=== PATIENT | female | born 1945 | race Caucasian/White ===

== ENCOUNTER 2020-04-23 16:35 | Emergency (ER) | payer MEDICARE, SELFPAY ==
[2020-04-23 16:43] VITALS: BP 133/55; PULSE 77; RESP 18; TEMP 36.6; O2SAT 96; BMI 26.1
--- NOTE | 2020-04-23 16:51 | CT_ITS ---
EXAMINATION: CT ABDOMEN AND PELVIS WITHOUT CONTRAST CLINICAL INFORMATION: Left lower quadrant pain with ventral hernia. COMPARISON: 09/11/2019 TECHNIQUE: Multidetector volumetric imaging was performed from the superior aspect of the liver through the pubic symphysis. Sagittal and coronal reformatted images were obtained on the technologist's workstation. This CT examination was performed using dose optimization techniques as appropriate, variously including the following: *Automated exposure control *Adjustment of mA and/or kV according to patient size (this includes techniques or standardized protocols for targeted exams where dose is matched to indication/reason for exam; i.e. extremities or head) *Use of iterative reconstruction technique DLP: 389 mGy-cm FINDINGS: LUNG BASES: The visualized lung bases are unremarkable. LIVER, GALLBLADDER, AND BILIARY TREE: The liver is normal in size, shape, and attenuation. No focal hepatic lesion or biliary ductal dilatation is present. The gallbladder is not seen. PANCREAS: Unremarkable. SPLEEN: Unremarkable. ADRENAL GLANDS: Unremarkable. KIDNEYS AND URETERS: The kidneys are normal in size, shape, and attenuation. No hydronephrosis, hydroureter, or calculi seen. No perinephric stranding. Left extrarenal pelvis is unchanged. BLADDER: Distended without wall thickening. GASTROINTESTINAL TRACT: Moderate to large hiatal hernia. Normal caliber small bowel. No obstruction. No colonic wall thickening or inflammatory change. Distal colonic anastomosis. No free air. No free fluid. ABDOMINAL WALL: Prior ventral hernia repair. Eventration of the central abdominal wall focally. Rectus diastases. LYMPH NODES: Normal. VASCULAR: Normal caliber aorta with mild atherosclerotic calcification. PELVIC VISCERA: No pelvic mass. OSSEOUS STRUCTURES: No acute or suspicious osseous abnormality. Compression deformities at T12 and L4 unchanged. Kyphoplasty cement of T11. Mild degenerative changes of the hips. CT/CT abdomen pelvis wo con IMPRESSION: No acute findings of the abdomen or pelvis. No inflammatory changes. Prior ventral abdominal wall hernia repair with focal eventration of the ventral abdominal wall. This is unchanged from prior.
--- NOTE | 2020-04-23 17:10 | PC.NURSE ---
pt to ct
[2020-04-23 17:40] LABS: Basophils Percent Auto 0.6 % (0-2); Eosinophils Absolute Auto 0.2 X10*3/uL (0.0-0.4); Hematocrit 35.6 % (37-47); Hemoglobin 11.6 g/dl (12.0-16.0); Imm Gran Abs Auto 0.01 X10*3/uL (0.00-0.03); Imm Gran Pct Auto 0.2 % (0.0-0.4); Lymphocytes Percent Auto 37.4 % (20-40); MANUAL DIFF FLAG NO; Mean Corpuscular HGB Conc 32.6 g/dl (31.0-35.0); Mean Corpuscular Volume 98.1 fL (80-98); Mean Platelet Volume 9.9 fL (9.4-12.3); Monocytes Absolute Auto 0.5 X10*3/uL (0.1-1.2); Monocytes Percent Auto 9.4 % (2-11); Neutrophils Absolute Auto 2.6 X10*3/uL (2.0-8.3); Neutrophils Percent Auto 49.4 % (45-73); Platelet Count 245 X10*3/uL (160-400); Red Blood Count 3.63 X10*6/uL (4.20-5.50); Red Cell Distribution Width 12.7 % (11.0-16.0); White Blood Count 5.3 X10*3/uL (4.8-10.8)
[2020-04-23 18:06] LABS: Alanine Aminotransferase 8 U/L (0-31); Albumin Level 3.6 g/dL (3.5-5.0); Alkaline Phosphatase 71 U/L (39-117); Anion Gap 12 (12-20); Aspartate Amino Transferase 16 U/L (5-31); Bilirubin Direct < 0.2 mg/dL (0.0-0.5); Bilirubin Total 0.3 mg/dL (0.0-1.0); Blood Urea Nitrogen 28 mg/dL (9-16); Calcium 9.3 mg/dL (8.4-10.2); Carbon Dioxide 30 mmol/L (22-29); Chloride 104 mmol/L (96-108); Creatinine Clr Calc Pharmacy 31.9; Estimated Glomerular Filt Rate 42; Glucose Random 85 mg/dL (60-115); Potassium 4.2 mmol/l (3.3-5.1); Sodium 142 mmol/L (135-145)
[2020-04-23] MEDS: 0.9 % Sodium Chloride 1,000 ML 999 ML IVCONT (18:19)
[2020-04-23 18:23] LABS: Lipase 88 U/L (8-78)
--- NOTE | 2020-04-23 19:06 | ED.ABDPAIN ---
HPI - Abdominal Pain General Chief Complaint: Abdominal Pain Stated Complaint: abd pain Time Seen by Provider: 04/23/20 16:51 Source: patient and EMS Mode of arrival: EMS Limitations: no limitations History of Present Illness HPI narrative: Patient's history of ventral hernia for long time was cleaning her bathtub earlier today complaining of pain in the hernia area which is going on for long time for patient. Patient denies any nausea or vomiting patient feels fine at this time denies any blood in the stool. No fever no cough no history of constipation Related Data Allergies Allergy/AdvReac Type Severity Reaction Status Date / Time ibuprofen [IBUPROFEN] Allergy Unknown KIDNEY Unverified 02/06/20 14:50 PROBLEMS oxycodone [From OXYCONTIN] Allergy Unknown UNKNOWN Unverified 02/06/20 14:50 Sulfa (Sulfonamide Allergy Unknown UNKNOWN Unverified 02/06/20 14:50 Antibiotics) [SULFA (SULFONAMIDE ANTIBIOTICS)] Ibuprofen Allergy Unknown Uncoded 05/08/17 00:00 Sulfer Allergy Unknown Uncoded 05/08/17 00:00 Review of Systems Review of Systems REVIEW OF SYSTEMS: Pertinent positives and negatives are stated above in the history. GEN: no fevers, chills, fatigue HEENT: no nasal congestion, sore throat, ear pain NEURO: no headache, dizziness, focal weakness PULM: no cough, shortness of breath CV: no chest pain, palpitations, LE edema ABD: no nausea, vomiting, diarrhea : no dysuria, urgency, frequency SKIN: no rash ROS otherwise negative x 10 Physical Exam Vital Signs: Vital Signs: Last Vital Signs Temp 97.9 F 04/23/20 16:43 Pulse 77 04/23/20 16:43 Resp 18 04/23/20 16:43 BP 133/55 L 04/23/20 16:43 Pulse Ox 96 04/23/20 16:43 Body Mass Index 26.1 Appearance: Alert. Oriented X3. No acute distress. Eyes: Pupils equal, round and reactive to light. ENT: Pharynx normal. Neck: Normal inspection. Neck supple. CVS: Normal heart rate and rhythm. Pulses normal. Respiratory: No respiratory distress. Breath sounds normal. Abdomen: Soft and nontender. Small ventral hernia on the left lower side reducible nontender bowel sounds are present Skin: Skin warm and dry. Normal skin color. Normal skin turgor. Extremities: No lower extremity edema. Good range of movement Neuro: Oriented X 3. No motor deficit. No sensory deficit. MDM - Abdominal Pain MDM Narrative Medical decision making narrative: Patient with prior ventral hernia repair with focal eventration on ventral abdominal wall no signs of obstruction is reducible CT scan without any obstruction, patient comfortable , will discharge patient home Medical Records Attestation: I reviewed the patient's medical records. Lab Data Attestation: I reviewed the patient's lab results. Result diagrams: 04/23/20 17:28 04/23/20 17:28 Labs: Lab Results 04/23/20 04/23/20 Range/Units 17:28 17:28 WBC 5.3 (4.8-10.8) X10*3/uL RBC 3.63 L (4.20-5.50) X10*6/uL Hgb 11.6 L (12.0-16.0) g/dl Hct 35.6 L (37-47) % MCV 98.1 H (80-98) fL MCH 32.0 (27.0-33.0) pg MCHC 32.6 (31.0-35.0) g/dl RDW 12.7 (11.0-16.0) % Plt Count 245 (160-400) X10*3/uL MPV 9.9 (9.4-12.3) fL Immature Gran % (Auto) 0.2 (0.0-0.4) % Neut % (Auto) 49.4 (45-73) % Lymph % (Auto) 37.4 (20-40) % [place] % (Auto) 9.4 (2-11) % Eos % (Auto) 3.0 (0-4) % Baso % (Auto) 0.6 (0-2) % Lymph # (Auto) 2.0 (1.2-4.9) X10*3/uL [place] # (Auto) 0.5 (0.1-1.2) X10*3/uL Eos # (Auto) 0.2 (0.0-0.4) X10*3/uL Baso # (Auto) 0.0 (0.0-0.2) X10*3/uL Abs Immat Gran (auto) 0.01 (0.00-0.03) X10*3/uL Absolute Neuts (auto) 2.6 (2.0-8.3) X10*3/uL Absolute Nucleated RBC 0.000 (0.0-0.012) X10*3/uL Nucleated RBC % (auto) 0.0 (0.0-0.2) /100WBC Sodium 142 (135-145) mmol/L Potassium 4.2 (3.3-5.1) mmol/l Chloride 104 (96-108) mmol/L Carbon Dioxide 30 H (22-29) mmol/L Anion Gap 12 (12-20) BUN 28 H (9-16) mg/dL Creatinine 1.24 (0.5-1.4) mg/dL Estim Creat Clear Calc 31.9 Estimated GFR 42 Random Glucose 85 (60-115) mg/dL Calcium 9.3 (8.4-10.2) mg/dL Total Bilirubin 0.3 (0.0-1.0) mg/dL Direct Bilirubin < 0.2 (0.0-0.5) mg/dL AST 16 (5-31) U/L ALT 8 (0-31) U/L Alkaline Phosphatase 71 (39-117) U/L Total Protein 6.0 L (6.5-8.0) g/dL Albumin 3.6 (3.5-5.0) g/dL Lipase 88 H (8-78) U/L Imaging Data CT scan - abdomen: Attestation: I personally reviewed and interpreted this imaging study as follows: Radiologist's impression: CT/CT abdomen pelvis wo con IMPRESSION: No acute findings of the abdomen or pelvis. No inflammatory changes. Prior ventral abdominal wall hernia repair with focal eventration of the ventral abdominal wall. This is unchanged from prior. Discharge Plan Discharge Clinical Impression: Hernia, ventral Patient Disposition: Home, Self-Care Instructions: Ventral Hernia (ED) Additional Instructions: Follow-up with PCP as needed Interventions: ED Discharge Assessment Last Done: 04/23/20 19:37 Discharge Date/Time: 04/23/20 19:37 [facility] Past Medical History Medical History Hernia Social History Social History Alcohol intake: never Smoking Status: Current every day smoker Use of substances other than those prescribed or required for medical reasons: No Advance Directives: No Advance Directives Information Provided: No
== END 2020-04-23 19:37 | disposition home or self-care (01) ==
PROVIDERS: Emergency Provider Internal Medicine; PCP Internal Medicine
DX: K43.9 Ventral hernia without obstruction or gangrene (principal); F17.200 Nicotine dependence, unspecified, uncomplicated
CPT/HCPCS: 36415; 74176; 80048; 80076; 83690; 85025; 96360; 99284

== ENCOUNTER 2021-02-06 17:16 | Emergency (ER) | payer MEDICARE, SELFPAY ==
--- NOTE | ~2021-02-06 | XR_ITS ---
EXAMINATION: PELVIS LEFT HIP LUMBAR SPINE LEFT RIBS CHEST CLINICAL INFORMATION: Fall COMPARISON: None TECHNIQUE: Frontal view of the chest. 3 views left RIBS Frontal and lateral views lumbar spine. Coned-down view lumbosacral junction in the lateral projection Frontal view of the pelvis 2 views left hip FINDINGS: Chest: There is tortuosity of the aorta. There may be a double density in the lower mediastinum. The cardiac size is within normal limits. There is no hilar mass or alveolar edema. No consolidation. No pleural fluid or pneumothorax. There is no evidence of pneumoperitoneum. There is augmentation cement in the thoracolumbar junction region. There are surgical clips in the left midabdomen. There are metallic tacks likely related to abdominal wall repair. Left RIBS: There is deformity in the anterolateral left 10th rib. This could be chronic. On one of the used there is a suggestion of some callus. There may be an additional deformity in the adjacent ribs. Lumbar spine: There is mild volume loss at L4 similar to the CT 04/23/20. Partially included augmentation cement in marked volume loss at T11 and T12. There are surgical clips and metallic tacks. Vascular calcification. The sacrum is obscured. Pelvis: Gas secures much of the detail. Metallic tacks superimposes over the pelvis. There is no definite disruption of the SI joints, hips or symphysis. No definite acute pelvic fracture. Left hip: The alignment is normal. No fracture demonstrated. XR/XR lumbar spine 2-3V IMPRESSION: Deformities in the anterolateral lower left ribs may be acute or subacute. Correlation necessary. Chronic deformities in the lower thoracic spine and L4 with no acute change No definite pelvic fracture or fracture or subluxation on the left hip demonstrated
--- NOTE | ~2021-02-06 | XR_ITS ---
EXAMINATION: PELVIS LEFT HIP LUMBAR SPINE LEFT RIBS CHEST CLINICAL INFORMATION: Fall COMPARISON: None TECHNIQUE: Frontal view of the chest. 3 views left RIBS Frontal and lateral views lumbar spine. Coned-down view lumbosacral junction in the lateral projection Frontal view of the pelvis 2 views left hip FINDINGS: Chest: There is tortuosity of the aorta. There may be a double density in the lower mediastinum. The cardiac size is within normal limits. There is no hilar mass or alveolar edema. No consolidation. No pleural fluid or pneumothorax. There is no evidence of pneumoperitoneum. There is augmentation cement in the thoracolumbar junction region. There are surgical clips in the left midabdomen. There are metallic tacks likely related to abdominal wall repair. Left RIBS: There is deformity in the anterolateral left 10th rib. This could be chronic. On one of the used there is a suggestion of some callus. There may be an additional deformity in the adjacent ribs. Lumbar spine: There is mild volume loss at L4 similar to the CT 04/23/20. Partially included augmentation cement in marked volume loss at T11 and T12. There are surgical clips and metallic tacks. Vascular calcification. The sacrum is obscured. Pelvis: Gas secures much of the detail. Metallic tacks superimposes over the pelvis. There is no definite disruption of the SI joints, hips or symphysis. No definite acute pelvic fracture. Left hip: The alignment is normal. No fracture demonstrated. XR/XR hip LT w PEL1V IMPRESSION: Deformities in the anterolateral lower left ribs may be acute or subacute. Correlation necessary. Chronic deformities in the lower thoracic spine and L4 with no acute change No definite pelvic fracture or fracture or subluxation on the left hip demonstrated
--- NOTE | ~2021-02-06 | XR_ITS ---
EXAMINATION: PELVIS LEFT HIP LUMBAR SPINE LEFT RIBS CHEST CLINICAL INFORMATION: Fall COMPARISON: None TECHNIQUE: Frontal view of the chest. 3 views left RIBS Frontal and lateral views lumbar spine. Coned-down view lumbosacral junction in the lateral projection Frontal view of the pelvis 2 views left hip FINDINGS: Chest: There is tortuosity of the aorta. There may be a double density in the lower mediastinum. The cardiac size is within normal limits. There is no hilar mass or alveolar edema. No consolidation. No pleural fluid or pneumothorax. There is no evidence of pneumoperitoneum. There is augmentation cement in the thoracolumbar junction region. There are surgical clips in the left midabdomen. There are metallic tacks likely related to abdominal wall repair. Left RIBS: There is deformity in the anterolateral left 10th rib. This could be chronic. On one of the used there is a suggestion of some callus. There may be an additional deformity in the adjacent ribs. Lumbar spine: There is mild volume loss at L4 similar to the CT 04/23/20. Partially included augmentation cement in marked volume loss at T11 and T12. There are surgical clips and metallic tacks. Vascular calcification. The sacrum is obscured. Pelvis: Gas secures much of the detail. Metallic tacks superimposes over the pelvis. There is no definite disruption of the SI joints, hips or symphysis. No definite acute pelvic fracture. Left hip: The alignment is normal. No fracture demonstrated. XR/XR ribs LT min 3V w CXR1V IMPRESSION: Deformities in the anterolateral lower left ribs may be acute or subacute. Correlation necessary. Chronic deformities in the lower thoracic spine and L4 with no acute change No definite pelvic fracture or fracture or subluxation on the left hip demonstrated
[2021-02-06 17:37] VITALS: BP 119/49; PULSE 68; RESP 18; TEMP 36.4; O2SAT 96; BMI 21.5
[2021-02-06 17:42] VITALS: BP 101/54; PULSE 70
--- NOTE | 2021-02-06 18:32 | ED_ITS ---
HPI - Fall General Chief Complaint: Fall <GERONIMO Mejia Last Filed: 02/06/21 18:40> Stated Complaint: back pain, fall <GERONIMO Mejia Last Filed: 02/06/21 18:40> Time Seen by Provider: 02/06/21 18:22 <GERONIMO Mejia Last Filed: 02/06/21 18:40> Source: patient <GERONIMO Mejia Last Filed: 02/06/21 18:40> Mode of arrival: ambulatory <GERONIMO Mejia Last Filed: 02/06/21 18:40> History of Present Illness HPI Narrative: 75-year-old female with a past medical history of hiatal hernia, presenting to the ED complaining of low back pain/left rib and left hip pain s/p mechanical fall [employer]. Reports at baseline ambulates with walker however walked to stove without walker to check if gas was left on and fell backwards onto buttock/back, denies head trauma or LOC. Denies taking anticoagulation. Reports was unable to get up, and was home alone. Has not ambulated since incident/or tried. Denies symptoms prior to fall. abdominal pain, nausea, vomiting, CP/SOB, numbness, tingling, weakness <GERONIMO Mejia Last Filed: 02/06/21 18:40> MD complaint: fall <GERONIMO Mejia Last Filed: 02/06/21 18:40> Onset (ago): hour(s) <GERONIMO Mejia Last Filed: 02/06/21 18:40> Related Data Allergies/Adverse Reactions: Allergies Allergy/AdvReac Type Severity Reaction Status Date / Time ibuprofen [IBUPROFEN] Allergy Unknown KIDNEY Unverified 02/06/20 14:50 PROBLEMS oxycodone [From OXYCONTIN] Allergy Unknown UNKNOWN Unverified 02/06/20 14:50 Sulfa (Sulfonamide Allergy Unknown UNKNOWN Unverified 02/06/20 14:50 Antibiotics) [SULFA (SULFONAMIDE ANTIBIOTICS)] Ibuprofen Allergy Unknown Uncoded 05/08/17 00:00 Sulfer Allergy Unknown Uncoded 05/08/17 00:00 <GERONIMO Mejia Last Filed: 02/06/21 18:40> Review of Systems Review of Systems: Constitutional: No Fever, No Night Sweats, No Fatigue, No Malaise ENT/Mouth: No Hearing loss, No Ear Pain, No sore throat, No Rhinorrhea Eyes: No Eye Pain, No Swelling, No Redness Cardiovascular: +Rib pain, No SOB, No Palpitations Respiratory: No Cough, No Sputum, No Dyspnea Gastrointestinal: No Nausea, No Vomiting, No Diarrhea, No Constipation, No Abdom inal pain Genitourinary: No Dysuria, No Urinary Frequency, No Hematuria, No Urinary Incontinence/retention, No Flank Pain Musculoskeletal: + joint pain, No Myalgias, No Joint Swelling Skin: No Skin Lesions, No rash Neuro: No Weakness, No Numbness, No Paresthesias, No Loss of Consciousness, No Headache <GERONIMO Mejia - Last Filed: 02/06/21 18:40> Yes all other systems are reviewed and are negative <GERONIMO Mejia - Last Filed: 02/06/21 18:40> Neurologic: Denies Abnormal speech present <GERONIMO Mejia - Last Filed: 02/06/21 18:40> [facility] Past Medical History Attestation statement: The following information was validated with the patient. <GERONIMO Mejia - Last Filed: 02/06/21 18:40> Medical History: Medical History Hernia <GERONIMO Mejia - Last Filed: 02/06/21 18:40> Social History Social History: Social History Alcohol intake: never Advance Directives: No Advance Directives Information Provided: No <GERONIMO Mejia - Last Filed: 02/06/21 18:40> Physical Exam Vital Signs: Vital Signs: Last Vital Signs Temp 97.8 F 02/06/21 20:00 Pulse 73 02/06/21 20:00 Resp 17 02/06/21 20:00 BP 117/59 L 02/06/21 20:00 Pulse Ox 96 02/06/21 20:00 Body Mass Index 21.5 <GERONIMO Mejia - Last Filed: 02/06/21 18:40> Vital Signs: Last Vital Signs Temp 97.8 F 02/06/21 20:00 Pulse 73 02/06/21 20:00 Resp 17 02/06/21 20:00 BP 117/59 L 02/06/21 20:00 Pulse Ox 96 02/06/21 20:00 Body Mass Index 21.5 <GERONIMO Beebe - Last Filed: 02/06/21 21:12> Vital Signs: Last Vital Signs Temp 97.8 F 02/06/21 20:00 Pulse 73 02/06/21 20:00 Resp 17 02/06/21 20:00 BP 117/59 L 02/06/21 20:00 Pulse Ox 96 02/06/21 20:00 Body Mass Index 21.5 <Zion Lazaro MD - Last Filed: 02/07/21 02:13> Const: General: cooperative and healthy appearing <GERONIMO Mejia - Last Filed: 02/06/21 18:40> Orientation/consciousness: patient oriented x3 <GERONIMO Mejia - Last Filed: 02/06/21 18:40> Limitations: no limitations <GERONIMO Mejia - Last Filed: 02/06/21 18:40> HENMT: Head: Yes normal to inspection and Yes atraumatic <GERONIMO Mejia - Last Filed: 02/06/21 18:40> Ears: hearing grossly normal bilaterally <GERONIMO Mejia - Last Filed: 02/06/21 18:40> General nose exam: Normal external nose present <GERONIMO Mejia - Last Filed: 02/06/21 18:40> Face and sinus: Yes normal facial exam <GERONIMO Mejia - Last Filed: 02/06/21 18:40> Throat: Yes posterior oropharynx normal <GERONIMO Mejia - Last Filed: 02/06/21 18:40> Eyes: General: appearance normal, both eyes and all related structures <GERONIMO Mejia - Last Filed: 02/06/21 18:40> Pupils: Equal, round and reactive pupils present <GERONIMO Mejia - Last Filed: 02/06/21 18:40> EOM: EOMs intact bilaterally <GERONIMO Mejia - Last Filed: 02/06/21 18:40> Neck: Neck: Yes normal visual inspection, Yes no lymphadenopathy and Yes no meningeal signs <Erin Cadetito PA - Last Filed: 02/06/21 18:40> Resp: Effort & Inspection: normal respiratory effort and no respiratory distress <Erin Gasca PA - Last Filed: 02/06/21 18:40> Cardio: Rate: regular rate <Erin Gasca MO - Last Filed: 02/06/21 18:40> GI: Inspection: Yes normal to inspection <Erin Campos MO - Last Filed: 02/06/21 18:40> Palpation (GI): Soft to palpation, nontender, no guarding and not rigid <Erin Cadetito MO - Last Filed: 02/06/21 18:40> Back/Spine/Pelvis: Other: No midline thoracic/lumbar spinous tenderness/step- off or deformity. + left-sided upper thoracic/rib tenderness to palpation <Erin Campos MO - Last Filed: 02/06/21 18:40> Skin: Rashes: no rashes <Erin Campos MO - Last Filed: 02/06/21 18:40> Wounds: no wounds <Erin Gasca MO - Last Filed: 02/06/21 18:40> Neuro: General: patient oriented x3, tone normal, moves all extremities, no meningeal signs, no focal motor deficits and CN's II-XI intact bilaterally <Erin Gasca MO - Last Filed: 02/06/21 18:40> Cranial nerves: Yes CN's II-XII intact bilaterally, Yes Equal, round and reactive pupils present and Yes Bilaterally intact EOM present <Erin Campos MO - Last Filed: 02/06/21 18:40> Cognition (Neuro): normal cognition <Erin Campos PA - Last Filed: 02/06/21 18:40> Speech: No Abnormal speech present <Erin Campos MO - Last Filed: 02/06/21 18:40> Motor exam (neuro): 5/5 motor strength present throughout <Erin [facility] PA - Last Filed: 02/06/21 18:40> Extrem: Other: Left hip with mild tenderness, no appreciable deformity. Active and passive ROM intact. Pelvis stable <Erin Campos PA - Last Filed: 02/06/21 18:40> General: Yes normal to inspection <GERONIMO Mejia - Last Filed: 02/06/21 18:40> Course Course Course Narrative: -1900--ED care transferred to GERONIMO Woodall pending imaging and dispo for results <GERONIMO Mejia - Last Filed: 02/06/21 18:40> Reevaluation(s) Reevaluation #1: X-rays negative for anything acute except possible left lower rib fracture. Patient was able to ambulate fine with a walker. Will provide incentive spirometer, prescription for naproxen. Advised patient to follow-up with her primary care provider. <GERONIMO Beebe - Last Filed: 02/06/21 21:12> MDM - Fall MDM Narrative Medical decision making narrative: 75-year-old female with a past medical history of hiatal hernia, presenting to the ED complaining of low back pain/left rib and left hip pain s/p mechanical fall [employer]. On exam VSS, NAD/well-appearing, physical exam as above, no midline spinous tenderness. Low concern for ICH. Rule out rib/pelvic/hip fracture. Likely mechanical fall Plan: X-rays, ambulation trial <GERONIMO Mejia - Last Filed: 02/06/21 18:40> Medical Records Attestation: I reviewed the patient's medical records. <GERONIMO Mejia - Last Filed: 02/06/21 18:40> Lab Data Attestation: I reviewed the patient's lab results. <GERONIMO Mejia - Last Filed: 02/06/21 18:40> Discharge Plan Discharge Clinical Impression: Arthralgia, Fall <GERONIMO Mejia - Last Filed: 02/06/21 18:40> Patient Disposition: Home, Self-Care <GERONIMO Mejia - Last Filed: 02/06/21 18:40> Instructions: Fall Prevention (ED) <GERONIMO Mejia - Last Filed: 02/06/21 18:40> Additional Instructions: Please use your incentive spirometer I would like you to use it twice every hour for the next 3 days. This will keep her lungs from collapsing and keep even getting pneumonia. Please take tylenol, 1000 mg every 8 hours, not to exceed 3000 mg in 24 hours. Please call your primary care provider on Monday for follow-up appointment. <GERONIMO Mejia - Last Filed: 02/06/21 18:40> Interventions: ED Discharge Assessment Last Done: 02/06/21 23:12 <GERONIMO Mejia - Last Filed: 02/06/21 18:40> Discharge Date/Time: 02/06/21 23:14 <GERONIMO Mejia - Last Filed: 02/06/21 18:40>
[2021-02-06 20:00] VITALS: BP 117/59; PULSE 73; RESP 17; TEMP 36.6; O2SAT 96
== END 2021-02-06 23:14 | disposition home or self-care (01) ==
PROVIDERS: Emergency Provider Emergency Medicine; PCP Internal Medicine
DX: M54.5 Low back pain (principal); R07.81 Pleurodynia; M25.552 Pain in left hip; Z79.899 Other long term (current) drug therapy
CPT/HCPCS: 71101; 72100; 73502; 99284

== ENCOUNTER 2021-04-19 11:15 | Emergency (ER) | payer MEDICARE, SELFPAY ==
[2021-04-19 11:35] VITALS: BP 125/58; PULSE 73; O2SAT 97
[2021-04-19 12:00] VITALS: BP 111/80; PULSE 78; RESP 18; TEMP 36.7; O2SAT 99; BMI 19.5
[2021-04-19 13:43] LABS: Color Urine YELLOW; Glucose Urine UA NEG (NEG); Leukocyte Esterase Urine 2+ (NEG); Nitrite Urine NEG (NEG); PH 5.5 (5.0-8.0); Specific Gravity - Urine <= 1.005 (1.005-1.025); UACC Culture Trigger YES; Urine Blood NEG (NEG); Urine Ketones NEG (NEG); Urine Protein NEG (NEG-TRACE)
[2021-04-19 13:44] LABS: Appearance Urine HAZY
[2021-04-19 13:55] LABS: Bacteria Urine 1+ /LPF; RBC Urine 0-2 /HPF (0); Squamous Epithelial Cell Urine 1+ /LPF
[2021-04-19 14:20] LABS: MANUAL DIFF FLAG NO
[2021-04-19 14:22] LABS: Basophils Percent Auto 0.2 % (0-2); Eosinophils Absolute Auto 0.1 X10*3/uL (0.0-0.4); Eosinophils Percent Auto 2.3 % (0-4); Hematocrit 36.1 % (37.0-47.0); Hemoglobin 11.8 g/dl (12.0-16.0); Imm Gran Abs Auto 0.01 X10*3/uL (0.00-0.03); Imm Gran Pct Auto 0.2 % (0.0-0.4); Lymphocytes Absolute Auto 1.6 X10*3/uL (1.2-4.9); Mean Corpuscular HGB Conc 32.7 g/dl (31.0-35.0); Mean Corpuscular Hemoglobin 32.1 pg (27.0-33.0); Mean Corpuscular Volume 98.1 fL (80.0-98.0); Mean Platelet Volume 10.8 fL (9.4-12.3); Monocytes Absolute Auto 0.4 X10*3/uL (0.1-1.2); Monocytes Percent Auto 7.9 % (2-11); Neutrophils Absolute Auto 3.4 x10*3/uL (2.0-8.3); Neutrophils Percent Auto 61.4 % (45-73); Platelet Count 261 X10*3/uL (160-400); Red Blood Count 3.68 X10*6/uL (4.20-5.50); Red Cell Distribution Width 12.8 % (11.0-16.0); White Blood Count 5.6 X10*3/uL (4.8-10.8)
[2021-04-19 14:39] LABS: Alanine Aminotransferase 12 U/L (0-31); Albumin Level 3.3 g/dL (3.5-5.0); Alkaline Phosphatase 91 U/L (39-117); Anion Gap 12 (12-20); Aspartate Amino Transferase 19 U/L (5-31); Bilirubin Total 0.2 mg/dL (0.0-1.0); Blood Urea Nitrogen 16 mg/dL (9-16); Calcium 9.4 mg/dL (8.4-10.2); Carbon Dioxide 26 mmol/L (22-29); Chloride 109 mmol/L (96-108); Creatinine Clr Calc Pharmacy 31.9; Estimated Glomerular Filt Rate 45; Glucose Random 95 mg/dL (60-115); Potassium 3.4 mmol/L (3.3-5.1); Sodium 144 mmol/L (135-145); Total Protein 6.3 g/dL (6.5-8.0)
== END 2021-04-19 21:14 | disposition left against medical advice (07) ==
PROVIDERS: Emergency Provider Emergency Medicine
DX: R10.9 Unspecified abdominal pain (principal); N39.0 Urinary tract infection, site not specified; Z79.899 Other long term (current) drug therapy
CPT/HCPCS: 36415; 80053; 81001; 85025; 87086; 99283

== ENCOUNTER 2021-07-05 04:54 | Emergency (ER) | payer MEDICARE, SELFPAY ==
--- NOTE | ~2021-07-05 | XR_ITS ---
EXAMINATION: XR ANKLE, RIGHT CLINICAL INFORMATION: Ankle pain, rule out fracture COMPARISON: 01/18/2018 TECHNIQUE: AP, lateral, and mortise views of the right ankle. FINDINGS: Redemonstrated plate and screw fixation hardware along the distal fibula and additional screw at the medial malleolus. Hardware appears intact and in similar position to prior. Alignment across the ankle is anatomic. No acute fracture is seen. Osteopenia is noted. Redemonstrated calcification along the distal tibiofibular syndesmosis. There is mild soft tissue swelling at the ankle. XR/XR ankle RT min 3V IMPRESSION: No acute osseous findings. Mild soft tissue swelling. Chronic and postoperative changes as noted above.
[2021-07-05 05:03] VITALS: BP 115/41; PULSE 65; RESP 16; O2SAT 95; BMI 22.3
--- NOTE | 2021-07-05 05:25 | ED.FALL ---
HPI - Fall General Chief Complaint: Fall Stated Complaint: Fall Time Seen by Provider: 07/05/21 05:12 Source: patient Mode of arrival: EMS Limitations: no limitations History of Present Illness HPI Narrative: 75-year-old female who presents emergency department for evaluation of a fall out of bed an injury to her right ankle. The patient states that her bed is low to the ground. She had medicines and johnathan luis on the bedside table. She states she reached over to get her medicines when she rolled out of bed and landed on the floor. She states that her floors a tile floor. The EMT state that they know the patient well and she falls frequently out of bed. They states that her bed is very low to the floor. The patient denied hitting her head. She denied loss of consciousness. She states that she is having pain in her right ankle from the fall. The patient states she had a previous fracture to the right ankle which required pins and screws to fix it. She states she currently has an infection of the right ankle and just started a new antibiotic. MD complaint: fall Onset (ago): minute(s) (Twenty) Fall from: out of bed Fall witnessed: no Place fall occurred: home Loss of consciousness: none Prolonged down time: no Symptoms prior to fall: none Context: other (Rolled out of bed reaching for medicine) Location of injury: other (Right ankle) Location of injury - extremities: right: ankle Severity: moderate Severity scale (1-10): 5 Quality: sharp and dull Associated symptoms (after fall): denies Related Data Allergies Allergy/AdvReac Type Severity Reaction Status Date / Time ibuprofen [IBUPROFEN] Allergy Intermediate KIDNEY Verified 04/19/21 12:00 PROBLEMS oxycodone [From OXYCONTIN] Allergy Unknown UNKNOWN Verified 04/19/21 12:00 Sulfa (Sulfonamide Allergy Unknown UNKNOWN Verified 04/19/21 12:00 Antibiotics) [SULFA (SULFONAMIDE ANTIBIOTICS)] Ibuprofen Allergy Unknown Unknown Uncoded 04/19/21 12:00 Sulfer Allergy Unknown Unknown Uncoded 04/19/21 12:00 Review of Systems Review of Systems: Yes all other systems are reviewed and are negative [facility] Past Medical History [facility] Narrative: Past medical history: Bipolar disorder, hiatal hernia, diverticulitis, right ankle fracture with internal fixation, right lower extremity infection. Past surgical history: Resection of the colon secondary to diverticulitis. . Social history: She states she lives at home with her brother Jaime. She smokes less than 1 pack of cigarettes per day times many years. She denies alcohol use. She denies drug use. Medical History Bipolar disorder Diverticulitis Hernia Kidney disease UTI (urinary tract infection) Surgical History H/O abdominal surgery Social History Social History Alcohol intake: never Advance Directives: No Physical Exam Vital Signs: Vital Signs: Last Vital Signs Pulse 64 07/05/21 06:23 Resp 12 07/05/21 06:23 BP 98/44 L 07/05/21 06:23 Pulse Ox 92 07/05/21 06:23 BMI result Body Mass Index 22.3 Const: Other: Frail, elderly female, very pleasant and cooperative, oriented to person and place, answers all questions appropriately, able to give me a very good history of her fall out of bed and past history. HENMT: Head: Yes normal to inspection, Yes normocephalic and Yes atraumatic Ears: external ears normal General nose exam: Normal external nose present Face and sinus: Yes normal facial exam Mouth: Normal oral and palatal mucosa present Throat: Yes posterior oropharynx normal Eyes: General: appearance normal, both eyes and all related structures Pupils: Equal, round and reactive pupils present Neck: Neck: Yes normal visual inspection, Yes no lymphadenopathy, Yes trachea midline and Yes supple Chest: Chest palpation & inspection: normal inspection of the chest and normal palpation of entire chest wall Resp: Effort & Inspection: normal respiratory effort and able to speak in complete sentences Auscultation: clear to auscultation bilaterally Cardio: Rate: regular rate Rhythm: regular rhythm Heart sounds: S1 normal heart sound present, S2 normal heart sound present and no murmurs GI: Inspection: Yes normal to inspection Palpation (GI): Soft to palpation, nontender and no guarding Auscultation: normal bowel sounds : General: Yes no CVA tenderness Back/Spine/Pelvis: Back: no CVA tenderness Skin: General skin exam: no rashes or lesions noted Neuro: Cranial nerves: Yes CN's II-XII intact bilaterally and Yes Equal, round and reactive pupils present Cognition (Neuro): normal cognition Motor exam (neuro): 5/5 motor strength present throughout Extrem: Other: Right ankle is tender to palpation, the ankle was wrapped with a complex dressing, the tips of the distal part of the patient's foot and toes are not wrapped, and they appear to be neurovascularly intact with no erythema or increased warmth. Psych: Appearance: grossly normal Speech and movement: Normal speech and movement present Affect: normal affect Attitude: cooperative Thought process: Normal thought process present Thought content: Normal thought content present Course Course Course Narrative: 75-year-old female who presented to the emergency department for evaluation a fall out of bed. The patient states that she did hurt her right ankle from falling out of bed otherwise had no other complaints. Examination did reveal tenderness with palpation of her right ankle, the ankle is wrapped and is currently being treated for a wound infection. I did obtain an x-ray of the right ankle and there was no evidence of acute fracture, the patient does have an old orthopedic repair. The patient will be discharged back to home if she can ambulate otherwise she will need case management. Discharge Plan Discharge Clinical Impression: Contusion of ankle, right, Fall from bed Patient Disposition: Home, Self-Care Instructions: Contusion in Adults (ED) Additional Instructions: The x-ray of your right ankle did not reveal any broken bones. The orthopedic hardware (plates and screws) appears to be normal and you did not injure your previous fracture from falling out of bed. Continue taking medications as prescribed by your provider. Take Tylenol (acetaminophen) 500 mg pills, 2 pills every 4 to 6 hours as needed for pain. Follow-up with your doctor in 2 days. Please return to the emergency department if your symptoms get worse or if you develop any symptoms that are concerning to you.
[2021-07-05 06:23] VITALS: BP 98/44; PULSE 64; RESP 12; O2SAT 92
--- NOTE | 2021-07-05 09:30 | PC.NURSE ---
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
[2021-07-05 09:44] VITALS: BP 102/62; PULSE 66; RESP 18; O2SAT 94
== END 2021-07-05 10:43 | disposition home or self-care (01) ==
PROVIDERS: Emergency Provider Emergency Medicine Emergency Medical Services; PCP Internal Medicine
DX: S90.01XA Contusion of right ankle, initial encounter (principal); W06.XXXA Fall from bed, initial encounter; Z91.81 History of falling; Y93.89 Activity, other specified; Y92.013 Bedroom of single-family (private) house as the place of occurrence of the external cause; Y99.9 Unspecified external cause status
CPT/HCPCS: 73610; 99283; 99284

== ENCOUNTER 2021-07-15 13:10 | Outpatient (RCR) | payer MEDICARE, OTHER, SELFPAY ==
--- NOTE | ~2021-07-15 | XR_ITS ---
EXAMINATION: XR ANKLE, RIGHT CLINICAL INFORMATION: Nonhealing wound of the right ankle. COMPARISON: 08/09/2021 TECHNIQUE: AP, lateral, and mortise views of the right ankle. FINDINGS: Medial malleolus fixation screw. Plate and screw fixation of the distal fibula. Hardware intact. Bony bridging across the distal tibiofibular syndesmosis. The ankle mortise is congruent. No acute fracture. No osseous erosions. Soft tissue swelling throughout. XR/XR ankle RT min 3V IMPRESSION: No osseous erosions to suggest osteomyelitis. Chronic changes of the ankle. Intact hardware.
[2022-01-11 16:59] LABS: MANUAL DIFF FLAG NO
[2022-01-11 17:25] LABS: Basophils Percent Auto 0.7 % (0-2); Eosinophils Absolute Auto 0.1 X10*3/uL (0.0-0.4); Eosinophils Percent Auto 1.9 % (0-4); Hematocrit 37.4 % (37.0-47.0); Imm Gran Abs Auto 0.01 X10*3/uL (0.00-0.03); Imm Gran Pct Auto 0.2 % (0.0-0.4); Lymphocytes Absolute Auto 1.6 X10*3/uL (1.2-4.9); Lymphocytes Percent Auto 28.3 % (20-40); Mean Corpuscular HGB Conc 32.1 g/dl (31.0-35.0); Mean Corpuscular Hemoglobin 32.1 pg (27.0-33.0); Monocytes Absolute Auto 0.5 X10*3/uL (0.1-1.2); Monocytes Percent Auto 8.8 % (2-11); Neutrophils Absolute Auto 3.4 x10*3/uL (2.0-8.3); Neutrophils Percent Auto 60.1 % (45-73); Platelet Count 306 X10*3/uL (160-400); Red Blood Count 3.74 X10*6/uL (4.20-5.50); Red Cell Distribution Width 13.3 % (11.0-16.0); White Blood Count 5.7 X10*3/uL (4.8-10.8)
[2022-01-11 17:41] LABS: C Reactive Protein 0.54 mg/dL (< or = 0.50)
[2022-01-11 17:47] LABS: Estimated Average Glucose 100 mg/dL; Hemoglobin A1c % 5.1 %
[2022-01-11 18:28] LABS: Erythrocyte Sedimentation Rate 34 MM/HR (0-20)
== END 2022-02-17 11:12 | disposition home or self-care (01) ==
LOC: HO.WCC 13:10
PROVIDERS: Physician Assistant; PCP Internal Medicine; Visit Provider Surgery
DX: I87.311 Chronic venous hypertension (idiopathic) with ulcer of right lower extremity (principal); L97.312 Non-pressure chronic ulcer of right ankle with fat layer exposed; J44.9 Chronic obstructive pulmonary disease, unspecified; F17.210 Nicotine dependence, cigarettes, uncomplicated
CPT/HCPCS: 11042; 15271; 36415; 73610; 83036; 84134; 85025; 85652; 86140; 97597; 99212; 99213; Q4158

== ENCOUNTER 2021-07-19 20:40 | Emergency (ER) | payer MEDICARE, SELFPAY ==
--- NOTE | ~2021-07-19 | CT_ITS ---
EXAMINATION: CT ABDOMEN AND PELVIS WITHOUT CONTRAST CLINICAL INFORMATION: Left lower quadrant pain, question diverticulitis COMPARISON: 04/23/2020 TECHNIQUE: Multidetector volumetric imaging was performed from the superior aspect of the liver through the pubic symphysis. Sagittal and coronal reformatted images were obtained on the technologist's workstation. This CT examination was performed using dose optimization techniques as appropriate, variously including the following: *Automated exposure control *Adjustment of mA and/or kV according to patient size (this includes techniques or standardized protocols for targeted exams where dose is matched to indication/reason for exam; i.e. extremities or head) *Use of iterative reconstruction technique DLP: 566 mGy-cm FINDINGS: LUNG BASES: There is subsegmental atelectasis in the medial right lower lobe. Coronary artery calcifications are present. LIVER, GALLBLADDER, AND BILIARY TREE: The liver is normal in size, shape, and attenuation. No focal hepatic lesion or biliary ductal dilatation is identified on this noncontrast exam. The gallbladder is not visualized. PANCREAS: Unremarkable. SPLEEN: Unremarkable. ADRENAL GLANDS: Unremarkable. KIDNEYS AND URETERS: Prominent left extrarenal pelvis is noted without appreciable obstructing calculus, similar to prior. No right hydronephrosis. A 2 mm mildly hyperdense focus in the right kidney may represent a hyperdense cyst. BLADDER: Unremarkable. GASTROINTESTINAL TRACT: Large hiatal hernia is present. The colonic anastomosis is noted. No convincing evidence of bowel obstruction. No free fluid or free air is seen. ABDOMINAL WALL: Status post ventral hernia repair. LYMPH NODES: No lymphadenopathy is seen, though assessment is limited in the absence of intravenous contrast. VASCULAR: There is atherosclerotic calcification along the aorta. PELVIC VISCERA: Unremarkable. OSSEOUS STRUCTURES: Degenerative changes are noted in the spine. There is vertebral body cement in T11. Redemonstrated severe compression deformity of T12 and partial compression deformity of L4. CT/CT abdomen pelvis wo con IMPRESSION: No acute findings identified in the abdomen/pelvis. Large hiatal hernia. Fleischner guidelines were followed.
[2021-07-19 20:57] VITALS: BP 124/44; BP 132/57; PULSE 76; PULSE 84; RESP 18; TEMP 36.9; O2SAT 97; BMI 21.7
[2021-07-19 21:30] LABS: MANUAL DIFF FLAG NO
[2021-07-19 21:33] LABS: Basophils Percent Auto 0.2 % (0-2); Eosinophils Absolute Auto 0.1 X10*3/uL (0.0-0.4); Eosinophils Percent Auto 1.8 % (0-4); Hematocrit 32.8 % (37.0-47.0); Hemoglobin 10.5 g/dl (12.0-16.0); Imm Gran Abs Auto 0.02 X10*3/uL (0.00-0.03); Imm Gran Pct Auto 0.4 % (0.0-0.4); Lymphocytes Absolute Auto 1.3 X10*3/uL (1.2-4.9); Lymphocytes Percent Auto 22.3 % (20-40); Monocytes Absolute Auto 0.5 X10*3/uL (0.1-1.2); Monocytes Percent Auto 8.9 % (2-11); Neutrophils Absolute Auto 3.7 x10*3/uL (2.0-8.3); Neutrophils Percent Auto 66.4 % (45-73); Platelet Count 291 X10*3/uL (160-400); Red Blood Count 3.28 X10*6/uL (4.20-5.50); Red Cell Distribution Width 13.5 % (11.0-16.0); White Blood Count 5.6 X10*3/uL (4.8-10.8)
[2021-07-19 21:48] LABS: Anion Gap 12 (12-20); Blood Urea Nitrogen 13 mg/dL (9-16); Calcium 9.1 mg/dL (8.4-10.2); Carbon Dioxide 27 mmol/L (22-29); Chloride 107 mmol/L (96-108); Creatinine Clr Calc Pharmacy 30.9; Estimated Glomerular Filt Rate 45; Glucose Random 121 mg/dL (60-115); Lipase 25 U/L (8-78); Potassium 4.1 mmol/L (3.3-5.1); Sodium 142 mmol/L (135-145)
--- NOTE | 2021-07-19 23:28 | ED_ITS ---
HPI - Abdominal Pain General Chief Complaint: Nausea/Vomiting/Diarrhea Stated Complaint: Abdominal pain Time Seen by Provider: 07/19/21 23:27 Source: patient Mode of arrival: ambulatory History of Present Illness HPI narrative: The came for left lower abdominal pain for last 24 hours with history of diverticulitis also has watery diarrhea, no blood in the stool no fever no chills patient is very frail weak Related Data Allergies Allergy/AdvReac Type Severity Reaction Status Date / Time ibuprofen [IBUPROFEN] Allergy Intermediate KIDNEY Verified 07/19/21 20:57 PROBLEMS oxycodone [From OXYCONTIN] Allergy Unknown UNKNOWN Verified 07/19/21 20:57 Sulfa (Sulfonamide Allergy Unknown UNKNOWN Verified 07/19/21 20:57 Antibiotics) [SULFA (SULFONAMIDE ANTIBIOTICS)] Ibuprofen Allergy Unknown Unknown Uncoded 07/19/21 20:57 Sulfer Allergy Unknown Unknown Uncoded 07/19/21 20:57 Review of Systems Review of Systems Yes all other systems are reviewed and are negative PMFSH Past Medical History Medical History Bipolar disorder Diverticulitis Hernia Kidney disease UTI (urinary tract infection) Surgical History H/O abdominal surgery Social History Social History Alcohol intake: never Advance Directives: No Advance Directives Information Provided: No Physical Exam ED Vital Signs: Vital Signs - 24 hr 07/19/21 20:57 07/20/21 00:36 07/20/21 01:39 Temperature 98.5 F 98.0 F Pulse Rate 76 72 64 Respiratory Rate 18 14 18 Blood Pressure 132/57 L 141/62 H 151/59 H Pulse Oximetry 97 96 97 BMI result Body Mass Index 21.7 Appearance: Alert. Oriented X3. No acute distress. Thin frail lady Eyes: No pallor/icterus ENT: Pharynx normal. Oral Mucosa moist Neck: Normal inspection. Neck supple. CVS: Normal heart rate and rhythm. Pulses normal. Respiratory: No respiratory distress. Equal air entry bilateral, no wheezing/rales/rhonchi Abdomen: Soft, tenderness left lower quadrant no rebound tenderness or guarding Bowel sounds are present, no mass palpable, no CVA tenderness Skin: Skin warm and dry. Normal skin color. Normal skin turgor. Extremities: No lower extremity edema. No calf tenderness Neuro: Oriented X 3. No motor deficit. MDM - Abdominal Pain MDM Narrative Medical decision making narrative: Patient with normal WBC count CT scan abdomen is negative came for lower abdominal pain with diarrhea no diarrhea in the ER will check the UA although patient denied any urinary complaints patient had no bowel movement in the ER taking p.o. fluids Lab Data Attestation: I reviewed the patient's lab results. Result diagrams: 07/19/21 21:07 07/19/21 21:07 Labs: Lab Results 07/19/21 07/19/21 Range/Units 21:07 21:07 WBC 5.6 (4.8-10.8) X10*3/uL RBC 3.28 L (4.20-5.50) X10*6/uL Hgb 10.5 L (12.0-16.0) g/dl Hct 32.8 L (37.0-47.0) % MCV 100.0 H (80.0-98.0) fL MCH 32.0 (27.0-33.0) pg MCHC 32.0 (31.0-35.0) g/dl RDW 13.5 (11.0-16.0) % Plt Count 291 (160-400) X10*3/uL MPV 10.0 (9.4-12.3) fL Immature Gran % (Auto) 0.4 (0.0-0.4) % Neut % (Auto) 66.4 (45-73) % Lymph % (Auto) 22.3 (20-40) % Letcher % (Auto) 8.9 (2-11) % Eos % (Auto) 1.8 (0-4) % Baso % (Auto) 0.2 (0-2) % Lymph # (Auto) 1.3 (1.2-4.9) X10*3/uL Letcher # (Auto) 0.5 (0.1-1.2) X10*3/uL Eos # (Auto) 0.1 (0.0-0.4) X10*3/uL Baso # (Auto) 0.0 (0.0-0.2) X10*3/uL Abs Immat Gran (auto) 0.02 (0.00-0.03) X10*3/uL Absolute Neuts (auto) 3.7 (2.0-8.3) x10*3/uL Absolute Nucleated RBC 0.000 (0.0-0.012) X10*3/uL Nucleated RBC % (auto) 0.0 (0.0-0.2) /100WBC Sodium 142 (135-145) mmol/L Potassium 4.1 D (3.3-5.1) mmol/L Chloride 107 (96-108) mmol/L Carbon Dioxide 27 (22-29) mmol/L Anion Gap 12 (12-20) BUN 13 (9-16) mg/dL Creatinine 1.17 (0.5-1.4) mg/dL Estim Creat Clear Calc 30.9 Estimated GFR 45 Random Glucose 121 H (60-115) mg/dL Calcium 9.1 (8.4-10.2) mg/dL Lipase 25 (8-78) U/L Discharge Plan Discharge Clinical Impression: Gastroenteritis Patient Disposition: Home, Self-Care Instructions: Gastroenteritis (ED) Additional Instructions: Drink plenty of fluids Follow-up PCP if any concerns
[2021-07-19] MEDS: 0.9 % Sodium Chloride 1,000 ML 999 ML IV (23:56)
[2021-07-20 00:36] VITALS: BP 141/62; PULSE 72; RESP 14; TEMP 36.7; O2SAT 96
--- NOTE | 2021-07-20 01:38 | PC.NURSE ---
pt has had no n/v/d since her arrival. pt taling water with no difficutly. pt stated that she was very thursty.
[2021-07-20 01:39] VITALS: BP 151/59; PULSE 64; RESP 18; O2SAT 97
[2021-07-20 02:05] VITALS: BP 118/64; PULSE 66; RESP 12; TEMP 36.5; O2SAT 96
--- NOTE | 2021-07-20 02:22 | PC.NURSE ---
waiting for pt ride to arrive and pt is finishing up her ivf. pt has no n/v/d. resting comfortably.
--- NOTE | 2021-07-20 03:04 | PC.NURSE ---
pt ride has arrived, pt still maintained no n/v/d and mango ivf and po food and fluids. skin warm and dry. no s/s of resp disress.
== END 2021-07-20 03:04 | disposition home or self-care (01) ==
PROVIDERS: Emergency Provider Internal Medicine
DX: K52.9 Noninfective gastroenteritis and colitis, unspecified (principal); R10.32 Left lower quadrant pain; R53.1 Weakness
CPT/HCPCS: 36415; 74176; 80048; 83690; 85025; 96360; 99284

== ENCOUNTER 2021-07-27 12:52 | Emergency (ER) | payer MEDICARE, SELFPAY ==
--- NOTE | ~2021-07-27 | CT_ITS ---
EXAMINATION: CT ABDOMEN AND PELVIS WITH CONTRAST CLINICAL INFORMATION: Left lower quadrant pain. Post hernia reduction. Evaluate for bowel ischemia. COMPARISON: Previous CT scans most recent 07/20/2021 TECHNIQUE: Multidetector volumetric images were obtained from the superior aspect of the liver through the pubic symphysis following administration 85 mL of Omnipaque 350 intravenous contrast. Sagittal and coronal reformatted images were obtained on the technologist's workstation. Oral contrast: Yes This CT examination was performed using dose optimization techniques as appropriate, variously including the following: *Automated exposure control *Adjustment of mA and/or kV according to patient size (this includes techniques or standardized protocols for targeted exams where dose is matched to indication/reason for exam; i.e. extremities or head) *Use of iterative reconstruction technique DLP: 445 mGy-cm FINDINGS: LUNG BASES: The visualized lung bases are clear. There is a large esophageal hernia or intrathoracic stomach. LIVER, GALLBLADDER, AND BILIARY TREE: The liver is normal in size, shape, and attenuation. No focal hepatic lesion or biliary ductal dilatation is present. The gallbladder is unremarkable with no evidence of radiopaque gallstones, gallbladder wall thickening, or obvious pericholecystic inflammatory changes. PANCREAS: Unremarkable. SPLEEN: Unremarkable. ADRENAL GLANDS: Unremarkable. KIDNEYS AND URETERS: There are innumerable small bilateral renal cysts. There is bilateral hydronephrosis questionable for UPJ obstructions. This appears increased compared to recent exam. BLADDER: Unremarkable. GASTROINTESTINAL TRACT: There are fluid-filled loops of small and large bowel. Small and large bowel is otherwise unremarkable.. The appendix is not seen. There is no ascites or free air. There is a large esophageal hernia or intrathoracic stomach. ABDOMINAL WALL: There is a small left inguinal hernia containing fat. There is evidence of previous abdominal wall hernia repair with mesh. No abdominal wall hernia is seen. LYMPH NODES: Normal. VASCULAR: There is evidence of atherosclerotic disease. No aneurysm is seen. The celiac axis, SMA and LEON are patent. The SMV is patent. PELVIC VISCERA: Unremarkable. OSSEOUS STRUCTURES: There is a T11 vertebral body compression fracture post kyphoplasty change. There is a severe T12 vertebral body compression fracture and some retropulsion into the spinal canal. This appears unchanged. There is a mild to moderate L4 vertebral body compression fracture that appears unchanged. No acute fracture is seen. There are degenerative changes and mild scoliosis of the spine. CT/CT abdomen pelvis w con IMPRESSION: Small left inguinal hernia containing fat. No abdominal wall hernia seen. Fluid-filled loops of small and large bowel. Large esophageal hernia or intrathoracic stomach. Bilateral hydronephrosis questionable for UPJ obstructions. This appears increased from previous exams recent exam. Innumerable small renal cysts questionable for polycystic disease. Fleischner guidelines were followed.
--- NOTE | ~2021-07-27 | US_ITS ---
EXAMINATION: US VENOUS ULTRASOUND WITH DOPPLER LOWER EXTREMITY, RIGHT CLINICAL INFORMATION: Right leg swelling COMPARISON: Previous exam 2018 TECHNIQUE: Ultrasound of the deep veins is performed from the hip to the calf with compression sonography and color and pulse Doppler assessment. Spectral analysis with color-flow imaging is performed. FINDINGS: There is normal venous compression and respiratory variation and augmented flow. The visualized common femoral vein, superficial femoral vein, profunda femoral vein, popliteal vein, and the peroneal vein shows no evidence of deep venous thrombosis. The posterior tibial vein is not well visualized. There is no significant popliteal fossa cyst. US/US venous duplex LE RT IMPRESSION: No DVT demonstrated in the right lower extremity. The posterior tibial vein is not well visualized.
[2021-07-27 12:57] VITALS: BP 124/40; PULSE 72; O2SAT 96
[2021-07-27 13:01] VITALS: BMI 19.3
--- NOTE | 2021-07-27 13:12 | ECG_ITS ---
Test Reason : CHEST PAIN Blood Pressure : / mmHG Vent. Rate : 070 BPM Atrial Rate : 070 BPM P-R Int : 146 ms QRS Dur : 078 ms QT Int : 386 ms P-R-T Axes : 077 051 063 degrees QTc Int : 416 ms Normal sinus rhythm Normal ECG When compared with ECG of 11-SEP-2019 15:52, No significant change was found Referred By: Rivas Hastings Electronically Signed By:VERNELL CHAVEZ MD
--- NOTE | 2021-07-27 13:41 | ED_ITS ---
HPI - Chest Pain General Chief Complaint: Chest Pain Stated Complaint: DIARRHEA/ABD/CHEST PAIN PER EMS Time Seen by Provider: 07/27/21 13:05 Source: patient Mode of arrival: EMS Limitations: no limitations History of Present Illness HPI narrative: 75-year-old female who presents emergency department for evaluation of chest pain, abdominal pain and right ankle pain. The patient states that she has been having a cramping sensation in her abdomen for at least 2 weeks. She was seen in the emergency department 2 weeks prior and had a negative workup including a CT scan of the abdomen pelvis with no clear etiology of her pain. She states that since being in the emergency department she has continued to have in termittent abdominal pain. She states the pain is located diffusely throughout her abdomen but is worse in the left lower quadrant. She states that over the past 1-2 days the pain is been constant, cramping which is 10/10. She states also that she has had similar pain on and off for many years. She is also complaining of chest pain. She points to her mid sternum. She states that she has had this pain for years. She states she had episode this morning which lasted 10-15 minutes and then resolved. She states that she did take Tylenol earlier with no relief for discomfort. She states she is having pain in her right ankle and she has a wound over her right ankle which is being treated with antibiotics. Related Data Home Medications Medication Instructions Recorded Confirmed alendronate 70 mg tablet 70 mg PO ANGEL@0600 07/27/21 07/27/21 ascorbic acid (vitamin C) 500 mg 500 mg PO DAILY 07/27/21 07/27/21 tablet (Vitamin C) cholecalciferol (vitamin D3) 50 50 mcg PO DAILY 07/27/21 07/27/21 mcg (2,000 unit) capsule (Vitamin D3) cranberry extract 250 mg capsule 250 mg PO BID 07/27/21 07/27/21 doxycycline hyclate 50 mg capsule 50 mg PO BID 07/27/21 07/27/21 folic acid 1 mg tablet 1 mg PO DAILY 07/27/21 07/27/21 furosemide 20 mg tablet 20 mg PO DAILY 07/27/21 07/27/21 lorazepam 1 mg tablet 1 mg PO TID 07/27/21 07/27/21 melatonin 3 mg tablet 3 mg PO BEDTIME 07/27/21 07/27/21 methenamine hippurate 1 gram tablet 1 g PO BID 07/27/21 07/27/21 multivitamin 1 tab PO DAILY 07/27/21 07/27/21 oxcarbazepine 150 mg tablet 150 mg PO BID 07/27/21 07/27/21 paroxetine HCl 30 mg tablet 30 mg PO DAILY 07/27/21 07/27/21 polyethylene glycol 3350 17 17 g PO DAILY 07/27/21 07/27/21 gram/dose oral powder propranolol 10 mg tablet 10 mg PO TID 07/27/21 07/27/21 salsalate 750 mg tablet 750 mg PO BID 07/27/21 07/27/21 sennosides 8.6 mg-docusate sodium 2 tab PO BEDTIME 07/27/21 07/27/21 50 mg tablet (Senna Plus) trazodone 50 mg tablet 50 mg PO BEDTIME PRN 07/27/21 07/27/21 Previous Rx's Medication Instructions Recorded cephalexin 500 mg capsule 500 mg PO QID 5 Days #20 cap 07/27/21 Allergies Allergy/AdvReac Type Severity Reaction Status Date / Time ibuprofen [IBUPROFEN] Allergy Intermediate KIDNEY Verified 07/19/21 20:57 PROBLEMS oxycodone [From OXYCONTIN] Allergy Unknown UNKNOWN Verified 07/19/21 20:57 Sulfa (Sulfonamide Allergy Unknown UNKNOWN Verified 07/19/21 20:57 Antibiotics) [SULFA (SULFONAMIDE ANTIBIOTICS)] Ibuprofen Allergy Unknown Unknown Uncoded 07/19/21 20:57 Sulfer Allergy Unknown Unknown Uncoded 07/19/21 20:57 Review of Systems Review of Systems: Yes all other systems are reviewed and are negative [facility] Past Medical History [facility] Narrative: Social history: She states she lives with her brother. She smokes 1/2 pack of cigarettes per day times many years. She denies alcohol use. She denies drug use. Medical History Bipolar disorder Diverticulitis Hernia Kidney disease UTI (urinary tract infection) Surgical History H/O abdominal surgery Social History Social History Alcohol intake: never Advance Directives: Yes Advance Directives Information Provided: No Advance Directives on File: No Physical Exam Vital Signs: Vital Signs: Last Vital Signs Temp 97.7 F 07/27/21 13:52 Pulse 67 07/27/21 13:52 Resp 18 07/27/21 13:52 BP 127/43 L 07/27/21 13:52 Pulse Ox 96 07/27/21 13:52 BMI result Body Mass Index 19.3 Const: Other: Awake, alert, elderly female patient, she does not appear to be in distress, she answers all questions appropriately HENMT: Head: Yes normal to inspection, Yes normocephalic and Yes atraumatic Ears: external ears normal General nose exam: Normal external nose present Face and sinus: Yes normal facial exam Mouth: Normal oral and palatal mucosa present Throat: Yes posterior oropharynx normal Eyes: Other: Pupils were equal round reactive light, sclera conjunctiva were normal, the patient's left deviates laterally and she has very minimal vision in this eye but can not see through her right eye, patient's eyelids and periorbital area is normal. Pupils: Equal, round and reactive pupils present Neck: Neck: Yes normal visual inspection, Yes no lymphadenopathy, Yes trachea midline and Yes supple Chest: Chest palpation & inspection: normal inspection of the chest and normal palpation of entire chest wall Resp: Effort & Inspection: normal respiratory effort and able to speak in complete sentences Auscultation: clear to auscultation bilaterally Cardio: Rate: regular rate Rhythm: regular rhythm Heart sounds: S1 normal heart sound present, S2 normal heart sound present and no murmurs GI: Other: Patient had a large hernia in her left lower quadrant which was very tender to palpation and firm, with gentle pressure I was able to reduce the hernia but this did not seem to improve her pain. Inspection: Yes normal to inspection Palpation (GI): Soft to palpation, Tenderness to palpation present (GI) (Moderate diffuse) in the LLQ (Large hernia) and no guarding Auscultation: normal bowel sounds : General: Yes no CVA tenderness Back/Spine/Pelvis: Back: no CVA tenderness Skin: General skin exam: no rashes or lesions noted Neuro: Cranial nerves: Yes CN's II-XII intact bilaterally and Yes Equal, round and reactive pupils present Cognition (Neuro): normal cognition Motor exam (neuro): 5/5 motor strength present throughout Extrem: Other: The patient has some slight erythema over her right lower extremity with a very small pinpoint area of purulent discharge over the right lateral malleolus. This purulent material was cultured. The patient's right lower extremity appears to be slightly larger than the left. General: Yes normal to inspection Psych: Appearance: grossly normal Speech and movement: Normal speech and movement present Affect: normal affect Attitude: cooperative Thought process: Normal thought process present Thought content: Normal thought content present Course Course Course Narrative: 75-year-old female who presents emergency department for evaluation of multiple complaints (abdominal pain, chest pain and right ankle pain). The patient's abdominal exam did reveal a large left lower quadrant hernia which may have been incarcerated but was easily reducible with gentle pressure, this did not relieve the patient's pain, she also had diffuse abdominal tenderness. The patient is complaining of chest pain but had no chest wall tenderness. Patient was complaining of right ankle pain and she did have a very small area of purulent discharge was some slight erythema over her right lower extremity, the right lower extremity slightly larger than the left. Given her incarcerated hernia which is not reduced, I did order a CT scan of the abdomen pelvis to rule out ischemic bowel verses other causes for abdominal pain such as diverticulitis. Also, I ordered a duplex ultrasound of the patient's right lower extremity to rule out DVT. I will check labs and an EKG as well. 1721: Laboratory evaluation: Low H&H 10 and 34.9, this is chronic. CO2 elevated 30. BUN elevated 21. Urinalysis revealed 1+ leukocyte esterase. Microscopic revealed 30-49 WBCs, 1+ squamous cells, 1+ bacteria, 3+ yeast. CT abdomen pelvis, radiology reading: Small left inguinal hernia containing fat. No abdominal wall hernia seen. Fluid-filled loops of small and large bowel. Large esophageal hernia or intrathoracic stomach. Bilateral hydronephrosis questionable for UPJ obstructions. This appears increased from previous exams recent exam. Innumerable small renal cysts questionable for polycystic disease. Given this reading, I do not think patient has any acute explain her pain, there is no evidence of bowel ischemia. Patient's pain was most likely secondary to the incarcerated left lower quadrant hernia. She is feeling better after this hernia was reduced. The patient does have some dysuria, and looking at her pharmacy prescription she was prescribed doxycycline 100 mg twice a day for 14 days on 07/22/2021. The patient is not certain if she has this medication . The patient will be started on Keflex 500 mg 4 times a day for 5 days for possible right ankle infection and UTI. MDM - Chest Pain Lab Data Result diagrams: 07/27/21 13:57 07/27/21 13:57 Labs: Lab Results 07/27/21 07/27/21 07/27/21 Range/Units 13:57 13:57 13:57 WBC 5.4 (4.8-10.8) X10*3/uL RBC 3.43 L (4.20-5.50) X10*6/uL Hgb 10.7 L (12.0-16.0) g/dl Hct 34.9 L (37.0-47.0) % MCV 101.7 H (80.0-98.0) fL MCH 31.2 (27.0-33.0) pg MCHC 30.7 L (31.0-35.0) g/dl RDW 13.8 (11.0-16.0) % Plt Count 313 (160-400) X10*3/uL MPV 10.2 (9.4-12.3) fL Immature Gran % (Auto) 0.2 (0.0-0.4) % Neut % (Auto) 61.0 (45-73) % Lymph % (Auto) 28.3 (20-40) % [place] % (Auto) 8.0 (2-11) % Eos % (Auto) 1.9 (0-4) % Baso % (Auto) 0.6 (0-2) % Lymph # (Auto) 1.5 (1.2-4.9) X10*3/uL [place] # (Auto) 0.4 (0.1-1.2) X10*3/uL Eos # (Auto) 0.1 (0.0-0.4) X10*3/uL Baso # (Auto) 0.0 (0.0-0.2) X10*3/uL Abs Immat Gran (auto) 0.01 (0.00-0.03) X10*3/uL Absolute Neuts (auto) 3.3 (2.0-8.3) x10*3/uL Absolute Nucleated RBC 0.000 (0.0-0.012) X10*3/uL Nucleated RBC % (auto) 0.0 (0.0-0.2) /100WBC Sodium 142 (135-145) mmol/L Potassium 4.6 (3.3-5.1) mmol/L Chloride 107 (96-108) mmol/L Carbon Dioxide 30 H (22-29) mmol/L Anion Gap 10 L (12-20) BUN 21 H D (9-16) mg/dL Creatinine 1.24 (0.5-1.4) mg/dL Estim Creat Clear Calc 31.0 Estimated GFR 42 Random Glucose 100 (60-115) mg/dL Lactic Acid 0.4 L (0.5-2.0) mmol/L Calcium 9.5 (8.4-10.2) mg/dL Total Bilirubin 0.2 (0.0-1.0) mg/dL AST 17 (5-31) U/L ALT 10 (0-31) U/L Alkaline Phosphatase 62 D (39-117) U/L Troponin I High Sens (<3.5-17.0) ng/L Total Protein 5.9 L (6.5-8.0) g/dL Albumin 3.2 L (3.5-5.0) g/dL Lipase 24 (8-78) U/L Urine Color Urine Appearance Urine pH (5.0-8.0) Ur Specific [place] (1.005-1.025) Urine Protein (NEG-TRACE) MG/DL Urine Glucose (UA) (NEG) MG/DL Urine Ketones (NEG) MG/DL Urine Blood (NEG) Urine Nitrite (NEG) Ur Leukocyte Esterase (NEG) Urine RBC (0) /HPF Urine WBC (0-4) /HPF Ur Squamous Epith Cells /LPF Urine Bacteria /LPF Urine Yeast /HPF 07/27/21 07/27/21 Range/Units 13:57 13:57 WBC (4.8-10.8) X10*3/uL RBC (4.20-5.50) X10*6/uL Hgb (12.0-16.0) g/dl Hct (37.0-47.0) % MCV (80.0-98.0) fL MCH (27.0-33.0) pg MCHC (31.0-35.0) g/dl RDW (11.0-16.0) % Plt Count (160-400) X10*3/uL MPV (9.4-12.3) fL Immature Gran % (Auto) (0.0-0.4) % Neut % (Auto) (45-73) % Lymph % (Auto) (20-40) % [place] % (Auto) (2-11) % Eos % (Auto) (0-4) % Baso % (Auto) (0-2) % Lymph # (Auto) (1.2-4.9) X10*3/uL [place] # (Auto) (0.1-1.2) X10*3/uL Eos # (Auto) (0.0-0.4) X10*3/uL Baso # (Auto) (0.0-0.2) X10*3/uL Abs Immat Gran (auto) (0.00-0.03) X10*3/uL Absolute Neuts (auto) (2.0-8.3) x10*3/uL Absolute Nucleated RBC (0.0-0.012) X10*3/uL Nucleated RBC % (auto) (0.0-0.2) /100WBC Sodium (135-145) mmol/L Potassium (3.3-5.1) mmol/L Chloride (96-108) mmol/L Carbon Dioxide (22-29) mmol/L Anion Gap (12-20) BUN (9-16) mg/dL Creatinine (0.5-1.4) mg/dL Estim Creat Clear Calc Estimated GFR Random Glucose (60-115) mg/dL Lactic Acid (0.5-2.0) mmol/L Calcium (8.4-10.2) mg/dL Total Bilirubin (0.0-1.0) mg/dL AST (5-31) U/L ALT (0-31) U/L Alkaline Phosphatase (39-117) U/L Troponin I High Sens 4.2 (<3.5-17.0) ng/L Total Protein (6.5-8.0) g/dL Albumin (3.5-5.0) g/dL Lipase (8-78) U/L Urine Color STRAW Urine Appearance CLEAR Urine pH 5.5 (5.0-8.0) Ur Specific [place] <= 1.005 (1.005-1.025) Urine Protein NEG (NEG-TRACE) MG/DL Urine Glucose (UA) NEG (NEG) MG/DL Urine Ketones NEG (NEG) MG/DL Urine Blood NEG (NEG) Urine Nitrite NEG (NEG) Ur Leukocyte Esterase 1+ H (NEG) Urine RBC 0 (0) /HPF Urine WBC 30-49 H (0-4) /HPF Ur Squamous Epith Cells 1+ /LPF Urine Bacteria 1+ /LPF Urine Yeast 3+ /HPF Discharge Plan Discharge Clinical Impression: Abdominal pain, Abdominal wall hernia, Cellulitis of right ankle, Urinary tract infection Patient Disposition: Home, Self-Care Additional Instructions: Your exam revealed that she had a left lower quadrant hernia that was popped through the wall of your abdomen and was stuck. This is called an incarcerated abdominal wall hernia. I was able to push this back in and the seemed to relieve your pain. The CT scan of your abdomen pelvis did not reveal any significant abnormalities, there was no evidence of ischemic bowel. Your urinalysis is positive for white blood cells and bacteria. You also have evidence of pus coming out of wound of your right ankle and redness around the right ankle consistent with skin infection. Continue taking your doxycycline as prescribed. Take Keflex 500 mg pills, 1 pill 4 times a day for 5 days. Follow-up with your doctor in 2 days. Please return to the emergency department if your symptoms get worse or if you develop any symptoms that are concerning to you. Prescriptions: New cephalexin 500 mg capsule 500 mg PO QID 5 Days Qty: 20 0RF No Action multivitamin Tablet 1 tab PO DAILY 0RF oxcarbazepine 150 mg tablet 150 mg PO BID 0RF trazodone 50 mg tablet 50 mg PO BEDTIME PRN (Reason: Insomnia) 0RF alendronate 70 mg tablet 70 mg PO ANGEL@0600 0RF doxycycline hyclate 50 mg capsule 50 mg PO BID 0RF sennosides-docusate sodium [Senna Plus] 8.6-50 mg tablet 2 tab PO BEDTIME 0RF melatonin 3 mg tablet 3 mg PO BEDTIME 0RF cranberry extract 250 mg capsule 250 mg PO BID 0RF propranolol 10 mg tablet 10 mg PO TID 0RF methenamine hippurate 1 gram tablet 1 g PO BID 0RF ascorbic acid (vitamin C) [Vitamin C] 500 mg tablet 500 mg PO DAILY 0RF paroxetine HCl 30 mg tablet 30 mg PO DAILY 0RF folic acid 1 mg tablet 1 mg PO DAILY 0RF furosemide 20 mg tablet 20 mg PO DAILY 0RF lorazepam 1 mg tablet 1 mg PO TID 0RF polyethylene glycol 3350 17 gram/dose powder 17 g PO DAILY 0RF salsalate 750 mg tablet 750 mg PO BID 0RF cholecalciferol (vitamin D3) [Vitamin D3] 50 mcg (2,000 unit) capsule 50 mcg PO DAILY 0RF
[2021-07-27 13:52] VITALS: BP 127/43; PULSE 67; RESP 18; TEMP 36.5; O2SAT 96
[2021-07-27 14:18] LABS: MANUAL DIFF FLAG NO
[2021-07-27 14:20] LABS: Appearance Urine CLEAR; Basophils Percent Auto 0.6 % (0-2); Color Urine STRAW; Eosinophils Absolute Auto 0.1 X10*3/uL (0.0-0.4); Eosinophils Percent Auto 1.9 % (0-4); Glucose Urine UA NEG (NEG); Hematocrit 34.9 % (37.0-47.0); Hemoglobin 10.7 g/dl (12.0-16.0); Imm Gran Abs Auto 0.01 X10*3/uL (0.00-0.03); Imm Gran Pct Auto 0.2 % (0.0-0.4); Leukocyte Esterase Urine 1+ (NEG); Lymphocytes Absolute Auto 1.5 X10*3/uL (1.2-4.9); Lymphocytes Percent Auto 28.3 % (20-40); Mean Corpuscular HGB Conc 30.7 g/dl (31.0-35.0); Mean Corpuscular Hemoglobin 31.2 pg (27.0-33.0); Mean Corpuscular Volume 101.7 fL (80.0-98.0); Mean Platelet Volume 10.2 fL (9.4-12.3); Monocytes Absolute Auto 0.4 X10*3/uL (0.1-1.2); Neutrophils Absolute Auto 3.3 x10*3/uL (2.0-8.3); Nitrite Urine NEG (NEG); PH 5.5 (5.0-8.0); Platelet Count 313 X10*3/uL (160-400); Red Blood Count 3.43 X10*6/uL (4.20-5.50); Red Cell Distribution Width 13.8 % (11.0-16.0); Specific Gravity - Urine <= 1.005 (1.005-1.025); UACC Culture Trigger YES; Urine Blood NEG (NEG); Urine Ketones NEG (NEG); Urine Protein NEG (NEG-TRACE); White Blood Count 5.4 X10*3/uL (4.8-10.8)
[2021-07-27 14:27] LABS: RBC Urine 0 /HPF (0); Squamous Epithelial Cell Urine 1+ /LPF; WBC Urine 30-49 /HPF (0-4)
[2021-07-27 14:28] LABS: Bacteria Urine 1+ /LPF
[2021-07-27 14:38] LABS: Lactic Acid 0.4 mmol/L (0.5-2.0)
[2021-07-27 14:45] LABS: Alanine Aminotransferase 10 U/L (0-31); Albumin Level 3.2 g/dL (3.5-5.0); Alkaline Phosphatase 62 U/L (39-117); Anion Gap 10 (12-20); Aspartate Amino Transferase 17 U/L (5-31); Bilirubin Total 0.2 mg/dL (0.0-1.0); Blood Urea Nitrogen 21 mg/dL (9-16); Calcium 9.5 mg/dL (8.4-10.2); Carbon Dioxide 30 mmol/L (22-29); Chloride 107 mmol/L (96-108); Estimated Glomerular Filt Rate 42; Glucose Random 100 mg/dL (60-115); Lipase 24 U/L (8-78); Potassium 4.6 mmol/L (3.3-5.1); Sodium 142 mmol/L (135-145); Total Protein 5.9 g/dL (6.5-8.0)
[2021-07-27 14:47] LABS: Troponin-I High Sensitivity 4.2 ng/L (<3.5-17.0)
[2021-07-27] MEDS: iohexoL 350 MG/ML 100 ML INFUS..BTL IV (15:20)
[2021-07-27] MEDS: Acetaminophen 325 MG TABLET 650 MG PO (15:21)
[2021-07-27] MEDS: 0.9 % Sodium Chloride 1,000 ML 999 ML IV (15:22)
--- NOTE | 2021-07-27 18:47 | PC.NURSE ---
pt medically cleared for discharge. discharge instructions reviewed with pt. pt assisted with getting dressed and brought to waiting room to wait for her exhusband.
== END 2021-07-27 19:01 | disposition home or self-care (01) ==
PROVIDERS: Emergency Provider Emergency Medicine Emergency Medical Services; PCP Internal Medicine
DX: R10.9 Unspecified abdominal pain (principal); K43.9 Ventral hernia without obstruction or gangrene; L03.115 Cellulitis of right lower limb; N39.0 Urinary tract infection, site not specified
CPT/HCPCS: 36415; 74177; 80053; 81001; 83605; 83690; 84484; 85025; 87071; 87086; 87205; 93005; 93971; 96360; 99284; 99285; Q9967

== ENCOUNTER 2021-08-09 11:39 | Emergency (ER) | payer MEDICARE, SELFPAY ==
--- NOTE | ~2021-08-09 | XR_ITS ---
EXAMINATION: XR ANKLE, RIGHT CLINICAL INFORMATION: Pain COMPARISON: None TECHNIQUE: AP, lateral, and mortise views of the right ankle. FINDINGS: There is a old healed distal fibular fracture with lateral plate and screws. Old healed medial malleolar fracture with solitary screw noted. There is bony syndesmosis of distal tibia and fibula. The ankle mortise and subtalar joints are normal. There is mild osteopenia of the hindfoot no fracture visualized. There is mild lateral malleolar soft tissue swelling. XR/XR ankle RT min 3V IMPRESSION: Old healed distal fibular and medial malleolar fractures with hardware as described above. There is bony syndesmosis of distal tibia and fibula.
[2021-08-09 11:48] VITALS: BP 115/65; PULSE 72; O2SAT 98
[2021-08-09 12:02] VITALS: BP 126/44; PULSE 71; RESP 16; TEMP 36.5; O2SAT 94; BMI 18.6
--- NOTE | 2021-08-09 12:04 | ED_ITS ---
HPI - General Adult General Chief complaint: Extremity Injury, Lower Stated complaint: RIGHT ANKLE PAIN Time Seen by Provider: 08/09/21 11:49 History of Present Illness HPI narrative: Patient with a history of chronic right ankle pain as well as chronic abdominal pain. She presents today mostly due to increasing right ankle pain. She has a history of a fracture with hardware placement years in the past. Since then she has had intermittently a wound over the lateral malleolus. She was seen here in this emergency department 3 weeks ago due to worsening pain. X-ray at that time showed no evidence of osteomyelitis or hardware issue. She was transition from chronic doxycycline to Keflex for 5 days. Patient states while she was on the Keflex she thought she improved somewhat. She is currently on doxycycline 100 mg twice a day and thinks it is not working. No fevers or chills. No increase in warmth or erythema of the ankle. Just an increase in pain. No recent stops falls trauma or any other incident the patient thinks family have exacerbated her pain. Secondary complaint of abdominal pain. It is diffuse but more on the left side. This is also chronic. She states she does not have much of an appetite but denies any nausea vomiting or diarrhea. She states she intermittently gets constipated due to not eating. The only recent change, per patient is no she has dysuria over the last week or so. Patient lives at home with her brother. She states she is able to ambulate with a walker. Related Data Home Medications Medication Instructions Recorded Confirmed alendronate 70 mg tablet 70 mg PO ANGEL@0600 07/27/21 07/27/21 ascorbic acid (vitamin C) 500 mg 500 mg PO DAILY 07/27/21 07/27/21 tablet (Vitamin C) cholecalciferol (vitamin D3) 50 50 mcg PO DAILY 07/27/21 07/27/21 mcg (2,000 unit) capsule (Vitamin D3) cranberry extract 250 mg capsule 250 mg PO BID 07/27/21 07/27/21 doxycycline hyclate 50 mg capsule 50 mg PO BID 07/27/21 07/27/21 folic acid 1 mg tablet 1 mg PO DAILY 07/27/21 07/27/21 furosemide 20 mg tablet 20 mg PO DAILY 07/27/21 07/27/21 lorazepam 1 mg tablet 1 mg PO TID 07/27/21 07/27/21 melatonin 3 mg tablet 3 mg PO BEDTIME 07/27/21 07/27/21 methenamine hippurate 1 gram tablet 1 g PO BID 07/27/21 07/27/21 multivitamin 1 tab PO DAILY 07/27/21 07/27/21 oxcarbazepine 150 mg tablet 150 mg PO BID 07/27/21 07/27/21 paroxetine HCl 30 mg tablet 30 mg PO DAILY 07/27/21 07/27/21 polyethylene glycol 3350 17 17 g PO DAILY 07/27/21 07/27/21 gram/dose oral powder propranolol 10 mg tablet 10 mg PO TID 07/27/21 07/27/21 salsalate 750 mg tablet 750 mg PO BID 07/27/21 07/27/21 sennosides 8.6 mg-docusate sodium 2 tab PO BEDTIME 07/27/21 07/27/21 50 mg tablet (Senna Plus) trazodone 50 mg tablet 50 mg PO BEDTIME PRN 07/27/21 07/27/21 Previous Rx's Medication Instructions Recorded cephalexin 500 mg capsule 500 mg PO QID 5 Days #20 cap 07/27/21 cephalexin 500 mg capsule 500 mg PO QID #20 cap 08/09/21 Allergies Allergy/AdvReac Type Severity Reaction Status Date / Time ibuprofen [IBUPROFEN] Allergy Intermediate KIDNEY Verified 07/19/21 20:57 PROBLEMS oxycodone [From OXYCONTIN] Allergy Unknown UNKNOWN Verified 07/19/21 20:57 Sulfa (Sulfonamide Allergy Unknown UNKNOWN Verified 07/19/21 20:57 Antibiotics) [SULFA (SULFONAMIDE ANTIBIOTICS)] Ibuprofen Allergy Unknown Unknown Uncoded 07/19/21 20:57 Sulfer Allergy Unknown Unknown Uncoded 07/19/21 20:57 Review of Systems Constitutional: Comments: No fevers or chills Cardiovascular: Comments: No chest pain Respiratory: Comments: No dyspnea or cough Gastrointestinal: Comments: Abdominal pain is described Genitourinary: Comments: Dysuria for the last week Musculoskeletal: Comments: Right ankle pain is described Integumentary/Breasts: Comments: Chronic right lateral malleolus wound. No change in discharge or surrounding erythema Neurologic: Comments: No new weakness numbness or paresthesias PMFSH Past Medical History Medical History (Updated 08/09/21 @ 14:19 by Riki Conrad MD) Ankle wound Bipolar disorder Cellulitis Diverticulitis Hernia Kidney disease UTI (urinary tract infection) Surgical History H/O abdominal surgery Social History Social History Alcohol intake: never Patient Tobacco Use Status: Current everyday Tobacco user Smoked in Last 30 Days: No Use of substances other than those prescribed or required for medical reasons: No Advance Directives: No Advance Directives Information Provided: No Physical Exam ED Vital Signs: Vital Signs - 24 hr 08/09/21 12:02 08/09/21 14:00 Temperature 97.7 F 97.8 F Pulse Rate 71 69 Respiratory Rate 16 18 Blood Pressure 126/44 L 112/44 L Pulse Oximetry 94 94 BMI result Body Mass Index 18.6 Const Other: Awake and alert in no acute distress HENMT Other: Normocephalic atraumatic Eyes Other: Dysconjugate gaze with left eye with lateral gaze. Apparent medial muscle pa lsy. Neck Other: Full range of motion Resp Other: Clear and equal bilaterally without wheezes rales or rhonchi Cardio Other: Regular rate and rhythm without murmurs rubs or gallops GI Other: Soft with diffuse tenderness. Greatest in the left lower to mid abdomen. No guarding or rebound. Patient states these are chronic findings. There is no significant distention. Bowel sounds Skin Other: Warm pink and dry. Right lateral malleolus with small 0.5 cm wound with only minimal drainage. No surrounding erythema. No fluctuance Neuro Other: Nonfocal other than ocular exam Extrem Other: Right ankle with tenderness on minimal palpation. No obvious deformity. No crepitus. Psych Other: Appears anxious Course Course Course Narrative: Right ankle chronic wounds The osteomyelitis Hardware infection Chronic abdominal pain Urinary tract infection 12:10. Patient clinically does not have signs or symptoms consistent with sepsis at this time 14:15. Workup in the emergency department shows labs are mostly normal. White count is normal as a CRP. ESR is 21, just over the normal range. X-ray shows no changes from prior without evidence of hardware issue or bony infection. Urinalysis does show probable urinary tract infection Treated with Keflex Will discharge home on 10 day supply Medical Decision Making Lab Data Result diagrams: 08/09/21 13:04 08/09/21 13:04 Labs: Lab Results 08/09/21 08/09/21 08/09/21 Range/Units 12:51 13:04 13:04 WBC 5.2 (4.8-10.8) X10*3/uL RBC 3.49 L (4.20-5.50) X10*6/uL Hgb 11.2 L (12.0-16.0) g/dl Hct 35.4 L (37.0-47.0) % MCV 101.4 H (80.0-98.0) fL MCH 32.1 (27.0-33.0) pg MCHC 31.6 (31.0-35.0) g/dl RDW 14.1 (11.0-16.0) % Plt Count 251 (160-400) X10*3/uL MPV 10.7 (9.4-12.3) fL Immature Gran % (Auto) 0.2 (0.0-0.4) % Neut % (Auto) 60.1 (45-73) % Lymph % (Auto) 27.6 (20-40) % [place] % (Auto) 9.0 (2-11) % Eos % (Auto) 2.5 (0-4) % Baso % (Auto) 0.6 (0-2) % Lymph # (Auto) 1.4 (1.2-4.9) X10*3/uL [place] # (Auto) 0.5 (0.1-1.2) X10*3/uL Eos # (Auto) 0.1 (0.0-0.4) X10*3/uL Baso # (Auto) 0.0 (0.0-0.2) X10*3/uL Abs Immat Gran (auto) 0.01 (0.00-0.03) X10*3/uL Absolute Neuts (auto) 3.1 (2.0-8.3) x10*3/uL Absolute Nucleated RBC 0.000 (0.0-0.012) X10*3/uL Nucleated RBC % (auto) 0.0 (0.0-0.2) /100WBC ESR 21 H (0-20) MM/HR Sodium (135-145) mmol/L Potassium (3.3-5.1) mmol/L Chloride (96-108) mmol/L Carbon Dioxide (22-29) mmol/L Anion Gap (12-20) BUN (9-16) mg/dL Creatinine (0.5-1.4) mg/dL Estim Creat Clear Calc Estimated GFR Random Glucose (60-115) mg/dL Calcium (8.4-10.2) mg/dL Total Bilirubin (0.0-1.0) mg/dL AST (5-31) U/L ALT (0-31) U/L Alkaline Phosphatase (39-117) U/L C-Reactive Protein (< or = 0.50) mg/dL Total Protein (6.5-8.0) g/dL Albumin (3.5-5.0) g/dL Urine Color YELLOW Urine Appearance HAZY Urine pH 6.0 (5.0-8.0) Ur Specific [place] 1.010 (1.005-1.025) Urine Protein NEG (NEG-TRACE) MG/DL Urine Glucose (UA) NEG (NEG) MG/DL Urine Ketones NEG (NEG) MG/DL Urine Blood NEG (NEG) Urine Nitrite NEG (NEG) Ur Leukocyte Esterase TRACE H (NEG) Urine RBC 0 (0) /HPF Urine WBC 30-49 H (0-4) /HPF Urine WBC Clumps NOTED Ur Squamous Epith Cells 1+ /LPF Urine Bacteria NONE /LPF Urine Yeast 1+ /HPF 03/21/22 Range/Units 13:04 WBC (4.8-10.8) X10*3/uL RBC (4.20-5.50) X10*6/uL Hgb (12.0-16.0) g/dl Hct (37.0-47.0) % MCV (80.0-98.0) fL MCH (27.0-33.0) pg MCHC (31.0-35.0) g/dl RDW (11.0-16.0) % Plt Count (160-400) X10*3/uL MPV (9.4-12.3) fL Immature Gran % (Auto) (0.0-0.4) % Neut % (Auto) (45-73) % Lymph % (Auto) (20-40) % [place] % (Auto) (2-11) % Eos % (Auto) (0-4) % Baso % (Auto) (0-2) % Lymph # (Auto) (1.2-4.9) X10*3/uL [place] # (Auto) (0.1-1.2) X10*3/uL Eos # (Auto) (0.0-0.4) X10*3/uL Baso # (Auto) (0.0-0.2) X10*3/uL Abs Immat Gran (auto) (0.00-0.03) X10*3/uL Absolute Neuts (auto) (2.0-8.3) x10*3/uL Absolute Nucleated RBC (0.0-0.012) X10*3/uL Nucleated RBC % (auto) (0.0-0.2) /100WBC ESR (0-20) MM/HR Sodium 142 (135-145) mmol/L Potassium 4.3 (3.3-5.1) mmol/L Chloride 106 (96-108) mmol/L Carbon Dioxide 29 (22-29) mmol/L Anion Gap 11 L (12-20) BUN 24 H (9-16) mg/dL Creatinine 1.22 (0.5-1.4) mg/dL Estim Creat Clear Calc 25.8 Estimated GFR 43 Random Glucose 91 (60-115) mg/dL Calcium 9.9 (8.4-10.2) mg/dL Total Bilirubin 0.3 (0.0-1.0) mg/dL AST 19 (5-31) U/L ALT 12 (0-31) U/L Alkaline Phosphatase 70 (39-117) U/L C-Reactive Protein 0.10 (< or = 0.50) mg/dL Total Protein 6.6 (6.5-8.0) g/dL Albumin 3.5 (3.5-5.0) g/dL Urine Color Urine Appearance Urine pH (5.0-8.0) Ur Specific [place] (1.005-1.025) Urine Protein (NEG-TRACE) MG/DL Urine Glucose (UA) (NEG) MG/DL Urine Ketones (NEG) MG/DL Urine Blood (NEG) Urine Nitrite (NEG) Ur Leukocyte Esterase (NEG) Urine RBC (0) /HPF Urine WBC (0-4) /HPF Urine WBC Clumps Ur Squamous Epith Cells /LPF Urine Bacteria /LPF Urine Yeast /HPF Discharge Plan Discharge Clinical Impression: Urinary tract infection Patient Disposition: Home, Self-Care Instructions: Urinary Tract Infection in Older Adults (ED) Additional Instructions: Your x-ray and lab work looked good. Keflex is both for the wound as well as your urinary tract infection Prescriptions: New cephalexin 500 mg capsule 500 mg PO QID Qty: 20 0RF No Action multivitamin Tablet 1 tab PO DAILY 0RF oxcarbazepine 150 mg tablet 150 mg PO BID 0RF trazodone 50 mg tablet 50 mg PO BEDTIME PRN (Reason: Insomnia) 0RF alendronate 70 mg tablet 70 mg PO ANGEL@0600 0RF doxycycline hyclate 50 mg capsule 50 mg PO BID 0RF sennosides-docusate sodium [Senna Plus] 8.6-50 mg tablet 2 tab PO BEDTIME 0RF melatonin 3 mg tablet 3 mg PO BEDTIME 0RF cranberry extract 250 mg capsule 250 mg PO BID 0RF propranolol 10 mg tablet 10 mg PO TID 0RF methenamine hippurate 1 gram tablet 1 g PO BID 0RF ascorbic acid (vitamin C) [Vitamin C] 500 mg tablet 500 mg PO DAILY 0RF paroxetine HCl 30 mg tablet 30 mg PO DAILY 0RF folic acid 1 mg tablet 1 mg PO DAILY 0RF furosemide 20 mg tablet 20 mg PO DAILY 0RF lorazepam 1 mg tablet 1 mg PO TID 0RF polyethylene glycol 3350 17 gram/dose powder 17 g PO DAILY 0RF salsalate 750 mg tablet 750 mg PO BID 0RF cholecalciferol (vitamin D3) [Vitamin D3] 50 mcg (2,000 unit) capsule 50 mcg PO DAILY 0RF cephalexin 500 mg capsule 500 mg PO QID 5 Days Qty: 20 0RF
--- NOTE | 2021-08-09 12:17 | PC.NURSE ---
pt a&ox3, vss, hx chronic wound to outside right ankle, being monitored by wound care/home nurse, worse over the past couple of days, tender, small amount of swelling, pt also c/o abd pain - hx of same/chronic, pt requesting UA.
--- NOTE | 2021-08-09 12:26 | PC.NURSE ---
xray being obtained
[2021-08-09 13:01] LABS: Glucose Urine UA NEG (NEG); Leukocyte Esterase Urine TRACE (NEG); Nitrite Urine NEG (NEG); UACC Culture Trigger YES; Urine Blood NEG (NEG); Urine Ketones NEG (NEG); Urine Protein NEG (NEG-TRACE)
[2021-08-09 13:02] LABS: Appearance Urine HAZY; Color Urine YELLOW
[2021-08-09 13:09] LABS: WBC Urine 30-49 /HPF (0-4)
--- NOTE | 2021-08-09 13:09 | PC.NURSE ---
labs drawn, 20 G IV placed R forearm
[2021-08-09 13:10] LABS: RBC Urine 0 /HPF (0); Squamous Epithelial Cell Urine 1+ /LPF; WBC Clumps Urine NOTED
[2021-08-09 13:29] LABS: MANUAL DIFF FLAG NO
[2021-08-09 13:31] LABS: Basophils Percent Auto 0.6 % (0-2); Eosinophils Absolute Auto 0.1 X10*3/uL (0.0-0.4); Eosinophils Percent Auto 2.5 % (0-4); Hematocrit 35.4 % (37.0-47.0); Hemoglobin 11.2 g/dl (12.0-16.0); Imm Gran Abs Auto 0.01 X10*3/uL (0.00-0.03); Imm Gran Pct Auto 0.2 % (0.0-0.4); Lymphocytes Absolute Auto 1.4 X10*3/uL (1.2-4.9); Lymphocytes Percent Auto 27.6 % (20-40); Mean Corpuscular HGB Conc 31.6 g/dl (31.0-35.0); Mean Corpuscular Hemoglobin 32.1 pg (27.0-33.0); Mean Corpuscular Volume 101.4 fL (80.0-98.0); Mean Platelet Volume 10.7 fL (9.4-12.3); Monocytes Absolute Auto 0.5 X10*3/uL (0.1-1.2); Neutrophils Absolute Auto 3.1 x10*3/uL (2.0-8.3); Neutrophils Percent Auto 60.1 % (45-73); Platelet Count 251 X10*3/uL (160-400); Red Blood Count 3.49 X10*6/uL (4.20-5.50); Red Cell Distribution Width 14.1 % (11.0-16.0); White Blood Count 5.2 X10*3/uL (4.8-10.8)
[2021-08-09 13:46] LABS: Alanine Aminotransferase 12 U/L (0-31); Albumin Level 3.5 g/dL (3.5-5.0); Alkaline Phosphatase 70 U/L (39-117); Anion Gap 11 (12-20); Aspartate Amino Transferase 19 U/L (5-31); Bilirubin Total 0.3 mg/dL (0.0-1.0); Blood Urea Nitrogen 24 mg/dL (9-16); Calcium 9.9 mg/dL (8.4-10.2); Carbon Dioxide 29 mmol/L (22-29); Chloride 106 mmol/L (96-108); Creatinine Clr Calc Pharmacy 25.8; Estimated Glomerular Filt Rate 43; Glucose Random 91 mg/dL (60-115); Potassium 4.3 mmol/L (3.3-5.1); Sodium 142 mmol/L (135-145); Total Protein 6.6 g/dL (6.5-8.0)
[2021-08-09 14:00] VITALS: BP 112/44; PULSE 69; RESP 18; TEMP 36.6; O2SAT 94
--- NOTE | 2021-08-09 14:04 | PC.NURSE ---
patient a&o, pt frequent urination on bedpan- pt reports burning with urination, plant ops was notified to fix call ritter, vitals stable, will continue to monitor.
[2021-08-09 14:05] LABS: Erythrocyte Sedimentation Rate 21 MM/HR (0-20)
[2021-08-09] MEDS: cephALEXin 500 MG CAPSULE PO (14:25)
--- NOTE | 2021-08-09 14:25 | PC.NURSE ---
pt given food & tea per request, spoke makenzie palmer - will come to pick pt up.
--- NOTE | 2021-08-09 14:26 | PC.NURSE ---
patient medicated per order
== END 2021-08-09 14:51 | disposition home or self-care (01) ==
PROVIDERS: Emergency Provider Emergency Medicine
DX: N39.0 Urinary tract infection, site not specified (principal); G89.29 Other chronic pain; M25.571 Pain in right ankle and joints of right foot; F17.200 Nicotine dependence, unspecified, uncomplicated; Z98.890 Other specified postprocedural states
CPT/HCPCS: 36415; 73610; 80053; 81001; 81003; 85025; 85652; 86140; 87086; 99283; 99284

== ENCOUNTER 2021-09-09 02:59 | Emergency (ER) | payer OTHER, SELFPAY ==
--- NOTE | 2021-09-09 | ECG_ITS ---
Test Reason : SOB Blood Pressure : / mmHG Vent. Rate : 097 BPM Atrial Rate : 097 BPM P-R Int : 134 ms QRS Dur : 068 ms QT Int : 332 ms P-R-T Axes : 061 014 056 degrees QTc Int : 421 ms Normal sinus rhythm Normal ECG When compared with ECG of 27-JUL-2021 13:08, No significant change was found Referred By: Generic ED Physician Electronically Signed By:VERNELL CHAVEZ MD
--- NOTE | ~2021-09-09 | XR_ITS ---
EXAMINATION: XR CHEST CLINICAL INFORMATION: Shortness of breath COMPARISON: 02/06/2021 and 07/27/2021 TECHNIQUE: Frontal view of the chest was obtained. FINDINGS: Large gas-filled hiatal hernia. The lungs are well expanded. No consolidation, edema, or effusion. No pneumothorax. The cardiomediastinal silhouette is within normal limits. XR/XR chest 1V IMPRESSION: No acute pulmonary finding. Large hiatal hernia.
[2021-09-09 03:09] VITALS: BP 127/58; PULSE 102; RESP 18; TEMP 37.3; O2SAT 96; BMI 20.6
--- NOTE | 2021-09-09 03:18 | ED_ITS ---
HPI - SOB/Dyspnea General Chief Complaint: Dyspnea Stated Complaint: difficulty breathing Time Seen by Provider: 09/09/21 03:16 Source: patient Mode of arrival: EMS Limitations: no limitations History of Present Illness HPI Narrative: Patient was sleeping in her bed started reaming about cleaning the house suddenly woke up feeling short of breath no chest pain or palpitation on arrival patient was saturating 96%. No diaphoresis no nausea no vomiting patient was asymptomatic before she went to bed Related Data Home Medications Medication Instructions Recorded Confirmed alendronate 70 mg tablet 70 mg PO ANGEL@0600 07/27/21 07/27/21 ascorbic acid (vitamin C) 500 mg 500 mg PO DAILY 07/27/21 07/27/21 tablet (Vitamin C) cholecalciferol (vitamin D3) 50 50 mcg PO DAILY 07/27/21 07/27/21 mcg (2,000 unit) capsule (Vitamin D3) cranberry extract 250 mg capsule 250 mg PO BID 07/27/21 07/27/21 doxycycline hyclate 50 mg capsule 50 mg PO BID 07/27/21 07/27/21 folic acid 1 mg tablet 1 mg PO DAILY 07/27/21 07/27/21 furosemide 20 mg tablet 20 mg PO DAILY 07/27/21 07/27/21 lorazepam 1 mg tablet 1 mg PO TID 07/27/21 07/27/21 melatonin 3 mg tablet 3 mg PO BEDTIME 07/27/21 07/27/21 methenamine hippurate 1 gram tablet 1 g PO BID 07/27/21 07/27/21 multivitamin 1 tab PO DAILY 07/27/21 07/27/21 oxcarbazepine 150 mg tablet 150 mg PO BID 07/27/21 07/27/21 paroxetine HCl 30 mg tablet 30 mg PO DAILY 07/27/21 07/27/21 polyethylene glycol 3350 17 17 g PO DAILY 07/27/21 07/27/21 gram/dose oral powder propranolol 10 mg tablet 10 mg PO TID 07/27/21 07/27/21 salsalate 750 mg tablet 750 mg PO BID 07/27/21 07/27/21 sennosides 8.6 mg-docusate sodium 2 tab PO BEDTIME 07/27/21 07/27/21 50 mg tablet (Senna Plus) trazodone 50 mg tablet 50 mg PO BEDTIME PRN 07/27/21 07/27/21 Previous Rx's Medication Instructions Recorded cephalexin 500 mg capsule 500 mg PO QID 5 Days #20 cap 07/27/21 cephalexin 500 mg capsule 500 mg PO QID #20 cap 08/09/21 Allergies Allergy/AdvReac Type Severity Reaction Status Date / Time ibuprofen [IBUPROFEN] Allergy Intermediate KIDNEY Verified 07/19/21 20:57 PROBLEMS oxycodone [From OXYCONTIN] Allergy Unknown UNKNOWN Verified 07/19/21 20:57 Sulfa (Sulfonamide Allergy Unknown UNKNOWN Verified 07/19/21 20:57 Antibiotics) [SULFA (SULFONAMIDE ANTIBIOTICS)] Ibuprofen Allergy Unknown Unknown Uncoded 07/19/21 20:57 Sulfer Allergy Unknown Unknown Uncoded 07/19/21 20:57 Review of Systems Review of Systems: Yes all other systems are reviewed and are negative [facility] Past Medical History Medical History Ankle wound Bipolar disorder Cellulitis Diverticulitis Hernia Kidney disease UTI (urinary tract infection) Surgical History H/O abdominal surgery Social History Social History Alcohol intake: never Patient Tobacco Use Status: Current everyday Tobacco user Advance Directives: No Physical Exam 2 Vital Signs: Vital Signs: Last Vital Signs Temp 99.2 F 09/09/21 03:09 Pulse 97 09/09/21 04:07 Resp 33 H 09/09/21 04:07 BP 125/67 09/09/21 04:07 Pulse Ox 94 09/09/21 04:07 BMI result Body Mass Index 20.6 Appearance: Alert. Oriented X3. No acute distress. Eyes: no pallor or icterus ENT: Pharynx normal. Oral Mucosa moist Neck: Normal inspection. Neck supple. CVS: Normal heart rate and rhythm. Pulses normal. Respiratory: No respiratory distress. Equal air entry bilateral, no wheezing /rales/rhonchi Abdomen: Soft and nontender. Bowel sounds are present, Skin: Skin warm and dry. Normal skin color. Normal skin turgor. Extremities: No lower extremity edema. No calf tenderness Neuro: Oriented X 3. No motor deficit. MDM - SOB/Dyspnea MDM Narrative Medical decision making narrative: Patient with no acute findings workup from the sleep from dream seems to be anxious EKG without any ischemic changes troponin negative chest x-ray negative discharge patient home patient is saturating 95% at room Patient has elevated creatinine which is chronic Lab Data Attestation: I reviewed the patient's lab results. Result diagrams: 09/09/21 03:35 09/09/21 03:35 Labs: Lab Results 09/09/21 09/09/21 09/09/21 Range/Units 03:35 03:35 03:35 WBC 9.4 (4.8-10.8) X10*3/uL RBC 3.88 L (4.20-5.50) X10*6/uL Hgb 12.8 (12.0-16.0) g/dl Hct 39.0 (37.0-47.0) % MCV 100.5 H (80.0-98.0) fL MCH 33.0 (27.0-33.0) pg MCHC 32.8 (31.0-35.0) g/dl RDW 13.5 (11.0-16.0) % Plt Count 200 (160-400) X10*3/uL MPV 11.0 (9.4-12.3) fL Immature Gran % (Auto) 0.2 (0.0-0.4) % Neut % (Auto) 96.0 H (45-73) % Lymph % (Auto) 2.0 L (20-40) % [place] % (Auto) 1.5 L (2-11) % Eos % (Auto) 0.2 (0-4) % Baso % (Auto) 0.1 (0-2) % Lymph # (Auto) 0.2 L (1.2-4.9) X10*3/uL [place] # (Auto) 0.1 (0.1-1.2) X10*3/uL Eos # (Auto) 0.0 (0.0-0.4) X10*3/uL Baso # (Auto) 0.0 (0.0-0.2) X10*3/uL Abs Immat Gran (auto) 0.02 (0.00-0.03) X10*3/uL Absolute Neuts (auto) 9.0 H (2.0-8.3) x10*3/uL Absolute Nucleated RBC 0.000 (0.0-0.012) X10*3/uL Nucleated RBC % (auto) 0.0 (0.0-0.2) /100WBC Smear Tech's Comments VERIFIED Sodium 143 (135-145) mmol/L Potassium 4.0 (3.3-5.1) mmol/L Chloride 108 (96-108) mmol/L Carbon Dioxide 24 (22-29) mmol/L Anion Gap 15 (12-20) BUN 41 H D (9-16) mg/dL Creatinine 1.41 H (0.5-1.4) mg/dL Estim Creat Clear Calc 24.3 Estimated GFR 36 Random Glucose 126 H (60-115) mg/dL Calcium 9.7 (8.4-10.2) mg/dL Troponin I High Sens (<3.5-17.0) ng/L B-Natriuretic Peptide (<100) pg/mL COVID-19 (OPHELIA) Negative (Negative) COVID-19 Clin Com See Note 09/09/21 Range/Units 03:35 WBC (4.8-10.8) X10*3/uL RBC (4.20-5.50) X10*6/uL Hgb (12.0-16.0) g/dl Hct (37.0-47.0) % MCV (80.0-98.0) fL MCH (27.0-33.0) pg MCHC (31.0-35.0) g/dl RDW (11.0-16.0) % Plt Count (160-400) X10*3/uL MPV (9.4-12.3) fL Immature Gran % (Auto) (0.0-0.4) % Neut % (Auto) (45-73) % Lymph % (Auto) (20-40) % [place] % (Auto) (2-11) % Eos % (Auto) (0-4) % Baso % (Auto) (0-2) % Lymph # (Auto) (1.2-4.9) X10*3/uL [place] # (Auto) (0.1-1.2) X10*3/uL Eos # (Auto) (0.0-0.4) X10*3/uL Baso # (Auto) (0.0-0.2) X10*3/uL Abs Immat Gran (auto) (0.00-0.03) X10*3/uL Absolute Neuts (auto) (2.0-8.3) x10*3/uL Absolute Nucleated RBC (0.0-0.012) X10*3/uL Nucleated RBC % (auto) (0.0-0.2) /100WBC Smear Tech's Comments Sodium (135-145) mmol/L Potassium (3.3-5.1) mmol/L Chloride (96-108) mmol/L Carbon Dioxide (22-29) mmol/L Anion Gap (12-20) BUN (9-16) mg/dL Creatinine (0.5-1.4) mg/dL Estim Creat Clear Calc Estimated GFR Random Glucose (60-115) mg/dL Calcium (8.4-10.2) mg/dL Troponin I High Sens 5.3 (<3.5-17.0) ng/L B-Natriuretic Peptide 69 (<100) pg/mL COVID-19 (OPHELIA) (Negative) COVID-19 Clin Com ECG Data Attestation: I personally reviewed and interpreted this ECG as follows: Interpretation: Normal sinus rhythm heart rate 97 beats per minute normal intervals normal axis no acute STT wave changes no acute ischemia impression normal EKG Discharge Plan Discharge Clinical Impression: Anxiety Patient Disposition: Home, Self-Care Instructions: Anxiety (ED) Additional Instructions: Taking medication as prescribed by your PCP and follow up with him Prescriptions: No Action multivitamin Tablet 1 tab PO DAILY 0RF oxcarbazepine 150 mg tablet 150 mg PO BID 0RF trazodone 50 mg tablet 50 mg PO BEDTIME PRN (Reason: Insomnia) 0RF alendronate 70 mg tablet 70 mg PO ANGEL@0600 0RF doxycycline hyclate 50 mg capsule 50 mg PO BID 0RF sennosides-docusate sodium [Senna Plus] 8.6-50 mg tablet 2 tab PO BEDTIME 0RF melatonin 3 mg tablet 3 mg PO BEDTIME 0RF cranberry extract 250 mg capsule 250 mg PO BID 0RF propranolol 10 mg tablet 10 mg PO TID 0RF methenamine hippurate 1 gram tablet 1 g PO BID 0RF ascorbic acid (vitamin C) [Vitamin C] 500 mg tablet 500 mg PO DAILY 0RF paroxetine HCl 30 mg tablet 30 mg PO DAILY 0RF folic acid 1 mg tablet 1 mg PO DAILY 0RF furosemide 20 mg tablet 20 mg PO DAILY 0RF lorazepam 1 mg tablet 1 mg PO TID 0RF polyethylene glycol 3350 17 gram/dose powder 17 g PO DAILY 0RF salsalate 750 mg tablet 750 mg PO BID 0RF cholecalciferol (vitamin D3) [Vitamin D3] 50 mcg (2,000 unit) capsule 50 mcg PO DAILY 0RF cephalexin 500 mg capsule 500 mg PO QID 5 Days Qty: 20 0RF cephalexin 500 mg capsule 500 mg PO QID Qty: 20 0RF
[2021-09-09 03:45] LABS: Basophils Percent Auto 0.1 % (0-2); Eosinophils Percent Auto 0.2 % (0-4); Hemoglobin 12.8 g/dl (12.0-16.0); Imm Gran Abs Auto 0.02 X10*3/uL (0.00-0.03); Imm Gran Pct Auto 0.2 % (0.0-0.4); Lymphocytes Absolute Auto 0.2 X10*3/uL (1.2-4.9); MANUAL DIFF FLAG SCAN; Mean Corpuscular HGB Conc 32.8 g/dl (31.0-35.0); Mean Corpuscular Volume 100.5 fL (80.0-98.0); Monocytes Absolute Auto 0.1 X10*3/uL (0.1-1.2); Monocytes Percent Auto 1.5 % (2-11); Platelet Count 200 X10*3/uL (160-400); Red Blood Count 3.88 X10*6/uL (4.20-5.50); Red Cell Distribution Width 13.5 % (11.0-16.0); SCAN SMEAR FLAG 1; White Blood Count 9.4 X10*3/uL (4.8-10.8)
[2021-09-09 04:00] LABS: Anion Gap 15 (12-20); Blood Urea Nitrogen 41 mg/dL (9-16); COVID-19 Test Negative (Negative); Calcium 9.7 mg/dL (8.4-10.2); Carbon Dioxide 24 mmol/L (22-29); Chloride 108 mmol/L (96-108); Creatinine Clr Calc Pharmacy 24.3; Estimated Glomerular Filt Rate 36; Glucose Random 126 mg/dL (60-115); Sodium 143 mmol/L (135-145)
[2021-09-09 04:05] LABS: B Type Natriuretic Peptide 69 pg/mL (<100); Troponin-I High Sensitivity 5.3 ng/L (<3.5-17.0)
[2021-09-09 04:07] VITALS: BP 125/67; PULSE 97; RESP 33; O2SAT 94
[2021-09-09 04:26] LABS: SLIDE REVIEW VERIFIED
== END 2021-09-09 05:41 | disposition home or self-care (01) ==
PROVIDERS: Emergency Provider Internal Medicine
DX: R06.02 Shortness of breath (principal); F41.1 Generalized anxiety disorder; F43.0 Acute stress reaction; F17.200 Nicotine dependence, unspecified, uncomplicated; Z20.822 Contact with and (suspected) exposure to COVID-19; Z79.899 Other long term (current) drug therapy; Z71.6 Tobacco abuse counseling
CPT/HCPCS: 36415; 71045; 80048; 83880; 84484; 85025; 87635; 93005; 99283

== ENCOUNTER 2021-10-02 10:20 | Emergency (ER) | payer OTHER, SELFPAY ==
--- NOTE | ~2021-10-02 | CT_ITS ---
EXAMINATION: CT ABDOMEN AND PELVIS WITHOUT CONTRAST CLINICAL INFORMATION: Abdominal pain. Constipation. COMPARISON: Previous CT of the abdomen and pelvis July 2021 TECHNIQUE: Multidetector volumetric imaging was performed from the superior aspect of the liver through the pubic symphysis. Sagittal and coronal reformatted images were obtained on the technologist's workstation. This CT examination was performed using dose optimization techniques as appropriate, variously including the following: *Automated exposure control *Adjustment of mA and/or kV according to patient size (this includes techniques or standardized protocols for targeted exams where dose is matched to indication/reason for exam; i.e. extremities or head) *Use of iterative reconstruction technique DLP: 317 mGy-cm FINDINGS: LUNG BASES: The visualized lung bases are clear. There is a large esophageal hernia or internal thoracic stomach. LIVER, GALLBLADDER, AND BILIARY TREE: The liver is normal in size, shape, and attenuation. No focal hepatic lesion or biliary ductal dilatation is present. The gallbladder is is not seen. PANCREAS: Unremarkable. SPLEEN: Unremarkable. ADRENAL GLANDS: Unremarkable. KIDNEYS AND URETERS: There is question of mild bilateral UPJ obstructions with mild hydronephrosis or fullness of the renal pelvises. This is similar to previous exam. The previously identified innumerable small renal cysts are not appreciated. BLADDER: Unremarkable. GASTROINTESTINAL TRACT: There is stool throughout the colon suggestive of constipation. There is no evidence of obstruction. Small and large bowel is otherwise unremarkable. The appendix is not identified With certainty. There are no inflammatory changes seen in the right lower quadrant. ABDOMINAL WALL: There is evidence of previous large abdominal wall hernia repair with mesh. There is a small left inguinal hernia containing fat. LYMPH NODES: Normal. VASCULAR: Unremarkable. PELVIC VISCERA: Unremarkable. OSSEOUS STRUCTURES: There is a T11 vertebral body compression fracture post kyphoplasty change. There is a severe T12 old compression fracture. There is increased thoracic kyphosis. There is slight retropulsion of bone into the spinal canal at this level. This appears unchanged. There is a mild L4 vertebral body compression fracture that appears unchanged. CT/CT abdomen pelvis wo con IMPRESSION: Constipation. Large esophageal hernia or intrathoracic stomach. Question bilateral UPJ obstructions. Stable thoracic and lumbar vertebral body compression fractures and increased thoracolumbar kyphosis. Fleischner guidelines were followed.
[2021-10-02 10:22] VITALS: BP 116/64; PULSE 75; O2SAT 96
[2021-10-02 10:23] VITALS: BP 132/72; PULSE 72; RESP 18; TEMP 36.8; O2SAT 97; BMI 16.7
--- NOTE | 2021-10-02 10:41 | ED.ABDPAIN ---
HPI - Abdominal Pain General Chief Complaint: Abdominal Pain Stated Complaint: abd pain Time Seen by Provider: 10/02/21 10:38 Source: patient Mode of arrival: ambulatory Limitations: no limitations History of Present Illness HPI narrative: 75 years old female who present to the emergency department for evaluation of diffuse abdominal pain, patient was seen in the emergency department and been evaluated for similar symptoms in the past, patient recently was treated for UTI and scheduled to have an appointment with Urology next week. Decreased p.o. intake, no bowel movement for 7 days but able to pass flatus, no reported weight loss. Related Data Home Medications Medication Instructions Recorded Confirmed alendronate 70 mg tablet 70 mg PO ANGEL@0600 07/27/21 07/27/21 ascorbic acid (vitamin C) 500 mg 500 mg PO DAILY 07/27/21 07/27/21 tablet (Vitamin C) cholecalciferol (vitamin D3) 50 50 mcg PO DAILY 07/27/21 07/27/21 mcg (2,000 unit) capsule (Vitamin D3) cranberry extract 250 mg capsule 250 mg PO BID 07/27/21 07/27/21 doxycycline hyclate 50 mg capsule 50 mg PO BID 07/27/21 07/27/21 folic acid 1 mg tablet 1 mg PO DAILY 07/27/21 07/27/21 furosemide 20 mg tablet 20 mg PO DAILY 07/27/21 07/27/21 lorazepam 1 mg tablet 1 mg PO TID 07/27/21 07/27/21 melatonin 3 mg tablet 3 mg PO BEDTIME 07/27/21 07/27/21 methenamine hippurate 1 gram tablet 1 g PO BID 07/27/21 07/27/21 multivitamin 1 tab PO DAILY 07/27/21 07/27/21 oxcarbazepine 150 mg tablet 150 mg PO BID 07/27/21 07/27/21 paroxetine HCl 30 mg tablet 30 mg PO DAILY 07/27/21 07/27/21 polyethylene glycol 3350 17 17 g PO DAILY 07/27/21 07/27/21 gram/dose oral powder propranolol 10 mg tablet 10 mg PO TID 07/27/21 07/27/21 salsalate 750 mg tablet 750 mg PO BID 07/27/21 07/27/21 sennosides 8.6 mg-docusate sodium 2 tab PO BEDTIME 07/27/21 07/27/21 50 mg tablet (Senna Plus) trazodone 50 mg tablet 50 mg PO BEDTIME PRN 07/27/21 07/27/21 Previous Rx's Medication Instructions Recorded cephalexin 500 mg capsule 500 mg PO QID 5 Days #20 cap 07/27/21 cephalexin 500 mg capsule 500 mg PO QID #20 cap 08/09/21 nitrofurantoin 100 mg PO Q12H 7 Days #14 cap 10/02/21 monohydrate/macrocrystals 100 mg capsule (Macrobid) Allergies Allergy/AdvReac Type Severity Reaction Status Date / Time ibuprofen [IBUPROFEN] Allergy Intermediate KIDNEY Verified 07/19/21 20:57 PROBLEMS oxycodone [From OXYCONTIN] Allergy Unknown UNKNOWN Verified 07/19/21 20:57 Sulfa (Sulfonamide Allergy Unknown UNKNOWN Verified 07/19/21 20:57 Antibiotics) [SULFA (SULFONAMIDE ANTIBIOTICS)] Ibuprofen Allergy Unknown Unknown Uncoded 07/19/21 20:57 Sulfer Allergy Unknown Unknown Uncoded 07/19/21 20:57 Review of Systems Review of Systems All other systems are reviewed and are negative Constitutional: Reports as per HPI and Reports no additional constitutional complaints Eyes: Reports as per HPI and Reports no additional eye complaints Reports system reviewed and no additional complaints, except as documented Cardiovascular: Reports as per HPI and Reports no additional cardiovascular complaints Respiratory: Reports as per HPI and Reports no additional respiratory complaints Gastrointestinal: Reports as per HPI and Reports no additional gastrointestinal complaints Genitourinary: Reports no additional female genitourinary complaints Musculoskeletal: Reports no additional musculoskeletal complaints Skin/Breast: Reports system reviewed and no additional complaints, except as docu Psychiatric: Reports no additional psychiatric complaints Endocrine: Reports no additional endocrine complaints Hematologic/Lymphatic: Reports no additional hematologic/lymphatic complaints Allergic/Immunologic: Reports no additional allergic/immunologic complaints Reports system reviewed and no additional complaints, except as documented and Reports Abnormal speech present [facility] Past Medical History Medical History Ankle wound Bipolar disorder Cellulitis Diverticulitis Hernia Kidney disease UTI (urinary tract infection) Surgical History H/O abdominal surgery Social History Social History Alcohol intake: never Patient Tobacco Use Status: Current everyday Tobacco user Advance Directives: Yes Advance Directives Information Provided: No Advance Directives on File: No Physical Exam ED Vital Signs: Vital Signs - 24 hr 10/02/21 10:23 10/02/21 11:07 Temperature 98.3 F 98.0 F Pulse Rate 72 66 Respiratory Rate 18 16 Blood Pressure 132/72 122/62 Pulse Oximetry 97 96 BMI result Body Mass Index 16.7 vital signs have been reviewed as appeared to be correct. Blood pressure normal. Heart rate normal. Respiration rate normal. Temperature normal. Oxygen saturation normal. Appearance: Alert. Oriented X3. No acute distress. Head: Normal external exam. Normocephalic. Atraumatic. No Zuniga signs noted. No raccoon eyes noted Eyes: PERRLA. EOMI. Conjunctiva and sclera normal. Eyelids normal. ENT: TM's Normal. Pharynx normal. Uvula midline. Moist mucous membranes. No trismus noted. No drooling noted. No muffled voice noted. Neck: Normal inspection. Neck supple. FROM. No adenopathy. Thyroid Normal. No meningeal signs. No neck mass noted. CVS: Normal heart rate and rhythm. Heart sound normal. No murmurs noted. Pulses normal throughout. Respiratory: No respiratory distress. Painless inspiration. Breath sounds normal. No wheezes/rales/rhonchi noted. Chest nontender. No accessory muscle usage noted or decreased air movement noted. Abdomen: Soft and nontender. Bowel sounds normal in all 4 quadrants. No distention noted. No organomegaly noted. No visible injury noted. Back: No CVA tenderness. Full range of motion noted. Skin: Skin warm and dry. Normal skin color. Normal skin turgor. No rashes/lesions/lacerations noted. Extremities: No lower extremity edema. Extremities exhibit normal range of motion. Extremities nontender. Neuro: Oriented X 3. Cranial nerve exam: II-XII are grossly intact No motor deficit. No sensory deficit. Reflexes normal. Course Course Course Narrative: assessment and plan. 75-year-old female return to the emergency room for same symptoms of abdominal pain. Workup is consistent with UTI patient had previous symptoms in the past with negative urine cultures. Patient recently just finished oral antibiotic as an outpatient and has an appointment on Monday with a urologist at [facility]. 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 Will discharge patient micro bur and continue from a with her urologist next week. MDM - Abdominal Pain Lab Data Attestation: I reviewed the patient's lab results. Result diagrams: 10/02/21 11:04 10/02/21 11:04 Labs: Lab Results 10/02/21 10/02/21 10/02/21 Range/Units 11:04 11:04 11:04 WBC 4.8 (4.8-10.8) X10*3/uL RBC 3.61 L (4.20-5.50) X10*6/uL Hgb 11.8 L (12.0-16.0) g/dl Hct 36.2 L (37.0-47.0) % MCV 100.3 H (80.0-98.0) fL MCH 32.7 (27.0-33.0) pg MCHC 32.6 (31.0-35.0) g/dl RDW 12.7 (11.0-16.0) % Plt Count 202 (160-400) X10*3/uL MPV 10.9 (9.4-12.3) fL Immature Gran % (Auto) 0.2 (0.0-0.4) % Neut % (Auto) 60.2 (45-73) % Lymph % (Auto) 28.3 (20-40) % [place] % (Auto) 9.2 (2-11) % Eos % (Auto) 1.9 (0-4) % Baso % (Auto) 0.2 (0-2) % Lymph # (Auto) 1.4 (1.2-4.9) X10*3/uL [place] # (Auto) 0.4 (0.1-1.2) X10*3/uL Eos # (Auto) 0.1 (0.0-0.4) X10*3/uL Baso # (Auto) 0.0 (0.0-0.2) X10*3/uL Abs Immat Gran (auto) 0.01 (0.00-0.03) X10*3/uL Absolute Neuts (auto) 2.9 (2.0-8.3) x10*3/uL Absolute Nucleated RBC 0.000 (0.0-0.012) X10*3/uL Nucleated RBC % (auto) 0.0 (0.0-0.2) /100WBC Sodium 144 (135-145) mmol/L Potassium 4.7 (3.3-5.1) mmol/L Chloride 108 (96-108) mmol/L Carbon Dioxide 30 H (22-29) mmol/L Anion Gap 11 L (12-20) BUN 29 H (9-16) mg/dL Creatinine 1.27 (0.5-1.4) mg/dL Estim Creat Clear Calc 27.9 Estimated GFR 41 Random Glucose 101 (60-115) mg/dL Calcium 9.7 (8.4-10.2) mg/dL Total Bilirubin < 0.2 (0.0-1.0) mg/dL Direct Bilirubin < 0.2 (0.0-0.5) mg/dL AST 18 (5-31) U/L ALT 14 (0-31) U/L Alkaline Phosphatase 69 (39-117) U/L Troponin I High Sens < 3.5 (<3.5-17.0) ng/L Total Protein 6.2 L (6.5-8.0) g/dL Albumin 3.3 L (3.5-5.0) g/dL Lipase 31 (8-78) U/L Urine Color Urine Appearance Urine pH (5.0-8.0) Ur Specific [place] (1.005-1.025) Urine Protein (NEG-TRACE) MG/DL Urine Glucose (UA) (NEG) MG/DL Urine Ketones (NEG) MG/DL Urine Blood (NEG) Urine Nitrite (NEG) Ur Leukocyte Esterase (NEG) Urine RBC (0) /HPF Urine WBC (0-4) /HPF Ur Squamous Epith Cells /LPF Urine Bacteria /LPF Urine Mucus /LPF Urine Yeast /HPF Influenza Type A (PCR) (Negative) Influenza Type B (PCR) (Negative) RSV RNA Qual (PCR) (Negative) SARS-CoV-2 RNA (RT-PCR) (Negative) 10/02/21 10/02/21 Range/Units 11:04 12:16 WBC (4.8-10.8) X10*3/uL RBC (4.20-5.50) X10*6/uL Hgb (12.0-16.0) g/dl Hct (37.0-47.0) % MCV (80.0-98.0) fL MCH (27.0-33.0) pg MCHC (31.0-35.0) g/dl RDW (11.0-16.0) % Plt Count (160-400) X10*3/uL MPV (9.4-12.3) fL Immature Gran % (Auto) (0.0-0.4) % Neut % (Auto) (45-73) % Lymph % (Auto) (20-40) % [place] % (Auto) (2-11) % Eos % (Auto) (0-4) % Baso % (Auto) (0-2) % Lymph # (Auto) (1.2-4.9) X10*3/uL [place] # (Auto) (0.1-1.2) X10*3/uL Eos # (Auto) (0.0-0.4) X10*3/uL Baso # (Auto) (0.0-0.2) X10*3/uL Abs Immat Gran (auto) (0.00-0.03) X10*3/uL Absolute Neuts (auto) (2.0-8.3) x10*3/uL Absolute Nucleated RBC (0.0-0.012) X10*3/uL Nucleated RBC % (auto) (0.0-0.2) /100WBC Sodium (135-145) mmol/L Potassium (3.3-5.1) mmol/L Chloride (96-108) mmol/L Carbon Dioxide (22-29) mmol/L Anion Gap (12-20) BUN (9-16) mg/dL Creatinine (0.5-1.4) mg/dL Estim Creat Clear Calc Estimated GFR Random Glucose (60-115) mg/dL Calcium (8.4-10.2) mg/dL Total Bilirubin (0.0-1.0) mg/dL Direct Bilirubin (0.0-0.5) mg/dL AST (5-31) U/L ALT (0-31) U/L Alkaline Phosphatase (39-117) U/L Troponin I High Sens (<3.5-17.0) ng/L Total Protein (6.5-8.0) g/dL Albumin (3.5-5.0) g/dL Lipase (8-78) U/L Urine Color STRAW Urine Appearance HAZY Urine pH 6.0 (5.0-8.0) Ur Specific [place] 1.010 (1.005-1.025) Urine Protein NEG (NEG-TRACE) MG/DL Urine Glucose (UA) NEG (NEG) MG/DL Urine Ketones NEG (NEG) MG/DL Urine Blood TRACE (NEG) Urine Nitrite NEG (NEG) Ur Leukocyte Esterase 1+ H (NEG) Urine RBC 1-4 (0) /HPF Urine WBC 76-150 H (0-4) /HPF Ur Squamous Epith Cells TRACE /LPF Urine Bacteria NONE /LPF Urine Mucus TRACE /LPF Urine Yeast 1+ /HPF Influenza Type A (PCR) NEGATIVE (Negative) Influenza Type B (PCR) NEGATIVE (Negative) RSV RNA Qual (PCR) NEGATIVE (Negative) SARS-CoV-2 RNA (RT-PCR) NEGATIVE (Negative) Imaging Data CT scan - abdomen: Attestation: I personally reviewed and interpreted this imaging study as follows: Radiologist's impression: Constipation. Large esophageal hernia or intrathoracic stomach. Question bilateral UPJ obstructions. Stable thoracic and lumbar vertebral body compression fractures and increased thoracolumbar kyphosis. ? Discharge Plan Discharge Clinical Impression: Abdominal pain, Acute UTI Patient Disposition: Home, Self-Care Instructions: Urinary Tract Infection in Women (ED) Prescriptions: New nitrofurantoin monohyd/m-cryst [Macrobid] 100 mg capsule 100 mg PO Q12H 7 Days Qty: 14 0RF Rx Instructions: must administer with a meal/food No Action multivitamin Tablet 1 tab PO DAILY 0RF oxcarbazepine 150 mg tablet 150 mg PO BID 0RF trazodone 50 mg tablet 50 mg PO BEDTIME PRN (Reason: Insomnia) 0RF alendronate 70 mg tablet 70 mg PO ANGEL@0600 0RF doxycycline hyclate 50 mg capsule 50 mg PO BID 0RF sennosides-docusate sodium [Senna Plus] 8.6-50 mg tablet 2 tab PO BEDTIME 0RF melatonin 3 mg tablet 3 mg PO BEDTIME 0RF cranberry extract 250 mg capsule 250 mg PO BID 0RF propranolol 10 mg tablet 10 mg PO TID 0RF methenamine hippurate 1 gram tablet 1 g PO BID 0RF ascorbic acid (vitamin C) [Vitamin C] 500 mg tablet 500 mg PO DAILY 0RF paroxetine HCl 30 mg tablet 30 mg PO DAILY 0RF folic acid 1 mg tablet 1 mg PO DAILY 0RF furosemide 20 mg tablet 20 mg PO DAILY 0RF lorazepam 1 mg tablet 1 mg PO TID 0RF polyethylene glycol 3350 17 gram/dose powder 17 g PO DAILY 0RF salsalate 750 mg tablet 750 mg PO BID 0RF cholecalciferol (vitamin D3) [Vitamin D3] 50 mcg (2,000 unit) capsule 50 mcg PO DAILY 0RF cephalexin 500 mg capsule 500 mg PO QID 5 Days Qty: 20 0RF cephalexin 500 mg capsule 500 mg PO QID Qty: 20 0RF Referrals: Brendan Estevez MD [Primary Care Provider] -
[2021-10-02 11:07] VITALS: BP 122/62; PULSE 66; RESP 16; TEMP 36.7; O2SAT 96
[2021-10-02 11:11] LABS: MANUAL DIFF FLAG NO
[2021-10-02 11:16] LABS: Basophils Percent Auto 0.2 % (0-2); Eosinophils Absolute Auto 0.1 X10*3/uL (0.0-0.4); Eosinophils Percent Auto 1.9 % (0-4); Hematocrit 36.2 % (37.0-47.0); Hemoglobin 11.8 g/dl (12.0-16.0); Imm Gran Abs Auto 0.01 X10*3/uL (0.00-0.03); Imm Gran Pct Auto 0.2 % (0.0-0.4); Lymphocytes Absolute Auto 1.4 X10*3/uL (1.2-4.9); Lymphocytes Percent Auto 28.3 % (20-40); Mean Corpuscular HGB Conc 32.6 g/dl (31.0-35.0); Mean Corpuscular Hemoglobin 32.7 pg (27.0-33.0); Mean Corpuscular Volume 100.3 fL (80.0-98.0); Mean Platelet Volume 10.9 fL (9.4-12.3); Monocytes Absolute Auto 0.4 X10*3/uL (0.1-1.2); Monocytes Percent Auto 9.2 % (2-11); Neutrophils Absolute Auto 2.9 x10*3/uL (2.0-8.3); Neutrophils Percent Auto 60.2 % (45-73); Platelet Count 202 X10*3/uL (160-400); Red Blood Count 3.61 X10*6/uL (4.20-5.50); Red Cell Distribution Width 12.7 % (11.0-16.0); White Blood Count 4.8 X10*3/uL (4.8-10.8)
[2021-10-02 11:29] LABS: Alanine Aminotransferase 14 U/L (0-31); Albumin Level 3.3 g/dL (3.5-5.0); Alkaline Phosphatase 69 U/L (39-117); Anion Gap 11 (12-20); Aspartate Amino Transferase 18 U/L (5-31); Bilirubin Direct < 0.2 mg/dL (0.0-0.5); Bilirubin Total < 0.2 mg/dL (0.0-1.0); Blood Urea Nitrogen 29 mg/dL (9-16); Calcium 9.7 mg/dL (8.4-10.2); Carbon Dioxide 30 mmol/L (22-29); Chloride 108 mmol/L (96-108); Creatinine Clr Calc Pharmacy 27.9; Estimated Glomerular Filt Rate 41; Glucose Random 101 mg/dL (60-115); Lipase 31 U/L (8-78); Potassium 4.7 mmol/L (3.3-5.1); Sodium 144 mmol/L (135-145); Total Protein 6.2 g/dL (6.5-8.0)
[2021-10-02 11:35] LABS: Troponin-I High Sensitivity < 3.5 ng/L (<3.5-17.0)
[2021-10-02] MEDS: 0.9 % Sodium Chloride 1,000 ML 999 ML IV (11:35)
[2021-10-02 12:01] LABS: Influenza A PCR NEGATIVE (Negative); Influenza B PCR NEGATIVE (Negative); Resp Syncy Virus RNA Qual PCR NEGATIVE (Negative); SARS COV2 PCR INHOUSE NEGATIVE (Negative)
[2021-10-02 12:22] LABS: Appearance Urine HAZY; Color Urine STRAW; Glucose Urine UA NEG (NEG); Leukocyte Esterase Urine 1+ (NEG); Nitrite Urine NEG (NEG); UACC Culture Trigger YES; Urine Blood TRACE (NEG); Urine Ketones NEG (NEG); Urine Protein NEG (NEG-TRACE)
[2021-10-02 12:29] LABS: Mucus Urine TRACE /LPF; Squamous Epithelial Cell Urine TRACE /LPF
--- NOTE | 2021-10-02 14:51 | PC.NURSE ---
Pt reports not having ride home or ability to call for one. Pt states she is willing ot pay for ambulance ride home.
--- NOTE | 2021-10-02 15:01 | PC.NURSE ---
verbalized d/c instructions. pt moved from bed to wheelchair to await chairvan home. Pt given phone to attempt to call for rides.
== END 2021-10-02 16:24 | disposition home or self-care (01) ==
PROVIDERS: Emergency Provider Emergency Medicine; PCP Internal Medicine
DX: N39.0 Urinary tract infection, site not specified (principal); R10.9 Unspecified abdominal pain; Z20.822 Contact with and (suspected) exposure to COVID-19
CPT/HCPCS: 0241U; 36415; 74176; 80048; 80076; 81001; 83690; 84484; 85025; 87086; 96360; 99283; 99284

== ENCOUNTER 2021-11-21 17:53 | Emergency (ER) | payer OTHER, SELFPAY ==
--- NOTE | ~2021-11-21 | CT_ITS ---
EXAMINATION: CT ABDOMEN AND PELVIS WITHOUT CONTRAST CLINICAL INFORMATION: Lower abdominal pain with question of diverticulitis COMPARISON: CT abdomen pelvis 10/02/2021 TECHNIQUE: Multidetector volumetric imaging was performed from the superior aspect of the liver through the pubic symphysis. Sagittal and coronal reformatted images were obtained on the technologist's workstation. This CT examination was performed using dose optimization techniques as appropriate, variously including the following: *Automated exposure control *Adjustment of mA and/or kV according to patient size (this includes techniques or standardized protocols for targeted exams where dose is matched to indication/reason for exam; i.e. extremities or head) *Use of iterative reconstruction technique DLP: 340 mGy-cm FINDINGS: LUNG BASES: The visualized lung bases are unremarkable. LIVER, GALLBLADDER, AND BILIARY TREE: The liver is normal in size, shape, and attenuation. No focal hepatic lesion or biliary ductal dilatation is present. The gallbladder is unremarkable with no evidence of radiopaque gallstones, gallbladder wall thickening, or obvious pericholecystic inflammatory changes. PANCREAS: Unremarkable. SPLEEN: Unremarkable. ADRENAL GLANDS: Unremarkable. KIDNEYS AND URETERS: The kidneys are normal in size, shape, and attenuation. Findings in the kidneys are similar to prior with extrarenal pelves possibly representing cysts some element of the UPJ obstruction. No nephrolithiasis. Tiny 3 mm sized hyperattenuating lesion in the right kidney most likely a Bosniak class II cyst. No gross hydronephrosis or hydroureter seen. No perinephric stranding. BLADDER: There is marked distention of the urinary bladder. GASTROINTESTINAL TRACT: A moderate-sized hiatal hernia is again seen. Moderate stool present throughout the colon as seen previously. A sigmoid anastomosis appears to be present without obstruction. The small and large bowel are otherwise unremarkable. The appendix is not seen and there is no evidence of appendicitis.. ABDOMINAL WALL: Previous abdominal wall surgery. Small midline hernia unchanged without obstructed bowel. LYMPH NODES: No retroperitoneal lymphadenopathy. VASCULAR: Calcific atherosclerotic changes present in the aorta and iliac vessels without aneurysm PELVIC VISCERA: Unremarkable. OSSEOUS STRUCTURES: Compression fractures involving T12 and L4 unchanged. Prior kyphoplasty changes and compression fracture T11 unchanged. CT/CT abdomen pelvis wo con IMPRESSION: 1. The bladder is markedly distended. 2. Moderate stool present throughout the colon. There is no evidence of diverticulitis. 3. Other incidental findings as described above. Fleischner guidelines were followed.
[2021-11-21 17:57] VITALS: BP 138/76; PULSE 70; O2SAT 98
--- NOTE | 2021-11-21 18:17 | ED_ITS ---
HPI - Nausea/Vomiting/Diarrhea General Chief complaint: General Medical Stated complaint: N/V Time Seen by Provider: 11/21/21 18:17 Source: patient and EMS Mode of arrival: EMS Limitations: no limitations History of Present Illness HPI Narrative: patient just had food felt nauseated threw up only small amount of mucus complaining of diffuse abdominal pain no fever no chills no urine symptoms Related Data Home Medications Medication Instructions Recorded Confirmed alendronate 70 mg tablet 70 mg PO ANGEL@0600 07/27/21 07/27/21 ascorbic acid (vitamin C) 500 mg 500 mg PO DAILY 07/27/21 07/27/21 tablet (Vitamin C) cholecalciferol (vitamin D3) 50 50 mcg PO DAILY 07/27/21 07/27/21 mcg (2,000 unit) capsule (Vitamin D3) cranberry extract 250 mg capsule 250 mg PO BID 07/27/21 07/27/21 doxycycline hyclate 50 mg capsule 50 mg PO BID 07/27/21 07/27/21 folic acid 1 mg tablet 1 mg PO DAILY 07/27/21 07/27/21 furosemide 20 mg tablet 20 mg PO DAILY 07/27/21 07/27/21 lorazepam 1 mg tablet 1 mg PO TID 07/27/21 07/27/21 melatonin 3 mg tablet 3 mg PO BEDTIME 07/27/21 07/27/21 methenamine hippurate 1 gram tablet 1 g PO BID 07/27/21 07/27/21 multivitamin 1 tab PO DAILY 07/27/21 07/27/21 oxcarbazepine 150 mg tablet 150 mg PO BID 07/27/21 07/27/21 paroxetine HCl 30 mg tablet 30 mg PO DAILY 07/27/21 07/27/21 polyethylene glycol 3350 17 17 g PO DAILY 07/27/21 07/27/21 gram/dose oral powder propranolol 10 mg tablet 10 mg PO TID 07/27/21 07/27/21 salsalate 750 mg tablet 750 mg PO BID 07/27/21 07/27/21 sennosides 8.6 mg-docusate sodium 2 tab PO BEDTIME 07/27/21 07/27/21 50 mg tablet (Senna Plus) trazodone 50 mg tablet 50 mg PO BEDTIME PRN Insomnia 07/27/21 07/27/21 Previous Rx's Medication Instructions Recorded cephalexin 500 mg capsule 500 mg PO QID 5 days #20 caps 07/27/21 cephalexin 500 mg capsule 500 mg PO QID #20 caps 08/09/21 nitrofurantoin 100 mg PO Q12H 7 days #14 caps 10/02/21 monohydrate/macrocrystals 100 mg capsule (Macrobid) Allergies Allergy/AdvReac Type Severity Reaction Status Date / Time ibuprofen [IBUPROFEN] Allergy Intermediate KIDNEY Verified 07/19/21 20:57 PROBLEMS oxycodone [From OXYCONTIN] Allergy Unknown UNKNOWN Verified 07/19/21 20:57 Sulfa (Sulfonamide Allergy Unknown UNKNOWN Verified 07/19/21 20:57 Antibiotics) [SULFA (SULFONAMIDE ANTIBIOTICS)] Ibuprofen Allergy Unknown Unknown Uncoded 07/19/21 20:57 Sulfer Allergy Unknown Unknown Uncoded 07/19/21 20:57 PMFSH Past Medical History Medical History Ankle wound Bipolar disorder Cellulitis Diverticulitis Hernia Kidney disease UTI (urinary tract infection) Surgical History H/O abdominal surgery Social History Social History Alcohol intake: never Patient Tobacco Use Status: Current everyday Tobacco user Smoked in Last 30 Days: Yes Use of substances other than those prescribed or required for medical reasons: No Advance Directives: No Advance Directives Information Provided: No Physical Exam Vital Signs: Vital Signs: Last Vital Signs Temp 97.8 F 11/21/21 19:26 Pulse 58 11/21/21 21:32 Resp 16 11/21/21 21:32 BP 144/72 H 11/21/21 19:26 Pulse Ox 96 11/21/21 21:32 O2 Del Method 11/21/21 19:26 BMI result Body Mass Index 21.4 MDM - Nausea/Vomiting/Diarrhea MDM Narrative Medical decision making narrative: Patient's CT scan abdomen essentially negative patient taking p.o. fluids will discharge patient home. Labs are stable , normal lactic acid Lab Data Attestation: I reviewed the patient's lab results. Result diagrams: 11/21/21 19:48 11/21/21 19:48 Labs: Lab Results 11/21/21 11/21/2122 Range/Units 19:48 19:48 19:48 WBC 5.9 (4.8-10.8) X10*3/uL RBC 3.73 L (4.20-5.50) X10*6/uL Hgb 12.0 (12.0-16.0) g/dl Hct 37.3 (37.0-47.0) % MCV 100.0 H (80.0-98.0) fL MCH 32.2 (27.0-33.0) pg MCHC 32.2 (31.0-35.0) g/dl RDW 12.4 (11.0-16.0) % Plt Count 194 (160-400) X10*3/uL MPV 10.6 (9.4-12.3) fL Immature Gran % (Auto) 0.2 (0.0-0.4) % Neut % (Auto) 56.1 (45-73) % Lymph % (Auto) 33.3 (20-40) % [place] % (Auto) 8.2 (2-11) % Eos % (Auto) 1.7 (0-4) % Baso % (Auto) 0.5 (0-2) % Lymph # (Auto) 2.0 (1.2-4.9) X10*3/uL [place] # (Auto) 0.5 (0.1-1.2) X10*3/uL Eos # (Auto) 0.1 (0.0-0.4) X10*3/uL Baso # (Auto) 0.0 (0.0-0.2) X10*3/uL Abs Immat Gran (auto) 0.01 (0.00-0.03) X10*3/uL Absolute Neuts (auto) 3.3 (2.0-8.3) x10*3/uL Absolute Nucleated RBC 0.000 (0.0-0.012) X10*3/uL Nucleated RBC % (auto) 0.0 (0.0-0.2) /100WBC Sodium 144 (135-145) mmol/L Potassium 4.5 (3.3-5.1) mmol/L Chloride 109 H (96-108) mmol/L Carbon Dioxide 26 (22-29) mmol/L Anion Gap 14 (12-20) BUN 43 H (9-16) mg/dL Creatinine 1.51 H (0.5-1.4) mg/dL Estim Creat Clear Calc 21.3 Estimated GFR 33 Random Glucose 101 (60-115) mg/dL Lactic Acid 0.7 (0.5-2.0) mmol/L Calcium 8.9 D (8.4-10.2) mg/dL Total Bilirubin 0.2 (0.0-1.0) mg/dL AST 20 (5-31) U/L ALT 13 (0-31) U/L Alkaline Phosphatase 83 D (39-117) U/L Total Protein 6.2 L (6.5-8.0) g/dL Albumin 3.4 L (3.5-5.0) g/dL Lipase 22 (8-78) U/L Urine Color Urine Appearance Urine pH (5.0-8.0) Ur Specific [place] (1.005-1.025) Urine Protein (NEG-TRACE) MG/DL Urine Glucose (UA) (NEG) MG/DL Urine Ketones (NEG) MG/DL Urine Blood (NEG) Urine Nitrite (NEG) Ur Leukocyte Esterase (NEG) 11/21/21 Range/Units 21:35 WBC (4.8-10.8) X10*3/uL RBC (4.20-5.50) X10*6/uL Hgb (12.0-16.0) g/dl Hct (37.0-47.0) % MCV (80.0-98.0) fL MCH (27.0-33.0) pg MCHC (31.0-35.0) g/dl RDW (11.0-16.0) % Plt Count (160-400) X10*3/uL MPV (9.4-12.3) fL Immature Gran % (Auto) (0.0-0.4) % Neut % (Auto) (45-73) % Lymph % (Auto) (20-40) % [place] % (Auto) (2-11) % Eos % (Auto) (0-4) % Baso % (Auto) (0-2) % Lymph # (Auto) (1.2-4.9) X10*3/uL [place] # (Auto) (0.1-1.2) X10*3/uL Eos # (Auto) (0.0-0.4) X10*3/uL Baso # (Auto) (0.0-0.2) X10*3/uL Abs Immat Gran (auto) (0.00-0.03) X10*3/uL Absolute Neuts (auto) (2.0-8.3) x10*3/uL Absolute Nucleated RBC (0.0-0.012) X10*3/uL Nucleated RBC % (auto) (0.0-0.2) /100WBC Sodium (135-145) mmol/L Potassium (3.3-5.1) mmol/L Chloride (96-108) mmol/L Carbon Dioxide (22-29) mmol/L Anion Gap (12-20) BUN (9-16) mg/dL Creatinine (0.5-1.4) mg/dL Estim Creat Clear Calc Estimated GFR Random Glucose (60-115) mg/dL Lactic Acid (0.5-2.0) mmol/L Calcium (8.4-10.2) mg/dL Total Bilirubin (0.0-1.0) mg/dL AST (5-31) U/L ALT (0-31) U/L Alkaline Phosphatase (39-117) U/L Total Protein (6.5-8.0) g/dL Albumin (3.5-5.0) g/dL Lipase (8-78) U/L Urine Color YELLOW Urine Appearance CLEAR Urine pH 6.0 (5.0-8.0) Ur Specific [place] 1.010 (1.005-1.025) Urine Protein NEG (NEG-TRACE) MG/DL Urine Glucose (UA) NEG (NEG) MG/DL Urine Ketones NEG (NEG) MG/DL Urine Blood NEG (NEG) Urine Nitrite NEG (NEG) Ur Leukocyte Esterase NEG (NEG) Discharge Plan Discharge Clinical Impression: Vomiting Patient Disposition: Home, Self-Care Instructions: Acute Nausea and Vomiting (ED) Additional Instructions: drink plenty of fluids follow-up with PCP as needed Prescriptions: No Action multivitamin Tablet 1 tab PO DAILY oxcarbazepine 150 mg tablet 150 mg PO BID trazodone 50 mg tablet 50 mg PO BEDTIME PRN (Reason: Insomnia) alendronate 70 mg tablet 70 mg PO ANGEL@0600 doxycycline hyclate 50 mg capsule 50 mg PO BID sennosides-docusate sodium [Senna Plus] 8.6-50 mg tablet 2 tab PO BEDTIME melatonin 3 mg tablet 3 mg PO BEDTIME cranberry extract 250 mg capsule 250 mg PO BID propranolol 10 mg tablet 10 mg PO TID methenamine hippurate 1 gram tablet 1 g PO BID ascorbic acid (vitamin C) [Vitamin C] 500 mg tablet 500 mg PO DAILY paroxetine HCl 30 mg tablet 30 mg PO DAILY folic acid 1 mg tablet 1 mg PO DAILY furosemide 20 mg tablet 20 mg PO DAILY lorazepam 1 mg tablet 1 mg PO TID polyethylene glycol 3350 17 gram/dose powder 17 g PO DAILY salsalate 750 mg tablet 750 mg PO BID cholecalciferol (vitamin D3) [Vitamin D3] 50 mcg (2,000 unit) capsule 50 mcg PO DAILY cephalexin 500 mg capsule 500 mg PO QID 5 Days Qty: 20 0RF cephalexin 500 mg capsule 500 mg PO QID Qty: 20 0RF nitrofurantoin monohyd/m-cryst [Macrobid] 100 mg capsule 100 mg PO Q12H 7 Days Qty: 14 0RF Rx Instructions: must administer with a meal/food Interventions: ED Discharge Assessment Last Done: 11/21/21 23:23 Discharge Date/Time: 11/21/21 23:24
--- NOTE | 2021-11-21 19:02 | PC.NURSE ---
pt to CT.
[2021-11-21 19:26] VITALS: BP 144/72; PULSE 70; RESP 16; TEMP 36.6; O2SAT 95; BMI 21.4
[2021-11-21] MEDS: 0.9 % Sodium Chloride 1,000 ML 999 ML IV (19:39)
[2021-11-21 19:53] LABS: MANUAL DIFF FLAG NO
[2021-11-21 19:57] LABS: Basophils Percent Auto 0.5 % (0-2); Eosinophils Absolute Auto 0.1 X10*3/uL (0.0-0.4); Eosinophils Percent Auto 1.7 % (0-4); Hematocrit 37.3 % (37.0-47.0); Imm Gran Abs Auto 0.01 X10*3/uL (0.00-0.03); Imm Gran Pct Auto 0.2 % (0.0-0.4); Lymphocytes Percent Auto 33.3 % (20-40); Mean Corpuscular HGB Conc 32.2 g/dl (31.0-35.0); Mean Corpuscular Hemoglobin 32.2 pg (27.0-33.0); Mean Platelet Volume 10.6 fL (9.4-12.3); Monocytes Absolute Auto 0.5 X10*3/uL (0.1-1.2); Monocytes Percent Auto 8.2 % (2-11); Neutrophils Absolute Auto 3.3 x10*3/uL (2.0-8.3); Neutrophils Percent Auto 56.1 % (45-73); Platelet Count 194 X10*3/uL (160-400); Red Blood Count 3.73 X10*6/uL (4.20-5.50); Red Cell Distribution Width 12.4 % (11.0-16.0); White Blood Count 5.9 X10*3/uL (4.8-10.8)
[2021-11-21 20:10] LABS: Lactic Acid 0.7 mmol/L (0.5-2.0)
[2021-11-21 20:14] LABS: Alanine Aminotransferase 13 U/L (0-31); Albumin Level 3.4 g/dL (3.5-5.0); Alkaline Phosphatase 83 U/L (39-117); Anion Gap 14 (12-20); Aspartate Amino Transferase 20 U/L (5-31); Bilirubin Total 0.2 mg/dL (0.0-1.0); Blood Urea Nitrogen 43 mg/dL (9-16); Calcium 8.9 mg/dL (8.4-10.2); Carbon Dioxide 26 mmol/L (22-29); Chloride 109 mmol/L (96-108); Creatinine Clr Calc Pharmacy 21.3; Estimated Glomerular Filt Rate 33; Glucose Random 101 mg/dL (60-115); Lipase 22 U/L (8-78); Potassium 4.5 mmol/L (3.3-5.1); Sodium 144 mmol/L (135-145); Total Protein 6.2 g/dL (6.5-8.0)
[2021-11-21 21:32] VITALS: PULSE 58; RESP 16; O2SAT 96
[2021-11-21 21:46] LABS: Appearance Urine CLEAR; Color Urine YELLOW; Glucose Urine UA NEG (NEG); Leukocyte Esterase Urine NEG (NEG); Nitrite Urine NEG (NEG); Urine Blood NEG (NEG); Urine Ketones NEG (NEG); Urine Protein NEG (NEG-TRACE)
== END 2021-11-21 23:24 | disposition home or self-care (01) ==
PROVIDERS: Emergency Provider Internal Medicine
DX: R11.2 Nausea with vomiting, unspecified (principal); R10.9 Unspecified abdominal pain; F17.200 Nicotine dependence, unspecified, uncomplicated; Z71.6 Tobacco abuse counseling; Z79.899 Other long term (current) drug therapy
CPT/HCPCS: 36415; 74176; 80053; 81003; 83605; 83690; 85025; 96360; 99284

== ENCOUNTER 2021-12-23 00:39 | Emergency (ER) | payer OTHER, SELFPAY ==
--- NOTE | ~2021-12-23 | XR_ITS ---
EXAMINATION: XR CHEST CLINICAL INFORMATION: Chest pain COMPARISON: 09/09/2021 TECHNIQUE: Frontal view of the chest was obtained. FINDINGS: Normal symmetric lung volumes. No parenchymal consolidation. No pleural effusion. No pneumothorax. Cardiomediastinal silhouette and pulmonary vascularity are within normal limits. Aorta is atherosclerotic. Moderate hiatal hernia, decreased in size from prior. No acute osseous abnormalities. XR/XR chest 1V IMPRESSION: No acute findings
[2021-12-23 00:49] VITALS: BP 119/48; PULSE 65; RESP 16; TEMP 36.6; O2SAT 95; BMI 20.3
[2021-12-23 01:35] VITALS: BP 119/78; PULSE 65; RESP 16; TEMP 36.6; O2SAT 95
--- NOTE | 2021-12-23 02:13 | ECG_ITS ---
Test Reason : WEAKNESS Blood Pressure : / mmHG Vent. Rate : 061 BPM Atrial Rate : 061 BPM P-R Int : 166 ms QRS Dur : 080 ms QT Int : 426 ms P-R-T Axes : 084 048 057 degrees QTc Int : 428 ms Normal sinus rhythm Normal ECG When compared with ECG of 09-SEP-2021 03:11, Vent. rate has decreased BY 36 BPM Non-specific change in ST segment in Anterior leads Referred By: Latonia Olvera Electronically Signed By:VERNELL CHAVEZ MD
[2021-12-23 02:31] LABS: Basophils Percent Auto 0.5 % (0-2); Eosinophils Absolute Auto 0.1 X10*3/uL (0.0-0.4); Eosinophils Percent Auto 2.4 % (0-4); Hematocrit 33.1 % (37.0-47.0); Imm Gran Abs Auto 0.01 X10*3/uL (0.00-0.03); Imm Gran Pct Auto 0.2 % (0.0-0.4); Lymphocytes Absolute Auto 1.8 X10*3/uL (1.2-4.9); Lymphocytes Percent Auto 43.2 % (20-40); MANUAL DIFF FLAG NO; Mean Corpuscular HGB Conc 33.2 g/dl (31.0-35.0); Mean Corpuscular Hemoglobin 32.3 pg (27.0-33.0); Mean Corpuscular Volume 97.1 fL (80.0-98.0); Mean Platelet Volume 10.9 fL (9.4-12.3); Monocytes Absolute Auto 0.4 X10*3/uL (0.1-1.2); Neutrophils Absolute Auto 1.9 x10*3/uL (2.0-8.3); Neutrophils Percent Auto 44.7 % (45-73); Platelet Count 157 X10*3/uL (160-400); Red Blood Count 3.41 X10*6/uL (4.20-5.50); White Blood Count 4.2 X10*3/uL (4.8-10.8)
[2021-12-23] MEDS: 0.9 % Sodium Chloride 500 ML 999 ML IV (02:32)
[2021-12-23 02:45] LABS: COVID-19 Test Negative (Negative)
[2021-12-23 02:47] LABS: Appearance Urine CLEAR; Color Urine YELLOW; Glucose Urine UA NEG (NEG); Leukocyte Esterase Urine NEG (NEG); Nitrite Urine NEG (NEG); Urine Blood NEG (NEG); Urine Ketones NEG (NEG); Urine Protein NEG (NEG-TRACE)
[2021-12-23 02:53] LABS: Alanine Aminotransferase 12 U/L (0-31); Albumin Level 2.9 g/dL (3.5-5.0); Alkaline Phosphatase 59 U/L (39-117); Anion Gap 13 (12-20); Aspartate Amino Transferase 17 U/L (5-31); Bilirubin Direct < 0.2 mg/dL (0.0-0.5); Bilirubin Total 0.2 mg/dL (0.0-1.0); Blood Urea Nitrogen 51 mg/dL (9-16); Calcium 8.9 mg/dL (8.4-10.2); Carbon Dioxide 30 mmol/L (22-29); Chloride 104 mmol/L (96-108); Creatinine Clr Calc Pharmacy 23.1; Estimated Glomerular Filt Rate 35; Glucose Random 99 mg/dL (60-115); Potassium 4.3 mmol/L (3.3-5.1); Sodium 143 mmol/L (135-145); Total Protein 5.5 g/dL (6.5-8.0)
[2021-12-23 02:55] LABS: RBC Urine 0 /HPF (0); Squamous Epithelial Cell Urine TRACE /LPF; WBC Urine 0 /HPF (0-4)
[2021-12-23 02:57] LABS: Troponin-I High Sensitivity 4.5 ng/L (<3.5-17.0)
[2021-12-23 03:12] LABS: TSH reflex Free T4 2.09 uIU/mL (0.32-4.0)
--- NOTE | 2021-12-23 03:43 | ED.WEAKNESS ---
HPI - Weakness General Chief complaint: Weakness Stated complaint: INCREASED WEAKNESS X'S 3 WEEKS Time Seen by Provider: 12/23/21 02:03 History of Present Illness HPI Narrative: Patient is a 76-year-old female history of depression, bipolar. Complaining of generalized malaise. Patient lives with an elderly brother. Recently he is very sick. Patient feel he she is unable to take care of herself. Feels the weakness has been ongoing for weeks. Presents to the ED for help. Denies any chest pain denies any shortness breath denies any nausea vomiting. Feels generalized malaise. No pain on urination. No cough no congestion or upper respiratory symptoms. Patient vaccinated for COVID. Denies any headache. Denies any focal weakness. Denies any new medication. Patient is from home. She does have an aide that comes in to see her every day. Related Data Home Medications Medication Instructions Recorded Confirmed alendronate 70 mg tablet 70 mg PO ANGEL@0600 07/27/21 07/27/21 ascorbic acid (vitamin C) 500 mg 500 mg PO DAILY 07/27/21 07/27/21 tablet (Vitamin C) cholecalciferol (vitamin D3) 50 50 mcg PO DAILY 07/27/21 07/27/21 mcg (2,000 unit) capsule (Vitamin D3) cranberry extract 250 mg capsule 250 mg PO BID 07/27/21 07/27/21 doxycycline hyclate 50 mg capsule 50 mg PO BID 07/27/21 07/27/21 folic acid 1 mg tablet 1 mg PO DAILY 07/27/21 07/27/21 furosemide 20 mg tablet 20 mg PO DAILY 07/27/21 07/27/21 lorazepam 1 mg tablet 1 mg PO TID 07/27/21 07/27/21 melatonin 3 mg tablet 3 mg PO BEDTIME 07/27/21 07/27/21 methenamine hippurate 1 gram tablet 1 g PO BID 07/27/21 07/27/21 multivitamin 1 tab PO DAILY 07/27/21 07/27/21 oxcarbazepine 150 mg tablet 150 mg PO BID 07/27/21 07/27/21 paroxetine HCl 30 mg tablet 30 mg PO DAILY 07/27/21 07/27/21 polyethylene glycol 3350 17 17 g PO DAILY 07/27/21 07/27/21 gram/dose oral powder propranolol 10 mg tablet 10 mg PO TID 07/27/21 07/27/21 salsalate 750 mg tablet 750 mg PO BID 07/27/21 07/27/21 sennosides 8.6 mg-docusate sodium 2 tab PO BEDTIME 07/27/21 07/27/21 50 mg tablet (Senna Plus) trazodone 50 mg tablet 50 mg PO BEDTIME PRN Insomnia 07/27/21 07/27/21 Previous Rx's Medication Instructions Recorded cephalexin 500 mg capsule 500 mg PO QID 5 days #20 caps 07/27/21 cephalexin 500 mg capsule 500 mg PO QID #20 caps 08/09/21 nitrofurantoin 100 mg PO Q12H 7 days #14 caps 10/02/21 monohydrate/macrocrystals 100 mg capsule (Macrobid) Allergies Allergy/AdvReac Type Severity Reaction Status Date / Time ibuprofen [IBUPROFEN] Allergy Intermediate KIDNEY Verified 07/19/21 20:57 PROBLEMS oxycodone [From OXYCONTIN] Allergy Unknown UNKNOWN Verified 07/19/21 20:57 Sulfa (Sulfonamide Allergy Unknown UNKNOWN Verified 07/19/21 20:57 Antibiotics) [SULFA (SULFONAMIDE ANTIBIOTICS)] Ibuprofen Allergy Unknown Unknown Uncoded 07/19/21 20:57 Sulfer Allergy Unknown Unknown Uncoded 07/19/21 20:57 Review of Systems Review of Systems: No chest pain or shortness breath no dizziness no nausea no vomiting Yes all other systems are reviewed and are negative [facility] Past Medical History Attestation statement: The following information was validated with the patient. Medical History Ankle wound Bipolar disorder Cellulitis Diverticulitis Hernia Kidney disease UTI (urinary tract infection) Surgical History H/O abdominal surgery Social History Social History Alcohol intake: never Patient Tobacco Use Status: Current everyday Tobacco user Advance Directives: No Advance Directives Information Provided: Yes Physical Exam Vital Signs: Vital Signs: Last Vital Signs Temp 97.8 F 12/23/21 01:35 Pulse 65 12/23/21 01:35 Resp 16 12/23/21 01:35 BP 119/78 12/23/21 01:35 Pulse Ox 95 12/23/21 01:35 O2 Del Method 12/23/21 01:35 BMI result Body Mass Index 20.3 Appearance: Alert. Oriented X3. No acute distress. Eyes: Pupils equal, round and reactive to light. ENT: Pharynx normal. Neck: Normal inspection. Neck supple. No lymph nodes noted. No crepitus CVS: Normal heart rate and rhythm. Pulses normal. Normal S1 and S2 Respiratory: No respiratory distress. Breath sounds normal. No Wheezing. No rales Abdomen: Soft and nontender. No rigidity. No distention. good BS x4 Skin: Skin warm and dry. Normal skin color. Normal skin turgor. Extremities: No lower extremity edema. Neurovascular intact to all extremities. No Lacerations. No Rash Neuro: Oriented X 3. No motor deficit. No sensory deficit. Moving all extermities. No slurred speech MDM - Weakness MDM Narrative Medical decision making narrative: Patient's EKG showed a sinus pattern heart rate is 60 AR QRS QT within normal limits is no acute ST segment elevation. Patient's electrolytes are baseline. Elevated BUN and creatinine is a baseline. Hemoglobin is 11 which is approximately baseline. Patient's TSH is normal no evidence for hypothyroid. Chest x-ray showed no pneumonia no pneumothorax. Patient's urine showed no evidence of infection. Patient wants additional help at home. We will consult social work and physical therapy for further evaluation in a.m.. Patient is currently medically cleared. Medical Records Attestation: I reviewed the patient's medical records. Lab Data Attestation: I reviewed the patient's lab results. Result diagrams: 12/23/21 02:25 12/23/21 02:25 Labs: Lab Results 12/23/21 12/23/21 12/23/21 Range/Units 02:25 02:25 02:25 WBC 4.2 L (4.8-10.8) X10*3/uL RBC 3.41 L (4.20-5.50) X10*6/uL Hgb 11.0 L (12.0-16.0) g/dl Hct 33.1 L (37.0-47.0) % MCV 97.1 (80.0-98.0) fL MCH 32.3 (27.0-33.0) pg MCHC 33.2 (31.0-35.0) g/dl RDW 13.0 (11.0-16.0) % Plt Count 157 L (160-400) X10*3/uL MPV 10.9 (9.4-12.3) fL Immature Gran % (Auto) 0.2 (0.0-0.4) % Neut % (Auto) 44.7 L (45-73) % Lymph % (Auto) 43.2 H (20-40) % Heard % (Auto) 9.0 (2-11) % Eos % (Auto) 2.4 (0-4) % Baso % (Auto) 0.5 (0-2) % Lymph # (Auto) 1.8 (1.2-4.9) X10*3/uL Heard # (Auto) 0.4 (0.1-1.2) X10*3/uL Eos # (Auto) 0.1 (0.0-0.4) X10*3/uL Baso # (Auto) 0.0 (0.0-0.2) X10*3/uL Abs Immat Gran (auto) 0.01 (0.00-0.03) X10*3/uL Absolute Neuts (auto) 1.9 L (2.0-8.3) x10*3/uL Absolute Nucleated RBC 0.000 (0.0-0.012) X10*3/uL Nucleated RBC % (auto) 0.0 (0.0-0.2) /100WBC Sodium 143 (135-145) mmol/L Potassium 4.3 (3.3-5.1) mmol/L Chloride 104 (96-108) mmol/L Carbon Dioxide 30 H (22-29) mmol/L Anion Gap 13 (12-20) BUN 51 H (9-16) mg/dL Creatinine 1.46 H (0.5-1.4) mg/dL Estim Creat Clear Calc 23.1 Estimated GFR 35 Random Glucose 99 (60-115) mg/dL Calcium 8.9 (8.4-10.2) mg/dL Total Bilirubin 0.2 (0.0-1.0) mg/dL Direct Bilirubin < 0.2 (0.0-0.5) mg/dL AST 17 (5-31) U/L ALT 12 (0-31) U/L Alkaline Phosphatase 59 D (39-117) U/L Troponin I High Sens (<3.5-17.0) ng/L Total Protein 5.5 L (6.5-8.0) g/dL Albumin 2.9 L (3.5-5.0) g/dL TSH 2.09 (0.32-4.0) uIU/mL Urine Color Urine Appearance Urine pH (5.0-8.0) Ur Specific [place] (1.005-1.025) Urine Protein (NEG-TRACE) MG/DL Urine Glucose (UA) (NEG) MG/DL Urine Ketones (NEG) MG/DL Urine Blood (NEG) Urine Nitrite (NEG) Ur Leukocyte Esterase (NEG) Urine RBC (0) /HPF Urine WBC (0-4) /HPF Ur Squamous Epith Cells /LPF Urine Bacteria /LPF COVID-19 (OPHELIA) (Negative) COVID-19 Clin Com 12/23/21 12/23/21 12/23/21 Range/Units 02:25 02:25 02:41 WBC (4.8-10.8) X10*3/uL RBC (4.20-5.50) X10*6/uL Hgb (12.0-16.0) g/dl Hct (37.0-47.0) % MCV (80.0-98.0) fL MCH (27.0-33.0) pg MCHC (31.0-35.0) g/dl RDW (11.0-16.0) % Plt Count (160-400) X10*3/uL MPV (9.4-12.3) fL Immature Gran % (Auto) (0.0-0.4) % Neut % (Auto) (45-73) % Lymph % (Auto) (20-40) % Heard % (Auto) (2-11) % Eos % (Auto) (0-4) % Baso % (Auto) (0-2) % Lymph # (Auto) (1.2-4.9) X10*3/uL Heard # (Auto) (0.1-1.2) X10*3/uL Eos # (Auto) (0.0-0.4) X10*3/uL Baso # (Auto) (0.0-0.2) X10*3/uL Abs Immat Gran (auto) (0.00-0.03) X10*3/uL Absolute Neuts (auto) (2.0-8.3) x10*3/uL Absolute Nucleated RBC (0.0-0.012) X10*3/uL Nucleated RBC % (auto) (0.0-0.2) /100WBC Sodium (135-145) mmol/L Potassium (3.3-5.1) mmol/L Chloride (96-108) mmol/L Carbon Dioxide (22-29) mmol/L Anion Gap (12-20) BUN (9-16) mg/dL Creatinine (0.5-1.4) mg/dL Estim Creat Clear Calc Estimated GFR Random Glucose (60-115) mg/dL Calcium (8.4-10.2) mg/dL Total Bilirubin (0.0-1.0) mg/dL Direct Bilirubin (0.0-0.5) mg/dL AST (5-31) U/L ALT (0-31) U/L Alkaline Phosphatase (39-117) U/L Troponin I High Sens 4.5 (<3.5-17.0) ng/L Total Protein (6.5-8.0) g/dL Albumin (3.5-5.0) g/dL TSH (0.32-4.0) uIU/mL Urine Color YELLOW Urine Appearance CLEAR Urine pH 6.0 (5.0-8.0) Ur Specific [place] 1.010 (1.005-1.025) Urine Protein NEG (NEG-TRACE) MG/DL Urine Glucose (UA) NEG (NEG) MG/DL Urine Ketones NEG (NEG) MG/DL Urine Blood NEG (NEG) Urine Nitrite NEG (NEG) Ur Leukocyte Esterase NEG (NEG) Urine RBC 0 (0) /HPF Urine WBC 0 (0-4) /HPF Ur Squamous Epith Cells TRACE /LPF Urine Bacteria NONE /LPF COVID-19 (OPHELIA) Negative (Negative) COVID-19 Clin Com See Note Discharge Plan Discharge Clinical Impression: Weakness Patient Disposition: Still a Patient Prescriptions: No Action multivitamin Tablet 1 tab PO DAILY oxcarbazepine 150 mg tablet 150 mg PO BID trazodone 50 mg tablet 50 mg PO BEDTIME PRN (Reason: Insomnia) alendronate 70 mg tablet 70 mg PO ANGEL@0600 doxycycline hyclate 50 mg capsule 50 mg PO BID sennosides-docusate sodium [Senna Plus] 8.6-50 mg tablet 2 tab PO BEDTIME melatonin 3 mg tablet 3 mg PO BEDTIME cranberry extract 250 mg capsule 250 mg PO BID propranolol 10 mg tablet 10 mg PO TID methenamine hippurate 1 gram tablet 1 g PO BID ascorbic acid (vitamin C) [Vitamin C] 500 mg tablet 500 mg PO DAILY paroxetine HCl 30 mg tablet 30 mg PO DAILY folic acid 1 mg tablet 1 mg PO DAILY furosemide 20 mg tablet 20 mg PO DAILY lorazepam 1 mg tablet 1 mg PO TID polyethylene glycol 3350 17 gram/dose powder 17 g PO DAILY salsalate 750 mg tablet 750 mg PO BID cholecalciferol (vitamin D3) [Vitamin D3] 50 mcg (2,000 unit) capsule 50 mcg PO DAILY cephalexin 500 mg capsule 500 mg PO QID 5 Days Qty: 20 0RF cephalexin 500 mg capsule 500 mg PO QID Qty: 20 0RF nitrofurantoin monohyd/m-cryst [Macrobid] 100 mg capsule 100 mg PO Q12H 7 Days Qty: 14 0RF Rx Instructions: must administer with a meal/food
--- NOTE | 2021-12-23 03:44 | PC.NURSE ---
PATIENT WANT FOR A WALK WITH WALKER ,PATIENT WAS ABLE TO WALK FINE WITH SUPERVISION ,MD STOKES AWARE .
[2021-12-23 04:08] VITALS: BP 137/55; PULSE 57; RESP 16; O2SAT 96
[2021-12-23 07:13] VITALS: BP 118/51; PULSE 80; RESP 16; TEMP 36.4; O2SAT 96
[2021-12-23 07:32] VITALS: BP 118/51; PULSE 80; O2SAT 96
--- NOTE | 2021-12-23 09:49 | MHC.CM.ED ---
Received case management consult overnight from Dr Olvera. Patient came to ER due to weakness. Physical therapy eval completed. Short term rehab is recommended. Met with patient in regards to discharge planning. Patient lives with her brother, ambulates independently and is active with [facility]. PCP verified. Copy of HCP verified to be on file. Patient received 3 Moderna vaccines. Patient is declining short term rehab at this time. Patient's ex will transport her home. Missy LYONS and Lucille MELTON aware. Continue to monitor for d/c needs.
[2021-12-23 10:07] VITALS: BP 137/86; PULSE 85; TEMP 36.4; O2SAT 97
== END 2021-12-23 10:18 | disposition home or self-care (01) ==
PROVIDERS: Emergency Provider Emergency Medicine Emergency Medical Services; PCP Internal Medicine
DX: R53.1 Weakness (principal); Z20.822 Contact with and (suspected) exposure to COVID-19; F17.200 Nicotine dependence, unspecified, uncomplicated
CPT/HCPCS: 36415; 71045; 80048; 80076; 81001; 84443; 84484; 85025; 87635; 93005; 96360; 96361; 97162; 99285

== ENCOUNTER 2021-12-23 15:43 | Emergency (ER) | payer OTHER, SELFPAY ==
[2021-12-23 16:36] VITALS: BP 129/66; PULSE 114; RESP 20; TEMP 36.9; O2SAT 94; BMI 18.3
--- NOTE | 2021-12-23 20:43 | ED.MEDCLEAR ---
HPI - Medical Clearance General Chief complaint: Medical Clearance Stated complaint: patient returning from am Time Seen by Provider: 12/23/21 16:09 Source: patient and EMS Mode of arrival: EMS Limitations: no limitations History of Present Illness HPI Narrative: Patient comes to emergency room seeking a higher level of care. Patient comes by ambulance. Patient was seen earlier here today, patient was evaluated for generalized malaise and weakness. Physical therapy and case management worked with the patient earlier today, patient refused to be sent to a correction facility, she was sent home with VNA services. Her services start tomorrow. Patient realized today that she will need higher level of care, and is asking to be sent to a correction facility. Patient has no complaints Related Information Home Medications Medication Instructions Recorded Confirmed alendronate 70 mg tablet 70 mg PO ANGEL@0600 07/27/21 07/27/21 ascorbic acid (vitamin C) 500 mg 500 mg PO DAILY 07/27/21 07/27/21 tablet (Vitamin C) cholecalciferol (vitamin D3) 50 50 mcg PO DAILY 07/27/21 07/27/21 mcg (2,000 unit) capsule (Vitamin D3) cranberry extract 250 mg capsule 250 mg PO BID 07/27/21 07/27/21 doxycycline hyclate 50 mg capsule 50 mg PO BID 07/27/21 07/27/21 folic acid 1 mg tablet 1 mg PO DAILY 07/27/21 07/27/21 furosemide 20 mg tablet 20 mg PO DAILY 07/27/21 07/27/21 lorazepam 1 mg tablet 1 mg PO TID 07/27/21 07/27/21 melatonin 3 mg tablet 3 mg PO BEDTIME 07/27/21 07/27/21 methenamine hippurate 1 gram tablet 1 g PO BID 07/27/21 07/27/21 multivitamin 1 tab PO DAILY 07/27/21 07/27/21 oxcarbazepine 150 mg tablet 150 mg PO BID 07/27/21 07/27/21 paroxetine HCl 30 mg tablet 30 mg PO DAILY 07/27/21 07/27/21 polyethylene glycol 3350 17 17 g PO DAILY 07/27/21 07/27/21 gram/dose oral powder propranolol 10 mg tablet 10 mg PO TID 07/27/21 07/27/21 salsalate 750 mg tablet 750 mg PO BID 07/27/21 07/27/21 sennosides 8.6 mg-docusate sodium 2 tab PO BEDTIME 07/27/21 07/27/21 50 mg tablet (Senna Plus) trazodone 50 mg tablet 50 mg PO BEDTIME PRN Insomnia 07/27/21 07/27/21 Previous Rx's Medication Instructions Recorded cephalexin 500 mg capsule 500 mg PO QID 5 days #20 caps 07/27/21 cephalexin 500 mg capsule 500 mg PO QID #20 caps 08/09/21 nitrofurantoin 100 mg PO Q12H 7 days #14 caps 10/02/21 monohydrate/macrocrystals 100 mg capsule (Macrobid) Allergies Allergy/AdvReac Type Severity Reaction Status Date / Time ibuprofen [IBUPROFEN] Allergy Intermediate KIDNEY Verified 07/19/21 20:57 PROBLEMS oxycodone [From OXYCONTIN] Allergy Unknown UNKNOWN Verified 07/19/21 20:57 Sulfa (Sulfonamide Allergy Unknown UNKNOWN Verified 07/19/21 20:57 Antibiotics) [SULFA (SULFONAMIDE ANTIBIOTICS)] Ibuprofen Allergy Unknown Unknown Uncoded 07/19/21 20:57 Sulfer Allergy Unknown Unknown Uncoded 07/19/21 20:57 Review of Systems Review of Systems: Constitutional : No Weight loss, No Fever, No Chills, No Night Sweats, complaining of chronic fatigue and weakness ENT/Mouth : No Hearing loss, No Ear Pain, No Nasal Congestion, No Sinus Pain, No Hoarseness, No sore throat, No Rhinorrhea, No Swallowing Difficulty Eyes: No Eye Pain, No Swelling, No Redness, No Foreign Body, No Discharge, No Vision Changes Cardiovascular : No Chest Pain, No SOB, No Dyspnea on Exertion, No Orthopnea, No Edema, No Palpitations Respiratory : No Cough, No Sputum, No Wheezing, No Smoke Exposure, No Dyspnea Gastrointestinal : No Nausea, No Vomiting, No Diarrhea, No Constipation, No abdominal Pain, No Hematochezia, No Melena Genitourinary : no irregular bleeding, No Dysuria, No Urinary Frequency, No Hematuria, No Urinary Incontinence, No Urgency, No Flank Pain, No Urinary Flow Changes, No Hesitancy Musculoskeletal : No joint pain, No Myalgias, No Joint Swelling Skin : No Skin Lesions, No rash Neuro : No Weakness, No Numbness, No Paresthesias, No Loss of Consciousness, No Dizziness, No Headache Psych : No Anxiety/Panic, No Depression, No SI/HI/AH/VH, No Social Issues, Heme/Lymph: No Bruising, No Bleeding,No Lymphadenopathy Endocrine : No Polyuria, No Polydipsia, No Temperature Intolerance [facility] Past Medical History Medical History Ankle wound Bipolar disorder Cellulitis Diverticulitis Hernia Kidney disease UTI (urinary tract infection) Surgical History H/O abdominal surgery Social History Social History Alcohol intake: never Patient Tobacco Use Status: Current everyday Tobacco user Advance Directives: Yes Advance Directives on File: Yes Advance Directives Date on File: 12/23/21 Physical Exam Vital Signs: Vital Signs: Last Vital Signs Temp 98.4 F 12/23/21 16:36 Pulse 114 H 12/23/21 16:36 Resp 20 12/23/21 16:36 BP 129/66 12/23/21 16:36 Pulse Ox 94 12/23/21 16:36 O2 Del Method 12/23/21 16:36 BMI result Body Mass Index 18.3 Const: Other: Appearance: Alert. Oriented X3. No acute distress. Eyes: Pupils equal, round and reactive to light. ENT: Pharynx normal. Neck: Normal inspection. Neck supple. No lymph nodes noted. No crepitus CVS: Normal heart rate and rhythm. Pulses normal. Normal S1 and S2 Respiratory: No respiratory distress. Breath sounds normal. No Wheezing. No rales Abdomen: Soft and nontender. No rigidity. No distention. Skin: Skin warm and dry. Normal skin color. Normal skin turgor. Extremities: No lower extremity edema. No Lacerations. No Rash Neuro: Oriented X 3. No motor deficit. No sensory deficit. Moving all extremities. No slurred speech. CN 2 through 12 grossly intact Psych: calm, cooperative, normal affect Course Course Course Narrative: Patient already had a physical therapy evaluation today. Case Management has been made aware that patient return. Patient will stay overnight in the emergency room, case management will work with the patient for placement tomorrow Discharge Plan Discharge Clinical Impression: Weakness Patient Disposition: Still a Patient Prescriptions: No Action multivitamin Tablet 1 tab PO DAILY oxcarbazepine 150 mg tablet 150 mg PO BID trazodone 50 mg tablet 50 mg PO BEDTIME PRN (Reason: Insomnia) alendronate 70 mg tablet 70 mg PO ANGEL@0600 doxycycline hyclate 50 mg capsule 50 mg PO BID sennosides-docusate sodium [Senna Plus] 8.6-50 mg tablet 2 tab PO BEDTIME melatonin 3 mg tablet 3 mg PO BEDTIME cranberry extract 250 mg capsule 250 mg PO BID propranolol 10 mg tablet 10 mg PO TID methenamine hippurate 1 gram tablet 1 g PO BID ascorbic acid (vitamin C) [Vitamin C] 500 mg tablet 500 mg PO DAILY paroxetine HCl 30 mg tablet 30 mg PO DAILY folic acid 1 mg tablet 1 mg PO DAILY furosemide 20 mg tablet 20 mg PO DAILY lorazepam 1 mg tablet 1 mg PO TID polyethylene glycol 3350 17 gram/dose powder 17 g PO DAILY salsalate 750 mg tablet 750 mg PO BID cholecalciferol (vitamin D3) [Vitamin D3] 50 mcg (2,000 unit) capsule 50 mcg PO DAILY cephalexin 500 mg capsule 500 mg PO QID 5 Days Qty: 20 0RF cephalexin 500 mg capsule 500 mg PO QID Qty: 20 0RF nitrofurantoin monohyd/m-cryst [Macrobid] 100 mg capsule 100 mg PO Q12H 7 Days Qty: 14 0RF Rx Instructions: must administer with a meal/food
[2021-12-23 20:57] VITALS: BP 113/71; PULSE 73; RESP 16; TEMP 36.5; O2SAT 98
--- NOTE | 2021-12-23 21:17 | PHA.MEDREC ---
Pharmacy Consult ? Medication Reconciliation Pharmacy has completed the medication reconciliation. Med rec based on pharmacy claim history
[2021-12-23 21:19] LABS: COVID-19 Test Negative (Negative)
--- NOTE | 2021-12-23 21:38 | PC.NURSE ---
pt ambulatory with walker and one staff nearby assist to bathroom. given warm blankets. call ritter within reach. will continue to monitor .no current complaints
--- NOTE | 2021-12-23 21:57 | MHC.CM.ED ---
CM received a call about 3pm from this pt who was d/c from [facility] ED this morning after refusing STR and continuing with existing VNA services with [facility]. Pt requesting STR, as she cannot safely remain at home due to weakness. Pt states her VNA would not come until tomorrow. CM explained that STR services could not be arranged by CM from her home. Pt returned to [facility] with c/o weakness and desire to go to STR. PT evaluation was from this am. Pt lives at home with her brother Jaime. Uses a walker. Received Moderna x3 (vax/boosted 07/20/20, 08/17/20 & 03/31/21). HCP on file changed. HCP was her daughter, Anitha, who 4 years ago from cancer. New HCP reviewed, completed and signed. HCP/former , Raj Murguia ([phone]). Copies given. Uploaded into [facility] and [facility] Expanse. Referral to [facility] to follow, pt requesting STR. Referrals placed for local facilities that contract with [facility]. Pt requests that no referrals be made to any [place] facility. Covid screening pending. Pt aware that she will stay overnight, expect bed offers in the morning. CM to follow for d/c needs.
[2021-12-24] MEDS: traZODone HCL 25 MG HALFTAB PO (01:02)
[2021-12-24] MEDS: Sennosides/Docusate Sodium TABLET 2 TAB PO (01:02)
[2021-12-24] MEDS: OXcarbazepine 150 MG TABLET PO ×2 (01:03)
[2021-12-24] MEDS: Propranolol HCL 10 MG TABLET PO ×3 (01:03→16:16)
[2021-12-24] MEDS: Melatonin 3 MG TABLET PO (01:04)
--- NOTE | 2021-12-24 04:41 | PC.NURSE ---
pt sleeping comfortably on stretcher., no apparent distress. call ritter within reach
[2021-12-24] MEDS: Cholecalciferol (Vitamin D3) 25 MCG TABLET 50 MCG PO (08:41)
[2021-12-24] MEDS: polyethylene glycoL 3350 17 GM POWD.PACK PO (08:41)
[2021-12-24] MEDS: LORazepam 1 MG TABLET PO ×2 (08:41→16:16)
[2021-12-24] MEDS: Ascorbic Acid 500 MG TABLET PO (08:41)
[2021-12-24] MEDS: Folic Acid 1 MG TABLET PO (08:41)
[2021-12-24 08:42] VITALS: BP 128/68; PULSE 71; RESP 20; TEMP 36.5; O2SAT 97
[2021-12-24] MEDS: Furosemide 20 MG TABLET PO (08:42)
[2021-12-24] MEDS: PARoxetine HCL 30 MG TABLET PO (09:13)
--- NOTE | 2021-12-24 10:27 | MHC.CM.ED ---
Patient remains in ER. Clinical updates sent [facility]. [facility], [facility] and [facility] are able to offer a bed. Met with patient in regards to discharge planning. [facility] is patient's first choice. [facility] is in the process of obtaining insurance auth. Patient will need a [facility] Level 2 exemption letter. T/W already submitted to [facility]. Continue to monitor for d/c needs.
--- NOTE | 2021-12-24 12:43 | MHC.CARE ---
CARE Team met with pt at the request of Case Management. Pt denies SI, HI, and self-harm urges. She denies any AVH or hx of such. Pt does express that she is Anxious and has a hx of anxiety. She does appear anxious to this gag writer. Pt denies any elevated anxiety and stated her current anxiety level is her baseline. Pt does not appear to be a risk.
[2021-12-24 16:17] VITALS: BP 122/52; PULSE 65; RESP 20; O2SAT 98
--- NOTE | 2021-12-24 16:29 | MHC.CM.ED ---
[facility] has obtained insurance auth. [facility] PASRR Level 2 obtained. Patient can leave at 6pm. Action BLS booked. Med nec with chart. Continue to monitor for d/c needs.
== END 2021-12-24 17:58 | disposition skilled nursing facility (03) ==
PROVIDERS: Emergency Provider Emergency Medicine; PCP Internal Medicine
DX: R53.1 Weakness (principal); Z20.822 Contact with and (suspected) exposure to COVID-19; N18.9 Chronic kidney disease, unspecified; F17.200 Nicotine dependence, unspecified, uncomplicated
CPT/HCPCS: 87635; 99283; 99285

== ENCOUNTER 2022-02-12 17:20 | Emergency (ER) | payer OTHER, SELFPAY ==
--- NOTE | ~2022-02-12 | CT_ITS ---
EXAMINATION: CT CERVICAL SPINE CLINICAL INFORMATION: Fall COMPARISON: No prior CT available, TECHNIQUE: Computed axial sagittal and coronal images acquired using department's standard protocol. This CT examination was performed using dose optimization techniques as appropriate, variously including the following: *Automated exposure control *Adjustment of mA and/or kV according to patient size (this includes techniques or standardized protocols for targeted exams where dose is matched to indication/reason for exam; i.e. extremities or head) *Use of iterative reconstruction technique CONTRAST: None DLP: 871 mGy-cm FINDINGS: SKULL BASE: Visualized structures at skull base are normal, Included facial sinuses are clear, CERVICAL VERTEBRAE: There is a grade 1 anterior spondylolisthesis of C4 on C5. All other vertebrae identified maintaining proper height and alignments. DISCS: Narrowing of disc spaces especially at C5-C6 suggests underlying degenerative disc disease. C1-C2: There is no CT evidence of significant osseous narrowing of the central canal or neural foramen. C2-C3: There is no CT evidence of significant osseous narrowing of the central canal or neural foramen. C3-C4: Developed osteophytes cause bilateral foraminal stenosis, no central stenosis. No fracture. C4-C5: There is a probably stenosis of the left foramen at this level. No central stenosis. C5-C6: Facet joints arthropathy and developed osteophyte from the edges of endplates causing bilateral foraminal stenosis. There is narrowing of central canal at this level. C6-C7: Mild narrowing of central canal at this level. C7-T1: There is no CT evidence of significant osseous narrowing of the central canal or neural foramen. PARAVERTEBRAL SOFT TISSUE: Paravertebral soft tissues unremarkable. CT/CT cervical spine wo IV con IMPRESSION: *No fracture. *Grade 1 anterior spondylolisthesis of C4 on C5. *Degenerative disc disease at multiple levels especially at C5-C6. *Developed osteophytes from the edges of endplates and facet joints arthropathy causing foraminal stenosis at multiple levels, if patient has logical symptoms would recommend correlation with follow-up MRI to assess for nerve impingement. *There is narrowing of central canal C5-C6, cannot rule out underlying central stenosis.
--- NOTE | ~2022-02-12 | CT_ITS ---
CT head/brain wo IV con CLINICAL INFORMATION: Fall COMPARISON: No prior CT scan available for comparison. TECHNIQUE: Department standard protocol. This CT examination was performed using dose optimization techniques as appropriate, variously including the following: *Automated exposure control *Adjustment of mA and/or kV according to patient size (this includes techniques or standardized protocols for targeted exams where dose is matched to indication/reason for exam; i.e. extremities or head) *Use of iterative reconstruction technique DLP: 669 mGy-cm FINDINGS: CEREBRAL HEMISPHERES: There is no evidence of intra-axial or extra-axial mass, hemorrhage or acute infarct. BRAIN PARENCHYMA: Normal rodriguez-white matter differentiation. SUBDURAL SPACE: No bleed. BASAL GANGLIA AND PINEAL GLAND: Unremarkable VENTRICLES: Symmetric and normal in size. CEREBELLUM AND BRAINSTEM: No space-occupying mass, hemorrhage or acute infarct. CEREBELLOPONTINE ANGLES: No lesion found. ORBITS: No intraorbital mass. VESSELS: Unremarkable SKULL BASE: Unremarkable INCLUDED SINUSES AT SKULL BASE: Clear SKULL AND SKIN: No fracture or bone lesion found. CT/CT head/brain wo IV con IMPRESSION: Deep white matter and periventricular hypoattenuation, nonspecific; most likely sequela of chronic microvascular angiopathy ischemia. No intracranial hemorrhage.
--- NOTE | ~2022-02-12 | CT_ITS ---
EXAMINATION: CT ABDOMEN AND PELVIS WITHOUT CONTRAST CLINICAL INFORMATION: ?fall, back pain, abd pain . COMPARISON: 11/21/2021. TECHNIQUE: Multidetector volumetric imaging was performed from the superior aspect of the liver through the pubic symphysis without contrast per request. Sagittal and coronal reformatted images were obtained on the technologist workstation. This CT examination was performed using dose optimization techniques as appropriate, variously including the following: *Automated exposure control *Adjustment of mA and/or kV according to patient size (this includes techniques or standardized protocols for targeted exams where dose is matched to indication/reason for exam; i.e. extremities or head) *Use of iterative reconstruction technique DLP: 418 mGy-cm. FINDINGS: LUNG BASES: The visualized lung bases are unremarkable. Moderate-sized hiatal hernia. LIVER, GALLBLADDER, BILIARY TREE: The non-contrast liver is normal in size, shape, and attenuation. No focal hepatic lesion or biliary ductal dilatation is present. Gallbladder is presumably surgically absent. PANCREAS: Unremarkable. SPLEEN: Unremarkable. ADRENAL GLANDS: Unremarkable. KIDNEYS AND URETERS: The kidneys are normal in size, shape, and attenuation. No hydronephrosis, hydroureter, or calculi seen. No perinephric stranding. BLADDER: Relatively distended GASTROINTESTINAL TRACT: Colon is redundant. Anastomotic staple line in the rectosigmoid colon. I do not appreciate any obvious obstructive changes to the bowel. Lack of intra-abdominal abdominal fat limits evaluation of the bowel. ABDOMINAL WALL: Hernia mesh anchors along the intra-abdominal wall LYMPHOVASCULAR STRUCTURES: Prominent vascular calcification within the aorta iliac system. I do not appreciate any bulky retroperitoneal or mesenteric adenopathy. PELVIC VISCERA: Unremarkable. OSSEUS STRUCTURES: Chronic mild compression deformity of L4 similar to the prior 2 scan. More markedly compression deformity at T12 and T11 vertebral plasty cement at T11. These appear similar to the CT scan as well. I do not appreciate any acute superimposed fracture or spondylolisthesis. Extensive degenerative changes in the posterior elements. CT/CT abdomen pelvis wo IV con IMPRESSION: Chronic appearing and postoperative changes as described. I do not appreciate any acute superimposed this organ injury or displaced fracture on this noncontrast study..
[2022-02-12 17:44] VITALS: BP 106/66; PULSE 76; O2SAT 99
[2022-02-12 17:46] VITALS: BP 128/69; PULSE 76; RESP 18; TEMP 37; O2SAT 98; BMI 18.9
--- NOTE | 2022-02-12 18:01 | ECG_ITS ---
Test Reason : FALL Blood Pressure : / mmHG Vent. Rate : 077 BPM Atrial Rate : 077 BPM P-R Int : 144 ms QRS Dur : 070 ms QT Int : 392 ms P-R-T Axes : 074 041 056 degrees QTc Int : 443 ms Normal sinus rhythm Normal ECG When compared with ECG of 23-DEC-2021 02:21, No significant change was found Referred By: Erin Roberts Electronically Signed By:YUKO ESTEVEZ
--- NOTE | 2022-02-12 18:08 | ED.GENADULT ---
HPI - General Adult General Chief complaint: Nausea/Vomiting/Diarrhea Stated complaint: Diarrhea Time Seen by Provider: 02/12/22 17:46 Source: patient Mode of arrival: ambulatory History of Present Illness HPI narrative: 76-year-old female with a past medical history of bipolar, diverticulitis, renal disease, presenting to the ED from home complaining of diarrhea and fall this a.m. in the bathroom. Per EMS patient was constipated at home, VNA gave her Colace and senna now patient having diarrhea thus called EMS. Patient states she tried to grab something in the bathroom this AM however fell backwards, unknown head trauma or LOC. Denies taking anticoagulation. Reports diffuse myalgias, back pain, and abdominal pain. Denies CP/SOB or other symptoms prior to fall. Patient requesting to go to a intermediate. Denies CP, SOB, nausea, vomiting, dysuria/hematuria Onset (ago): unknown Related Data Home Medications Medication Instructions Recorded Confirmed alendronate 70 mg tablet 70 mg PO ANGEL@0600 07/27/21 02/12/22 ascorbic acid (vitamin C) 500 mg 500 mg PO DAILY 07/27/21 02/12/22 tablet (Vitamin C) cholecalciferol (vitamin D3) 50 50 mcg PO DAILY 07/27/21 02/12/22 mcg (2,000 unit) capsule (Vitamin D3) cranberry extract 250 mg capsule 250 mg PO BID 07/27/21 02/12/22 folic acid 1 mg tablet 1 mg PO DAILY 07/27/21 02/12/22 furosemide 20 mg tablet 20 mg PO DAILY 07/27/21 02/12/22 lorazepam 1 mg tablet 1 mg PO TID 07/27/21 02/12/22 melatonin 3 mg tablet 3 mg PO BEDTIME 07/27/21 02/12/22 methenamine hippurate 1 gram tablet 1 g PO BID 07/27/21 02/12/22 multivitamin 1 tab PO DAILY 07/27/21 02/12/22 oxcarbazepine 150 mg tablet 150 mg PO BID 07/27/21 02/12/22 paroxetine HCl 30 mg tablet 30 mg PO DAILY 07/27/21 02/12/22 polyethylene glycol 3350 17 17 g PO DAILY 07/27/21 02/12/22 gram/dose oral powder propranolol 10 mg tablet 10 mg PO TID 07/27/21 02/12/22 sennosides 8.6 mg-docusate sodium 2 tab PO BEDTIME 07/27/21 02/12/22 50 mg tablet (Senna Plus) trazodone 50 mg tablet 25 mg PO BEDTIME PRN Insomnia 07/27/21 02/12/22 salsalate 500 mg tablet 1 tab PO DAILY PRN Pain (Scale 12/23/21 02/12/22 Score 1-3) doxycycline hyclate 100 mg capsule 1 cap PO DAILY 02/12/22 02/12/22 Allergies Allergy/AdvReac Type Severity Reaction Status Date / Time ibuprofen [IBUPROFEN] Allergy Intermediate KIDNEY Verified 07/19/21 20:57 PROBLEMS oxycodone [From OXYCONTIN] Allergy Unknown UNKNOWN Verified 07/19/21 20:57 Sulfa (Sulfonamide Allergy Unknown UNKNOWN Verified 07/19/21 20:57 Antibiotics) [SULFA (SULFONAMIDE ANTIBIOTICS)] Ibuprofen Allergy Unknown Unknown Uncoded 07/19/21 20:57 Sulfer Allergy Unknown Unknown Uncoded 07/19/21 20:57 Review of Systems Review of Systems: Constitutional: No Fever, No Chills, No Fatigue, No Malaise ENT/Mouth: No Ear Pain, No Nasal Congestion, No sore throat, No Rhinorrhea, No Swallowing Difficulty Eyes: No Eye Pain, No Swelling, No Redness, No Vision Changes Cardiovascular: No Chest Pain, No SOB, No Palpitations Respiratory: No Cough, No Sputum, No Dyspnea Gastrointestinal: No Nausea, No Vomiting, + Diarrhea, + Constipation (resolved), + Abdominal pain Genitourinary: No Dysuria, No Urinary Frequency, No Hematuria, No Flank Pain Musculoskeletal: + joint pain, No Myalgias, No Joint Swelling Skin: No Skin Lesions, No rash Neuro: No Weakness, No Loss of Consciousness, No Dizziness, + Headache Yes all other systems are reviewed and are negative Constitutional: Constitutional: Reports as per [facility] Past Medical History Attestation statement: The following information was validated with the patient. Medical History Ankle wound Bipolar disorder Cellulitis Diverticulitis Hernia Kidney disease UTI (urinary tract infection) Surgical History H/O abdominal surgery Social History Social History Alcohol intake: never Patient Tobacco Use Status: Current everyday Tobacco user Advance Directives: Yes Advance Directives on File: Yes Advance Directives Date on File: 12/23/21 Physical Exam ED Vital Signs: Vital Signs - 24 hr 02/12/22 17:46 Temperature 98.6 F Pulse Rate 76 Respiratory Rate 18 Blood Pressure 128/69 Pulse Oximetry 98 Oxygen Delivery Method Room Air BMI result Body Mass Index 18.9 Const General: cooperative and no acute distress Orientation/consciousness: patient oriented x3 Limitations: no limitations HENMT Head: Yes normal to inspection and Yes atraumatic Ears: hearing grossly normal bilaterally General nose exam: Normal external nose present Face and sinus: Yes normal facial exam Mouth: mucous membranes dry Eyes General: appearance normal, both eyes and all related structures EOM: EOMs intact bilaterally Neck Other: No midline cervical spinous tenderness Neck: Yes normal visual inspection and Yes no meningeal signs Resp Effort & Inspection: normal respiratory effort and no respiratory distress Auscultation: clear to auscultation bilaterally Cardio Rate: regular rate Heart sounds: S1 normal heart sound present and S2 normal heart sound present GI Inspection: Yes normal to inspection Palpation (GI): Soft to palpation, nontender, no guarding and not rigid General: Yes no CVA tenderness Back/Spine/Pelvis Other: No midline thoracic/lumbar spinous tenderness/step-off or deformity Back: no CVA tenderness Skin Rashes: no rashes Wounds: no wounds Neuro General: patient oriented x3, tone normal, moves all extremities, no meningeal signs, no focal motor deficits and CN's II-XI intact bilaterally Cranial nerves: Yes CN's II-XII intact bilaterally Motor exam (neuro): 5/5 motor strength present throughout Extrem General: Yes normal to inspection Course Course Course Narrative: --no leukocytosis. Renal function at baseline. Troponin negative. CT head/brain wo IV con IMPRESSION: Deep white matter and periventricular hypoattenuation, nonspecific; most likely sequela of chronic microvascular angiopathy ischemia. ? No intracranial hemorrhage. CT cervical spine wo IV con IMPRESSION: *No fracture. ? *Grade 1 anterior spondylolisthesis of C4 on C5. ? *Degenerative disc disease at multiple levels especially at C5-C6. ? *Developed osteophytes from the edges of endplates and facet joints arthropathy causing foraminal stenosis at multiple levels, if patient has logical symptoms would recommend correlation with follow-up MRI to assess for nerve impingement. ? *There is narrowing of central canal C5-C6, cannot rule out underlying central stenosis. > no symptoms consistent with acute nerve impingement CT abdomen pelvis wo IV con IMPRESSION: Chronic appearing and postoperative changes as described. I do not appreciate any acute superimposed this organ injury or displaced fracture on this noncontrast study.. 2100--ED care transferred to Dr. Chan pending UA, PT, and case management consult. Physician observation initiated Medical Decision Making MDM Narrative Medical decision making narrative: 76-year-old female with a past medical history of bipolar, diverticulitis, renal disease, presenting to the ED from home complaining of diarrhea and fall this a.m. in the bathroom. On exam vital signs stable, NAD, no focal neuro deficits, no midline spinous tenderness throughout, abdomen is soft/nontender. Concern for metabolic/infectious etiologies vs ICH/fractures or other injury related to ?fall Plan: EKG, labs, UA, head/C-spine/abdomen CT, re-evaluate Medical Records Medical records reviewed: Yes I reviewed the patient's medical records. Lab Data Lab results reviewed: Yes I reviewed the patient's lab results. Result diagrams: 02/12/22 18:22 02/12/22 18:22 Labs: Lab Results 02/12/22 02/12/22 02/12/22 Range/Units 18:22 18:22 18:22 WBC 8.9 (4.8-10.8) X10*3/uL RBC 4.06 L (4.20-5.50) X10*6/uL Hgb 13.1 (12.0-16.0) g/dl Hct 39.6 (37.0-47.0) % MCV 97.5 (80.0-98.0) fL MCH 32.3 (27.0-33.0) pg MCHC 33.1 (31.0-35.0) g/dl RDW 13.1 (11.0-16.0) % Plt Count 221 D (160-400) X10*3/uL MPV 10.5 (9.4-12.3) fL Immature Gran % (Auto) 0.3 (0.0-0.4) % Neut % (Auto) 66.4 (45-73) % Lymph % (Auto) 24.0 (20-40) % Coosa % (Auto) 8.0 (2-11) % Eos % (Auto) 1.0 (0-4) % Baso % (Auto) 0.3 (0-2) % Lymph # (Auto) 2.1 (1.2-4.9) X10*3/uL Coosa # (Auto) 0.7 (0.1-1.2) X10*3/uL Eos # (Auto) 0.1 (0.0-0.4) X10*3/uL Baso # (Auto) 0.0 (0.0-0.2) X10*3/uL Abs Immat Gran (auto) 0.03 (0.00-0.03) X10*3/uL Absolute Neuts (auto) 5.9 (2.0-8.3) x10*3/uL Absolute Nucleated RBC 0.000 (0.0-0.012) X10*3/uL Nucleated RBC % (auto) 0.0 (0.0-0.2) /100WBC Sodium 143 (135-145) mmol/L Potassium 4.3 (3.3-5.1) mmol/L Chloride 103 (96-108) mmol/L Carbon Dioxide 29 (22-29) mmol/L Anion Gap 15 (12-20) BUN 42 H (9-16) mg/dL Creatinine 1.41 H (0.5-1.4) mg/dL Estim Creat Clear Calc 23.2 Estimated GFR 36 Random Glucose 124 H (60-115) mg/dL Calcium 9.4 (8.4-10.2) mg/dL Magnesium 2.2 (1.6-2.6) mg/dL Total Bilirubin 0.2 (0.0-1.0) mg/dL Direct Bilirubin 0.2 (0.0-0.5) mg/dL AST 20 (5-31) U/L ALT 16 (0-31) U/L Alkaline Phosphatase 71 D (39-117) U/L Troponin I High Sens 4.9 (<3.5-17.0) ng/L Total Protein 6.2 L (6.5-8.0) g/dL Albumin 3.3 L (3.5-5.0) g/dL Lipase 21 (8-78) U/L COVID-19 (OPHELIA) (Negative) COVID-19 Clin Com 02/12/22 Range/Units 18:22 WBC (4.8-10.8) X10*3/uL RBC (4.20-5.50) X10*6/uL Hgb (12.0-16.0) g/dl Hct (37.0-47.0) % MCV (80.0-98.0) fL MCH (27.0-33.0) pg MCHC (31.0-35.0) g/dl RDW (11.0-16.0) % Plt Count (160-400) X10*3/uL MPV (9.4-12.3) fL Immature Gran % (Auto) (0.0-0.4) % Neut % (Auto) (45-73) % Lymph % (Auto) (20-40) % Coosa % (Auto) (2-11) % Eos % (Auto) (0-4) % Baso % (Auto) (0-2) % Lymph # (Auto) (1.2-4.9) X10*3/uL Coosa # (Auto) (0.1-1.2) X10*3/uL Eos # (Auto) (0.0-0.4) X10*3/uL Baso # (Auto) (0.0-0.2) X10*3/uL Abs Immat Gran (auto) (0.00-0.03) X10*3/uL Absolute Neuts (auto) (2.0-8.3) x10*3/uL Absolute Nucleated RBC (0.0-0.012) X10*3/uL Nucleated RBC % (auto) (0.0-0.2) /100WBC Sodium (135-145) mmol/L Potassium (3.3-5.1) mmol/L Chloride (96-108) mmol/L Carbon Dioxide (22-29) mmol/L Anion Gap (12-20) BUN (9-16) mg/dL Creatinine (0.5-1.4) mg/dL Estim Creat Clear Calc Estimated GFR Random Glucose (60-115) mg/dL Calcium (8.4-10.2) mg/dL Magnesium (1.6-2.6) mg/dL Total Bilirubin (0.0-1.0) mg/dL Direct Bilirubin (0.0-0.5) mg/dL AST (5-31) U/L ALT (0-31) U/L Alkaline Phosphatase (39-117) U/L Troponin I High Sens (<3.5-17.0) ng/L Total Protein (6.5-8.0) g/dL Albumin (3.5-5.0) g/dL Lipase (8-78) U/L COVID-19 (OPHELIA) Negative (Negative) COVID-19 Clin Com See Note Discharge Plan Discharge Clinical Impression: Diarrhea, Falls, Degenerative arthritis of cervical spine Patient Disposition: Still a Patient Prescriptions: No Action multivitamin Tablet 1 tab PO DAILY oxcarbazepine 150 mg tablet 150 mg PO BID trazodone 50 mg tablet 25 mg PO BEDTIME PRN (Reason: Insomnia) alendronate 70 mg tablet 70 mg PO ANGEL@0600 sennosides-docusate sodium [Senna Plus] 8.6-50 mg tablet 2 tab PO BEDTIME melatonin 3 mg tablet 3 mg PO BEDTIME cranberry extract 250 mg capsule 250 mg PO BID propranolol 10 mg tablet 10 mg PO TID methenamine hippurate 1 gram tablet 1 g PO BID ascorbic acid (vitamin C) [Vitamin C] 500 mg tablet 500 mg PO DAILY paroxetine HCl 30 mg tablet 30 mg PO DAILY folic acid 1 mg tablet 1 mg PO DAILY furosemide 20 mg tablet 20 mg PO DAILY lorazepam 1 mg tablet 1 mg PO TID polyethylene glycol 3350 17 gram/dose powder 17 g PO DAILY cholecalciferol (vitamin D3) [Vitamin D3] 50 mcg (2,000 unit) capsule 50 mcg PO DAILY salsalate 500 mg tablet 1 tab PO DAILY PRN (Reason: Pain (Scale Score 1-3)) doxycycline hyclate 100 mg capsule 1 cap PO DAILY
[2022-02-12 18:27] LABS: MANUAL DIFF FLAG NO
[2022-02-12 18:34] LABS: Basophils Percent Auto 0.3 % (0-2); Eosinophils Absolute Auto 0.1 X10*3/uL (0.0-0.4); Hematocrit 39.6 % (37.0-47.0); Hemoglobin 13.1 g/dl (12.0-16.0); Imm Gran Abs Auto 0.03 X10*3/uL (0.00-0.03); Imm Gran Pct Auto 0.3 % (0.0-0.4); Lymphocytes Absolute Auto 2.1 X10*3/uL (1.2-4.9); Mean Corpuscular HGB Conc 33.1 g/dl (31.0-35.0); Mean Corpuscular Hemoglobin 32.3 pg (27.0-33.0); Mean Corpuscular Volume 97.5 fL (80.0-98.0); Mean Platelet Volume 10.5 fL (9.4-12.3); Monocytes Absolute Auto 0.7 X10*3/uL (0.1-1.2); Neutrophils Absolute Auto 5.9 x10*3/uL (2.0-8.3); Neutrophils Percent Auto 66.4 % (45-73); Platelet Count 221 X10*3/uL (160-400); Red Blood Count 4.06 X10*6/uL (4.20-5.50); Red Cell Distribution Width 13.1 % (11.0-16.0); White Blood Count 8.9 X10*3/uL (4.8-10.8)
--- NOTE | 2022-02-12 18:43 | PHA.MEDREC ---
Pharmacy Consult ? Medication Reconciliation Pharmacy has completed the medication reconciliation.
[2022-02-12 18:44] LABS: COVID-19 Test Negative (Negative); IDNOW Serial# 55D5AD1C
--- NOTE | 2022-02-12 18:46 | PC.NURSE ---
pt a&ox3, vss, pt reporting diarrhea post senna/colace/prune juice this am, denies any pain, pt to CT.
[2022-02-12 18:55] LABS: Alanine Aminotransferase 16 U/L (0-31); Albumin Level 3.3 g/dL (3.5-5.0); Alkaline Phosphatase 71 U/L (39-117); Anion Gap 15 (12-20); Aspartate Amino Transferase 20 U/L (5-31); Bilirubin Direct 0.2 mg/dL (0.0-0.5); Bilirubin Total 0.2 mg/dL (0.0-1.0); Blood Urea Nitrogen 42 mg/dL (9-16); Calcium 9.4 mg/dL (8.4-10.2); Carbon Dioxide 29 mmol/L (22-29); Chloride 103 mmol/L (96-108); Creatinine Clr Calc Pharmacy 23.2; Estimated Glomerular Filt Rate 36; Glucose Random 124 mg/dL (60-115); Lipase 21 U/L (8-78); Magnesium 2.2 mg/dL (1.6-2.6); Potassium 4.3 mmol/L (3.3-5.1); Sodium 143 mmol/L (135-145); Total Protein 6.2 g/dL (6.5-8.0)
[2022-02-12 19:01] LABS: Troponin-I High Sensitivity 4.9 ng/L (<3.5-17.0)
[2022-02-12] MEDS: 0.9 % Sodium Chloride 1,000 ML 999 ML IV (19:36)
[2022-02-12 22:53] VITALS: BP 145/68; PULSE 69; RESP 17; O2SAT 93
[2022-02-13] VITALS (7 sets, daily range): BP systolic 94–129; BP diastolic 52–75; PULSE 60–80; RESP 14–18; TEMP 36.6–36.8; O2SAT 94–97
[2022-02-13] MEDS: traZODone HCL 25 MG HALFTAB PO (01:41)
--- NOTE | 2022-02-13 01:43 | PC.NURSE ---
pt a&ox3, requesting PM trazodone, medicated per provider order. urine sample pending, no new orders at this time.
[2022-02-13] MEDS: LORazepam 1 MG TABLET PO ×3 (09:33→21:02)
[2022-02-13] MEDS: Furosemide 20 MG TABLET PO (09:33)
[2022-02-13] MEDS: Propranolol HCL 10 MG TABLET PO ×3 (09:33→21:03)
[2022-02-13] MEDS: OXcarbazepine 150 MG TABLET PO ×2 (09:33→21:03)
[2022-02-13] MEDS: Ascorbic Acid 500 MG TABLET PO (09:33)
[2022-02-13] MEDS: Cholecalciferol (Vitamin D3) 25 MCG TABLET 50 MCG PO (09:33)
[2022-02-13] MEDS: Multivitamin TABLET 1 TAB PO (09:33)
[2022-02-13] MEDS: Folic Acid 1 MG TABLET PO (09:34)
[2022-02-13] MEDS: PARoxetine HCL 30 MG TABLET PO (10:17)
[2022-02-13 11:54] LABS: Appearance Urine Clear; Color Urine Yellow; Glucose Urine UA Negative (Negative); Leukocyte Esterase Urine Negative (Negative); Nitrite Urine Negative (Negative); Urine Blood Negative (Negative); Urine Ketones Negative (Negative); Urine Protein Negative (Neg-Trace)
--- NOTE | 2022-02-13 12:49 | MHC.CM.PN ---
Female 76 S/P FALL, PCP Dr Brendan Retana, Insurance + community case management [facility]. A PT eval has been ordered. Met with pt in ED room#18. She states that she lives with her brother. She receives [employer] services through [facility]. She is requesting STR for strengthening. Her preference is [facility]. She has been there in the past. A referral has been sent to [facility] via [facility]. The pt will have a P.T. eval tomorrow. She states that [facility] provides transportation to appointments. [facility] via [facility] transportation services, if available.
[2022-02-13] MEDS: Melatonin 3 MG TABLET PO (21:02)
[2022-02-14] VITALS (8 sets, daily range): BP systolic 87–115; BP diastolic 41–54; PULSE 54–69; RESP 16–18; TEMP 36.8; O2SAT 95–97
--- NOTE | 2022-02-14 08:56 | PC.NURSE ---
PT at bedside . patient aware of plan of care .
[2022-02-14] MEDS: LORazepam 1 MG TABLET PO ×3 (09:44→21:42)
[2022-02-14] MEDS: Furosemide 20 MG TABLET PO (09:44)
[2022-02-14] MEDS: polyethylene glycoL 3350 17 GM POWD.PACK PO (09:44)
[2022-02-14] MEDS: Ascorbic Acid 500 MG TABLET PO (09:44)
[2022-02-14] MEDS: Multivitamin TABLET 1 TAB PO (09:44)
[2022-02-14] MEDS: Cholecalciferol (Vitamin D3) 25 MCG TABLET 50 MCG PO (09:45)
[2022-02-14] MEDS: Folic Acid 1 MG TABLET PO (09:45)
[2022-02-14] MEDS: OXcarbazepine 150 MG TABLET PO ×2 (09:45→21:42)
[2022-02-14] MEDS: Propranolol HCL 10 MG TABLET PO ×2 (09:46→21:42)
[2022-02-14] MEDS: PARoxetine HCL 30 MG TABLET PO (12:42)
--- NOTE | 2022-02-14 13:12 | MHC.CM.ED ---
Addendum entered by Christina Servin 02/14/22 13:45: Patient has changed her mind and has decided to go to rehab. Patient accepts a bed at [facility]. [facility] has been asked to go to for insurance auth. Patient has a history of bipolar and receives VNA services for this. Patient will need a [facility] PAS Level 2. T/W already submitted for Level 2. Original Note: Patient remains in ER. [facility] is not able to offer a bed today. Apparently patient was difficult to discharge from [facility]. Physical therapy eval completed. Short term rehab is recommended. Referral broadcasted in [facility]. [facility], [facility] and [facility] are able to offer a bed. Met with patient in regards to discharge planning. Patient is concerned she doesn't have clothes for rehab. T/W inquired about patient's ex-, Raj. Patient states my clothes are dirty . Patient requesting if she can go home then to rehab. T/W explained if patient didn't go to [facility] from ER, placement will not be possible. Patient is requesting to return home with resumption of [facility]. Patient will need a telephone to call for someone to help her transport home. Patient, Richelle LYONS and Loyd MLETON aware. Continue to monitor for d/c needs.
--- NOTE | 2022-02-14 13:55 | MHC.CM.ED ---
Addendum entered by Christina Servin 02/14/22 13:55: Patient decided she will go to [facility] for short term rehab. [facility] has been asked to go for insurance auth. Patient has a history of bipolar and receives [facility] services for this. Patient will need a [facility] Level 2. T/W has already submitted for this. Original Note: Patient remains in ER. [facility] is not able to offer a bed today. Apparently patient was difficult to discharge from [facility]. Physical therapy eval completed. Short term rehab is recommended. Referral broadcasted in [facility]. [facility], [facility] and [facility] are able to offer a bed. Met with patient in regards to discharge planning. Patient is concerned she doesn't have clothes for rehab. T/W inquired about patient's ex-, Raj. Patient states my clothes are dirty . Patient requesting if she can go home then to rehab. T/W explained if patient didn't go to [facility] from ER, placement will not be possible. Patient is requesting to return home with resumption of [facility]. Patient will need a telephone to call for someone to help her transport home. Patient, Richelle LYONS and Loyd MELTON aware. Continue to monitor for d/c needs.
[2022-02-14] MEDS: 0.9 % Sodium Chloride 1,000 ML 999 ML IV (15:42)
[2022-02-14] MEDS: Melatonin 3 MG TABLET PO (21:42)
[2022-02-14] MEDS: Sennosides/Docusate Sodium TABLET 2 TAB PO (21:42)
[2022-02-15 06:00] VITALS: BP 91/49; PULSE 47; RESP 14; TEMP 36.3; O2SAT 96
[2022-02-15] MEDS: Multivitamin TABLET 1 TAB PO (09:02)
[2022-02-15] MEDS: polyethylene glycoL 3350 17 GM POWD.PACK PO (09:02)
[2022-02-15] MEDS: Cholecalciferol (Vitamin D3) 25 MCG TABLET 50 MCG PO (09:02)
[2022-02-15] MEDS: OXcarbazepine 150 MG TABLET PO (09:03)
[2022-02-15] MEDS: Folic Acid 1 MG TABLET PO (09:03)
[2022-02-15] MEDS: Propranolol HCL 10 MG TABLET PO (09:03)
[2022-02-15] MEDS: PARoxetine HCL 30 MG TABLET PO (09:03)
[2022-02-15] MEDS: Ascorbic Acid 500 MG TABLET PO (09:03)
[2022-02-15] MEDS: LORazepam 1 MG TABLET PO (09:03)
[2022-02-15] MEDS: Furosemide 20 MG TABLET PO (09:04)
--- NOTE | 2022-02-15 11:17 | MHC.CM.ED ---
Patient remains in ER. Ins auth has been obtained by [facility]. Waiting for Level 2 from [facility] before patient can transfer to SNF. Continue to monitor for d/c needs.
[2022-02-15 14:25] VITALS: BP 127/46; PULSE 62; RESP 16; TEMP 37; O2SAT 96
== END 2022-02-15 14:31 | disposition still patient (30) ==
PROVIDERS: Physician Assistant; Emergency Provider Internal Medicine; PCP Internal Medicine
DX: R19.7 Diarrhea, unspecified (principal); M50.322 Other cervical disc degeneration at C5-C6 level; R53.81 Other malaise; R29.6 Repeated falls; Z91.81 History of falling; Z20.822 Contact with and (suspected) exposure to COVID-19; R11.2 Nausea with vomiting, unspecified; F31.9 Bipolar disorder, unspecified; F17.200 Nicotine dependence, unspecified, uncomplicated; Z79.899 Other long term (current) drug therapy
CPT/HCPCS: 70450; 72125; 74176; 80048; 80076; 81003; 83690; 83735; 84484; 85025; 87635; 93005; 96360; 96361; 97161; 99285

== ENCOUNTER 2022-02-16 06:35 | Outpatient (REF) | payer OTHER, SELFPAY ==
[2022-02-16 06:37] LABS: MANUAL DIFF FLAG NO
[2022-02-16 06:47] LABS: Basophils Percent Auto 0.5 % (0-2); Eosinophils Absolute Auto 0.2 X10*3/uL (0.0-0.4); Hematocrit 34.8 % (37.0-47.0); Hemoglobin 11.2 g/dl (12.0-16.0); Imm Gran Abs Auto 0.01 X10*3/uL (0.00-0.03); Imm Gran Pct Auto 0.2 % (0.0-0.4); Lymphocytes Absolute Auto 2.4 X10*3/uL (1.2-4.9); Lymphocytes Percent Auto 37.8 % (20-40); Mean Corpuscular HGB Conc 32.2 g/dl (31.0-35.0); Mean Corpuscular Hemoglobin 32.1 pg (27.0-33.0); Mean Corpuscular Volume 99.7 fL (80.0-98.0); Mean Platelet Volume 11.3 fL (9.4-12.3); Monocytes Absolute Auto 0.6 X10*3/uL (0.1-1.2); Monocytes Percent Auto 9.3 % (2-11); Neutrophils Absolute Auto 3.1 x10*3/uL (2.0-8.3); Neutrophils Percent Auto 49.2 % (45-73); Platelet Count 185 X10*3/uL (160-400); Red Blood Count 3.49 X10*6/uL (4.20-5.50); Red Cell Distribution Width 13.1 % (11.0-16.0); White Blood Count 6.3 X10*3/uL (4.8-10.8)
[2022-02-16 06:57] LABS: Alanine Aminotransferase 13 U/L (0-31); Albumin Level 2.6 g/dL (3.5-5.0); Alkaline Phosphatase 61 U/L (39-117); Anion Gap 10 (12-20); Aspartate Amino Transferase 18 U/L (5-31); Bilirubin Total 0.3 mg/dL (0.0-1.0); Blood Urea Nitrogen 21 mg/dL (9-16); Calcium 8.8 mg/dL (8.4-10.2); Carbon Dioxide 33 mmol/L (22-29); Chloride 102 mmol/L (96-108); Estimated Glomerular Filt Rate 48; Glucose Random 93 mg/dL (60-115); Sodium 141 mmol/L (135-145); Total Protein 4.9 g/dL (6.5-8.0)
== END 2022-02-16 06:36 | disposition home or self-care (01) ==
LOC: HO.MMNH1L 06:35
PROVIDERS: Visit Provider Family Medicine
DX: I10 Essential (primary) hypertension (principal)
CPT/HCPCS: 36415; 80053; 85025

== ENCOUNTER 2022-02-21 07:40 | Outpatient (REF) | payer OTHER, SELFPAY ==
[2022-02-21 07:20] LABS: MANUAL DIFF FLAG NO
[2022-02-21 07:45] LABS: Basophils Percent Auto 0.4 % (0-2); Eosinophils Absolute Auto 0.1 X10*3/uL (0.0-0.4); Hematocrit 31.2 % (37.0-47.0); Hemoglobin 9.9 g/dl (12.0-16.0); Imm Gran Abs Auto 0.01 X10*3/uL (0.00-0.03); Imm Gran Pct Auto 0.2 % (0.0-0.4); Lymphocytes Absolute Auto 1.6 X10*3/uL (1.2-4.9); Lymphocytes Percent Auto 33.5 % (20-40); Mean Corpuscular HGB Conc 31.7 g/dl (31.0-35.0); Mean Platelet Volume 10.9 fL (9.4-12.3); Monocytes Absolute Auto 0.5 X10*3/uL (0.1-1.2); Neutrophils Absolute Auto 2.4 x10*3/uL (2.0-8.3); Neutrophils Percent Auto 51.9 % (45-73); Platelet Count 206 X10*3/uL (160-400); Red Blood Count 3.09 X10*6/uL (4.20-5.50); Red Cell Distribution Width 12.9 % (11.0-16.0); White Blood Count 4.6 X10*3/uL (4.8-10.8)
[2022-02-21 08:09] LABS: Anion Gap 11 (12-20); Blood Urea Nitrogen 21 mg/dL (9-16); Calcium 8.6 mg/dL (8.4-10.2); Carbon Dioxide 33 mmol/L (22-29); Chloride 104 mmol/L (96-108); Estimated Glomerular Filt Rate > 60; Glucose Random 90 mg/dL (60-115); Sodium 144 mmol/L (135-145)
== END 2022-02-21 07:41 | disposition home or self-care (01) ==
LOC: HO.MMNH1L 07:40
PROVIDERS: Visit Provider Family Medicine
DX: I10 Essential (primary) hypertension (principal)
CPT/HCPCS: 36415; 80048; 85025

== ENCOUNTER 2022-02-28 06:30 | Outpatient (REF) | payer OTHER, SELFPAY ==
[2022-02-28 06:48] LABS: Hematocrit 35.4 % (37.0-47.0); Hemoglobin 11.6 g/dl (12.0-16.0); Mean Corpuscular HGB Conc 32.8 g/dl (31.0-35.0); Mean Corpuscular Hemoglobin 32.9 pg (27.0-33.0); Mean Corpuscular Volume 100.3 fL (80.0-98.0); Mean Platelet Volume 10.8 fL (9.4-12.3); Platelet Count 210 X10*3/uL (160-400); Red Blood Count 3.53 X10*6/uL (4.20-5.50); Red Cell Distribution Width 12.8 % (11.0-16.0); White Blood Count 2.9 X10*3/uL (4.8-10.8)
[2022-02-28 07:03] LABS: Anion Gap 14 (12-20); Blood Urea Nitrogen 20 mg/dL (9-16); Calcium 8.6 mg/dL (8.4-10.2); Carbon Dioxide 28 mmol/L (22-29); Chloride 101 mmol/L (96-108); Estimated Glomerular Filt Rate 47; Glucose Random 91 mg/dL (60-115); Sodium 139 mmol/L (135-145)
== END 2022-02-28 06:31 | disposition home or self-care (01) ==
LOC: HO.MMNH1L 06:30
PROVIDERS: Visit Provider Family Medicine
DX: I10 Essential (primary) hypertension (principal)
CPT/HCPCS: 36415; 80048; 85027

== ENCOUNTER 2022-03-02 13:05 | Emergency (ER) | payer OTHER, SELFPAY ==
[2022-03-02 13:15] VITALS: BP 128/60; PULSE 84; O2SAT 94
[2022-03-02 13:24] VITALS: BP 122/58; PULSE 79; RESP 16; TEMP 36.6; O2SAT 95; BMI 18.5
--- NOTE | 2022-03-02 13:33 | ED_ITS ---
HPI - General Adult General Chief complaint: General Medical Stated complaint: failure to thrive Time Seen by Provider: 03/02/22 13:33 Source: patient and EMS Mode of arrival: EMS Limitations: no limitations History of Present Illness HPI narrative: Patient is a 76 year old assigned female with an extensive medical history, presenting to the emergency department today secondary to the inability to care for herself. Patient states that she was discharged home from [facility] but when [facility] checked on her today, it was evident she could not care for herself and needed to be placed back into a SNF. Patient declines any complaints at this time. Patient denies any dizziness, lightheadedness, abdominal pain, nausea, vomiting, fever, chills, blurry vision, double vision, loss of vision, chest pain, difficulty breathing, shortness of breath, back pain, night sweats, pain with urination, increased urinary frequency, increased urinary urgency, blood in her urine or stool, syncope or a near syncopal episode, recent trauma or falls, bowel incontinence, bladder incontinence, bowel retention, bladder retention, or any other complaints at this time. Severity: mild Relieving factors: none Exacerbating factors: none Associated symptoms: denies other symptoms Treatments prior to arrival: none Related Data Home Medications Medication Instructions Recorded Confirmed alendronate 70 mg tablet 70 mg PO ANGEL@0600 07/27/21 03/02/22 ascorbic acid (vitamin C) 500 mg 500 mg PO DAILY 07/27/21 03/02/22 tablet (Vitamin C) cholecalciferol (vitamin D3) 50 50 mcg PO DAILY 07/27/21 03/02/22 mcg (2,000 unit) capsule (Vitamin D3) cranberry extract 250 mg capsule 250 mg PO BID 07/27/21 03/02/22 folic acid 1 mg tablet 1 mg PO DAILY 07/27/21 03/02/22 furosemide 20 mg tablet 20 mg PO DAILY 07/27/21 03/02/22 lorazepam 1 mg tablet 1 mg PO TID 07/27/21 03/02/22 melatonin 3 mg tablet 3 mg PO BEDTIME 07/27/21 03/02/22 methenamine hippurate 1 gram tablet 1 g PO BID 07/27/21 03/02/22 multivitamin 1 tab PO DAILY 07/27/21 03/02/22 oxcarbazepine 150 mg tablet 150 mg PO BID 07/27/21 03/02/22 paroxetine HCl 30 mg tablet 30 mg PO DAILY 07/27/21 03/02/22 propranolol 10 mg tablet 10 mg PO TID 07/27/21 03/02/22 sennosides 8.6 mg-docusate sodium 2 tab PO BEDTIME 07/27/21 03/02/22 50 mg tablet (Senna Plus) trazodone 50 mg tablet 25 mg PO BEDTIME PRN Insomnia 07/27/21 03/02/22 salsalate 500 mg tablet 1 tab PO DAILY PRN Pain (Scale 12/23/21 03/02/22 Score 1-3) doxycycline hyclate 100 mg capsule 1 cap PO DAILY 02/12/22 03/02/22 Allergies Allergy/AdvReac Type Severity Reaction Status Date / Time ibuprofen [IBUPROFEN] Allergy Intermediate KIDNEY Verified 07/19/21 20:57 PROBLEMS oxycodone [From OXYCONTIN] Allergy Unknown UNKNOWN Verified 07/19/21 20:57 Sulfa (Sulfonamide Allergy Unknown UNKNOWN Verified 07/19/21 20:57 Antibiotics) [SULFA (SULFONAMIDE ANTIBIOTICS)] Ibuprofen Allergy Unknown Unknown Uncoded 07/19/21 20:57 Sulfer Allergy Unknown Unknown Uncoded 07/19/21 20:57 Review of Systems Constitutional: Constitutional: Reports no additional constitutional complaints, Denies chills, Denies fever(s) and Denies night sweats Eyes: Eyes: Reports no additional eye complaints, Denies blurry vision, Denies change in vision, Denies diplopia, Denies eye discharge, Denies loss of vision and Denies eye pain ENT: Denies dizziness Cardiovascular: Cardiovascular: Reports no additional cardiovascular complaints, Denies chest pain, Denies lightheadedness, Denies Loss of Conscio usness and Denies dyspnea Respiratory: Respiratory: Reports no additional respiratory complaints and Denies dyspnea Gastrointestinal: Gastrointestinal: Reports no additional gastrointestinal c omplaints, Denies abdominal pain, Denies melena, Denies hematochezia, Denies change in bowel habits and Denies change in stool character Genitourinary: Genitourinary: Denies hematuria, Denies urinary frequency, Denies dysuria, Denies urinary incontinence, Denies urinary hesitancy and Denies urinary urgency Musculoskeletal: Musculoskeletal: Reports no additional musculoskeletal complaints, Denies numbness and Denies tingling Neurologic: Denies dizziness, Denies loss of vision, Denies numbness and Denies tingling Psychiatric: Psychiatric: Reports no additional psychiatric complaints Endocrine: Endocrine: Reports no additional endocrine complaints Hematologic/Lymphatic: Hematologic/Lymphatic: Reports no additional hematologic/lymphatic complaints Allergic/Immunologic: Allergic/Immunologic: Reports no additional allergic/immunologic complaints [facility] Past Medical History Attestation statement: The following information was validated with the patient. Source: old records reviewed Medical History Bacteremia due to coagulase-negative Staphylococcus (08/09/19) Bipolar disorder Bowel incontinence Cataract Cellulitis Chronic constipation Chronic obstructive lung disease (10/26/19) Chronic osteomyelitis of right ankle Chronic pyelonephritis CKD (chronic kidney disease) stage 3, GFR 30-59 ml/min Compression fracture of lumbar vertebra Diverticulitis Diverticulosis Family history of colon cancer Hernia, hiatal Hernia, ventral Herpes zoster involving cervical dermatome HTN (hypertension) Kidney disease Leg pain, right Lumbar spinal stenosis Lumbosacral radiculitis Osteoporosis (10/21/19) Rectal bleed Recurrent urinary tract infection Tobacco abuse Underweight Unsteady gait Urinary retention (08/22/19) Surgical History H/O abdominal surgery History of incisional hernia repair Hx of cholecystectomy S/P appendectomy Social History Social History Alcohol intake: former Patient Tobacco Use Status: Current everyday Tobacco user Advance Directives: Yes Advance Directives on File: Yes Advance Directives Date on File: 12/23/21 Physical Exam ED Vital Signs: Vital Signs - 24 hr 03/02/22 13:24 03/02/22 16:38 03/02/22 21:49 Temperature 98 F 98.3 F Pulse Rate 79 94 83 Respiratory Rate 16 17 16 Blood Pressure 122/58 L 146/68 H 118/62 Pulse Oximetry 95 94 92 Oxygen Delivery Method Room Air Room Air Room Air Oxygen Flow Rate 03/02/22 23:44 03/02/22 13:34 03/03/22 04:05 Temperature 97.6 F 97.6 F Pulse Rate 73 69 71 Respiratory Rate 16 15 17 Blood Pressure 127/68 129/73 121/69 Pulse Oximetry 96 95 96 Oxygen Delivery Method Room Air Room Air Oxygen Flow Rate 2 03/03/22 07:44 Temperature 98.4 F Pulse Rate 83 Respiratory Rate 28 H Blood Pressure 117/56 L Pulse Oximetry 91 L Oxygen Delivery Method Room Air Oxygen Flow Rate BMI result Body Mass Index 18.5 Const General: cooperative, no acute distress, alert and awake Nutritional Appearance: well nourished Orientation/consciousness: patient oriented x3 Limitations: no limitations HENMT Head: Yes normal to inspection and Yes atraumatic Ears: hearing grossly normal bilaterally and external ears normal General nose exam: Normal external nose present, no nasal discharge noted and no epistaxis Face and sinus: Yes normal facial exam, No abrasion and No laceration Mouth: Normal oral and palatal mucosa present, no drooling and no muffled voice Eyes General: appearance normal, both eyes and all related structures Periorbital: periorbital findings normal Eyelids: Yes eyelids normal Conjunctivae: conjunctivae normal Pupils: Equal, round and reactive pupils present EOM: EOMs intact bilaterally Neck Neck: Yes normal visual inspection, Yes full ROM and Yes no lymphadenopathy Chest Chest palpation & inspection: normal inspection of the chest Resp Effort & Inspection: normal respiratory effort and able to speak in complete sentences Auscultation: clear to auscultation bilaterally Cardio Rate: regular rate Rhythm: regular rhythm GI Inspection: Yes normal to inspection Neuro General: patient oriented x3 and moves all extremities Cranial nerves: Yes Equal, round and reactive pupils present Cognition (Neuro): normal cognition Motor exam (neuro): 5/5 motor strength present throughout Sensory Exam: Normal double simultaneous stimulation for sensation Coordination: [id number] test normal Extrem General: Yes normal to inspection, Yes full ROM and Yes capillary refill normal Psych Appearance: grossly normal Mental Status: mental status grossly normal Affect: normal affect Attitude: cooperative Thought process: Normal thought process present Thought content: Normal thought content present Insight: Good insight present (Psych) Medical Decision Making MDM Narrative Medical decision making narrative: Patient is a 76 year old assigned female with an extensive medical history presenting to the emergency department today to be evaluated for return to a SNF. Patient's physical exam was unremarkable. Patient's blood work was unremarkable. Patient did test positive for COVID-19. I explained my physical exam findings as well as all test results to the patient. I answered all questions asked by the patient. Patient is awaiting PT evaluation. Patient placed in physician observation. Patient's med rec, diet, and PT eval all ordered. Medical Records Medical records reviewed: Yes I reviewed the patient's medical records. Lab Data Lab results reviewed: Yes I reviewed the patient's lab results. Result diagrams: 03/02/22 14:29 03/02/22 14:29 Labs: Lab Results 03/02/22 03/02/22 03/02/22 Range/Units 14:29 14:29 14:29 WBC 3.0 L (4.8-10.8) X10*3/uL RBC 3.64 L (4.20-5.50) X10*6/uL Hgb 11.6 L (12.0-16.0) g/dl Hct 35.2 L (37.0-47.0) % MCV 96.7 (80.0-98.0) fL MCH 31.9 (27.0-33.0) pg MCHC 33.0 (31.0-35.0) g/dl RDW 12.2 (11.0-16.0) % Plt Count 201 (160-400) X10*3/uL MPV 10.2 (9.4-12.3) fL Immature Gran % (Auto) 0.0 (0.0-0.4) % Neut % (Auto) 49.0 (45-73) % Lymph % (Auto) 35.6 (20-40) % [place] % (Auto) 12.8 H (2-11) % Eos % (Auto) 2.3 (0-4) % Baso % (Auto) 0.3 (0-2) % Lymph # (Auto) 1.1 L (1.2-4.9) X10*3/uL [place] # (Auto) 0.4 (0.1-1.2) X10*3/uL Eos # (Auto) 0.1 (0.0-0.4) X10*3/uL Baso # (Auto) 0.0 (0.0-0.2) X10*3/uL Abs Immat Gran (auto) 0.00 (0.00-0.03) X10*3/uL Absolute Neuts (auto) 1.5 L (2.0-8.3) x10*3/uL Absolute Nucleated RBC 0.000 (0.0-0.012) X10*3/uL Nucleated RBC % (auto) 0.0 (0.0-0.2) /100WBC Sodium 142 (135-145) mmol/L Potassium 4.2 (3.3-5.1) mmol/L Chloride 104 (96-108) mmol/L Carbon Dioxide 28 (22-29) mmol/L Anion Gap 14 (12-20) BUN 33 H D (9-16) mg/dL Creatinine 1.08 (0.5-1.4) mg/dL Estim Creat Clear Calc 29.7 Estimated GFR 49 Random Glucose 98 (60-115) mg/dL Calcium 8.6 (8.4-10.2) mg/dL Magnesium 2.1 (1.6-2.6) mg/dL Total Bilirubin < 0.2 (0.0-1.0) mg/dL AST 24 (5-31) U/L ALT 13 (0-31) U/L Alkaline Phosphatase 117 D (39-117) U/L Total Protein 6.0 L D (6.5-8.0) g/dL Albumin 3.2 L D (3.5-5.0) g/dL COVID-19 (OPHELIA) Positive A (Negative) COVID-19 Clin Com See Note Discharge Plan Discharge Clinical Impression: COVID-19, Weakness Patient Disposition: Still a Patient Prescriptions: No Action multivitamin Tablet 1 tab PO DAILY oxcarbazepine 150 mg tablet 150 mg PO BID trazodone 50 mg tablet 25 mg PO BEDTIME PRN (Reason: Insomnia) alendronate 70 mg tablet 70 mg PO ANGEL@0600 sennosides-docusate sodium [Senna Plus] 8.6-50 mg tablet 2 tab PO BEDTIME melatonin 3 mg tablet 3 mg PO BEDTIME cranberry extract 250 mg capsule 250 mg PO BID propranolol 10 mg tablet 10 mg PO TID methenamine hippurate 1 gram tablet 1 g PO BID ascorbic acid (vitamin C) [Vitamin C] 500 mg tablet 500 mg PO DAILY paroxetine HCl 30 mg tablet 30 mg PO DAILY folic acid 1 mg tablet 1 mg PO DAILY furosemide 20 mg tablet 20 mg PO DAILY lorazepam 1 mg tablet 1 mg PO TID cholecalciferol (vitamin D3) [Vitamin D3] 50 mcg (2,000 unit) capsule 50 mcg PO DAILY salsalate 500 mg tablet 1 tab PO DAILY PRN (Reason: Pain (Scale Score 1-3)) doxycycline hyclate 100 mg capsule 1 cap PO DAILY
[2022-03-02 13:34] VITALS: BP 129/73; PULSE 69; RESP 15; TEMP 36.4; O2SAT 95
--- OUTSIDE RECORDS SUMMARY | 2022-03-02 13:59 | XMS_ITS | Continuity of Care Document ---
:1945 Author Organization [facility] Address [address] [place] [address]- Care Team Providers Name Role Phone Brendan Estevez MD Primary Care Physician Encounter [facility] Date(s): 09/24/20 - 10/24/20 [facility] [address] [place] [address]- Allergies, Adverse Reactions, Alerts Substance Reaction Severity Status ibuprofen Active sulfADIAZINE Active morphine Nausea Active Motrin Active Vicodin Depression Active Percocet 7.5/325 Depression Active Immunizations Given and Recorded Vaccine Date Status Refusal Reason SARS-CoV-2 (COVID-19) mRNA-1273 vaccine 08/17/20 Recorded SARS-CoV-2 (COVID-19) mRNA-1273 vaccine 07/20/20 Recorded influenza virus vaccine, inactivated 03/17/20 Given influenza virus vaccine, inactivated 03/27/17 Given influenza virus vaccine, inactivated 03/11/16 Given influenza virus vaccine, inactivated1 03/04/15 Recorded influenza virus vaccine, inactivated 02/28/14 Given influenza virus vaccine, inactivated 03/01/13 Given influenza virus vaccine, inactivated 03/04/11 Recorded influenza virus vaccine, inactivated 04/30/10 Recorded tetanus/diphtheria/pertussis, acel(Tdap) 02/10/19 Given tetanus/diphtheria/pertussis, acel(Tdap) 02/28/12 Given Zoster Vaccine Live2 10/05/15 Recorded pneumococcal 13-valent vaccine 09/01/14 Given Pneumococcal Vacc (oldterm) 02/28/12 Given Fluzone (oldterm) 02/28/12 Given influ virus vac, H1N1, inactive(oldterm) 04/07/09 Recorde d pneumococcal 23-valent vaccine 04/30/08 Recorded tetanus-diphtheria toxoids (Td) 10/10/07 Recorded 1Location History: DR [id number] History: [facility] Medications Abdominal Binder Abdominal Binder, See Instructions, # 2 each, Refills 0, Tot. Refills 0, Maintenance, Please custom fit nelson for vijay, 11/14/19 16:11:00 EDT, Supply Start Date: 11/14/19 Status: Orderedacetaminophen 325 mg oral tablet See Instructions, PRN, 650 mg By Mouth Every 4 hours prn headache, # 30 tablet, Refills 0, Tot. Refills 0, Maintenance, Headache Pain , Mild, 08/09/19 15:10:00 EDT, Instructions Replace Required Details, Route to Pharmacy Electronically, [facility]arma... Start Date: 08/09/19 Status: Orderedcranberry oral capsule 1 tablet, By Mouth, Daily, # 90 tablet, 1 Refills, Maintenance, 10/22/20 13:15:00 EDT, Capsule, [facility], 1 tablet By Mouth Daily, 152, cm, 10/05/20 13:35:00 EDT, Height, 61.1, kg, 11/04/19 15:16:00 EDT, Dry Weight Start Date: 10/22/20 Status: OrderedCVS MELATONIN 3 MG TABLET CVS MELATONIN 3 MG TABLET, See Instructions, # 30 tablet, 1 Refills, Maintenance, TAKE 1 TABLET BY MOUTH EVERYDAY AT BEDTIME, 152, cm, 10/21/19 9:54:00 EDT, Height, 64, kg, 08/15/19 15:13:00 EDT, Dry Weight Start Date: 10/21/19 Status: Ordereddiclofenac 1% topical gel = 2 Gm, Topically, 4 times a day, # 240 Gm, 5 Refills, Maintenance, 12/06/19 9:39:00 EDT, [facility], 152, cm, 11/12/19 10:46:00 EDT, Height, 61.1, kg, 11/04/19 15:16:00 EDT, Dry Weight Start Date: 12/06/19 Status: Ordereddocusate-senna 50 mg-187 mg oral tablet 2 tablet, By Mouth, Daily, # 60 tablet, 5 Refills, Maintenance, 12/06/19 9:39:00 EDT, Tablet, ALIX peck; [facility], 2 tablet By Mouth Daily, 152, cm, 11/12/19 10:46:00 EDT, Height, 61.1, kg, 11/04/19 15:16:00 EDT, Dry Weight Start Date: 12/06/19 Status: Ordereddoxycycline hyclate 50 mg oral capsule 1 capsule = 50 mg, By Mouth, 2 times a day, for 30 days, # 60 capsule, 3 Refills, Acute 10/31/20 9:30:00 EDT, 07/03/20 9:30:00 EST, Capsule, [facility], 152, cm, 06/26/20 12:46:00 EST, Height, 61.1, kg, 11/04/19 15:16:00 EDT, Dry Weight Start Date: 07/03/20 Stop Date: 10/31/20 Status: Orderedfolic acid 1 mg oral tablet 1, tablet, By Mouth, Daily, # 28 tablet, Refills 5, Tot. Refills 5, Maintenance, 08/28/20 9:33:00 EDT, Route to Pharmacy Electronically, [facility], 152, cm, 08/25/20 10:09:00 EDT, Height, 61.1, kg, 11/04/19 15:16:00 EDT, Dry Weight Start Date: 08/28/20 Status: OrderedFosamax 70 mg oral tablet 1 tablet = 70 mg, By Mouth, Every week, # 4 tablet, 11 Refills, Maintenance, 03/17/20 15:21:00 EDT, Tablet, [facility], 152, cm, 03/17/20 14:47:00 EDT, Height, 61.1, kg, 11/04/19 15:16:00 EDT, Dry Weight Start Date: 03/17/20 Stop Date: 02/16/21 Status: Orderedfurosemide 20 mg oral tablet 1, tablet, By Mouth, Daily, # 28 tablet, Refills 3, Tot. Refills 0, Maintenance, 10/22/20 13:07:00 EDT, Route to Pharmacy Electronically, [facility], 152, cm, 10/05/20 13:35:00 EDT, Height, 61.1, kg, 11/04/19 15:16:00 EDT, Dry Weight Start Date: 10/22/20 Status: OrderedGeri-Lanta oral suspension 30 mL, By Mouth, Every 4 hours, PRN stomach upset, Maintenance, 02/10/19 8:19:36 EDT Start Date: 02/10/19 Status: OrderedIncruse Ellipta 62.5 mcg/inh inhalation powder 1 each = 62.5 mcg, Inhalation, Every 24 hours, doses should be taken at least 24 hours apart, # 30 each, 5 Refills, Maintenance, 12/06/19 9:42:00 EDT, Powder, [facility], 152, cm, 11/12/19 10:46:00 EDT, Height, 61.1, kg, 11/04/19 15:16:00... Start Date: 12/06/19 Status: Orderedlactobacillus acidophilus oral capsule 1 capsule, By Mouth, 3 times a day with meals, Maintenance, 02/10/19 8:17:06 EDT Start Date: 02/10/19 Status: OrderedLORazepam 1 mg oral tablet 1 tablet = 1 mg, By Mouth, 3 times a day, # 90 tablet, 5 Refills, Maintenance, 06/29/20 9:13:00 EST,Tablet, [facility], 152, cm, 06/26/20 12:46:00 EST, Height, 61.1, kg, 11/04/19 15:16:00 EDT, Dry Weight Start Date: 06/29/20 Status: OrderedMelatonin 3 mg oral tablet 1 tablet, By Mouth, Daily at bedtime, # 90 tablet, 1 Refills, Maintenance, 10/22/20 13:15:00 EDT, [facility], 1 tablet By Mouth Daily at bedtime, 152, cm, 10/05/20 13:35:00 EDT, Height,61.1, kg, 11/04/19 15:16:00 EDT, Dry Weight Start Date: 10/22/20 Status: Orderedmethenamine hippurate 1 gm oral tablet 1 tablet, By Mouth, 2 times a day, # 56 tablet, 0 Refills, Acute, 10/22/20 13:07:00 EDT, [facility], 152, cm, 10/05/20 13:35:00 EDT, Height, 61.1, kg, 11/04/19 15:16:00 EDT, Dry Weight Start Date: 10/22/20 Status: OrderedMiscellaneous Rx 1, tablet, By Mouth, Daily at bedtime, # 28 tablet, 0 Refills, Maintenance, 01/17/20 10:52:00 EDT, 152, cm, 12/10/19 15:52:00 EDT, Height, 61.1, kg, 11/04/19 15:16:00 EDT, Dry Weight Start Date: 01/17/20 Status: Orderedmultivitamin Multiple Vitamins oral tablet 1 tablet, By Mouth, Daily, # 28 tablet, 5 Refills, Maintenance, 08/28/20 9:33:00 EDT, [facility], 0, 1 tablet By Mouth Daily, 152, cm, 08/25/20 10:09:00 EDT, Height, 61.1, kg, 11/04/19 15:16:00 EDT, Dry Weight Start Date: 08/28/20 Status: OrderedOXcarbazepine 150 mg oral tablet 1, tablet, By Mouth, 2 times a day, # 56 tablet, Refills 3, Tot. Refills 0, Maintenance, 10/22/20 13:07:00 EDT, Route to Pharmacy Electronically, [facility], 152, cm, 10/05/20 13:35:00 EDT, Height, 61.1, kg, 11/04/19 15:16:00 EDT, Dry We... Start Date: 10/22/20 Status: OrderedPARoxetine 30 mg oral tablet 1 tablet, By Mouth, Daily, # 28 tablet, 6 Refills, Maintenance, 05/08/20 13:28:00 EST, [facility], 152, cm, 03/17/20 14:47:00 EDT, Height, 61.1, kg, 11/04/19 15:16:00 EDT, Dry Weight Start Date: 05/08/20 Status: [id number] oral powder for reconstitution See Instructions, MIX 17 GRAMS OF POWDER IN 8 OUNCES OF WATER AND DRINK BY MOUTH ONCE A DAY, # 238 Gm, 1 Refills, Maintenance, 10/05/20 14:15:00 EDT, 0 Start Date: 10/05/20 Status: Orderedpropranolol 10 mg oral tablet 10 mg, 1, tablet, By Mouth, 3 times a day, # 270 tablet, Refills 0, Tot. Refills 0, Maintenance, 10/22/20 12:22:00 EDT, Route to Pharmacy Electronically, [facility], 152, cm, 10/05/20 13:35:00 EDT, Height, 61.1, kg, 11/04/19 15:16:00 EDT,... Start Date: 10/22/20 Status: OrderedSENNA PLUS TABLET SENNA PLUS TABLET, 2, tablet, By Mouth, Daily, # 56 tablet, 3 Refills, Maintenance, 10/22/20 13:07:00 EDT, 152, cm, 10/05/20 13:35:00 EDT, Height, 61.1, kg, 11/04/19 15:16:00 EDT, Dry Weight Start Date: 10/22/20 Status: OrderedSENNA PLUS TABLET SENNA PLUS TABLET, 2, tablet, By Mouth, Daily, # 56 tablet, 0 Refills, Maintenance, 09/24/20 14:21:00 EDT, 152, cm, 08/25/20 10:09:00 EDT, Height, 61.1, kg, 11/04/19 15:16:00 EDT, Dry Weight Start Date: 09/24/20 Status: OrderedtraZODone 50 mg oral tablet 0.5, tablet, By Mouth, Daily at bedtime, # 90 tablet, Refills 1, Tot. Refills 1, Maintenance, 10/22/20 13:18:00 EDT, Route to Pharmacy Electronically, [facility], 152, cm, 10/05/20 13:35:00 EDT, Height, 61.1, kg, 11/04/19 15:16:00 EDT, Dry... Start Date: 10/22/20 Status: OrderedVitamin C 500 mg oral tablet 1 tablet, By Mouth, Daily, # 28 tablet, 5 Refills, Maintenance, 08/28/20 9:33:00 EDT, [facility], 152, cm, 08/25/20 10:09:00 EDT, Height, 61.1, kg, 11/04/19 15:16:00 EDT, Dry Weight Start Date: 08/28/20 Status: OrderedVitamin D3 5000 intl units oral tablet 2 tablet, By Mouth, Daily, # 56 tablet, 3 Refills, Maintenance, 10/22/20 13:07:00 EDT, [facility], 152, cm, 10/05/20 13:35:00 EDT, Height, 61.1, kg, 11/04/19 15:16:00 EDT, Dry Weight Start Date: 10/22/20 Status: Ordered Problem List Condition Effective Dates Status Health Status Informant Accidental fall(Confirmed) Active Osteomyelitis of ankle(Confirmed) Active Appendectomy(Confirmed) Active Bacteremia due to coagulase-negative Active Staphylococcus(Confirmed) Bipolar disorder(Confirmed) Active BMI 38.0-38.9,adult(Confirmed) Active Cataract(Confirmed) Active Cholecystectomy(Confirmed) Active Chronic constipation(Confirmed) Active Chronic pyelonephritis(Confirmed) Active CKD (chronic kidney disease) stage 3, Active GFR 30-59 ml/min(Confirmed) Compression fracture of lumbar Active vertebra(Confirmed) COPD (chronic obstructive pulmonary Active disease)(Confirmed) Diverticulitis(Confirmed)1 Active Diverticulosis(Confirmed) Active Esophagogastroduodenoscopy [egd] with Active Closed Biopsy(Confirmed)2 Family history of colon Active cancer(Confirmed)3, 4 Hospital discharge Active follow-up(Confirmed) Hernia, ventral(Confirmed) Active Herpes Zoster Involving Cervical Active Dermatome(Confirmed) Hernia, hiatal(Confirmed) Active HTN (hypertension)(Confirmed) Active Incisional Hernia Repair(Confirmed) Active Urinary frequency(Confirmed) Active LBP (low back pain)(Confirmed) 05/09/13 Active LLQ abdominal pain(Confirmed) Active Lumbosacral radiculitis(Confirmed) Active Osteoporosis(Confirmed) Active Leg pain, right(Confirmed) Active Rectal bleed(Confirmed) Active Recurrent urinary tract Active infection(Confirmed) Lumbar spinal stenosis(Confirmed) Active Tobacco abuse(Confirmed) Active Unsteady gait(Confirmed) Active 1s/p surgical treatment [id number] 2010 [id number] 2014 positive polyp, repeat [id number] 2009 nl, repeat 2014 Social History Social History Type Response Smoking Status Current every day smoker entered on: 03/08/18 Sex
--- OUTSIDE RECORDS SUMMARY | 2022-03-02 13:59 | XMS_ITS | Continuity of Care Document ---
:1945 Author Organization [facility] Address [address] [place] [address]- Care Team Providers Name Role Phone Brendan Estevez MD Primary Care Physician En[place] [facility] [place]): 12/11/19 - 01/10/20 [facility] [address] [place] [id number] Allergies, Adverse Reactions, Alerts Substance Reaction Severity Status ibuprofen Active sulfADIAZINE Active morphine Nausea Active Motrin Active Vicodin Depression Active Percocet 7.5/325 Depression Active Immunizations Given and Recorded Vaccine Date Status Refusal Reason tetanus/diphtheria/pertussis, acel(Tdap) 02/10/19 Given tetanus/diphtheria/pertussis, acel(Tdap) 02/28/12 Given influenza virus vaccine, inactivated 03/27/17 Given influenza virus vaccine, inactivated 03/11/16 Given influenza virus vaccine, inactivated1 03/04/15 Recorded influenza virus vaccine, inactivated 02/28/14 Given influenza virus vaccine, inactivated 03/01/13 Given Zoster Vaccine Live2 10/05/15 Recorded pneumococcal 13-valent vaccine 09/01/14 Given Pneumococcal Vacc (oldterm) 02/28/12 Given Fluzone (oldterm) 02/28/12 Given 1Location History: DR [id number] History: [facility] Medications Abdominal Binder Abdominal Binder, See Instructions, # 2 each, Refills 0, Tot. Refills 0, Maintenance, Please custom fit johnt for vijay, 11/14/19 16:11:00 EDT, Supply Start Date: 11/14/19 Status: Orderedacetaminophen 325 mg oral tablet See Instructions, PRN, 650 mg By Mouth Every 4 hours prn headache, # 30 tablet, Refills 0, Tot. Refills 0, Maintenance, Headache Pain , Mild, 08/09/19 15:10:00 EDT, Instructions Replace Required Details, Route to Pharmacy Electronically, [facility] [place]... Start Date: 08/09/19 Status: Orderedcranberry oral capsule See Instructions, 1,000 mg By Mouth Daily, # 30 tablet, 11 Refills, Maintenance, 12/06/19 15:49:00 EDT, Capsule, [facility], 1,000 mg; By Mouth Daily, 152, cm, 11/12/19 10:46:00 EDT, Height, 61.1, kg, 11/04/19 15:16:00 EDT, Dry Weight Start Date: 12/06/19 Status: OrderedCVS MELATONIN 3 MG TABLET [facility] [...] days, # 60 capsule, 3 Refills, Acute 04/09/20 14:58:00 EST, 12/11/19 14:58:00 EDT, Capsule, [facility], 152, cm, 12/10/19 15:52:00 EDT, Height, 61.1, kg, 11/04/19 15:16:00 EDT, Dry Weight Start Date: 12/11/19 Stop Date: 04/09/20 Status: Ordereddoxycycline hyclate 50 mg oral capsule 1 capsule = 50 mg, By Mouth, 2 times a day, for 30 days, # 60 capsule, 3 Refills, Acute 01/29/20 16:37:00 EDT, 10/01/19 16:37:00 EDT, Capsule, [facility] [id number], 152, cm, 08/15/19 17:55:00 EDT, Height, 64, kg, 08/15/19 15:13:00 EDT, Dry Weight Start Date: 10/01/19 Stop Date: 01/29/20 Status: Orderedfolic acid 1 mg oral tablet 1 mg, 1, tablet, By Mouth, Daily, # 30 tablet, Refills 5, Tot. Refills 5, Maintenance, 12/06/19 9:39:00 EDT, Route to Pharmacy Electronically, [facility], 152, cm, 11/12/19 10:46:00 EDT, Height, 61.1, kg, 11/04/19 15:16:00 EDT, Dry Weight Start Date: 12/06/19 Status: Orderedfurosemide 20 mg oral tablet 20 mg, 1, tablet, By Mouth, Daily, # 30 tablet, Refills 5, Tot. Refills 5, Maintenance, 12/06/19 9:39:00 EDT, Route to Pharmacy Electronically, [facility], 152, cm, 11/12/19 10:46:00 EDT, Height, 61.1, kg, 11/04/19 15:16:00 EDT, Dry Weight Start Date: 12/06/19 Status: OrderedGeri-Lanta oral suspension 30 mL, By [...] mg, By Mouth, 3 times a day, PRN for anxiety, # 90 tablet, 5 Refills, Maintenance, 12/06/19 9:43:00 EDT, Tablet, [facility], 152, cm, 11/12/19 10:46:00 EDT, Height, 61.1, kg, 11/04/19 15:16:00 EDT, Dry Weight Start Date: 12/06/19 Status: Orderedmelatonin 3 mg oral tablet 1 tablet = 3 mg, By Mouth, Daily at bedtime, # 30 tablet, 1 Refills, Maintenance, 12/06/19 9:39:00 EDT, [facility], 152, cm, 11/12/19 10:46:00 EDT, Height, 61.1, kg, 11/04/19 15:16:00 EDT, Dry Weight Start Date: 12/06/19 Status: Orderedmethenamine hippurate 1 gm oral tablet 1 tablet = 1 Gm, By Mouth, 2 times a day, # 60 tablet, 5 Refills, Maintenance, 12/06/19 9:39:00 EDT,Tablet, [facility], 152, cm, 11/12/19 10:46:00 EDT, Height, 61.1, kg, 11/04/19 15:16:00 EDT, Dry Weight Start Date: 12/06/19 Status: OrderedMiraLax oral powder for reconstitution = 17 Gm, By Mouth, Daily, dissolve in water before taking, # 255 Gm, 1 Refills, Maintenance, 12/06/19 9:39:00 EDT, REC Powder, [facility], 17 Gm By Mouth Daily,Instr:dissolve in water before taking, 152, cm, 11/12/19 10:46:00 EDT, Height,... Start Date: 12/06/19 Status: Orderedmultivitamin Multiple Vitamins oral capsule 1 capsule, By Mouth, Daily, # 30 capsule, 5 Refills, Maintenance, 12/06/19 9:39:00 EDT, Capsule, [facility], 1 capsule By Mouth Daily, 152, cm, 11/12/19 10:46:00 EDT, Height, 61.1, kg, 11/04/19 15:16:00 EDT, Dry Weight Start Date: 12/06/19 Status: OrderedOXcarbazepine 150 mg oral tablet 150 mg, 1, tablet, By Mouth, 2 times a day, # 60 tablet, Refills 5, Tot. Refills 5, Maintenance, 12/06/19 9:39:00 EDT, Route to Pharmacy Electronically, [facility], 152, cm, 11/12/19 10:46:00 EDT, Height, 61.1, kg, 11/04/19 15:16:00 EDT, D... Start Date: 12/06/19 Status: OrderedPARoxetine 30 mg oral tablet 1 tablet = 30 mg, By Mouth, Daily, # 30 tablet, 5 Refills, Maintenance, 12/06/19 9:39:00 EDT, Tablet, [facility], 152, cm, 11/12/19 10:46:00 EDT, Height, 61.1, kg, 11/04/19 15:16:00 EDT, Dry Weight Start Date: 12/06/19 Status: Orderedpropranolol 10 mg oral tablet 10 mg, 1, tablet, By Mouth, 3 times a day, # 270 tablet, Refills 3, Tot. Refills 3, Maintenance, 12/06/19 9:39:00 EDT, Route to Pharmacy Electronically, [facility], 152, cm, 11/12/19 10:46:00 EDT, Height, 61.1, kg, 11/04/19 15:16:00 EDT, D... Start Date: 12/06/19 Status: OrderedSenna 8.6 mg oral tablet 8.6 mg, 1, tablet, By Mouth, Daily at bedtime, for 30 days, # 30 tablet, Refills 6, Tot. Refills 6, Acute, 06/22/20 15:52:00 EST, 11/25/19 15:52:00 EDT, Route to Pharmacy Electronically, [facility] [id number], 152, cm, 11/12/19 10:46:00 EDT, Height, 61.1... Start Date: 11/25/19 Stop Date: 06/22/20 Status: OrderedtraZODone 50 mg oral tablet 25 mg, 0.5, tablet, By Mouth, Daily at bedtime, # 15 tablet, Refills 5, Tot. Refills 5, Maintenance,12/27/19 9:14:00 EDT, Route to Pharmacy Electronically, [facility], 152, cm, 12/10/19 15:52:00 EDT, Height, 61.1, kg, 11/04/19 15:16:00 ED... Start Date: 12/27/19 Status: OrderedVitamin C 500 mg oral tablet 1 tablet = 500 mg, By Mouth, Daily, # 30 tablet, 5 Refills, Maintenance, 12/06/19 9:37:00 EDT, Tablet, [facility], 152, cm, 11/12/19 10:46:00 EDT, Height, 61.1, kg, 11/04/19 15:16:00 EDT, Dry Weight Start Date: 12/06/19 Status: OrderedVitamin D3 10,000 intl units oral capsule 1 capsule = 10,000 International_Units, By Mouth, Daily, # 30 capsule, 5 Refills, Maintenance, 12/06/19 9:39:00 EDT, [facility], 152, cm, 11/12/19 10:46:00 EDT, Height, 61.1, kg, 11/04/19 15:16:00 EDT, Dry Weight Start Date: 12/06/19 Status: Ordered Problem List Condition Effective Dates [...] Active Tobacco abuse(Confirmed) Active Unsteady gait(Confirmed) Active UTI (urinary tract Active infection)(Confirmed) 1s/p surgical treatment [id number] 2010 [id number] 2014 positive polyp, repeat 2019.4colo 2010 nl, repeat 2014 Social History Social History Type Response Smoking Status Current every day smoker entered on: 03/08/18 Sex Female
--- OUTSIDE RECORDS SUMMARY | 2022-03-02 13:59 | XMS_ITS | Continuity of Care Document ---
:1945 Author Organization [facility] Address [address] [place] [address]- Care Team Providers Name Role Phone Brendan Estevez MD Primary Care Physician Encounter [facility] [place] Date(s): 04/14/21 - 05/14/21 [facility] [address] [place] [address]- Allergies, Adverse Reactions, Alerts Substance Reaction Severity Status ibuprofen Active sulfADIAZINE Active morphine Nausea Active Motrin Active Vicodin Depression Active Percocet 7.5/325 Depression Active Immunizations Given and Recorded Vaccine Date Status Refusal Reason influenza virus vaccine, inactivated 02/19/21 Given influenza virus vaccine, inactivated 03/17/20 Given influenza virus vaccine, inactivated 03/27/17 Given influenza virus vaccine, inactivated 03/11/16 Given influenza virus vaccine, inactivated1 03/04/15 Recorded influenza virus vaccine, inactivated 02/28/14 Given influenza virus vaccine, inactivated 03/01/13 Given influenza virus vaccine, inactivated 03/04/11 Recorded influenza virus vaccine, inactivated 04/30/10 Recorded SARS-CoV-2 (COVID-19) mRNA-1273 vaccine 08/17/20 Recorded SARS-CoV-2 (COVID-19) mRNA-1273 vaccine 07/20/20 Recorded tetanus/diphtheria/pertussis, acel(Tdap) 02/10/19 Given tetanus/diphtheria/pertussis, acel(Tdap) 02/28/12 Given Zoster Vaccine Live2 10/05/15 Recorded pneumococcal 13-valent vaccine 09/01/14 Given Pneumococcal Vacc (oldterm) 02/28/12 Given Fluzone (oldterm) 02/28/12 Given influ virus vac, H1N1, inactive(oldterm) 04/07/09 Recorde d pneumococcal 23-valent vaccine 04/30/08 Recorded tetanus-diphtheria toxoids (Td) 10/10/07 Recorded 1Location History: DR [id number] History: [facility] DR Strong Abdominal Binder Abdominal Binder, See Instructions, # [...] Replace Required Details, Route to Pharmacy Electronically, [facility]... Start Date: 08/09/19 Status: Orderedbacitracin topical 500 u/gm ointment See Instructions, Topically Daily apply on ankle wound, # 30 Gm, 0 Refills, Maintenance, 04/03/21 13:09:00 EST, Ointment, [facility], Partial fill upon patient request if the prescription is for a schedule II opioid drug., Topically Daily... Start Date: 04/03/21 Status: OrderedCRANBERRY 250 MG CAPSULE CRANBERRY 250 MG CAPSULE, See Instructions, # 112 capsule, 0 Refills, Maintenance, TAKE 4 CAPSULE BYMOUTH ONCE DAILY., 152, cm, 11/04/20 13:52:00 EDT, Height, 61.1, kg, 11/04/19 15:16:00 EDT, Dry Weight Start Date: 11/04/20 Status: Orderedcranberry oral capsule 1 tablet, By Mouth, 2 times a day, # 60 tablet, 11 Refills, Maintenance, 11/18/20 11:19:00 EDT, Capsule, [facility], 1 tablet By Mouth 2 times a day,x30 days, 152, cm, 11/04/20 13:52:00EDT, Height, 61.1, kg, 11/04/19 15:16:00 EDT, Dry Weight Start Date: 11/18/20 Stop Date: 11/13/21 Status: OrderedCVS MELATONIN 3 MG TABLET [facility]S MELATONIN 3 MG TABLET, See Instructions, # 30 tablet, 1 Refills, Maintenance, TAKE 1 TABLET BY MOUTH EVERYDAY AT BEDTIME, 152, cm, 10/21/19 9:54:00 EDT, Height, 64, kg, 08/15/19 15:13:00 EDT, Dry Weight Start Date: 10/21/19 Status: Ordereddiclofenac 1% topical gel = 2 Gm, Topically, 4 times a day, # 240 Gm, 5 Refills, Maintenance, 11/16/20 7:43:00 EDT, [facility], 152, cm, 11/04/20 13:52:00 EDT, Height, 61.1, kg, 11/04/19 15:16:00 EDT, Dry Weight Start Date: 11/16/20 Status: OrderedDiflucan 150 mg oral tablet 1 tablet = 150 mg, By Mouth, Every week, # 1 tablet, 0 Refills, Maintenance, 11/04/20 14:36:00 EDT, Tablet, [facility], Partial fill upon patient request if the prescription is for a schedule II opioid drug., 152, cm, 11/04/20 13:52:00 EDT... Start Date: 11/04/20 Status: Ordereddoxycycline hyclate 50 mg oral capsule 1 capsule = 50 mg, By Mouth, 2 times a day, for 90 days, # 180 capsule, 3 Refills, Acute 02/20/22 14:14:00 EDT, 02/25/21 14:14:00 EDT, Capsule, [facility], 152, cm, 02/19/21 12:32:00 EDT, Height, 61.1, kg, 11/04/19 15:16:00 EDT, Dry Weight Start Date: 02/25/21 Stop Date: 02/20/22 Status: Orderedfolic acid 1 mg oral tablet 1, tablet, By Mouth, Daily, # 28 tablet, Refills 5, Route to Pharmacy Electronically, [facility], 152, cm, 01/18/21 13:58:00 EDT, Height, 61.1, kg, 11/04/19 15:16:00 EDT, Dry Weight Start Date: 01/28/21 Status: OrderedFosamax 70 mg oral tablet 1 tablet = 70 mg, By Mouth, Every week, # 4 tablet, 11 Refills, Maintenance, 02/16/21 15:21:00 EDT, Tablet, [facility], 152, cm, 11/04/20 13:52:00 EDT, Height, 61.1, kg, 11/04/19 15:16:00 EDT, Dry Weight Start Date: 02/16/21 Stop Date: 01/18/22 Status: Orderedfurosemide 20 mg oral tablet 1, tablet, By Mouth, Daily, # 28 tablet, Refills 3, Tot. Refills 3, Maintenance, 02/11/21 15:31:00 EDT, Route to Pharmacy Electronically, [facility], 152, cm, 01/18/21 13:58:00 EDT, Height, 61.1, kg, 11/04/19 15:16:00 EDT, Dry Weight Start Date: 02/11/21 Status: OrderedGeri-Lanta oral suspension 30 mL, By Mouth, Every 4 hours, PRN stomach upset, Maintenance, 02/10/19 8:19:36 EDT Start Date: 02/10/19 Status: Orderedlactobacillus acidophilus oral capsule 1 capsule, By Mouth, 3 times a day with meals, Maintenance, 02/10/19 8:17:06 EDT Start Date: 02/10/19 Status: OrderedLORazepam 1 mg oral tablet 1 tablet = 1 mg, By Mouth, 3 times a day, # 90 tablet, 5 Refills, Maintenance, 12/24/20 9:04:00 EDT,Tablet, [facility], 01/02/21, 152, cm, 11/04/20 13:52:00 EDT, Height, 61.1, kg, 11/04/19 15:16:00 EDT, Dry Weight Start Date: 12/24/20 Status: OrderedMelatonin 3 mg oral tablet 1 tablet, By Mouth, Daily at bedtime, # 28 tablet, 0 Refills, [facility], 0, @@TAKE 1 TABLET BY MOUTH DAILY AT BEDTIME., 154, cm, 04/03/21 11:28:00 EST, Height, 50.3, kg, 04/02/21 1:28:00EST, Dry Weight Start Date: 05/13/21 Status: Orderedmethenamine hippurate 1 gm oral tablet 1 tablet, By Mouth, 2 times a day, # 56 tablet, 11 Refills, Maintenance, 12/07/20 15:16:00 EDT, [facility], 152, cm, 11/04/20 13:52:00 EDT, Height, 61.1, kg, 11/04/19 15:16:00 EDT, Dry Weight Start Date: 12/07/20 Status: OrderedMiscellaneous Rx 1, tablet, By Mouth, Daily at bedtime, # 28 tablet, 0 Refills, Maintenance, 01/17/20 10:52:00 EDT, 152, cm, 12/10/19 15:52:00 EDT, Height, 61.1, kg, 11/04/19 15:16:00 EDT, Dry Weight Start Date: 01/17/20 Status: Orderedmultivitamin Multiple Vitamins oral tablet 1 tablet, By Mouth, Daily, # 28 tablet, 5 Refills, [facility], 0, TAKE (1) TABLET BY MOUTH DAILY., 152, cm, 01/18/21 13:58:00 EDT, Height, 61.1, kg, 11/04/19 15:16:00 EDT, Dry Weight Start Date: 01/28/21 Status: OrderedOXcarbazepine 150 mg oral tablet 1, tablet, By Mouth, 2 times a day, # 56 tablet, Refills 0, Route to Pharmacy Electronically, [facility], 154, cm, 04/03/21 11:28:00 EST, Height, 50.3, kg, 04/02/21 1:28:00 EST, Dry Weight Start Date: 05/13/21 Status: OrderedPARoxetine 30 mg oral tablet 1 tablet, By Mouth, Daily, # 28 tablet, 12 Refills, [facility], 152, cm, 02/19/21 12:32:00 EDT, Height, 61.1, kg, 11/04/19 15:16:00 EDT, Dry Weight Start Date: 02/26/21 Status: [id number] oral powder for reconstitution See Instructions, MIX 17 GRAMS OF POWDER IN 8 OUNCES OF WATER AND DRINK BY MOUTH ONCE A DAY, # 238 Gm, 5 Refills, Maintenance, 04/26/21 12:31:00 EST, [facility], 0, MIX 17 GRAMS OF POWDER IN 8 OUNCES OF WATER AND DRINK BY MOUTH ONCE A DAY,... Start Date: 04/26/21 Status: OrderedPlenvu oral powder for reconstitution See Instructions, Start prep day before procedure at 5pm drinking 8 ounces every 20 to [address] Drinking remaining prep 6 hours before procedure drinking 8 ounces every 20 to 30 minutes until finished., # 4,000 mL, 0 Refills, Mainten... Start Date: 01/01/21 Status: Orderedpropranolol 10 mg oral tablet See Instructions, TAKE (1) TABLET BY MOUTH THREE TIMES DAILY, # 84 tablet, Refills 2, Instructions Replace Required Details, [facility], 152, cm, 02/19/21 12:32:00 EDT, Height, 61.1, kg, 11/04/19 15:16:0... Start Date: 03/18/21 Status: Orderedsalsalate 500 mg oral tablet 1 tablet = 500 mg, By Mouth, 2 times a day, # 180 tablet, 0 Refills, Maintenance, 01/18/21 14:23:00 EDT, Tablet, Partial fill upon patient request if the prescription is for a schedule II opioid drug. Start Date: 01/18/21 Status: OrderedSENNA PLUS TABLET SENNA PLUS TABLET, 2, tablet, By Mouth, Daily, # 56 tablet, 0 Refills, 154, cm, 04/03/21 11:28:00 EST, Height, 50.3, kg, 04/02/21 1:28:00 EST, Dry Weight Start Date: 04/14/21 Status: OrderedSENNA PLUS TABLET SENNA PLUS TABLET, 2, tablet, By Mouth, Daily, # 56 tablet, 3 Refills, Maintenance, 10/22/20 13:07:00 EDT, 152, cm, 10/05/20 13:35:00 EDT, Height, 61.1, kg, 11/04/19 15:16:00 EDT, Dry Weight Start Date: 10/22/20 Status: OrderedSENNA PLUS TABLET SENNA PLUS TABLET, 2, tablet, By Mouth, Daily, # 56 tablet, 0 Refills, 152, cm, 02/19/21 12:32:00 EDT, Height, 61.1, kg, 11/04/19 15:16:00 EDT, Dry Weight Start Date: 03/19/21 Status: OrderedSENNA PLUS TABLET SENNA PLUS TABLET, 2, tablet, By Mouth, Daily, # 56 tablet, 0 Refills, 152, cm, 02/19/21 12:32:00 EDT, Height, 61.1, kg, 11/04/19 15:16:00 EDT, Dry Weight Start Date: 02/26/21 Status: OrderedSENNA PLUS TABLET SENNA PLUS TABLET, 2, tablet, By Mouth, Daily, # 56 tablet, 0 Refills, 154, cm, 04/03/21 11:28:00 EST, Height, 50.3, kg, 04/02/21 1:28:00 EST, Dry Weight Start Date: 05/13/21 Status: OrderedSENNA PLUS TABLETS SENNA PLUS TABLETS, 2 TABLETS, By Mouth, Daily, # 56 tablet, Refills 0, Tot. Refills 0, Maintenance,02/11/21 15:57:00 EDT, Supply, 152, cm, 01/18/21 13:58:00 EDT, Height, 61.1, kg, 11/04/19 15:16:00 EDT, Dry Weight Start Date: 02/11/21 Status: OrderedtraZODone 50 mg oral tablet 0.5, tablet, By Mouth, Daily at bedtime, # 90 tablet, Refills 1, Tot. Refills 1, Maintenance, 10/22/20 13:18:00 EDT, Route to Pharmacy Electronically, [facility], 152, cm, 10/05/20 13:35:00 EDT, Height, 61.1, kg, 11/04/19 15:16:00 EDT, Dry... Start Date: 10/22/20 Status: OrderedVitamin C 500 mg oral tablet 1 tablet, By Mouth, Daily, # 28 tablet, 12 Refills, [facility], 152, cm, 02/19/21 12:32:00 EDT, Height, 61.1, kg, 11/04/19 15:16:00 EDT, Dry Weight Start Date: 02/26/21 Status: OrderedVitamin D3 2000 intl units oral capsule 1 capsule = 50 mcg, By Mouth, Daily, stop vitamin d 5000, # 30 capsule, 11 Refills, Maintenance, 01/18/21 14:43:00 EDT, Capsule, [facility], Partial fill upon patient request if the prescription is for a schedule II opioid drug., 152, cm,... Start Date: 01/18/21 Stop Date: 01/13/22 Status: OrderedWound Care Wound Care, See Instructions, # 1 each, Refills 0, Tot. Refills 0, Maintenance, Calcium alginate to ankle with dry clean dressing every other day, cleanse with normal saline., 05/04/21 10:29:00 EST, Supply Start Date: 05/04/21 Status: OrderedWound Care Wound Care, See Instructions, # 1 each, Refills 0, Tot. Refills 0, Maintenance, Calcium alginate to ankle with dry clean dressing every other day, cleanse with normal saline., 04/28/21 10:20:00 EST, Supply Start Date: 04/28/21 Status: Ordered Problem List Condition Effective Dates Status Health Status Informant Accidental fall(Confirmed) Active Osteomyelitis of ankle(Confirmed) Active Appendectomy(Confirmed) Active Bipolar disorder(Confirmed) Active BMI 38.0-38.9,adult(Confirmed) Active Cataract(Confirmed) Active Cholecystectomy(Confirmed) Active Chronic constipation(Confirmed) Active Chronic pyelonephritis(Confirmed) Active CKD (chronic kidney disease) stage 3, Active GFR 30-59 ml/min(Confirmed) Compression fracture of lumbar Active vertebra(Confirmed) COPD (chronic obstructive pulmonary Active disease)(Confirmed) Diverticulitis(Confirmed)1 Active Diverticulosis(Confirmed) Active Esophagogastroduodenoscopy [egd] with Active Closed Biopsy(Confirmed)2 Family history of colon Active cancer(Confirmed)3, 4 Hospital discharge Active follow-up(Confirmed) Hernia, ventral(Confirmed) Active Hernia, hiatal(Confirmed) Active HTN (hypertension)(Confirmed) Active Incisional Hernia Repair(Confirmed) Active Bowel incontinence(Confirmed) Active Urinary frequency(Confirmed) Active LBP (low back pain)(Confirmed) 05/09/13 Active LLQ abdominal pain(Confirmed) Active Lumbosacral radiculitis(Confirmed) Active Flu vaccine need(Confirmed) Active Osteoporosis(Confirmed) Active Leg pain, right(Confirmed) Active Rectal bleed(Confirmed) Active Recurrent urinary tract Active infection(Confirmed) Lumbar spinal stenosis(Confirmed) Active Tobacco abuse(Confirmed) Active Unsteady gait(Confirmed) Active Urinary incontinence(Confirmed) Active 1s/p surgical treatment [id number] 2010 [id number] 2014 positive polyp, repeat 2019.4colo 2009 nl, repeat 2014 Social History Social History Type Response Smoking Status Current every day smoker entered on: 03/08/18 Sex
--- OUTSIDE RECORDS SUMMARY | 2022-03-02 13:59 | XMS_ITS | Continuity of Care Document ---
:1945 Author Organization [facility] Adult Address [address] [place] [address]- Care Team Providers Name Role Phone Zenaida MAR, Brendan Hodges Primary Care Physician En[place] [facility] [place]s): 02/17/21 - 02/24/21 [facility] [address] [place] [address]- Encounter Diagnosis Rib pain on left side (Discharge Diagnosis) - 02/17/21 Accidental fall (Discharge Diagnosis) - 02/17/21 HTN (hypertension) (Discharge Diagnosis) - 02/17/21 Family history of colon cancer (Discharge Diagnosis) - 02/17/21 Attending Physician: Mendy SLABBER, [place] Bean Allergies, Adverse Reactions, Alerts Substance Reaction Severity Status ibuprofen Active sulfADIAZINE Active morphine Nausea Active Vicodin Depression Active Percocet 7.5/325 Depression Active Motrin Active Immunizations Given and Recorded Vaccine Date [...] toxoids (Td) 10/10/07 Recorded 1Location History: DR [id number] History: [facility] DR Strong Abdominal Binder Abdominal Binder, See Instructions, # 2 each, Refills 0, Tot. Refills 0, Maintenance, Please custom fit paitent for binder, 11/14/19 16:11:00 EDT, Supply Start Date: 11/14/19 Status: Orderedacetaminophen 325 mg oral tablet See Instructions, PRN, 650 mg By Mouth Every 4 hours prn headache, # 30 tablet, Refills 0, Tot. Refills 0, Maintenance, Headache Pain , Mild, 08/09/19 15:10:00 EDT, Instructions Replace Required Details, [facility] Start Date: 08/09/19 Status: OrderedCRANBERRY 250 MG CAPSULE CRANBERRY 250 [...] Refills, Maintenance, 11/04/20 14:36:00 EDT, Tablet, [facility], Partial fill upon patient request if the prescription is for a schedule II opioid drug., 152, cm, 11/04/20 13:52:00 EDT... Start Date: 11/04/20 Status: Ordereddoxycycline hyclate 50 mg oral capsule 1 capsule = 50 mg, By Mouth, 2 times a day, for 30 days, # 60 capsule, 4 Refills, Acute 03/25/21 10:28:00 EDT, 10/26/20 10:28:00 EDT, Capsule, [facility], 152, cm, 10/05/20 13:35:00 EDT, Height, 61.1, kg, 11/04/19 15:16:00 EDT, Dry Weight Start Date: 10/26/20 Stop Date: 03/25/21 Status: Orderedfolic acid 1 mg oral tablet 1, tablet, By Mouth, Daily, # 28 tablet, Refills 5, Route to Pharmacy Electronically, [facility], 152, cm, 01/18/21 13:58:00 EDT, Height, 61.1, [...] 02/11/21 15:31:00 EDT, Route to Pharmacy Electronically, [facility], 152, cm, 01/18/21 13:58:00 EDT, [...] EDT, Dry Weight Start Date: 12/24/20 Status: Orderedmethenamine hippurate 1 gm oral tablet [...] # 56 tablet, Refills 3, Tot. Refills 3, Maintenance, 02/11/21 15:32:00 EDT, Route to Pharmacy Electronically, [facility], 152, cm, 01/18/21 13:58:00 EDT, Height, 61.1, kg, 11/04/19 15:16:00 EDT, Dry Weight Start Date: 02/11/21 Status: OrderedPARoxetine 30 mg oral tablet 1 tablet, By Mouth, Daily, # 28 tablet, 0 Refills, [facility], 152, cm, 01/18/21 13:58:00 EDT, Height, 61.1, kg, 11/04/19 15:16:00 EDT, Dry Weight Start Date: 01/28/21 Status: [id number] oral powder for reconstitution See Instructions, MIX 17 GRAMS OF POWDER IN 8 OUNCES OF WATER AND DRINK BY MOUTH ONCE A DAY, # 238 Gm, 5 Refills, Maintenance, 02/10/21 10:29:00 EDT, [facility], 0, MIX 17 GRAMS OF POWDER IN 8 OUNCES OF WATER AND DRINK BY MOUTH ONCE A DAY,... Start Date: 02/10/21 Status: OrderedPlenvu oral powder for reconstitution See Instructions, Start prep day before procedure at 5pm drinking 8 ounces every 20 to [address] Drinking remaining prep 6 hours before procedure drinking 8 ounces every 20 to 30 minutes until finished., # 4,000 mL, 0 Refills, Mainten... Start Date: 01/01/21 Status: Orderedpropranolol 10 mg oral tablet 1, tablet, By Mouth, 3 times a day, # 84 tablet, Refills 2, Tot. Refills 0, Maintenance, 01/01/21 11:28:00 EDT, Route to Pharmacy Electronically, [facility], 152, cm, 12/28/20 12:44:00 EDT, Height, 61.1, kg, 11/04/19 15:16:00 EDT, Dry We... Start Date: 01/01/21 Status: Orderedsalsalate 500 mg oral tablet 1 [...] Weight Start Date: 10/22/20 Status: OrderedSENNA PLUS TABLETS SENNA PLUS TABLETS, [...] tablet, By Mouth, Daily, # 28 tablet, 0 Refills, [facility], 152, cm, 01/18/21 13:58:00 EDT, Height, 61.1, kg, 11/04/19 15:16:00 EDT, Dry Weight Start Date: 01/28/21 Status: OrderedVitamin D3 2000 intl units oral capsule 1 capsule = 50 mcg, By Mouth, Daily, stop vitamin d 5000, # 30 capsule, 11 Refills, Maintenance, 01/18/21 14:43:00 EDT, Capsule, [facility], Partial fill upon patient request if the prescription is for a schedule II opioid drug., 152, cm,... Start Date: 01/18/21 Stop Date: 01/13/22 Status: Ordered Problem List Condition Effective Dates [...] Active Urinary incontinence(Confirmed) Active 1s/p surgical treatment [id number]/[id number] 2010 [id number] 2014 positive polyp, repeat 2019.4colo 2009 nl, repeat 2014 Diagnosis Diagnosis Type Effective Dates Health Clinical Infor mant Status Service Rib pain on left Discharge 02/17/21 side Diagnosis Accidental fall Discharge 02/17/21 Diagnosis HTN Discharge 02/17/21 (hypertension) Diagnosis Family history of Discharge 02/17/21 colon cancer Diagnosis Vital Signs Most recent to oldest [Reference Range]: 1 Height 152 cm (02/17/21 1:42 PM) Weight 47.9 kg (02/17/21 1:42 PM) Oxygen Saturation [94-100 %] 95 % (02/17/21 1:42 PM) Pulse Rate [55-90 bpm] 81 bpm (02/17/21 1:42 PM) Body Mass Index [18.5-24.99] 20.73 (02/17/21 1:42 PM) Blood Pressure [90-138/55-84 mm Hg] 116/70 mm Hg (02/17/21 1:42 PM) Respiratory Rate [16-30 br/min] 16 br/min (02/17/21 1:42 PM) Temperature [96.8-100.4 DegF] 98.6 DegF (02/17/21 1:42 PM) Mode of Delivery (Oxygen) Room air (02/17/21 1:42 PM) Blood pressure sites Arm, right (02/17/21 1:42 PM) Temperature Route Oral (02/17/21 1:42 PM) Weight Obtained Via Standing scale (02/17/21 1:42 PM) Social History Social History Type Response Smoking Status Current every day smoker entered on: 03/08/18 Sex
--- OUTSIDE RECORDS SUMMARY | 2022-03-02 13:59 | XMS_ITS | Continuity of Care Document ---
:1945 Author Organization [facility] Adult Address [address] [place] [address]- Care Team Providers Name Role Phone Brendan Estevez MD Primary Care Physician [place] [facility] [place] 01[place] [facility] [address] [place] [address]- Encounter Diagnosis Bipolar disorder (Discharge Diagnosis) - 01/18/21 CKD (chronic kidney disease) stage 3, GFR 30-59 ml/min (Discharge Diagnosis) - 01/18/21 COPD (chronic obstructive pulmonary disease) (Discharge Diagnosis) - 01/18/21 HTN (hypertension) (Discharge Diagnosis) - 01/18/21 Osteomyelitis of ankle (Discharge Diagnosis) - 01/18/21 LBP (low back pain) (Discharge Diagnosis) - 01/18/21 Osteoporosis (Discharge Diagnosis) - 01/18/21 Attending Physician: Brendan Estevez MD Allergies, Adverse Reactions, Alerts Substance Reaction Severity [...] toxoids (Td) 10/10/07 Recorded 1Location History: DR [id number] History: [facility] Medications Abdominal Binder Abdominal Binder, See [...] Replace Required Details, Route to Pharmacy Electronically, [facility] Start Date: 08/09/19 Status: OrderedCRANBERRY 250 MG [...] 13:07:00 EDT, [facility], [facility], 10/05/20 13:35:00 EDT, Height, 61.1, [...] Maintenance, 08/28/20 9:33:00 EDT, [facility], 0, 1 tablet By Mouth Daily, 152, cm, 08/25/20 10:09:00 EDT, Height, 61.1, kg, 11/04/19 15:16:00 EDT, Dry Weight Start Date: 08/28/20 Status: OrderedOXcarbazepine 150 mg oral tablet 1, tablet, By Mouth, 2 times a day, # 56 tablet, Refills 3, Tot. Refills 0, Maintenance, 10/22/20 13:07:00 EDT, Route to Pharmacy Electronically, [facility], 152, cm, 10/05/20 13:35:00 EDT, Height, 61.1, kg, 11/04/19 15:16:00 EDT, Dry We... Start Date: 10/22/20 Status: OrderedPARoxetine 30 mg oral tablet 1 tablet, By Mouth, Daily, # 28 tablet, 1 Refills, Maintenance, 12/04/20 11:47:00 EDT, [facility], 152, cm, 11/04/20 13:52:00 EDT, Height, 61.1, kg, 11/04/19 15:16:00 EDT, Dry Weight Start Date: 12/04/20 Status: [id number] oral powder for reconstitution See Instructions, MIX 17 GRAMS OF POWDER IN 8 OUNCES OF WATER AND DRINK BY MOUTH ONCE A DAY, # 238 Gm, 1 Refills, Maintenance, 12/28/20 13:02:00 EDT, [facility], 0, MIX 17 GRAMS OF POWDER IN 8 OUNCES OF WATER AND DRINK BY MOUTH ONCE A DAY,... Start Date: 12/28/20 Status: OrderedPlenvu oral powder for reconstitution See [...] 11:28:00 EDT, [facility], cm, 12/28/20 12:44:00 EDT, Height, 61.1, [...] EDT, Dry Weight Start Date: 10/22/20 Status: OrderedtraZODone 50 mg oral tablet 0.5, [...] Weight Start Date: 08/28/20 Status: OrderedVitamin D3 2000 intl units oral [...] Active Urinary incontinence(Confirmed) Active 1s/p surgical treatment [id number] 2010 [id number] 2014 positive polyp, repeat 2019.4colo 2009 nl, repeat 2014 Diagnosis Diagnosis Type Effective Dates Health Clinical Infor mant Status Service Bipolar disorder Discharge 01/18/21 Diagnosis CKD (chronic kidney Discharge 01/18/21 disease) stage 3, Diagnosis GFR 30-59 ml/min COPD (chronic Discharge 01/18/21 obstructive Diagnosis pulmonary disease) HTN (hypertension) Discharge 01/18/21 Diagnosis Osteomyelitis of Discharge 01/18/21 ankle Diagnosis LBP (low back pain) Discharge 01/18/21 Diagnosis Osteoporosis Discharge 01/18/21 Diagnosis Vital Signs Most recent to oldest [Reference Range]: 1 Height 152 cm (01/18/21 1:58 PM) Weight 49.1 kg (01/18/21 1:58 PM) Oxygen Saturation [94-100 %] 98 % (01/18/21 1:58 PM) Pulse Rate [55-90 bpm] 85 bpm (01/18/21 1:58 PM) Body Mass Index [18.5-24.99] 21.25 (01/18/21 1:58 PM) Respiratory Rate [16-30 br/min] 80 br/min *H* (01/18/21 1:58 PM) Mode of Delivery (Oxygen) Room air (01/18/21 1:58 PM) Weight Obtained Via Standing scale (01/18/21 1:58 PM) Social History Social History Type Response Smoking Status Current every day smoker entered on: 03/08/18 Sex
--- OUTSIDE RECORDS SUMMARY | 2022-03-02 13:59 | XMS_ITS | Continuity of Care Document ---
:1945 Author Organization [facility] Adult Address [address] [place] [address]- Care Team Providers Name Role Phone Brendan Estevez MD Primary Care Physician Encounter [facility] Date(s): 10/08/21 - 11/07/21 [facility] Adult [address] [place] [address]- Allergies, Adverse Reactions, Alerts Substance Reaction Severity Status ibuprofen Active sulfADIAZINE Active morphine Nausea Active Motrin Active Vicodin Depression Active Percocet 7.5/325 Depression Active Immunizations Given and Recorded Vaccine Date Status Refusal Reason SARS-CoV-2 (COVID-19) mRNA-1273 vaccine 03/31/21 Recorded SARS-CoV-2 (COVID-19) mRNA-1273 vaccine 08/17/20 Recorded SARS-CoV-2 (COVID-19) mRNA-1273 vaccine 07/20/20 Recorded influenza virus vaccine, inactivated 02/19/21 Given influenza [...] toxoids (Td) 10/10/07 Recorded 1Location History: DR [id number] History: [facility] DR Strong acetaminophen 325 mg oral tablet See Instructions, PRN, 650 mg By Mouth Every 4 hours prn headache, # 30 tablet, Refills 0, Tot. Refills 0, Maintenance, Headache Pain , Mild, 08/09/19 15:10:00 EDT, Instructions Replace Required Details, Route to Pharmacy Electronically, [facility] Start Date: 08/09/19 Status: Orderedalendronate 70 mg oral tablet 1 tablet, By Mouth, Every week, # 4 tablet, 11 Refills, [facility], 152, cm, 10/28/21 9:53:00 EDT, Height, 54, kg, 10/20/21 11:19:00 EDT, Dry Weight Start Date: 11/05/21 Status: Orderedbacitracin topical 500 u/gm ointment See Instructions, Topically Daily apply on ankle wound, # 30 Gm, 0 Refills, Maintenance, 04/03/21 13:09:00 EST, Ointment, [facility], Partial fill upon patient request if the prescription is for a schedule II opioid drug., Topically Daily... Start Date: 04/03/21 Status: OrderedCRANBERRY 250 MG CAPSULE CRANBERRY 250 MG CAPSULE, 1, capsule, By Mouth, 2 times a day, # 56 capsule, 5 Refills, 154, cm, 09/21/21 11:18:00 EDT, Height, 50.3, kg, 04/02/21 1:28:00 EST, Dry Weight Start Date: 10/01/21 Status: Orderedcranberry oral capsule 1 tablet, By Mouth, 2 times a day, # 60 tablet, 11 Refills, Maintenance, 11/18/20 11:19:00 EDT, Capsule, [facility], 1 tablet By Mouth 2 times a day,x30 days, 152, cm, 11/04/20 13:52:00EDT, Height, 61.1, kg, 11/04/19 15:16:00 EDT, Dry Weight Start Date: 11/18/20 Stop Date: 11/13/21 Status: Ordereddiclofenac 1% topical gel = 2 Gm, Topically, 4 times a day, # 240 Gm, 5 Refills, Maintenance, 10/29/21 15:08:00 EDT, [facility]; [facility], 152, cm, 10/28/21 9:53:00 EDT, Height, 54, kg, 10/20/21 11:19:00 EDT, Dry Weight Start Date: 10/29/21 Status: Ordereddoxycycline hyclate 100 mg oral tablet 1 tablet = 100 mg, By Mouth, 2 times a day, for 30 days, # 60 tablet, 0 Refills, Acute 11/13/21 15:15:00 EDT, 10/14/21 15:15:00 EDT, Tablet, [facility], Partial fill upon patient request if the prescription is for a schedule II opioid drug... Start Date: 10/14/21 Stop Date: 11/13/21 Status: OrderedEnsure (chocolate) nutrional supplement Ensure (chocolate) nutrional supplement, See Instructions, # 60 each, Refills 11, Tot. Refills 11, Maintenance, Dx: recent wt loss. Goal is to help make sure she is getting adequate nutrition, 06/29/2209:31:00 EST, Supply Start Date: 06/29/21 Status: Orderedfolic acid 1 mg oral tablet See Instructions, TAKE (1) TABLET BY MOUTH DAILY., # 28 tablet, Refills 5, Instructions Replace Required Details, [facility], cm, 06/28/21 13:44:00 EST, Height, 50.3, kg, 04/02/21 1:28:00 EST, Dry W... Start Date: 07/08/21 Status: Orderedfurosemide 20 mg oral tablet 1, tablet, By Mouth, Daily, # 28 tablet, Refills 3, Tot. Refills 3, Maintenance, 09/03/21 16:21:00 EDT, Route to Pharmacy Electronically, [facility], 154, cm, 09/02/21 13:43:00 EDT, Height, 50.3, kg, 04/02/21 1:28:00 EST, Dry Weight Start Date: 09/03/21 Status: OrderedGeri-Lanta oral suspension 30 mL, By [...] day, # 90 tablet, 5 Refills, Maintenance, 06/02/21 11:26:00 EST, Tablet, [facility], 154, cm, 04/03/21 11:28:00 EST, Height, 50.3, kg, 04/02/21 1:28:00 EST, Dry Weight Start Date: 06/02/21 Status: OrderedMelatonin 3 mg oral tablet 1 tablet, By Mouth, Daily at bedtime, # 28 tablet, 6 Refills, [facility], 0, @@TAKE 1 TABLET BY MOUTH DAILY AT BEDTIME., 154, cm, 04/03/21 11:28:00 EST, Height, 50.3, kg, 04/02/21 1:28:00EST, Dry Weight Start Date: 06/15/21 Status: Orderedmethenamine hippurate 1 gm oral tablet 1 tablet, By Mouth, 2 times a day, # 56 Unknown, 11 Refills, [facility], 152, cm, 10/28/21 9:53:00 EDT, Height, 54, kg, 10/20/21 11:19:00 EDT, Dry Weight Start Date: 11/05/21 Status: Orderedmultivitamin Multiple Vitamins oral tablet 1 tablet, By Mouth, Daily, # 28 tablet, 5 Refills, 07/16/21 9:07:00 EST, [facility],0, 1 tablet By Mouth Daily, 154, cm, 06/28/21 13:44:00 EST, Height, 50.3, kg, 04/02/21 1:28:00 EST, Dry Weight Start Date: 07/16/21 Status: OrderedOXcarbazepine 150 mg oral tablet 1, tablet, By Mouth, 2 times a day, # 56 tablet, Refills 5, Route to Pharm[facility] Electronically, [facility], cm, 06/28/21 13:44:00 EST, Height, 50.3, kg, 04/02/21 1:28:00 EST, Dry Weight Start Date: 07/09/21 Status: OrderedPARoxetine 30 mg oral tablet 1 tablet, By Mouth, Daily, # 28 tablet, 12 Refills, [facility], cm, 02/19/21 12:32:00 EDT, Height, 61.1, kg, 11/04/19 15:16:00 EDT, Dry Weight Start Date: 02/26/21 Status: [id number] oral powder for reconstitution See Instructions, MIX 17 GRAMS OF POWDER IN 8 OZ OF WATER & DRINK BY MOUTH ONCE A DAY, # 238 Gm,5 Refills, [facility], 0, MIX 17 GRAMS OF POWDER IN 8 OZ OF WATER & DRINK BY MOUTHONCE A DAY, 154, cm, 09/21/21 11:18:00 EDT, Height, 50.3,... Start Date: 10/01/21 Status: Orderedpropranolol 10 mg oral tablet See Instructions, TAKE (1) TABLET BY MOUTH THREE TIMES DAILY, # 84 tablet, Refills 5, Tot. Refills 5, 06/22/21 12:32:00 EST, Instructions Replace Required Details, Route to Pharmacy Electronically, [facility] o[facility], 154, cm, 04/03/21 11:28:00 ES... Start Date: 06/22/21 Status: Orderedsalsalate 500 mg oral tablet 1 [...] tablet, Refills 1, Tot. Refills 1, Maintenance, 09/03/21 16:20:00 EDT, Route to Pharmacy Electronically, [facility], 154, cm, 09/02/21 13:43:00 EDT, Height, 50.3, kg, 04/02/21 1:28:00 EST, Dry... Start Date: 09/03/21 Status: OrderedVitamin C 500 mg oral tablet [...] 10:29:00 EST, Supply Start Date: 05/04/21 Status: Ordered Problem List Condition Effective Dates [...] Active Unsteady gait(Confirmed) Active Urinary incontinence(Confirmed) Active Need for COVID-19 vaccine(Confirmed) Active 1s/p surgical treatment 09/[id number] 2010 [id number] 2014 positive polyp, repeat 2019.4colo 2009 nl, repeat 2014 Social History Social History Type Response Smoking Status Current every day smoker entered on: 03/08/18 Sex
--- OUTSIDE RECORDS SUMMARY | 2022-03-02 14:00 | XMS_ITS | Continuity of Care Document ---
:[address] [facility] Adult Address [address] [place] [address]- Care Team Providers Name Role Phone Brendan Estevez MD Primary Care Physician Encounter [facility] Date(s): 09/30/21 - 10/30/21 [facility] [address] [place] [address]- Allergies, Adverse Reactions, Alerts Substance Reaction Severity [...] toxoids (Td) 10/10/07 Recorded 1Location History: DR [id number] History: [facility] Medications acetaminophen 325 mg oral tablet See Instructions, PRN, 650 mg By Mouth Every 4 hours prn headache, # 30 tablet, Refills 0, Tot. Refills 0, Maintenance, Headache Pain , Mild, 08/09/19 15:10:00 EDT, Instructions Replace Required Details, [facility] Start Date: 08/09/19 Status: Orderedbacitracin topical 500 [...] 5 Refills, Maintenance, 10/29/21 15:08:00 EDT, [facility] Somersamp; [facility], 152, cm, 10/28/21 9:53:00 EDT, Height, 54, kg, 10/20/21 11:19:00 EDT, Dry Weight Start Date: 10/29/21 Status: Ordereddoxycycline hyclate 100 mg oral tablet 1 tablet = 100 mg, By Mouth, 2 times a day, for 30 days, # 60 tablet, 0 Refills, Acute 11/13/21 15:15:00 EDT, 10/14/21 15:15:00 EDT, Tablet, [facility], Partial fill [...] Required Details, [facility], cm, 06/28/21 13:44:00 EST, Height, 50.3, kg, 04/02/21 1:28:00 EST, Dry W... Start Date: 07/08/21 Status: OrderedFosamax 70 mg oral tablet 1 tablet = 70 mg, By Mouth, Every week, # 4 tablet, 0 Refills, Maintenance, 10/01/21 13:28:00 EDT, Tablet, [facility], 154, cm, 09/21/21 11:18:00 EDT, Height, 50.3, kg, 04/02/21 1:28:00EST, Dry Weight Start Date: 10/01/21 Stop Date: 10/29/21 Status: Orderedfurosemide 20 mg oral tablet 1, tablet, By Mouth, Daily, # 28 tablet, Refills 3, Tot. Refills 3, Maintenance, 09/03/21 16:21:00 EDT, Route to Pharmacy Electronically, [facility] 1:28:00EST, Dry Weight Start Date: 06/15/21 Status: Orderedmultivitamin Multiple Vitamins oral tablet 1 [...] 5, Route to Pharmacy Electronically, [facility], 154, cm, 06/28/21 13:44:00 EST, Height, 50.3, kg, 04/02/21 1:28:00 EST, Dry Weight Start Date: 07/09/21 Status: OrderedPARoxetine 30 mg oral tablet 1 tablet, By Mouth, Daily, # 28 tablet, 12 [facility], [facility], cm, 02/19/21 12:32:00 EDT, Height, 61.1, kg, 11/04/19 15:16:00 EDT, Dry Weight Start Date: 02/26/21 Status: [id number] oral powder for reconstitution See Instructions, MIX 17 GRAMS OF POWDER IN 8 OZ OF WATER & DRINK BY MOUTH ONCE A DAY, # 238 Gm,5 Refills, [facility], 0, MIX 17 GRAMS OF [...] Replace Required Details, Route to Pharmacy Electronically, [facility], 154, cm, 04/03/21 11:28:00 ES... [...] Daily, # 28 tablet, 12 Refills, [facility], 152, cm, 02/19/21 12:32:00 EDT, Height, 61.1, [...] for COVID-19 vaccine(Confirmed) Active 1s/p surgical treatment [id number] 2010 [id number] 2014 positive polyp, repeat 2019.4colo 2010 nl, repeat 2014 Social History Social History Type Response Smoking Status Current every day smoker entered on: 03/08/18 Sex
--- OUTSIDE RECORDS SUMMARY | 2022-03-02 14:00 | XMS_ITS | Continuity of Care Document ---
:1945 Author Organization [facility] Address [address] [place] [id number]- Care Team Providers Name Role Phone Brendan Estevez MD Primary Care Physician Encounter [facility] Date(s): 10/26/19 - 10/26/[address] [address]- [facility] Encounter Diagnosis Abdominal hernia (Final) - 10/26/19 Abdominal pain (Final) - 10/26/19 Discharge Disposition: A-D/C Home Attending Physician: Kandy Reyes MD Admitting Physician: Kandy Reyes MD Referring Physician: Not on Staff, Referring MD Allergies, Adverse Reactions, Alerts Substance Reaction [...] Fluzone (oldterm) 02/28/12 Given 1Location History: DR [id number] History: [facility] Medications acetaminophen 325 mg oral tablet See Instructions, PRN, 650 mg By Mouth Every 4 hours prn headache, # 30 tablet, Refills 0, Tot. Refills 0, Maintenance, Headache Pain , Mild, 08/09/19 15:10:00 EDT, Instructions Replace Required Details, Route to Pharmacy Electronically, [facility] Start Date: 08/09/19 Status: OrderedBreo Ellipta 100 mcg-25 mcg/inh inhalation powder 1 puffs, Inhalation, Daily, # 3 each, 3 Refills, Maintenance, 03/26/18 14:56:25 EST, Powder Start Date: 03/26/18 Stop Date: 03/21/19 Status: Orderedcranberry oral capsule See Instructions, By Mouth Daily, # 30 tablet, 5 Refills, Maintenance, 09/30/19 7:43:00 EDT, Capsule, [facility]/pharmacy #[id number], By Mouth Daily, 152, cm, 08/15/19 17:55:00 EDT, Height, 64, kg, 08/15/19 15:13:00 EDT, Dry Weight Start Date: 09/30/19 Status: Ordered[facility]S MELATONIN 3 MG TABLET [facility] M[facility] 3 MG TABLET, See Instructions, # 30 tablet, 1 Refills, Maintenance, TAKE 1 TABLET BY MOUTH EVERYDAY AT BEDTIME, 152, cm, 10/21/19 9:54:00 EDT, Height, 64, kg, 08/15/19 15:13:00 EDT, Dry Weight Start Date: 10/21/19 Status: Ordereddiclofenac 1% topical gel = 2 Gm, Topically, 4 times a day, # 240 Gm, 5 Refills, Maintenance, 08/09/19 15:55:00 EDT, [id number], 152.4, cm, 08/09/19 14:18:00 EDT, Height, 74.2, kg, 02/10/19 16:30:00 EDT, Dry Weight Start Date: 08/09/19 Status: Ordereddocusate-senna 50 mg-187 mg oral tablet 2 tablet, By Mouth, Daily, # 60 tablet, 5 Refills, Maintenance, 08/09/19 15:27:00 EDT, Tablet, [facility]/pharmacy #[id number], 2 tablet By Mouth Daily, 152.4, cm, 08/09/19 14:18:00 EDT, Height, 74.2, kg, 02/10/19 16:30:00 EDT, Dry Weight Start Date: 08/09/19 Status: Ordereddoxycycline hyclate 50 mg oral capsule 1 capsule = 50 mg, By Mouth, 2 times a day, for 30 days, # 60 capsule, 3 Refills, Acute 01/29/20 16:37:00 EDT, 10/01/19 16:37:00 EDT, Capsule, [facility]/pharmacy #[id number], 152, cm, 08/15/19 17:55:00 EDT, Height, 64, kg, 08/15/19 15:13:00 EDT, Dry Weight Start Date: 10/01/19 Stop Date: 01/29/20 Status: Orderedfolic acid 1 mg oral tablet 1 mg, 1, tablet, By Mouth, Daily, # 30 tablet, Refills 5, Tot. Refills 5, Maintenance, 08/09/19 15:08:00 EDT, Route to Pharmacy Electronically, [facility]/pharmacy #[id number], 152.4, cm, 08/09/19 14:18:00 EDT, Height, 74.2, kg, 02/10/19 16:30:00 EDT, Dry Weight Start Date: 08/09/19 Status: Orderedfurosemide 20 mg oral tablet 20 mg, 1, tablet, By Mouth, Daily, # 30 tablet, Refills 5, Tot. Refills 5, Maintenance, 08/09/19 15:25:00 EDT, Route to Pharmacy Electronically, [facility]/pharmacy #[id number], 152.4, cm, 08/09/19 14:18:00 EDT, Height, 74.2, kg, 02/10/19 16:30:00 EDT, Dry Weight Start Date: 08/09/19 Status: OrderedGeri-Lanta oral suspension 30 mL, By Mouth, Every 4 hours, PRN stomach upset, Maintenance, 02/10/19 8:19:36 EDT Start Date: 02/10/19 Status: OrderedIncruse Ellipta 62.5 mcg/inh inhalation powder 1 each = 62.5 mcg, Inhalation, Every 24 hours, doses should be taken at least 24 hours apart, # 30 each, 5 Refills, Maintenance, 08/09/19 15:05:00 EDT, Powder, [facility]/pharmacy #[id number], 152.4, cm, 08/09/19 14:18:00 EDT, Height, 74.2, kg, 02/10/19 16:30:00 E... Start Date: 08/09/19 Status: Orderedlactobacillus acidophilus oral capsule 1 capsule, By Mouth, 3 times a day with meals, Maintenance, 02/10/19 8:17:06 EDT Start Date: 02/10/19 Status: OrderedLORazepam 1 mg oral tablet 1 tablet = 1 mg, By Mouth, 3 times a day, PRN for anxiety, # 90 tablet, 5 Refills, Maintenance, 10/09/19 12:40:00 EDT, Tablet, [facility]/pharmacy #[id number], 152, cm, 08/15/19 17:55:00 EDT, Height, 64, kg, 08/15/19 15:13:00 EDT, Dry Weight Start Date: 10/09/19 Status: Orderedmelatonin 3 mg oral tablet 1 tablet = 3 mg, By Mouth, Daily at bedtime, # 30 tablet, 1 Refills, Maintenance, 09/25/19 13:33:00 EDT, [facility]/pharmacy #[id number], 152, cm, 08/15/19 17:55:00 EDT, Height, 64, kg, 08/15/19 15:13:00 EDT, Dry Weight Start Date: 09/25/19 Status: Orderedmethenamine hippurate 1 gm oral tablet 1 tablet = 1 Gm, By Mouth, 2 times a day, # 60 tablet, 5 Refills, Maintenance, 10/16/19 14:56:00 EDT, Tablet, [facility]/pharmacy #[id number], 152, cm, 08/15/19 17:55:00 EDT, Height, 64, kg, 08/15/19 15:13:00 EDT, Dry Weight Start Date: 10/16/19 Status: OrderedMiraLax oral powder for reconstitution = 17 Gm, By Mouth, Daily, dissolve in water before taking, # 255 Gm, 1 Refills, Maintenance, 08/09/19 15:30:00 EDT, REC Powder, [facility]/pharmacy #[id number], 17 Gm By Mouth Daily,Instr:dissolve in water before taking, 152.4, cm, 08/09/19 14:18:00 EDT, Height, 7... Start Date: 08/09/19 Status: Orderedmultivitamin Multiple Vitamins oral capsule 1 capsule, By Mouth, Daily, # 30 capsule, 5 Refills, Maintenance, 08/09/19 15:01:00 EDT, Capsule, [facility]/pharmacy #[id number], 1 capsule By Mouth Daily, 152.4, cm, 08/09/19 14:18:00 EDT, Height, 74.2, kg, 02/10/19 16:30:00 EDT, Dry Weight Start Date: 08/09/19 Status: OrderedOXcarbazepine 150 mg oral tablet 150 mg, 1, tablet, By Mouth, 2 times a day, # 60 tablet, Refills 5, Tot. Refills 5, Maintenance, 08/09/19 15:24:00 EDT, Route to Pharmacy Electronically, [facility]/pharmacy #[id number], 152.4, cm, 08/09/19 14:18:00 EDT, Height, 74.2, kg, 02/10/19 16:30:00 EDT, . Start Date: 08/09/19 Status: OrderedPARoxetine 30 mg oral tablet 1 tablet = 30 mg, By Mouth, Daily, # 30 tablet, 5 Refills, Maintenance, 08/09/19 15:40:00 EDT, Tablet, [facility]/pharmacy #[id number], 152.4, cm, 08/09/19 14:18:00 EDT, Height, 74.2, kg, 02/10/19 16:30:00 EDT, DryWeight Start Date: 08/09/19 Status: Orderedpropranolol 10 mg oral tablet 10 mg, 1, tablet, By Mouth, 3 times a day, # 270 tablet, Refills 3, Tot. Refills 3, Maintenance, 08/09/19 15:04:00 EDT, Route to Pharmacy Electronically, [facility]/pharmacy #[id number], 152.4, cm, 08/09/19 14:18:00 EDT, Height, 74.2, kg, 02/10/19 16:30:00 EDT, . Start Date: 08/09/19 Status: OrderedtraZODone 50 mg oral tablet 50 mg, 1, tablet, By Mouth, Daily at bedtime, # 30 tablet, Refills 5, Tot. Refills 5, Maintenance, 08/09/19 15:52:00 EDT, Route to [facility], [id number], 152.4, cm, 08/09/19 14:18:00 EDT, Height, 74.2, kg, 02/10/19 16:30:00 EDT,... Start Date: 08/09/19 Status: OrderedVitamin C 500 mg oral tablet 1 tablet = 500 mg, By Mouth, Daily, # 30 tablet, 5 Refills, Maintenance, 08/09/19 15:37:00 EDT, Tablet, [facility]/pharmacy #[id number], 152.4, cm, 08/09/19 14:18:00 EDT, Height, 74.2, kg, 02/10/19 16:30:00 EDT, Dry Weight Start Date: 08/09/19 Status: OrderedVitamin D3 10,000 intl units oral capsule 1 capsule = 10,000 International_Units, By Mouth, Daily, # 30 capsule, 5 Refills, Maintenance, 08/09/19 15:41:00 EDT, [facility]/pharmacy #[id number], 152.4, cm, 08/09/19 14:18:00 EDT, Height, 74.2, kg, 02/10/19 16:30:00 EDT, Dry Weight Start Date: 08/09/19 Status: Ordered Problem List Condition Effective Dates [...] Active cancer(Confirmed)3, 4 Hospital discharge Active follow-up(Confirmed) Herpes Zoster Involving Cervical Active Dermatome(Confirmed) Hernia, [...] (urinary tract Active infection)(Confirmed) 1s/p surgical treatment [id number] 2010 [id number] 2014 positive polyp, repeat 2019.4colo 2009 nl, repeat 2014 Vital Signs Most recent to oldest [Reference 1 2 3 Range]: Oxygen Saturation [94-100 %] 97 % 98 % 97 % (10/26/19 10:36 PM) (10/26/19 9:09 PM) (10/26/19 7:06 PM) Pulse Rate [55-90 bpm] 81 bpm 70 bpm 80 bpm (10/26/19 10:36 PM) (10/26/19 9:09 PM) (10/26/19 7:06 PM) Blood Pressure [90-138/55-84 mm 146/59 mm Hg 129/62 mm Hg 124/63 mm Hg Hg] *H* (10/26/19 9:09 PM) (10/26/19 7:06 PM ) (10/26/19 10:36 PM) Respiratory Rate [16-30 br/min] 20 br/min 21 br/min 25 br/min (10/26/19 10:36 PM) (10/26/19 9:09 PM) (10/26/19 7:06 PM) Temperature [96.8-100.4 DegF] 97.9 DegF (10/26/19 3:02 PM) Liters per Minute 0 L/min 0 L/min (10/26/19 7:06 PM) (10/26/19 5:01 PM) Mode of Delivery (Oxygen) Room air Room air Room a ir (10/26/19 10:36 PM) (10/26/19 9:09 PM) (10/26/19 7:06 PM) Blood pressure sites Arm, left Arm, left Arm, right (10/26/19 9:09 PM) (10/26/19 7:06 PM) (10/26/19 5:01 P M) Temperature Route Oral (10/26/19 3:02 PM) Social History Social History Type Response Smoking Status Current every day smoker entered on: 03/08/18 Sex Female
--- OUTSIDE RECORDS SUMMARY | 2022-03-02 14:00 | XMS_ITS | Continuity of Care Document ---
:1945 Author Organization [facility] Address [address] [place] [address]- Care Team Providers Name Role Phone Brendan Estevez MD Primary Care Physician Encounter [facility] Date(s): 02/19/21 - 03/21/21 [facility] [address] [place] [address]- Allergies, Adverse Reactions, Alerts Substance Reaction Severity Status ibuprofen Active sulfADIAZINE Active morphine Nausea Active Motrin Active Percocet 7.5/325 Depression Active Vicodin Depression Active Immunizations Given and Recorded Vaccine [...] toxoids (Td) 10/10/07 Recorded 1Location History: DR [id number] History: [facility] DR Strong Abdominal Binder Abdominal Binder, See Instructions, # 2 each, Refills 0, Tot. Refills 0, Maintenance, Please custom fit nelson for binder, 11/14/19 16:11:00 EDT, Supply Start Date: 11/14/19 Status: Orderedacetaminophen 325 mg oral tablet See Instructions, PRN, 650 mg By Mouth Every 4 hours prn headache, # 30 tablet, Refills 0, Tot. Refills 0, Maintenance, Headache Pain , Mild, 08/09/19 15:10:00 EDT, Instructions Replace Required Details, Route to Pharmacy Electronically, [facility]/pharma... Start Date: 08/09/19 Status: OrderedCRANBERRY 250 MG [...] 11/13/21 Status: [facility] 3 MG TABLET [facility] MELATONIN 3 MG TABLET, See Instructions, # [...] Start Date: 02/25/21 Stop Date: 02/20/22 Status: Ordereddoxycycline hyclate 50 mg oral capsule [...] bedtime, # 28 tablet, 0 Refills, [facility], 0, @@TAKE 1 TABLET BY MOUTH DAILY AT BEDTIME., 152, cm, 02/19/21 12:32:00 EDT, Height, 61.1, kg, 11/04/19 15:16:00 EDT, Dry Weight Start Date: 03/19/21 Status: Orderedmethenamine hippurate 1 gm oral tablet [...] Daily, # 28 tablet, 5 Refills, [facility], 0, TAKE (1) TABLET BY MOUTH DAILY., [...] EDT, Dry Weight Start Date: 02/26/21 Status: [id number] oral powder for reconstitution See Instructions, MIX [...] Required Details, [facility], cm, 02/19/21 12:32:00 EDT, Height, [...] Weight Start Date: 02/26/21 Status: OrderedSENNA PLUS TABLETS SENNA PLUS TABLETS, [...] Daily, # 28 tablet, 12 Refills, [facility], 152, cm, 02/19/21 12:32:00 EDT, Height, [...] Active Urinary incontinence(Confirmed) Active 1s/p surgical treatment 09/[id number] 2010 [id number] 2014 positive polyp, repeat 2019.4colo 2009 nl, repeat 2014 Social History Social History Type Response Smoking Status Current every day smoker entered on: 03/08/18 Sex
--- OUTSIDE RECORDS SUMMARY | 2022-03-02 14:00 | XMS_ITS | Continuity of Care Document ---
:1945 Author Organization [facility] Address [address] [place] [address]- Care Team Providers Name Role Phone Brendan Estevez MD Primary Care Physician [place] [facility] [place] 12/22/21 - 01/21/22 [facility] [address] [place] [address]- Allergies, Adverse Reactions, Alerts Substance Reaction Severity [...] toxoids (Td) 10/10/07 Recorded 1Location History: DR [id number] History: [facility] Medications acetaminophen 325 mg oral tablet See Instructions, PRN, 650 mg By Mouth Every 4 hours prn headache, # 30 tablet, Refills 0, Tot. Refills 0, Maintenance, Headache Pain , Mild, 08/09/19 15:10:00 EDT, Instructions Replace Required Details, Route to Pharmacy Electronically, [facility]... Start Date: 08/09/19 Status: Orderedalendronate 70 mg [...] Start Date: 11/18/20 Stop Date: 11/13/21 Status: OrderedD3 50 mcg (2000 intl units) oral capsule 1 capsule, By Mouth, Daily, # 28 capsule, 5 Refills, [facility], 152, cm, 11/19/21 11:01:00 EDT, Height, 54, kg, 10/20/21 11:19:00 EDT, Dry Weight Start Date: 12/03/21 Status: OrderedDaily Liudmila oral tablet See Instructions, TAKE (1) TABLET BY MOUTH DAILY., # 28 tablet, 10 Refills, [facility], 0, TAKE (1) TABLET BY MOUTH DAILY., 152, cm, 11/08/21 15:55:00 EDT, Height, 54, kg, 10/20/21 11:19:00 EDT, Dry Weight Start Date: 11/08/21 Status: Ordereddiclofenac 1% topical gel = 2 Gm, Topically, 4 times a day, # 240 Gm, 5 Refills, Maintenance, 10/29/21 15:08:00 EDT, [facility], 152, cm, 10/28/21 9:53:00 EDT, Height, 54, kg, 10/20/21 11:19:00 EDT, Dry Weight Start Date: 10/29/21 Status: Ordereddocusate-senna 50 mg-187 mg oral tablet 2 tablet, By Mouth, Daily, # 56 tablet, 6 Refills, [facility], 0, TAKE 2 TABLETS BY MOUTH ONCE DAILY., 152, cm, 11/19/21 11:01:00 EDT, Height, 54, kg, 10/20/21 11:19:00 EDT, Dry Weight Start Date: 12/31/21 Status: OrderedEnsure (chocolate) nutrional supplement Ensure (chocolate) nutrional supplement, See Instructions, # 60 each, Refills 11, Tot. Refills 11, Maintenance, Dx: recent wt loss. Goal is to help make sure she is getting adequate nutrition, 06/29/2209:31:00 EST, Supply Start Date: 06/29/21 Status: Orderedfolic acid 1 mg oral tablet See Instructions, TAKE 1 TABLET BY MOUTH DAILY, # 28 tablet, Refills 2, Instructions Replace Required Details, Route to Pharmacy Electronically, [facility], 152, cm, 11/19/21 11:01:00 EDT, Height, 54, kg, 10/20/21 11:19:00 EDT, Dry Weight Start Date: 12/31/21 Status: Orderedfurosemide 20 mg oral tablet 1, tablet, By Mouth, Daily, # 28 tablet, Refills 6, Route to Pharmacy Electronically, [facility], 152, cm, 11/19/21 11:01:00 EDT, Height, 54, kg, 10/20/21 11:19:00 EDT, Dry Weight Start Date: 12/31/21 Status: OrderedGeri-Lanta oral suspension 30 mL, By [...] day, # 90 tablet, 5 Refills, Maintenance, 11/19/21 11:12:00 EDT, Tablet, [facility], 152, cm, 11/19/21 11:01:00 EDT, Height, 54, kg, 10/20/21 11:19:00 EDT, Dry Weight Start Date: 11/19/21 Status: OrderedMelatonin 3 mg oral tablet 1 tablet, By Mouth, Daily at bedtime, # 28 tablet, 6 Refills, [facility], 0, @@TAKE 1 TABLET BY MOUTH DAILY AT BEDTIME., 152, cm, 11/19/21 11:01:00 EDT, Height, 54, kg, 10/20/21 11:19:00 EDT, Dry Weight Start Date: 12/31/21 Status: Orderedmethenamine hippurate 1 gm oral tablet 1 tablet, By Mouth, 2 times a day, # 56 Unknown, 11 Refills, [facility], 152, cm, 10/28/21 9:53:00 EDT, Height, 54, kg, 10/20/21 11:19:00 EDT, Dry Weight Start Date: 11/05/21 Status: OrderedOXcarbazepine 150 mg oral tablet 1, tablet, By Mouth, 2 times a day, # 56 tablet, Refills 6, Route to Pharmacy Electronically, [facility], 152, cm, 11/19/21 11:01:00 EDT, Height, 54, kg, 10/20/21 11:19:00 EDT, Dry Weight Start Date: 12/31/21 Status: OrderedPARoxetine 30 mg oral tablet 1 tablet, By Mouth, Daily, # 28 tablet, 12 Refills, [facility], 152, cm, 02/19/21 12:32:00 EDT, Height, 61.1, kg, 11/04/19 15:16:00 EDT, Dry Weight Start Date: 02/26/21 Status: [id number] oral powder for reconstitution See Instructions, MIX 17 GRAMS OF POWDER IN 8 OZ OF WATER & DRINK BY MOUTH ONCE A DAY, # 238 Gm,11 Refills, [facility], 0, MIX 17 GRAMS OF POWDER IN 8 OZ OF WATER & DRINK BY MOUTH ONCE A DAY, 152, cm, 11/08/21 15:55:00 EDT, Height, 54,... Start Date: 11/08/21 Status: Orderedpropranolol 10 mg oral tablet 1, tablet, By Mouth, 3 times a day, # 84 tablet, Refills 6, Route to Pharmacy Electronically, [facility], 152, cm, 11/19/21 11:01:00 EDT, Height, 54, kg, 10/20/21 11:19:00 EDT, Dry Weight Start Date: 12/31/21 Status: Orderedsalsalate 500 mg oral tablet 1 tablet, By Mouth, Daily, # 28 tablet, 6 [facility], cm, 11/19/21 11:01:00 EDT, Height, 54, kg, 10/20/21 11:19:00 EDT, Dry Weight Start Date: 12/31/21 Status: OrderedSENNA PLUS TABLET SENNA PLUS TABLET, [...] EDT, Dry Weight Start Date: 02/26/21 Status: OrderedWound Care Wound Care, See Instructions, [...] Active Cholecystectomy(Confirmed) Active Chronic constipation(Confirmed) Active 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
--- OUTSIDE RECORDS SUMMARY | 2022-03-02 14:00 | XMS_ITS | Continuity of Care Document ---
:1945 Author Organization [facility] Address [address] [place] [address]- Care Team Providers Name Role Phone Brendan Estevez MD Primary Care Physician Encounter [facility] [place] Date(s): 02/04/20 - 03/05/20 [facility] [address] [place] [address]- [facility] Attending Physician: Admmac, Tomasz Admitting Physician: Admtr, Tomasz Referring Physician: Admtr, Ar8 Allergies, Adverse Reactions, Alerts Substance Reaction Severity [...] Fluzone (oldterm) 02/28/12 Given 1Location History: DR [id number] History: [facility] Medications Abdominal Binder Abdominal Binder, See [...] [facility] Start Date: 08/09/19 Status: Orderedcranberry oral capsule [...] Refills, Maintenance, 12/06/19 9:39:00 EDT, Tablet, [facility], 2 tablet By Mouth [...] Start Date: 12/11/19 Stop Date: 04/09/20 Status: Orderedfolic acid 1 mg oral tablet [...] bedtime, # 30 tablet, 1 Refills, Maintenance, 01/28/20 15:59:00 EDT, [facility], 152, cm, 12/10/19 15:52:00 EDT, Height, 61.1, kg, 11/04/19 15:16:00 EDT, Dry Weight Start Date: 01/28/20 Status: Orderedmethenamine hippurate 1 gm oral tablet [...] 10:46:00 EDT, Height,... Start Date: 12/06/19 Status: OrderedMiscellaneous Rx 1, tablet, By Mouth, Daily at bedtime, # 28 tablet, 0 Refills, Maintenance, 01/17/20 10:52:00 EDT, 152, cm, 12/10/19 15:52:00 EDT, Height, 61.1, kg, 11/04/19 15:16:00 EDT, Dry Weight Start Date: 01/17/20 Status: Orderedmultivitamin Multiple Vitamins oral capsule 1 [...] 11/25/19 15:52:00 EDT, Route to Pharmacy Electronically, [facility]/pharmacy #[id number], 152, cm, 11/12/19 10:46:00 EDT, Height, [...] (urinary tract Active infection)(Confirmed) 1s/p surgical treatment [id number] 2010 [id number] 2014 positive polyp, repeat 2019.4colo 2009 nl, repeat 2014 Social History Social History Type Response Smoking Status Current every day smoker entered on: 03/08/18 Sex Female
--- OUTSIDE RECORDS SUMMARY | 2022-03-02 14:00 | XMS_ITS | Continuity of Care Document ---
:1945 Author Organization [facility] Adult Address [address] [place] [address]- Care Team Providers Name Role Phone Brendan Estevez MD Primary Care Physician En[place] [facility] [place] 08/04/21 - 08/11/21 [facility] [address] [place] [address]- Attending Physician: Brendan Estevez MD Allergies, Adverse [...] toxoids (Td) 10/10/07 Recorded 1Location History: DR [id number] History: [facility] DR Strong Abdominal Binder Abdominal Binder, [...] Replace Required Details, Route to Pharmacy Electronically, [facility]/pharma... Start Date: 08/09/19 Status: Orderedbacitracin topical 500 [...] EDT, Dry Weight Start Date: 11/16/20 Status: Ordereddoxycycline hyclate 50 mg oral capsule 1 capsule = 50 mg, By Mouth, 2 times a day, for 90 days, # 180 capsule, 3 Refills, Acute 02/20/22 14:14:00 EDT, 02/25/21 14:14:00 EDT, Capsule, [facility], 152, cm, 02/19/21 12:32:00 EDT, Height, 61.1, kg, 11/04/19 15:16:00 EDT, Dry Weight Start Date: 02/25/21 Stop Date: 02/20/22 Status: OrderedEnsure (chocolate) nutrional supplement Ensure (chocolate) [...] Required Details, [facility], cm, 06/28/21 13:44:00 EST, Height, [...] tablet, Refills 3, Tot. Refills 3, Maintenance, 05/25/21 12:36:00 EST, Route to Pharmacy Electronically, [facility], 154, cm, 04/03/21 11:28:00 EST, Height, 50.3, kg, 04/02/21 1:28:00 EST, Dry Weight Start Date: 05/25/21 Status: OrderedGeri-Lanta oral suspension 30 mL, By [...] Refills 5, Route to Pharmacy Electronically, [facility], 154, cm, 06/28/21 13:44:00 EST, Height, 50.3, kg, 04/02/21 1:28:00 EST, Dry Weight Start Date: 07/09/21 Status: OrderedPARoxetine 30 mg oral tablet 1 tablet, By Mouth, Daily, # 28 tablet, 12 Refills, [facility], 152, cm, 02/19/21 12:32:00 EDT, Height, 61.1, kg, 11/04/19 15:16:00 EDT, Dry Weight Start Date: 02/26/21 Status: OrderedPEG-3350 with Electrolytes (Eqv-GoLYTELY) oral powder for reconstitution See Instructions, Follow instructions on label to mix powder with water, Drink all of the prep fluidon the evening before your colonoscopy, # 1 each, 0 Refills, Maintenance, 05/20/21 17:32:00 EST, [facility], Partial fill upon patient re... Start Date: 05/20/21 Status: [id number] oral powder for reconstitution See Instructions, MIX 17 GRAMS OF POWDER IN 8 OUNCES OF WATER AND DRINK BY MOUTH ONCE A DAY, # 238 Gm, 5 Refills, Maintenance, 07/16/21 9:07:00 EST, [facility], 0, MIX 17 GRAMS OF POWDER IN 8 OUNCES OF WATER AND DRINK BY MOUTH ONCE A DAY,... Start Date: 07/16/21 Status: OrderedPlenvu oral powder for reconstitution See [...] 04/03/21 11:28:00 ES... Start Date: 06/22/21 Status: OrderedRollator Walker with Seat and Breaks Rollator Walker with Seat and Breaks, See Instructions, # 1 each, Refills 0, Tot. Refills 0, Maintenance, Dx: M48.061 HT: 5'1 WT: 101lbs, 06/23/21 14:27:00 EST, Supply Start Date: 06/23/21 Status: Orderedsalsalate 500 mg oral tablet 1 [...] Mouth, Daily, # 56 tablet, 6 Refills, 154, cm, 04/03/21 11:28:00 EST, Height, 50.3, kg, 04/02/21 1:28:00 EST, Dry Weight Start Date: 06/15/21 Status: OrderedSENNA PLUS TABLET SENNA PLUS TABLET, [...] Daily, # 28 tablet, 12 Refills, [facility], 152, cm, 02/19/21 12:32:00 EDT, [...] Lumbar spinal stenosis(Confirmed) Active Tobacco abuse(Confirmed) Active Underweight(Confirmed) Active Unsteady gait(Confirmed) Active Urinary incontinence(Confirmed) Active 1s/p surgical treatment [id number]/[id number] 2010 [id number] 2014 positive polyp, repeat 2019.4colo 2009 nl, repeat 2014 Vital Signs Most recent to oldest [Reference Range]: 1 Height 154 cm (08/04/21 12:51 PM) Weight 42.1 kg (08/04/21 12:51 PM) Oxygen Saturation [94-100 %] 97 % (08/04/21 12:51 PM) Pulse Rate [55-90 bpm] 68 bpm (08/04/21 12:51 PM) Body Mass Index [18.5-24.99] 17.75 *L* (08/04/21 12:51 PM) Blood Pressure [90-138/55-84 mm Hg] 112/60 mm Hg (08/04/21 12:51 PM) Blood pressure sites Arm, left (08/04/21 12:51 PM) Weight Obtained Via Standing scale (08/04/21 12:51 PM) Social History Social History Type Response Smoking Status Current every day smoker entered on: 03/08/18 Sex
--- OUTSIDE RECORDS SUMMARY | 2022-03-02 14:00 | XMS_ITS | Continuity of Care Document ---
:1945 Author Organization [facility] Address [address] [place] [address]- Care Team Providers Name Role Phone Brendan Estevez MD Primary Care Physician [place] [facility] [place] Date(s): 04/23/21 - 05/23/21 [facility] [address] [place] [address]- Allergies, Adverse Reactions, Alerts Substance Reaction Severity [...] toxoids (Td) 10/10/07 Recorded 1Location History: DR [id number] History: [facility] DR Strong Abdominal Binder Abdominal Binder, [...] Replace Required Details, Route to Pharmacy Electronically, [facility]/pharma... Start Date: 08/09/19 Status: Orderedbacitracin topical [...] Refills 5, Route to Pharmacy Electronically, [facility], 152, cm, 01/18/21 13:58:00 EDT, Height, 61.1, [...] bedtime, # 28 tablet, 0 Refills, [facility], 0, @@TAKE 1 TABLET BY MOUTH DAILY [...] Refills 0, Route to Pharmacy Electronically, [facility], 154, cm, 04/03/21 11:28:00 EST, Height, 50.3, [...] 1 each, 0 Refills, Maintenance, 05/20/21 17:32:00 [facility], Partial fill upon patient re... Start Date: 05/20/21 Status: [id number] oral powder for reconstitution See Instructions, MIX 17 GRAMS OF POWDER IN 8 OUNCES OF WATER AND DRINK BY MOUTH ONCE A DAY, # 238 Gm, 5 Refills, Maintenance, 04/26/21 12:31:00 [facility], 0, MIX 17 GRAMS OF [...] Required Details, [facility], cm, 02/19/21 12:32:00 EDT, Height, [...] Active Urinary incontinence(Confirmed) Active 1s/p surgical treatment [id number] 2010 [id number] 2014 positive polyp, repeat 2019.4colo 2009 nl, repeat 2014 Social History Social History Type Response Smoking Status Current every day smoker entered on: 03/08/18 Sex
--- OUTSIDE RECORDS SUMMARY | 2022-03-02 14:00 | XMS_ITS | Continuity of Care Document ---
:1945 Author Organization [facility] Adult Address [address] [place] [address]- Care Team Providers Name Role Phone Brendan Estevez MD Primary Care Physician [place] [facility] [place] [facility] [address] [place] [address]- Allergies, Adverse Reactions, Alerts Substance Reaction Severity [...] toxoids (Td) 10/10/07 Recorded 1Location History: DR [id number] History: [facility] DR Strong Abdominal Binder Abdominal Binder, [...] Replace Required Details, Route to Pharmacy Electronically, [facility]/pharma... Start Date: 08/09/19 Status: Orderedbacitracin topical [...] Refills 5, Route to Pharmacy Electronically, [facility], 152, cm, 01/18/21 13:58:00 EDT, Height, 61.1, [...] bedtime, # 28 tablet, 0 Refills, [facility], 0, @@TAKE 1 TABLET BY MOUTH DAILY [...] each, 0 Refills, Maintenance, 05/20/21 17:32:00 EST, [facility], Partial fill upon patient re... Start Date: 05/20/21 Status: [id number] oral powder for reconstitution See Instructions, MIX 17 GRAMS OF POWDER IN 8 OUNCES OF WATER AND DRINK BY MOUTH ONCE A DAY, # 238 Gm, 5 Refills, Maintenance, 04/26/21 12:31:00 EST, [facility], 0, MIX 17 [...] Required Details, [facility], cm, 02/19/21 [...] Active Urinary incontinence(Confirmed) Active 1s/p surgical treatment 09/200990031wvl 2010 [id number] 2014 positive polyp, repeat 2019.4colo 2009 nl, repeat 2014 Social History Social History Type Response Smoking Status Current every day smoker entered on: 03/08/18 Sex
--- OUTSIDE RECORDS SUMMARY | 2022-03-02 14:00 | XMS_ITS | Continuity of Care Document ---
:1945 Author Organization [facility] Adult Address [address] [place] [address]- Care Team Providers Name Role Phone Brendan Estevez MD Primary Care Physician Encounter [facility] Date(s): 12/30/20 - 01/29/21 [facility] [address] [place] [address]- Allergies, Adverse Reactions, Alerts Substance Reaction Severity [...] toxoids (Td) 10/10/07 Recorded 1Location History: DR [id number] History: [facility] DR Strong Abdominal Binder Abdominal [...] Route to Pharmacy Electronically, [facility]/[employer]... Start Date: 08/09/19 Status: OrderedCRANBERRY 250 MG [...] 10:28:00 EDT, 10/26/20 10:28:00 EDT, Capsule, [facility], 152, cm, 10/05/20 13:35:00 EDT, Height, 61.1, kg, 11/04/19 15:16:00 EDT, Dry Weight Start Date: 10/26/20 Stop Date: 03/25/21 Status: Orderedfolic acid 1 mg oral tablet 1, tablet, By Mouth, Daily, # 28 tablet, Refills 5, Route to Pharmacy Electronically, [facility], 152, cm, 01/18/21 13:58:00 EDT, Height, 61.1, [...] 13:07:00 EDT, Route to Pharmacy Electronically, [facility], 152, cm, 10/05/20 13:35:00 EDT, Height, [...] 11 Refills, Maintenance, 12/07/20 15:16:00 EDT, [facility], 152, cm, 11/04/20 13:52:00 EDT, Height, [...] Daily, # 28 tablet, 5 Refills, [facility], 0, TAKE (1) TABLET BY MOUTH DAILY., 152, cm, 01/18/21 13:58:00 EDT, Height, 61.1, kg, 11/04/19 15:16:00 EDT, Dry Weight Start Date: 01/28/21 Status: OrderedOXcarbazepine 150 mg oral tablet 1, tablet, By Mouth, 2 times a day, # 56 tablet, Refills 3, Tot. Refills 0, Maintenance, 10/22/20 13:07:00 EDT, [facility], cm, 10/05/20 13:35:00 EDT, Height, 61.1, kg, 11/04/19 15:16:00 EDT, Dry We... Start Date: 10/22/20 Status: OrderedPARoxetine 30 mg oral tablet 1 tablet, By Mouth, Daily, # 28 tablet, 0 Refills, [facility], 152, cm, 01/18/21 13:58:00 EDT, Height, 61.1, kg, 11/04/19 15:16:00 EDT, Dry Weight Start Date: 01/28/21 Status: [id number] oral powder for reconstitution See Instructions, MIX [...] 11:28:00 EDT, Route to Pharmacy Electronically, [facility], 152, cm, 12/28/20 12:44:00 EDT, Height, [...] 13:18:00 EDT, Route to Pharmacy Electronically, [facility], 152, cm, 10/05/20 13:35:00 EDT, Height, 61.1, kg, 11/04/19 15:16:00 EDT, Dry... Start Date: 10/22/20 Status: OrderedVitamin C 500 mg oral tablet 1 tablet, By Mouth, Daily, # 28 tablet, 0 Refills, [facility], 152, cm, 01/18/21 13:58:00 EDT, [...] Active Urinary incontinence(Confirmed) Active 1s/p surgical treatment 09/[id number] 2010 [id number] 2014 positive polyp, repeat 2019.4colo 2009 nl, repeat 2014 Social History Social History Type Response Smoking Status Current every day smoker entered on: 03/08/18 Sex
--- OUTSIDE RECORDS SUMMARY | 2022-03-02 14:00 | XMS_ITS | Continuity of Care Document ---
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 Refills 0, Maintenance, Please custom fit congtent for binder, 11/14/19 16:11:00 EDT, Supply Start Date: 11/14/19 Status: Orderedacetaminophen 325 mg oral tablet See Instructions, PRN, 650 mg By Mouth Every 4 hours prn headache, # 30 tablet, Refills 0, Tot. Refills 0, Maintenance, Headache Pain , Mild, 08/09/19 15:10:00 EDT, Instructions Replace Required Details, Route to Pharmacy Electronically, [facility]/pharma... Start Date: 08/09/19 Status: Orderedbacitracin topical [...] 11 Refills, Maintenance, 11/18/20 11:19:00 EDT, Capsule, [facility], 1 tablet By Mouth 2 [...] Refills 5, Route to Pharmacy Electronically, [facility], 152, cm, 01/18/21 13:58:00 EDT, Height, [...] bedtime, # 28 tablet, 0 Refills, [facility], 0, @@TAKE 1 TABLET [...] EDT, Dry Weight Start Date: 02/26/21 Status: [id number] oral powder for reconstitution See Instructions, MIX [...] Required Details, Route to Pharmacy Electronically, [facility], 152, cm, 02/19/21 12:32:00 EDT, Height, [...] # 28 tablet, 12 Refills, [facility], 152, cm, 02/19/21 12:32:00 EDT, Height, [...] Active Urinary incontinence(Confirmed) Active 1s/p surgical treatment [id number]/[id number] 2010 [id number] 2014 positive polyp, repeat 2019.4colo 2009 nl, repeat 2014 Diagnosis Diagnosis Type Effective Dates Health Clinical Infor mant Status Service Osteomyelitis of Discharge 03/29/21 ankle Diagnosis Vital Signs Most recent to oldest [Reference Range]: 1 Height 152 cm (03/29/21 10:27 AM) Weight 46.1 kg (03/29/21 10:27 AM) Oxygen Saturation [94-100 %] 95 % (03/29/21 10:27 AM) Pulse Rate [55-90 bpm] 70 bpm (03/29/21 10:27 AM) Body Mass Index [18.5-24.99] 19.95 (03/29/21 10:27 AM) Blood Pressure [90-138/55-84 mm Hg] 110/64 mm Hg (03/29/21 10:27 AM) Respiratory Rate [16-30 br/min] 14 br/min *L* (03/29/21 10:27 AM) Temperature [96.8-100.4 DegF] 97.8 DegF (03/29/21 10:27 AM) Mode of Delivery (Oxygen) Room air (03/29/21 10:27 AM) Blood pressure sites Arm, left (03/29/21 10:27 AM) Temperature Route Oral (03/29/21 10:27 AM) Weight Obtained Via Standing scale (03/29/21 10:27 AM) Social History Social History Type Response Smoking Status Current every day smoker entered on: 03/08/18 Sex
--- OUTSIDE RECORDS SUMMARY | 2022-03-02 14:01 | XMS_ITS | Continuity of Care Document ---
:1945 Author Organization [facility] Address [address] [place] [id number]- Care Team Providers Name Role Phone Brendan Estevez MD Primary Care Physician [place] [facility] [place]14[place]21 - 11/12/21 [facility] [address] [place] [id number] Attending Physician: Conor Hoskins MD Admitting Physician: Conor Hoskins MD Allergies, Adverse Reactions, Alerts Substance Reaction [...] toxoids (Td) 10/10/07 Recorded 1Location History: DR [id number] History: [facility] Medications acetaminophen 325 mg oral tablet See Instructions, PRN, 650 mg By Mouth Every 4 hours prn headache, # 30 tablet, Refills 0, Tot. Refills 0, Maintenance, Headache Pain , Mild, 08/09/19 15:10:00 EDT, Instructions Replace Required Details, Route to Pharmacy Electronically, [facility]/pharma... Start Date: 08/09/19 Status: Orderedalendronate 70 mg oral tablet 1 tablet, By Mouth, Every week, # 4 tablet, 11 Refills, [facility], 152, cm, 10/28/21 9:53:00 EDT, Height, 54, [...] Start Date: 11/18/20 Stop Date: 11/13/21 Status: OrderedDaily Liudmila oral tablet See Instructions, TAKE (1) TABLET BY MOUTH DAILY., # 28 tablet, 10 Refills, [facility], 0, TAKE (1) TABLET [...] Required Details, Route to Pharmacy Electronically, [facility], 154, cm, 06/28/21 13:44:00 EST, Height, 50.3, [...] Route to Pharmacy Electronically, [facility], 154, cm, 06/28/21 13:44:00 EST, Height, 50.3, kg, 04/02/21 1:28:00 EST, Dry Weight Start Date: 07/09/21 Status: OrderedPARoxetine 30 mg oral tablet 1 tablet, By Mouth, Daily, # 28 tablet, 12 Refills, [facility], 152, cm, 02/19/21 12:32:00 EDT, Height, 61.1, kg, 11/04/19 15:16:00 EDT, Dry Weight Start Date: 02/26/21 Status: [id number] oral powder for reconstitution See Instructions, MIX 17 GRAMS OF POWDER IN 8 OZ OF WATER & DRINK BY MOUTH ONCE A DAY, # 238 Gm,11 Refills, [facility], 0, MIX 17 GRAMS OF POWDER IN 8 OZ OF WATER & DRINK BY MOUTH ONCE A DAY, 152, cm, 11/08/21 15:55:00 EDT, Height, 54,... Start Date: 11/08/21 Status: Orderedpropranolol 10 mg oral tablet See [...] Daily, # 28 tablet, 12 Refills, [facility], 152, cm, 02/19/21 12:32:00 EDT, [...] for COVID-19 vaccine(Confirmed) Active 1s/p surgical treatment 09/200954405sho 2010 [id number] 2014 positive polyp, repeat 2019.4colo 2009 nl, repeat 2014 Social History Social History Type Response Smoking Status Current every day smoker entered on: 03/08/18 Sex
--- OUTSIDE RECORDS SUMMARY | 2022-03-02 14:01 | XMS_ITS | Continuity of Care Document ---
:1945 Author Organization [facility] Address [address] [place] [address]- Care Team Providers Name Role Phone Brendan Estevez MD Primary Care Physician [place] [facility] [place] 01/27/21 - 05/27/21 [facility] [address] [place] [address]- Attending Physician: Neli Boles Admitting Physician: Neli Boles Referring Physician: Brendan Estevez MD Allergies, Adverse Reactions, Alerts Substance Reaction Severity Status ibuprofen Active sulfADIAZINE Active morphine Nausea Active Percocet 7.5/325 Depression Active Motrin Active Vicodin Depression Active Immunizations Given and [...] toxoids (Td) 10/10/07 Recorded 1Location History: DR [id number] History: [facility] Medications Abdominal Binder Abdominal Binder, See Instructions, # 2 each, Refills 0, Tot. Refills 0, Maintenance, Please custom fit johnt for binder, 11/14/19 16:11:00 EDT, Supply Start [...] Refills 5, Route to Pharmacy Electronically, [facility], 152, cm, 01/18/21 13:58:00 EDT, Height, 61.1, [...] bedtime, # 28 tablet, 0 Refills, [facility], 0, @@TAKE 1 TABLET BY MOUTH DAILY [...] upon patient re... Start Date: 05/20/21 Status: [id number] oral powder for reconstitution See Instructions, MIX [...] Details, [facility], cm, 02/19/21 12:32:00 EDT, Height, 61.1, [...] Active Urinary incontinence(Confirmed) Active 1s/p surgical treatment [id number]/[id number] 2010 [id number] 2014 positive polyp, repeat 2019.4colo 2009 nl, repeat 2014 Social History Social History Type Response Smoking Status Current every day smoker entered on: 03/08/18 Sex
--- OUTSIDE RECORDS SUMMARY | 2022-03-02 14:01 | XMS_ITS | Continuity of Care Document ---
:1945 Author Organization [facility] Address [address] [place] [address]- Care Team Providers Name Role Phone Brendan Estevez MD Primary Care Physician [place] [facility] [place] 10/29/21 - 11/28/21 [facility] [address] [place] [address]- Allergies, Adverse Reactions, Alerts Substance Reaction Severity [...] toxoids (Td) 10/10/07 Recorded 1Location History: DR [id number] History: [facility] DR Strong acetaminophen 325 mg oral tablet See Instructions, PRN, 650 mg By Mouth Every 4 hours prn headache, # 30 tablet, Refills 0, Tot. Refills 0, Maintenance, Headache Pain , Mild, 08/09/19 15:10:00 EDT, Instructions Replace Required Details, Route to Pharmacy Electronically, [facility]/pharma... Start Date: 08/09/19 Status: Orderedalendronate 70 mg oral tablet 1 tablet, By Mouth, Every week, # 4 tablet, 11 Refills, [facility], 152, cm, 10/28/21 9:53:00 EDT, [...] DAILY., # 28 tablet, 10 [facility], TAKE (1) TABLET BY MOUTH DAILY., [...] EDT, Dry Weight Start Date: 10/29/21 Status: OrderedEnsure (chocolate) nutrional supplement Ensure (chocolate) [...] Required Details, [facility], cm, 06/28/21 13:44:00 EST, Height, 50.3, kg, 04/02/21 1:28:00 EST, Dry W... Start Date: 07/08/21 Status: Orderedfurosemide 20 mg oral tablet 1, tablet, By Mouth, Daily, # 28 tablet, Refills 3, Tot. Refills 3, Maintenance, 09/03/21 16:21:00 EDT, Route to Pharmacy Electronically, [facility], 154, cm, 09/02/21 13:43:00 EDT, [...] EDT, Dry Weight Start Date: 02/26/21 Status: [id number] oral powder for reconstitution See Instructions, MIX 17 GRAMS OF POWDER IN 8 OZ OF WATER & DRINK BY MOUTH ONCE A DAY, # 238 Gm,11 Refills, [facility], 0, MIX 17 GRAMS OF POWDER IN [...] mg, By Mouth, Daily, # 30 tablet, 0 Refills, Maintenance, 11/17/21 14:14:00 EDT, Tablet, [facility], Partial fill upon patient request if the prescription is for a schedule II opioid drug., 152, cm, 11/08/21 15:55:00 EDT, He... Start Date: 11/17/21 Status: OrderedSENNA PLUS TABLET SENNA PLUS TABLET, [...] for COVID-19 vaccine(Confirmed) Active 1s/p surgical treatment 09/[id number] 2010 [id number] 2014 positive polyp, repeat 2019.4colo 2009 nl, repeat 2014 Social History Social History Type Response Smoking Status Current every day smoker entered on: 03/08/18 Sex
--- OUTSIDE RECORDS SUMMARY | 2022-03-02 14:01 | XMS_ITS | Continuity of Care Document ---
:1945 Author Organization [facility] Address [address] [place] [address]- Care Team Providers Name Role Phone Brendan Estevez MD Primary Care Physician [place] [facility] [place]04/20 [facility] [address] [place] [address]- [facility] Allergies, Adverse Reactions, Alerts Substance Reaction [...] Fluzone (oldterm) 02/28/12 Given 1Location History: DR [id number] History: [facility] Medications Abdominal Binder Abdominal Binder, See Instructions, [...] Replace Required Details, Route to Pharmacy Electronically, [email or web address]... Start Date: 08/09/19 Status: Orderedcranberry oral capsule [...] 01/29/20 16:37:00 EDT, 10/01/19 16:37:00 EDT, Capsule, [facility]/pharmacy #[id number], 152, cm, 08/15/19 17:55:00 EDT, Height, [...] 11/25/19 15:52:00 EDT, Route to Pharmacy Electronically, [facility]/pharmacy #[id number], 152, cm, 11/12/19 10:46:00 EDT, Height, [...] (urinary tract Active infection)(Confirmed) 1s/p surgical treatment 09/200911319lqc 2010 [id number] 2014 positive polyp, repeat 2019.4colo 2009 nl, repeat 2014 Social History Social History Type Response Smoking Status Current every day smoker entered on: 03/08/18 Sex Female
--- OUTSIDE RECORDS SUMMARY | 2022-03-02 14:01 | XMS_ITS | Continuity of Care Document ---
:1945 Author Organization [facility] Address [address] [place] [address]- Care Team Providers Name Role Phone Brendan Estevez MD Primary Care Physician Encounter [facility] Date(s): 04/01/21 - 04/03/[address] [address]- Encounter Diagnosis Diarrhea (Final) - 04/01/21 Tarry stool (Final) - 04/01/21 Discharge Disposition: A-D/C Home Attending Physician: Deven Powell MD Admitting Physician: Florentin Mauricio MD Referring Physician: Not on Staff, Referring [...] toxoids (Td) 10/10/07 Recorded 1Location History: DR [id number] History: [facility] DR Strong Abdominal [...] Replace Required Details, Route to Pharmacy Electronically, [facility]/pharma... Start Date: 08/09/19 Status: Orderedbacitracin [...] Refills 5, Route to Pharmacy Electronically, [facility], 152, cm, 01/18/21 13:58:00 EDT, Height, 61.1, [...] bedtime, # 28 tablet, 0 Refills, [facility], 0, @@TAKE 1 TABLET BY MOUTH [...] EDT, Dry Weight Start Date: 02/26/21 Status: [id number] oral powder for reconstitution See Instructions, MIX [...] Required Details, [facility], cm, 02/19/21 12:32:00 EDT, Height, 61.1, kg, 11/04/19 15:16:0... Start Date: 03/18/21 Status: Orderedpropranolol 10 mg oral tablet 10 mg, Tablet, By Mouth, 04/03/21 9:00:00 EST Start Date: 04/03/21 Stop Date: 04/03/21 Status: Completedpropranolol 10 mg oral tablet 10 mg, Tablet, By Mouth, 04/03/21 15:00:00 EST Start Date: 04/03/21 Stop Date: 04/03/21 Status: Completedsalsalate 500 mg oral tablet 1 tablet = [...] Daily, # 28 tablet, 12 Refills, [facility], 152, cm, 02/19/21 12:32:00 EDT, Height, 61.1, kg, 11/04/19 15:16:00 EDT, Dry Weight Start Date: 02/26/21 Status: OrderedVitamin D3 2000 intl units oral capsule 1 capsule = 50 mcg, By Mouth, Daily, stop vitamin d 5000, # 30 capsule, 11 Refills, Maintenance, 01/18/21 14:43:00 EDT, [facility], Partial fill upon patient request [...] Active Urinary incontinence(Confirmed) Active 1s/p surgical treatment [id number] 2010 [id number] 2014 positive polyp, repeat 2019.4colo 2009 nl, repeat 2014 Results Radiology Reports Exam Date Time Procedure Performing Provider Status 04/02/21 8:36 AM Ankle Min 3 Views Right Ivett Diamond; Auth (Verified) Notes:(Ankle Min 3 Views Right) Reason For Exam: Infection;InfectionRESULT: Ankle Min 3 Views Right Ankle Min 3 Views Right Reason: Infection COMPARISON: 12/13/2018 FINDINGS: Osseous structures appear demineralized. Lateral fibular metallic plate and screws appear intact and similar in appearance when compared to prior. Minimal backing out of the inferior most screw is unchanged on multiple priors dating back to 2017. Medial malleolus are partially cannulated screw is unchanged. There is partial osseous fusion ofthe distal tibia and fibula and the intraosseous space. Chronic large subchondral cyst within the lateral aspect of the tibial plafond. Chronic smooth periosteal reaction medial tibial metadiaphysis. 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 Moderate degenerative changes of the talonavicular joint. IMPRESSION: No radiographic evidence of osteomyelitis. Chronic changes status post ORIF of the distal tibia and fibula without evidence of hardware failure or complication. WSN: [id number] Ordering Physician: Florentin Mauricio Dictated By: Bryan Botello MD Dictated Date/Time: 04/02/21 9:47 am Reviewed By: Bryan Botello MD Signed By: Bryan Botello MD Signed Date/Time: 04/02/21 9:47 am Transcribed By: MELINDA Transcribed Date/Time: 04/02/21 9:44 am Vital Signs Most recent to oldest 1 2 3 [Reference Range]: Height 154 cm 154 cm 154 cm (04/03/21 11:28 AM) (04/03/21 7:46 AM) (04/03/21 4:36 AM) Weight 50.3 kg 50.3 kg 45.45 kg (04/02/21 1:30 AM) (04/02/21 1:28 AM) (04/01/21 7:48 PM) Oxygen Saturation [94-100 100 % 93 % 96 % %] (04/03/21 11:28 AM) *L* (04/03/21 4: 36 AM) (04/03/21 7:46 AM) Pulse Rate [55-90 bpm] 68 bpm 72 bpm 58 bpm (04/03/21 2:56 PM) (04/03/21 11:28 AM) (04/03/21 9:57 AM) Body Mass Index 21.21 19.16 19.16 [18.5-24.99] (04/02/21 1:28 AM) (04/01/21 7:48 PM) (04/01/21 3:39 PM) Blood Pressure 107/48 mm Hg 92/47 mm Hg 113/56 mm Hg [90-138/55-84 mm Hg] (04/03/21 2:56 PM) (04/03/21 11:28 AM) ( 9:57 AM) Respiratory Rate [16-30 18 br/min 18 br/min 19 br/mi n br/min] (04/03/21 11:28 AM) (04/03/21 11:18 AM) ( 1 7:46 AM) Temperature [96.8-100.4 92 DegF 98.0 DegF 97.6 Deg F DegF] *L* (04/03/21 7:46 AM) (04/03/21 4:3 6 AM) (04/03/21 11:28 AM) Mode of Delivery (Oxygen) Room air Room air Room a ir (04/03/21 11:28 AM) (04/03/21 7:46 AM) (04/03/21 4:36 AM) Blood pressure sites Arm, left Arm, right Arm, right (04/03/21 11:28 AM) (04/03/21 7:46 AM) (04/03/21 4:36 AM) Temperature Route Oral Oral Oral (04/03/21 11:28 AM) (04/03/21 7:46 AM) (04/03/21 4:36 AM) Dry Weight 50.3 kg 45.45 kg 45.45 kg (04/02/21 1:28 AM) (04/01/21 7:48 PM) (04/01/21 3:49 PM) Social History Social History Type Response Smoking Status Current every day smoker entered on: 03/08/18 Sex
--- OUTSIDE RECORDS SUMMARY | 2022-03-02 14:01 | XMS_ITS | Continuity of Care Document ---
:1945 Author Organization [facility] Address [address] [place] [address]- Care Team Providers Name Role Phone Brendan Estevez MD Primary Care Physician [place] [facility] [place](s[place] 04/14/21 - 05/14/21 [facility] [address] [place] [address]- Allergies, Adverse Reactions, Alerts Substance Reaction Severity [...] toxoids (Td) 10/10/07 Recorded 1Location History: DR [id number] History: [facility] DR Strong Abdominal [...] Replace Required Details, Route to Pharmacy Electronically, [facility]/pharma... Start Date: 08/09/19 Status: Orderedbacitracin topical 500 [...] Route to Pharmacy Electronically, [facility], 152, cm, 01/18/21 13:58:00 EDT, Height, [...] 28 tablet, 0 Refills, [facility], 0, @@TAKE 1 TABLET BY MOUTH [...] EDT, Dry Weight Start Date: 02/26/21 Status: [id number] oral powder for reconstitution See Instructions, MIX [...] Required Details, Route to Pharmacy Electronically, [facility], 152, cm, 02/19/21 12:32:00 EDT, Height, [...] Daily, # 28 tablet, 12 Refills, [facility], 152, cm, 02/19/21 12:32:00 EDT, Height, 61.1, kg, 11/04/19 15:16:00 EDT, Dry Weight Start Date: 02/26/21 Status: OrderedVitamin D3 2000 intl units oral capsule 1 capsule = 50 mcg, By Mouth, Daily, stop vitamin d 5000, # 30 capsule, 11 Refills, Maintenance, 01/18/21 14:43:00 EDT, Adán, [facility], Partial fill upon patient [...] Active Urinary incontinence(Confirmed) Active 1s/p surgical treatment 09/[id number] 2010 [id number] 2014 positive polyp, repeat 2019.4colo 2009 nl, repeat 2014 Social History Social History Type Response Smoking Status Current every day smoker entered on: 03/08/18 Sex
--- OUTSIDE RECORDS SUMMARY | 2022-03-02 14:01 | XMS_ITS | Continuity of Care Document ---
:1945 Author Organization [facility] Address [address] [place] [address]- Care Team Providers Name Role Phone Brendan Estevez MD Primary Care Physician En[place] [facility] Date(s): 10/08/19 - 10/15/19 [facility] [address] [place] [address] [facility] Attending Physician: Arnulfo MAR, Bishop Referring Physician: Brendan Estevez MD Allergies, Adverse [...] Fluzone (oldterm) 02/28/12 Given 1Location History: DR [id number] History: [facility] Medications acetaminophen 325 mg oral tablet See Instructions, PRN, 650 mg By Mouth Every 4 hours prn headache, # 30 tablet, Refills 0, Tot. Refills 0, Maintenance, Headache Pain , Mild, 08/09/19 15:10:00 EDT, Instructions Replace Required Details, Route to Pharmacy Electronically, [facility]... Start Date: 08/09/19 Status: OrderedBreo Ellipta 100 mcg-25 mcg/inh inhalation powder 1 puffs, Inhalation, Daily, # 3 each, 3 Refills, Maintenance, 03/26/18 14:56:25 EST, Powder Start Date: 03/26/18 Stop Date: 03/21/19 Status: Orderedcranberry oral capsule See Instructions, By Mouth Daily, # 30 tablet, 5 Refills, Maintenance, 09/30/19 7:43:00 EDT, Capsule, [facility]/pharmacy #[id number], By Mouth Daily, 152, cm, 08/15/19 17:55:00 EDT, Height, 64, kg, 08/15/19 15:13:00 EDT, Dry Weight Start Date: 09/30/19 Status: Ordereddiclofenac 1% topical gel = 2 Gm, Topically, 4 times a day, # 240 Gm, 5 Refills, Maintenance, 08/09/19 15:55:00 EDT, [id number], 152.4, cm, 08/09/19 14:18:00 EDT, Height, 74.2, kg, 02/10/19 16:30:00 EDT, Dry Weight Start Date: 08/09/19 Status: Ordereddocusate-senna 50 mg-187 mg oral tablet 2 tablet, By Mouth, Daily, # 60 tablet, 5 Refills, Maintenance, 08/09/19 15:27:00 EDT, Tablet, [facility]/pharmacy #[id number], 2 tablet By Mouth Daily, 152.4, cm, 08/09/19 14:18:00 EDT, Height, 74.2, kg, 02/10/19 16:30:00 EDT, Dry Weight Start Date: 08/09/19 Status: Ordereddoxycycline hyclate 50 mg oral capsule 1 capsule = 50 mg, By Mouth, 2 times a day, for 30 days, # 60 capsule, 3 Refills, Acute 01/29/20 16:37:00 EDT, 10/01/19 16:37:00 EDT, Capsule, [id number], 152, cm, 08/15/19 17:55:00 EDT, Height, 64, kg, 08/15/19 15:13:00 EDT, Dry Weight Start Date: 10/01/19 Stop Date: 01/29/20 Status: Orderedfolic acid 1 mg oral tablet 1 mg, 1, tablet, By Mouth, Daily, # 30 tablet, Refills 5, Tot. Refills 5, Maintenance, 08/09/19 15:08:00 EDT, Route to Pharmacy Electronically, [facility]/pharmacy #[id number], 152.4, cm, 08/09/19 14:18:00 EDT, Height, 74.2, kg, 02/10/19 16:30:00 EDT, Dry Weight Start Date: 08/09/19 Status: OrderedFosamax 70 mg oral tablet 1 tablet = 70 mg, By Mouth, 0 Refills, Maintenance, 12/13/18 16:13:40 EDT Start Date: 12/13/18 Status: Orderedfurosemide 20 mg oral tablet 20 mg, 1, tablet, By Mouth, Daily, # 30 tablet, Refills 5, Tot. Refills 5, Maintenance, 08/09/19 15:25:00 EDT, [id number], cm, 08/09/19 14:18:00 EDT, Height, [...] 5 Refills, Maintenance, 08/09/19 15:05:00 EDT, Powder, [facility]/pharmacy #[id number], 152.4, cm, 08/09/19 14:18:00 EDT, Height, [...] 5 Refills, Maintenance, 10/09/19 12:40:00 EDT, Tablet, [facility]/pharmacy #[id number], 152, cm, 08/15/19 17:55:00 EDT, Height, 64, kg, 08/15/19 15:13:00 EDT, Dry Weight Start Date: 10/09/19 Status: OrderedLORazepam 1 mg oral tablet 0.5 tablet = 0.5 mg, By Mouth, 2 times a day, and 1 additional tablet daily as needed, 0 Refills, Maintenance, 04/05/17 17:58:26 EST, Tablet Start Date: 04/05/17 Status: Orderedmelatonin 3 mg oral tablet 1 tablet = 3 mg, By Mouth, Daily at bedtime, # 30 tablet, 1 Refills, Maintenance, 09/25/19 13:33:00 EDT, [facility]/pharmacy #[id number], 152, cm, 08/15/19 17:55:00 EDT, Height, 64, kg, 08/15/19 15:13:00 EDT, Dry Weight Start Date: 09/25/19 Status: Orderedmethenamine hippurate 1 gm oral tablet 1 tablet = 1 Gm, By Mouth, 2 times a day, # 60 tablet, 1 Refills, Maintenance, 08/09/19 15:17:00 EDT, Tablet, [facility]/pharmacy #[id number], 152.4, cm, 08/09/19 14:18:00 EDT, Height, 74.2, kg, 02/10/19 16:30:00 EDT, Dry Weight Start Date: 08/09/19 Status: OrderedMiraLax oral powder for reconstitution = 17 Gm, By Mouth, Daily, dissolve in water before taking, # 255 Gm, 1 Refills, Maintenance, 08/09/19 15:30:00 EDT, REC Powder, [facility]/pharmacy #[id number], 17 Gm By Mouth Daily,Instr:dissolve in water before taking, 152.4, cm, 08/09/19 14:18:00 EDT, Height, 7... Start Date: 08/09/19 Status: Orderedmultivitamin Multiple Vitamins oral capsule 1 capsule, By Mouth, Daily, # 30 capsule, 5 Refills, Maintenance, 08/09/19 15:01:00 EDT, [id number], 1 capsule By Mouth Daily, 152.4, cm, 08/09/19 14:18:00 EDT, Height, 74.2, kg, 02/10/19 16:30:00 EDT, Dry Weight Start Date: 08/09/19 Status: OrderedOXcarbazepine 150 mg oral tablet 150 mg, 1, tablet, By Mouth, 2 times a day, Refills 0, Maintenance, 03/04/16 10:53:05 EDT Start Date: 03/04/16 Status: OrderedOXcarbazepine 150 mg oral tablet 150 mg, 1, tablet, By Mouth, 2 times a day, # 60 tablet, Refills 5, Tot. Refills 5, Maintenance, 08/09/19 15:24:00 EDT, [id number] 152.4, cm, 08/09/19 14:18:00 EDT, Height, 74.2, kg, 02/10/19 16:30:00 EDT, . Start Date: 08/09/19 Status: OrderedOyster Shell Calcium with Vitamin D 250 mg-125 u oral tablet 2 tablet, By Mouth, 2 times a day, Maintenance, 02/10/19 8:21:27 EDT, Tablet Start Date: 02/10/19 Status: OrderedPARoxetine 30 mg oral tablet 1 tablet = 30 mg, By Mouth, Daily, # 30 tablet, 5 Refills, Maintenance, 08/09/19 15:40:00 EDT, Tablet, [facility]/pharmacy #[id number], 152.4, cm, 08/09/19 14:18:00 EDT, Height, 74.2, kg, 02/10/19 16:30:00 EDT, DryWeight Start Date: 08/09/19 Status: OrderedPaxil 30 mg oral tablet 1 tablet = 30 mg, By Mouth, Daily, 0 Refills, Maintenance, 03/04/16 10:53:59 Start Date: 03/04/16 Status: Orderedpropranolol 10 mg oral tablet 10 mg, 1, tablet, By Mouth, 3 times a day, # 270 tablet, Refills 3, Tot. Refills 3, Maintenance, 08/09/19 15:04:00 EDT, Route to Pharmacy Electronically, [facility]/pharmacy #[id number], 152.4, cm, 08/09/19 14:18:00 EDT, Height, 74.2, kg, 02/10/19 16:30:00 EDT, . Start Date: 08/09/19 Status: OrderedtraZODone 50 mg oral tablet 50 mg, 1, tablet, By Mouth, Daily at bedtime, # 30 tablet, Refills 5, Tot. Refills 5, Maintenance, 08/09/19 15:52:00 EDT, Route to Pharmacy Electronically, [facility]/pharmacy #[id number], 152.4, cm, 08/09/19 14:18:00 EDT, Height, 74.2, kg, 02/10/19 16:30:00 EDT,... Start Date: 08/09/19 Status: OrderedVitamin C 500 mg oral tablet 1 tablet = 500 mg, By Mouth, Daily, # 30 tablet, 0 Refills, Maintenance, Tablet Start Date: 04/27/10 Status: OrderedVitamin C 500 mg oral tablet 1 tablet = 500 mg, By Mouth, Daily, # 30 tablet, 5 Refills, Maintenance, 08/09/19 15:37:00 EDT, Tablet, [facility]/pharmacy #[id number], 152.4, cm, 08/09/19 14:18:00 EDT, Height, 74.2, kg, 02/10/19 16:30:00 EDT, Dry Weight Start Date: 08/09/19 Status: OrderedVitamin D3 10,000 intl units oral capsule 1 capsule = 10,000 International_Units, By Mouth, Daily, # 30 capsule, 5 Refills, Maintenance, 08/09/19 15:41:00 EDT, [facility]/pharmacy #[id number], 152.4, cm, 08/09/19 14:18:00 EDT, Height, [...] (urinary tract Active infection)(Confirmed) 1s/p surgical treatment [id number]/[id number] 2010 [id number] 2014 positive polyp, repeat 2019.4colo 2010 nl, repeat 2014 Social History Social History Type Response Smoking Status Current every day smoker entered on: 03/08/18 Sex Female
--- OUTSIDE RECORDS SUMMARY | 2022-03-02 14:01 | XMS_ITS | Continuity of Care Document ---
:1945 Author Organization [facility] Address [address] [place] [address]- Care Team Providers Name Role Phone Brendan Estevez MD Primary Care Physician Encounter [facility] [place] Date(s): 03/23/21 - 05/02/21 [facility] [address] [place] [address]- Attending Physician: Mendy PALOMINO, [place] Bean Allergies, Adverse Reactions, Alerts Substance [...] toxoids (Td) 10/10/07 Recorded 1Location History: DR [id number] History: [facility] Medications Abdominal Binder [...] Replace Required Details, Route to Pharmacy Electronically, [facility]/pharma... Start Date: 08/09/19 Status: [...] Refills 5, Route to Pharmacy Electronically, [facility], 152, cm, 01/18/21 13:58:00 EDT, Height, [...] bedtime, # 28 tablet, 0 Refills, [facility], 0, @@TAKE 1 TABLET BY MOUTH DAILY AT BEDTIME., 154, cm, 04/03/21 11:28:00 EST, Height, 50.3, kg, 04/02/21 1:28:00EST, Dry Weight Start Date: 04/14/21 Status: Orderedmethenamine hippurate 1 gm oral tablet [...] EDT, Dry Weight Start Date: 02/26/21 Status: [id number] oral powder for reconstitution See Instructions, MIX [...] Required Details, Route to Pharmacy Electronically, [facility], 152, cm, 02/19/21 12:32:00 EDT, Height, [...] Daily, # 28 tablet, 12 [facility], cm, 02/19/21 12:32:00 EDT, Height, 61.1, [...] Active Urinary incontinence(Confirmed) Active 1s/p surgical treatment 09/[id number] 2010 [id number] 2014 positive polyp, repeat 2019.4colo 2009 nl, repeat 2014 Social History Social History Type Response Smoking Status Current every day smoker entered on: 03/08/18 Sex
--- OUTSIDE RECORDS SUMMARY | 2022-03-02 14:01 | XMS_ITS | Continuity of Care Document ---
:1945 Author Organization [facility] Address [address] [place] [address]- Care Team Providers Name Role Phone Brendan Estevez MD Primary Care Physician [place] [facility] [place](s): 12/25/19 - 01/24/20 [facility] [address] [place] [address]- [facility] Allergies, Adverse Reactions, Alerts Substance Reaction [...] Fluzone (oldterm) 02/28/12 Given 1Location History: DR [id number] History: [facility] Medications Abdominal Binder Abdominal [...] Replace Required Details, Route to Pharmacy Electronically, [facility]arma... Start Date: 08/09/19 Status: Orderedcranberry oral capsule [...] 01/29/20 16:37:00 EDT, 10/01/19 16:37:00 EDT, Capsule, [facility]/pharmacy #[id number], 152, cm, 08/15/19 17:55:00 EDT, Height, [...] 11/25/19 15:52:00 EDT, Route to Pharmacy Electronically, [facility]/pharmacy #[id number], 152, cm, 11/12/19 10:46:00 EDT, Height, [...] (urinary tract Active infection)(Confirmed) 1s/p surgical treatment 09/[id number] 2010 [id number] 2014 positive polyp, repeat 2019.4colo 2009 nl, repeat 2014 Social History Social History Type Response Smoking Status Current every day smoker entered on: 03/08/18 Sex Female
--- OUTSIDE RECORDS SUMMARY | 2022-03-02 14:01 | XMS_ITS | Continuity of Care Document ---
:1945 Author Organization [facility] Adult Address [address] [place] [address]- Care Team Providers Name Role Phone Brendan Estevez MD Primary Care Physician Encounter [facility] [place] Date(s): 01/21/22 - 02/20/22 [facility] Adult [address] [place] [address]- Allergies, Adverse Reactions, Alerts Substance Reaction Severity [...] toxoids (Td) 10/10/07 Recorded 1Location History: DR [id number] History: [facility] Medications acetaminophen 325 mg oral tablet See Instructions, PRN, 650 mg By Mouth Every 4 hours prn headache, # 30 tablet, Refills 0, Tot. Refills 0, Maintenance, Headache Pain , Mild, 08/09/19 15:10:00 EDT, Instructions Replace Required Details, Route to Pharmacy Electronically, [facility]/pharma... Start Date: 08/09/19 Status: Orderedalendronate 70 [...] EDT, Dry Weight Start Date: 12/31/21 Status: Ordereddoxycycline hyclate 100 mg oral capsule 1 capsule = 100 mg, By Mouth, Daily, for 30 days, # 30 capsule, 5 Refills, Acute 07/31/22 12:31:00 EDT, 02/01/22 12:31:00 EDT, Capsule, [facility], Partial fill upon patient request if the prescription is for a schedule II opioid drug., 15... Start Date: 02/01/22 Stop Date: 07/31/22 Status: OrderedEnsure (chocolate) nutrional supplement Ensure (chocolate) [...] Required Details, Route to Pharmacy Electronically, [facility], 152, cm, 11/19/21 11:01:00 EDT, Height, 54, kg, 10/20/21 11:19:00 EDT, Dry Weight Start Date: 12/31/21 Status: Orderedfurosemide 20 mg oral tablet 1, tablet, By Mouth, Daily, # 28 tablet, Refills 6, Route to Pharmacy Electronically, [facility], 152, cm, 11/19/21 11:01:00 EDT, Height, 54, [...] bedtime, # 28 tablet, 6 Refills, [facility], 0, @@TAKE 1 TABLET BY MOUTH DAILY AT BEDTIME., 152, cm, 11/19/21 11:01:00 EDT, Height, 54, kg, 10/20/21 11:19:00 EDT, Dry Weight Start Date: 12/31/21 Status: Orderedmethenamine hippurate 1 gm oral tablet 1 tablet, By Mouth, 2 times a day, # 56 Unknown, 11 Refills, [facility], 152, cm, 10/28/21 9:53:00 EDT, Height, 54, kg, 10/20/21 11:19:00 EDT, Dry Weight Start Date: 11/05/21 Status: OrderedOXcarbazepine 150 mg oral tablet 1, tablet, By Mouth, 2 times a day, # 56 tablet, Refills 6, Route to Pharmacy Electronically, [facility], 152, cm, 11/19/21 11:01:00 EDT, Height, 54, kg, 10/20/21 11:19:00 EDT, Dry Weight Start Date: 12/31/21 Status: OrderedPARoxetine 30 mg oral tablet 1 tablet, By Mouth, Daily, # 28 tablet, 6 Refills, 02/09/22 16:19:00 EDT, [facility], 152, cm, 02/02/22 15:59:00 EDT, Height, 54, kg, 10/20/21 11:19:00 EDT, Dry Weight Start Date: 02/09/22 Status: [id number] oral powder for reconstitution See Instructions, MIX 17 GRAMS OF POWDER IN 8 OZ OF WATER & DRINK BY MOUTH ONCE A DAY, # 238 Gm,11 Refills, [facility], 0, MIX 17 GRAMS OF POWDER IN 8 OZ OF WATER & DRINK BY MOUTH ONCE A DAY, 152, cm, 11/08/21 15:55:00 EDT, Height, 54,... Start Date: 11/08/21 Status: Orderedpropranolol 10 mg oral tablet 1, tablet, By Mouth, 3 times a day, # 84 tablet, Refills 6, Route to Pharmacy Electronically, [facility], 152, cm, 11/19/21 11:01:00 EDT, Height, 54, kg, 10/20/21 11:19:00 EDT, Dry Weight Start Date: 12/31/21 Status: Orderedsalsalate 500 mg oral tablet 1 tablet, By Mouth, Daily, # 28 tablet, 6 Refills, [facility], 152, cm, 11/19/21 11:01:00 EDT, Height, [...] Mouth, Daily, # 28 tablet, 0 Refills, Maintenance, 01/28/22 13:58:00 EDT, [facility], 152, cm, 11/19/21 11:01:00 EDT, Height, 54, kg, 10/20/21 11:19:00 EDT, Dry Weight Start Date: 01/28/22 Status: OrderedWound Care Wound Care, See Instructions, # 1 each, Refills 0, Tot. 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 CKD (chronic kidney disease) Confirmed Active stage 3, GFR 30-59 ml/min Compression fracture of Confirmed Active lumbar vertebra COPD (chronic obstructive Confirmed Active pulmonary disease) Vaccine counseling Confirmed Active Diverticulitis1 Confirmed Active Diverticulosis Confirmed Active Esophagogastroduodenoscopy Confirmed Active [egd] with Closed Biopsy2 Family history of colon Confirmed Active cancer3, 4 Hospital discharge follow-up Confirmed Active Hernia, ventral Confirmed Active Hernia, hiatal Confirmed Active HTN (hypertension) Confirmed Active Incisional Hernia Repair Confirmed Active Bowel incontinence Confirmed Active Urinary frequency Confirmed Active LBP (low back pain) Confirmed 05/09/13 Active LLQ abdominal pain Confirmed Active Lumbosacral radiculitis Confirmed Active Osteoporosis Confirmed Active Leg pain, right Confirmed Active Rectal bleed Confirmed Active Recurrent urinary tract Confirmed Active infection Lumbar spinal stenosis Confirmed Active Tobacco abuse Confirmed Active Underweight Confirmed Active Unsteady gait Confirmed Active Urinary incontinence Confirmed Active Need for COVID-19 vaccine Confirmed Active 1s/p surgical treatment [id number] 2010 [id number] 2014 positive polyp, repeat 2019.4colo 2009 nl, repeat 2014 Social History Social History Type Response Smoking Status Current every day smoker entered on: 03/08/18 Sex Patient Care team information PersonnelName: Zenaida MAR, Brendan Hodges Address: Address: [address] [place] [id number]
--- OUTSIDE RECORDS SUMMARY | 2022-03-02 14:01 | XMS_ITS | Continuity of Care Document ---
:1945 Author Organization [facility] Address [address] [place] [id number]- Care Team Providers Name Role Phone Brendan Estevez MD Primary Care Physician Encounter [facility] [place] Date(s): 10/14/21 - 11/13/21 [facility] [address] [place] [id number] Attending Physician: AdmTomasz watts Admitting Physician: Admtr, Tomasz Referring Physician: Admtr, [...] toxoids (Td) 10/10/07 Recorded 1Location History: DR [id number] History: [facility] Medications acetaminophen 325 mg oral tablet See Instructions, PRN, 650 mg By Mouth Every 4 hours prn headache, # 30 tablet, Refills 0, Tot. Refills 0, Maintenance, Headache Pain , Mild, 08/09/19 15:10:00 EDT, Instructions Replace Required Details, Route to Pharmacy Electronically, [facility]/pharma... Start Date: 08/09/19 Status: Orderedalendronate 70 mg oral tablet 1 tablet, By Mouth, Every week, # 4 tablet, 11 Refills, [facility], 152, cm, 10/28/21 9:53:00 EDT, Height, 54, [...] DAILY., # 28 tablet, 10 Refills, [facility], 0, TAKE (1) TABLET BY MOUTH DAILY., [...] Required Details, [facility], cm, 06/28/21 13:44:00 EST, Height, [...] 28 tablet, 12 Refills, [facility], 152, cm, 02/19/21 12:32:00 EDT, Height, 61.1, kg, 11/04/19 15:16:00 EDT, Dry Weight Start Date: 02/26/21 Status: [id number] oral powder for reconstitution See Instructions, MIX 17 GRAMS OF POWDER IN 8 OZ OF WATER & DRINK BY MOUTH ONCE A DAY, # 238 Gm,11 Refills, [facility], 0, MIX 17 GRAMS OF POWDER [...] for COVID-19 vaccine(Confirmed) Active 1s/p surgical treatment [id number]/[id number] 2010 [id number] 2014 positive polyp, repeat 2019.4colo 2009 nl, repeat 2014 Social History Social History Type Response Smoking Status Current every day smoker entered on: 03/08/18 Sex
--- OUTSIDE RECORDS SUMMARY | 2022-03-02 14:02 | XMS_ITS | Continuity of Care Document ---
:1945 Author Organization [facility] Address [address] [place] [address]- Care Team Providers Name Role Phone Brendan Estevez MD Primary Care Physician Encounter [facility] [place] Date(s): 10/12/20 - 10/12/[address] [address]- Encounter Diagnosis Fall (Final) - 10/12/20 Discharge Disposition: A-Transfer SNF Attending Physician: Myriam Bell MD Admitting Physician: Myriam Bell MD Referring Physician: Not on Staff, Referring [...] toxoids (Td) 10/10/07 Recorded 1Location History: DR [id number] History: [facility] DR Strong Abdominal Binder Abdominal [...] Replace Required Details, Route to Pharmacy Electronically, [facility]/pharma... Start Date: 08/09/19 Status: Orderedcranberry oral capsule [...] By Mouth, Daily, # 28 tablet, Refills 0, Tot. Refills 0, Maintenance, 08/28/20 10:42:00 EDT, Route to Pharmacy Electronically, [facility], 152, cm, 08/25/20 10:09:00 EDT, Height, 61.1, kg, 11/04/19 15:16:00 EDT, Dry Weight Start Date: 08/28/20 Status: Orderedfurosemide 20 mg oral tablet See Instructions, TAKE 1 TABLET BY MOUTH ONCE DAILY, # 28 tablet, Refills 0, Maintenance, Instructions Replace Required Details, Route to Pharmacy Electronically, [facility], 152, cm, 10/05/20 13:35:00 EDT, Height, 61.1, kg, 11/04/19 15:... Start Date: 10/06/20 Status: OrderedGeri-Lanta oral suspension 30 mL, By [...] at bedtime, # 28 tablet, 0 Refills, Acute, 09/24/20 15:11:00 EDT, [facility], 0, @@TAKE 1 TABLET BY MOUTH DAILY AT BEDTIME, 152, cm, 08/25/20 10:09:00 EDT, Height, 61.1, kg, 11/04/19 15:16:00 EDT, Dry Weight Start Date: 09/24/20 Status: Orderedmethenamine hippurate 1 gm oral tablet 1 tablet, By Mouth, 2 times a day, # 56 tablet, 0 Refills, Acute, 09/24/20 14:21:00 EDT, [facility], 152, cm, 08/25/20 10:09:00 EDT, Height, 61.1, kg, 11/04/19 15:16:00 EDT, Dry Weight Start Date: 09/24/20 Status: OrderedMiscellaneous Rx 1, tablet, By Mouth, [...] a day, # 56 tablet, Refills 0, Tot. Refills 0, Maintenance, 09/24/20 14:21:00 EDT, Route to Pharmacy Electronically, [facility], 152, cm, 08/25/20 10:09:00 EDT, Height, 61.1, kg, 11/04/19 15:16:00 EDT, Dry We... Start Date: 09/24/20 Status: OrderedPARoxetine 30 mg oral tablet 1 tablet, By Mouth, Daily, # 28 tablet, 6 Refills, Maintenance, 05/08/20 13:28:00 EST, [facility], 152, cm, 03/17/20 14:47:00 EDT, Height, 61.1, kg, 11/04/19 15:16:00 EDT, Dry Weight Start Date: 05/08/20 Status: [id number] oral powder for reconstitution See Instructions, MIX [...] EDT, Route to Pharmacy Electronically, [facility], 152, cm, 11/12/19 10:46:00 EDT, Height, 61.1, kg, 11/04/19 15:16:00 EDT, D... Start Date: 12/06/19 Status: OrderedSENNA PLUS TABLET SENNA PLUS TABLET, 2, tablet, By Mouth, Daily, # 56 tablet, 0 Refills, Maintenance, 09/24/20 14:21:00 EDT, 152, cm, 08/25/20 10:09:00 EDT, Height, 61.1, kg, 11/04/19 15:16:00 EDT, Dry Weight Start Date: 09/24/20 Status: OrderedtraZODone 50 mg oral tablet 0.5, tablet, By Mouth, Daily at bedtime, # 14 tablet, Refills 0, Tot. Refills 0, Maintenance, 09/24/20 15:11:00 EDT, [facility], 152, cm, 08/25/20 10:09:00 EDT, Height, 61.1, kg, 11/04/19 15:16:00 EDT, D... Start Date: 09/24/20 Status: OrderedVitamin C 500 mg oral tablet 1 tablet, By Mouth, Daily, # 28 tablet, 5 Refills, Maintenance, 08/28/20 9:33:00 EDT, [facility], 152, cm, 08/25/20 10:09:00 EDT, Height, 61.1, kg, 11/04/19 15:16:00 EDT, Dry Weight Start Date: 08/28/20 Status: OrderedVitamin D3 5000 intl units oral tablet 2 tablet, By Mouth, Daily, # 56 tablet, 0 Refills, Maintenance, 09/24/20 14:21:00 EDT, [facility], 152, cm, 08/25/20 10:09:00 EDT, Height, 61.1, kg, 11/04/19 15:16:00 EDT, Dry Weight Start Date: 09/24/20 Status: Ordered Problem List Condition Effective Dates [...] Active Unsteady gait(Confirmed) Active 1s/p surgical treatment 09/[id number] 2011 [id number] 2015 positive polyp, repeat 2019.4colo 2010 nl, repeat 2014 Vital Signs Most recent to oldest 1 2 3 [Reference Range]: Oxygen Saturation [94-100 %] 96 % 98 % 100 % (10/12/20 5:50 PM) (10/12/20 3:16 PM) (10/12/20 11: 25 AM) Pulse Rate [55-90 bpm] 78 bpm 80 bpm 70 bpm (10/12/20 5:50 PM) (10/12/20 3:16 PM) (10/12/20 11: 25 AM) Blood Pressure [90-138/55-84 122/62 mm Hg 123/50 mm Hg 117 /54 mm Hg mm Hg] (10/12/20 5:50 PM) (10/12/20 3:16 PM) (10/12/20 11: 25 AM) Respiratory Rate [16-30 18 br/min 18 br/min 18 br/mi n br/min] (10/12/20 5:50 PM) (10/12/20 3:16 PM) (10/12/20 11: 25 AM) Temperature [96.8-100.4 DegF] 97 DegF 97.6 DegF (10/12/20 3:16 PM) (10/12/20 11:25 AM) Mode of Delivery (Oxygen) Room air Room air Room a ir (10/12/20 5:50 PM) (10/12/20 3:16 PM) (10/12/20 11: 25 AM) Temperature Route Oral Oral (10/12/20 3:16 PM) (10/12/20 11:25 AM) Social History Social History Type Response Smoking Status Current every day smoker entered on: 03/08/18 Sex
--- OUTSIDE RECORDS SUMMARY | 2022-03-02 14:02 | XMS_ITS | Continuity of Care Document ---
:1945 Author Organization [facility] Adult Address [address] [place] [address]- Care Team Providers Name Role Phone Brendan Estevez MD Primary Care Physician Encounter [facility] Date(s): 11/12/21 - 12/12/21 [facility] [address] [place] [address]- Allergies, Adverse Reactions, Alerts Substance Reaction Severity [...] toxoids (Td) 10/10/07 Recorded 1Location History: DR [id number] History: [facility] Medications acetaminophen 325 mg oral tablet See Instructions, PRN, 650 mg By Mouth Every 4 hours prn headache, # 30 tablet, Refills 0, Tot. Refills 0, Maintenance, Headache Pain , Mild, 08/09/19 15:10:00 EDT, Instructions Replace Required Details, Route to Pharmacy Electronically, [facility]/pharma... Start Date: 08/09/19 Status: Orderedalendronate 70 mg [...] Daily, # 28 capsule, 5 [facility], cm, 11/19/21 11:01:00 EDT, Height, 54, kg, 10/20/21 11:19:00 EDT, Dry Weight Start Date: 12/03/21 Status: OrderedDaily Liudmila oral tablet See Instructions, TAKE (1) TABLET BY MOUTH DAILY., # 28 tablet, 10 Refills, [facility], 0, TAKE (1) TABLET BY MOUTH [...] Required Details, Route to Pharmacy Electronically, [facility], 154, cm, 06/28/21 13:44:00 EST, Height, 50.3, [...] Daily, # 28 tablet, 12 Refills, [facility], 152, cm, 02/19/21 12:32:00 EDT, Height, 61.1, kg, 11/04/19 15:16:00 EDT, Dry Weight Start Date: 02/26/21 Status: [id number] oral powder for reconstitution See Instructions, MIX 17 GRAMS OF POWDER IN 8 OZ OF WATER & DRINK BY MOUTH ONCE A DAY, # 238 Gm,11 Refills, [facility], 0, MIX 17 GRAMS OF POWDER IN 8 OZ OF WATER & DRINK BY MOUTH ONCE A DAY, 152, cm, 11/08/21 15:55:00 EDT, Height, 54,... Start Date: 11/08/21 Status: Orderedpropranolol 10 mg oral tablet 1, tablet, By Mouth, 3 times a day, # 84 tablet, Refills 0, Route to Pharmacy Electronically, [facility], 152, cm, 11/19/21 11:01:00 EDT, Height, 54, kg, 10/20/21 11:19:00 EDT, Dry Weight Start Date: 12/07/21 Status: Orderedsalsalate 500 mg oral tablet 1 tablet, By Mouth, Daily, # 28 tablet, 0 Refills, [facility], 152, cm, 11/19/21 11:01:00 EDT, Height, 54, kg, 10/20/21 11:19:00 EDT, Dry Weight Start Date: 12/07/21 Status: OrderedSENNA PLUS TABLET SENNA PLUS TABLET, [...] 09/03/21 16:20:00 EDT, Route to Pharmacy Electronically, [facility], 154, cm, 09/02/21 13:43:00 EDT, [...] for COVID-19 vaccine(Confirmed) Active 1s/p surgical treatment 09/[id number] 2010 [id number] 2014 positive polyp, repeat 2019.4colo 2009 nl, repeat 2014 Social History Social History Type Response Smoking Status Current every day smoker entered on: 03/08/18 Sex
--- OUTSIDE RECORDS SUMMARY | 2022-03-02 14:02 | XMS_ITS | Continuity of Care Document ---
:1945 Author Organization [facility] Adult Address [address] [place] [address]- Care Team Providers Name Role Phone Brendan Estevez MD Primary Care Physician Encounter [facility] [place] Date(s): 12/06/19 - 01/05/20 [facility] Adult [address] [place] [address]- [facility] Allergies, Adverse Reactions, Alerts Substance Reaction [...] Fluzone (oldterm) 02/28/12 Given 1Location History: DR [id number] History: [facility] Medications Abdominal Binder Abdominal Binder, [...] Replace Required Details, Route to Pharmacy Electronically, [facility]... Start Date: 08/09/19 Status: Orderedcranberry oral capsule [...] 16:37:00 EDT, 10/01/19 16:37:00 EDT, Capsule, [id number], 152, cm, 08/15/19 17:55:00 EDT, Height, [...] 15:52:00 EDT, Route to Pharmacy Electronically, [id number], 152, cm, 11/12/19 10:46:00 EDT, Height, [...] (urinary tract Active infection)(Confirmed) 1s/p surgical treatment 09/[id number] 2010 [id number] 2014 positive polyp, repeat 2019.4colo 2009 nl, repeat 2014 Social History Social History Type Response Smoking Status Current every day smoker entered on: 03/08/18 Sex Female
--- OUTSIDE RECORDS SUMMARY | 2022-03-02 14:02 | XMS_ITS | Continuity of Care Document ---
:1945 Author Organization [facility] Adult Address [address] [place] [address]- Care Team Providers Name Role Phone Brendan Estevez MD Primary Care Physician Encounter [facility] [place] Date(s): 09/13/21 - 10/13/21 [facility] Adult [address] [place] [address]- Allergies, Adverse Reactions, Alerts Substance Reaction Severity [...] toxoids (Td) 10/10/07 Recorded 1Location History: DR [id number] History: [facility] DR Strong Abdominal Binder Abdominal Binder, See Instructions, # 1 each, Refills 0, Tot. Refills 0, Maintenance, Use for Incisional Hernia Repair ICD-10 - K43.2 HT: 5'1 and WT: 92lbs GAVIN: lifetime, 08/17/21 13:40:00 EDT, Supply Start Date: 08/17/21 Status: OrderedAbdominal Binder Abdominal Binder, See Instructions, # 2 [...] Replace Required Details, Route to Pharmacy Electronically, [facility]/pharma... Start Date: 08/09/19 Status: Orderedbacitracin topical [...] EST, Dry Weight Start Date: 10/01/21 Status: OrderedCRANBERRY 250 MG CAPSULE CRANBERRY 250 [...] 1 tablet = 150 mg, By Mouth, Once, # 1 tablet, 0 Refills, Soft Stop, 09/03/21 12:48:00 EDT, Tablet, [facility], Partial fill upon patient request if the prescription is for a schedule II opioid drug., 154, cm, 09/02/21 13:43:00 EDT, Height... Start Date: 09/03/21 Status: OrderedDiflucan 150 mg oral tablet 1 tablet = 150 mg, By Mouth, Once, # 1 tablet, 0 Refills, Soft Stop, 09/13/21 16:13:00 EDT, Tablet, [facility], Partial fill upon patient request if the prescription is for a schedule II opioid drug., 154, cm, 09/02/21 13:43:00 EDT, Height... Start Date: 09/13/21 Status: Ordereddoxycycline hyclate 50 mg oral capsule [...] days, # 180 capsule, 3 Refills, Acute 08/07/22 8:50:00 EDT, 08/12/21 8:50:00 EDT, Capsule, [facility], 154, cm, 08/04/21 12:51:00 EDT,Height, 50.3, kg, 04/02/21 1:28:00 EST, Dry Weight Start Date: 08/12/21 Stop Date: 08/07/22 Status: OrderedEnsure (chocolate) nutrional supplement Ensure (chocolate) nutrional supplement, See Instructions, # 60 each, Refills 11, Tot. Refills 11, Maintenance, Dx: recent wt loss. Goal is to help make sure she is getting adequate nutrition, 06/29/2209:31:00 EST, Supply Start Date: 06/29/21 Status: Orderedflucytosine 250 mg oral capsule 5 capsule = 1,250 mg, By Mouth, Every 6 hours, for 7 days, # 140 capsule, 0 Refills, Acute 10/15/21 12:27:00 EDT, 10/08/21 12:27:00 EDT, [facility], Partial fill upon patient request ifthe prescription is for a schedule II opioid drug., 1... Start Date: 10/08/21 Stop Date: 10/15/21 Status: Orderedfolic acid 1 mg oral tablet See Instructions, TAKE (1) TABLET BY MOUTH DAILY., # 28 tablet, Refills 5, Instructions Replace Required Details, [facility], [facility], cm, 06/28/21 13:44:00 EST, Height, 50.3, [...] a day, # 56 tablet, 0 Refills, Maintenance, 10/01/21 13:29:00 EDT, [facility], 154, cm, 09/21/21 11:18:00 EDT, Height, 50.3, kg, 04/02/21 1:28:00 EST, Dry Weight Start Date: 10/01/21 Status: OrderedMiscellaneous Rx 1, tablet, By Mouth, [...] EST, Dry Weight Start Date: 07/16/21 Status: Orderednitrofurantoin macrocrystals 100 mg oral capsule 1 capsule = 100 mg, By Mouth, 2 times a day, # 10 capsule, 0 Refills, Maintenance, 10/04/21 11:36:00EDT, Capsule, Partial fill upon patient request if the prescription is for a schedule II opioid drug. Start Date: 10/04/21 Stop Date: 10/09/21 Status: OrderedOXcarbazepine 150 mg oral tablet 1, tablet, By Mouth, 2 times a day, # 56 tablet, Refills 5, Route to Pharmacy Electronically, [facility], 154, cm, 06/28/21 13:44:00 EST, Height, 50.3, kg, 04/02/21 1:28:00 EST, Dry Weight Start Date: 07/09/21 Status: OrderedPARoxetine 30 mg oral tablet 1 tablet, By Mouth, Daily, # 28 tablet, 12 Refills, [facility], 152, cm, 02/19/21 12:32:00 EDT, Height, 61.1, kg, 11/04/19 15:16:00 EDT, Dry Weight Start Date: 02/26/21 Status: OrderedPEG-3350 with Electrolytes (Eqv-GoLYTELY) oral powder for reconstitution See Instructions, Follow instructions on label to mix powder with water, Drink all of the prep fluidon the evening before your colonoscopy, # 1 each, 0 Refills, Maintenance, 05/20/21 17:32:00 EST, [facility], Partial fill upon patient re... Start Date: 05/20/21 Status: [id number] oral powder for reconstitution See Instructions, MIX 17 GRAMS OF POWDER IN 8 OZ OF WATER & DRINK BY MOUTH ONCE A DAY, # 238 Gm,5 Refills, [facility], [facility], MIX 17 GRAMS OF POWDER IN 8 OZ OF WATER & DRINK BY MOUTHONCE A DAY, 154, cm, 09/21/21 11:18:00 EDT, Height, 50.3,... Start Date: 10/01/21 Status: OrderedPlenvu oral powder for reconstitution See [...] Required Details, Route to Pharmacy Electronically, [facility], 154, cm, 04/03/21 11:28:00 ES... Start [...] 16:20:00 EDT, Route to Pharmacy Electronically, [facility], 154, cm, 09/02/21 13:43:00 EDT, Height, 50.3, kg, 04/02/21 1:28:00 EST, Dry... Start Date: 09/03/21 Status: OrderedVitamin C 500 mg oral tablet 1 tablet, By Mouth, Daily, # 28 tablet, 12 Refills, [facility], 152, cm, 02/19/21 12:32:00 EDT, Height, [...] for COVID-19 vaccine(Confirmed) Active 1s/p surgical treatment 09/200914705gla 2010 [id number] 2014 positive polyp, repeat 2019.4colo 2010 nl, repeat 2015 Social History Social History Type Response Smoking Status Current every day smoker entered on: 03/08/18 Sex
--- OUTSIDE RECORDS SUMMARY | 2022-03-02 14:02 | XMS_ITS | Continuity of Care Document ---
:1945 Author Organization [facility] Address [address] [place] [address]- Care Team Providers Name Role Phone Brendan Estevez MD Primary Care Physician Encounter [facility] [place] Date(s): 04/21/20 - 05/21/20 [facility] [address] [place] [address]- Allergies, Adverse Reactions, Alerts Substance Reaction Severity Status ibuprofen Active sulfADIAZINE Active morphine Nausea Active Motrin Active Vicodin Depression Active Percocet 7.5/325 Depression Active Immunizations Given and Recorded Vaccine Date Status Refusal Reason influenza virus vaccine, inactivated 03/17/20 Given influenza virus vaccine, inactivated 03/27/17 Given influenza virus vaccine, inactivated 03/11/16 Given influenza virus vaccine, inactivated1 03/04/15 Recorded influenza virus vaccine, inactivated 02/28/14 Given influenza virus vaccine, inactivated 03/01/13 Given tetanus/diphtheria/pertussis, acel(Tdap) 02/10/19 Given tetanus/diphtheria/pertussis, acel(Tdap) 02/28/12 Given Zoster Vaccine Live2 10/05/15 Recorded pneumococcal 13-valent vaccine 09/01/14 Given Pneumococcal Vacc (oldterm) 02/28/12 Given Fluzone (oldterm) 02/28/12 Given 1Location History: DR [id number] History: [facility] DR Strong Abdominal Binder Abdominal [...] days, # 60 capsule, 3 Refills, Acute 07/23/20 10:50:00 EST, 03/25/20 10:50:00 EST, Capsule, [facility], 152, cm, 03/17/20 14:47:00 EDT, Height, 61.1, kg, 11/04/19 15:16:00 EDT, Dry Weight Start Date: 03/25/20 Stop Date: 07/23/20 Status: Orderedfolic acid 1 mg oral tablet 1, tablet, By Mouth, Daily, # 28 tablet, Refills 3, Tot. Refills 0, Maintenance, 05/08/20 13:28:00 EST, [facility], cm, 03/17/20 14:47:00 EDT, Height, 61.1, kg, 11/04/19 15:16:00 EDT, Dry Weight Start Date: 05/08/20 Status: OrderedFosamax 70 mg oral tablet 1 [...] tablet, Refills 3, Tot. Refills 0, Maintenance, 05/08/20 13:28:00 EST, [facility], cm, 03/17/20 14:47:00 EDT, Height, 61.1, kg, 11/04/19 15:16:00 EDT, Dry Weight Start Date: 05/08/20 Status: OrderedGeri-Lanta oral suspension 30 mL, By [...] EDT, Dry Weight Start Date: 12/06/19 Status: OrderedMelatonin 3 mg oral tablet 1 tablet, By Mouth, Daily at bedtime, # 28 tablet, 2 Refills, Acute, 05/08/20 13:23:00 [facility], 0, TAKE 1 TABLET BY MOUTH AT BEDTIME., 152, cm, 03/17/20 14:47:00 EDT, Height, 61.1, kg, 11/04/19 15:16:00 EDT, Dry Weight Start Date: 05/08/20 Status: Orderedmethenamine hippurate 1 gm oral tablet 1 tablet, By Mouth, 2 times a day, # 56 tablet, 3 Refills, Acute, 05/08/20 13:28:00 [facility], 152, cm, 03/17/20 14:47:00 EDT, Height, 61.1, kg, 11/04/19 15:16:00 EDT, Dry Weight Start Date: 05/08/20 Status: OrderedMiraLax oral powder for reconstitution = 17 Gm, By Mouth, Daily, dissolve in water before taking, # 255 Gm, 1 Refills, Maintenance, 05/20/20 15:56:00 EST, REC Powder, [facility], 17 Gm By Mouth Daily,Instr:dissolve in water before taking, 152, cm, 03/17/20 14:47:00 EDT, Height,... Start Date: 05/20/20 Status: OrderedMiscellaneous Rx 1, tablet, By Mouth, Daily at bedtime, # 28 tablet, 0 Refills, Maintenance, 01/17/20 10:52:00 EDT, 152, cm, 12/10/19 15:52:00 EDT, Height, 61.1, kg, 11/04/19 15:16:00 EDT, Dry Weight Start Date: 01/17/20 Status: Orderedmultivitamin Multiple Vitamins oral tablet 1 tablet, By Mouth, Daily, # 28 tablet, 3 Refills, Maintenance, 05/08/20 13:28:00 [facility], TAKE 1 TABLET BY MOUTH ONCE DAILY, 152, cm, 03/17/20 14:47:00 EDT, Height, 61.1, kg, 11/04/19 15:16:00 EDT, Dry Weight Start Date: 05/08/20 Status: OrderedOXcarbazepine 150 mg oral tablet 1, tablet, By Mouth, 2 times a day, # 56 tablet, Refills 3, Tot. Refills 0, Maintenance, 05/08/20 13:28:00 EST, [facility], cm, 03/17/20 14:47:00 EDT, Height, 61.1, kg, 11/04/19 15:16:00 EDT, Dry We... Start Date: 05/08/20 Status: OrderedPARoxetine 30 mg oral tablet 1 tablet, By Mouth, Daily, # 28 tablet, 6 Refills, Maintenance, 05/08/20 13:28:00 [facility], 152, cm, 03/17/20 14:47:00 EDT, Height, 61.1, kg, 11/04/19 15:16:00 EDT, Dry Weight Start Date: 05/08/20 Status: Orderedpropranolol 10 mg oral tablet 10 mg, 1, tablet, By Mouth, 3 times a day, # 270 tablet, Refills 3, Tot. Refills 3, Maintenance, 12/06/19 9:39:00 EDT, Route to Pharmacy Electronically, [facility], 152, cm, 11/12/19 10:46:00 EDT, Height, 61.1, kg, 11/04/19 15:16:00 EDT, D... Start Date: 12/06/19 Status: OrderedSenna 8.6 mg oral tablet 8.6 mg, 1, tablet, By Mouth, Daily at bedtime, for 30 days, # 30 tablet, Refills 6, Tot. Refills 6, Acute, 06/22/20 15:52:00 EST, 11/25/19 15:52:00 EDT, Route to Pharmacy Electronically, [facility]/pharmacy #[id number], 152, cm, 11/12/19 10:46:00 EDT, Height, 61.1... Start Date: 11/25/19 Stop Date: 06/22/20 Status: OrderedSENNA-PLUS TABLET SENNA-PLUS TABLET, 2, tablet, By Mouth, Daily, # 56 tablet, 3 Refills, Maintenance, 05/08/20 13:28:00 EST, 152, cm, 03/17/20 14:47:00 EDT, Height, 61.1, kg, 11/04/19 15:16:00 EDT, Dry Weight Start Date: 05/08/20 Status: OrderedtraZODone 50 mg oral tablet 25 mg, 0.5, tablet, By Mouth, Daily at bedtime, # 15 tablet, Refills 5, Tot. Refills 5, Maintenance,12/27/19 9:14:00 EDT, Route to Pharmacy Electronically, [facility], 152, cm, 12/10/19 15:52:00 EDT, Height, 61.1, kg, 11/04/19 15:16:00 ED... Start Date: 12/27/19 Status: OrderedVitamin C 500 mg oral tablet 1 tablet, By Mouth, Daily, # 28 tablet, 3 Refills, Maintenance, 05/08/20 13:28:00 EST, [facility], 152, cm, 03/17/20 14:47:00 EDT, Height, 61.1, kg, 11/04/19 15:16:00 EDT, Dry Weight Start Date: 05/08/20 Status: OrderedVitamin D3 5000 intl units oral tablet 2 tablet, By Mouth, Daily, # 56 tablet, 3 Refills, Maintenance, 05/08/20 13:28:00 EST, [facility], 152, cm, 03/17/20 14:47:00 EDT, Height, 61.1, kg, 11/04/19 15:16:00 EDT, Dry Weight Start Date: 05/08/20 Status: Ordered Problem List Condition Effective Dates [...] (urinary tract Active infection)(Confirmed) 1s/p surgical treatment [id number] 2010 [id number] 2014 positive polyp, repeat 2019.4colo 2009 nl, repeat 2014 Social History Social History Type Response Smoking Status Current every day smoker entered on: 03/08/18 Sex Female
--- OUTSIDE RECORDS SUMMARY | 2022-03-02 14:02 | XMS_ITS | Continuity of Care Document ---
:1945 Author Organization [facility] Address [address] [place] [address]- Care Team Providers Name Role Phone Brendan Estevez MD Primary Care Physician Encounter [facility] [place] Date(s): 10/06/20 - 11/05/20 [facility] [address] [place] [id number]- Allergies, Adverse Reactions, Alerts Substance Reaction Severity [...] toxoids (Td) 10/10/07 Recorded 1Location History: DR [id number] History: [facility] DR Medications Abdominal Binder Abdominal Binder, See Instructions, [...] Required Details, Route to Pharmacy Electronically, [facility]/pharma... Start Date: 08/09/19 Status: OrderedCRANBERRY 250 MG [...] EDT, Dry Weight Start Date: 12/06/19 Status: OrderedDiflucan 150 mg oral tablet 1 tablet = 150 mg, By Mouth, Every week, # 1 tablet, 0 Refills, Maintenance, 11/04/20 14:36:00 EDT, Tablet, [facility], Partial fill upon patient request if the prescription is for a schedule II opioid drug., 152, cm, 11/04/20 13:52:00 EDT... Start Date: 11/04/20 Status: Ordereddocusate-senna 50 mg-187 mg oral tablet [...] EDT, Dry Weight Start Date: 06/29/20 Status: Orderedmethenamine hippurate 1 gm oral tablet [...] 13:07:00 EDT, [facility], cm, 10/05/20 13:35:00 EDT, Height, 61.1, kg, 11/04/19 15:16:00 EDT, Dry We... Start Date: 10/22/20 Status: OrderedPARoxetine 30 mg oral tablet 1 tablet, By Mouth, Daily, # 28 tablet, 6 Refills, Maintenance, 05/08/20 13:28:00 EST, [facility], cm, 03/17/20 14:47:00 EDT, Height, 61.1, kg, 11/04/19 15:16:00 EDT, Dry Weight Start Date: 05/08/20 Status: [id number] oral powder for reconstitution See Instructions, MIX [...] 3 Refills, Maintenance, 10/22/20 13:07:00 EDT, [facility], 152, cm, 10/05/20 13:35:00 EDT, Height, [...] Active Urinary incontinence(Confirmed) Active 1s/p surgical treatment [id number] 2010 [id number] 2014 positive polyp, repeat 2019.4colo 2009 nl, repeat 2014 Social History Social History Type Response Smoking Status Current every day smoker entered on: 03/08/18 Sex
--- OUTSIDE RECORDS SUMMARY | 2022-03-02 14:02 | XMS_ITS | Continuity of Care Document ---
:[address] [facility] Adult Address [address] [place] [address]- Care Team Providers Name Role Phone Brendan Estevez MD Primary Care Physician Encounter [facility] [place] Date(s): 02/02/22 - 02/09/22 [facility] [address] [place] [address]- Encounter Diagnosis Bipolar disorder (Discharge Diagnosis) - 02/02/22 CKD (chronic kidney disease) stage 3, GFR 30-59 ml/min (Discharge Diagnosis) - 02/02/22 Tobacco abuse (Discharge Diagnosis) - 02/02/22 Chronic constipation (Discharge Diagnosis) - 02/02/22 Attending Physician: Brendan Estevez MD Allergies, Adverse [...] toxoids (Td) 10/10/07 Recorded 1Location History: DR [id number] History: [facility] Medications acetaminophen 325 mg oral tablet See Instructions, PRN, 650 mg By Mouth Every 4 hours prn headache, # 30 tablet, Refills 0, Tot. Refills 0, Maintenance, Headache Pain , Mild, 08/09/19 15:10:00 EDT, Instructions Replace Required Details, Route to Pharmacy Electronically, [facility]/pharma... Start Date: 08/09/19 Status: Orderedalendronate 70 [...] Required Details, Route to Pharmacy Electronically, [facility], 152, cm, 11/19/21 11:01:00 EDT, Height, 54, kg, 10/20/21 11:19:00 EDT, Dry Weight Start Date: 12/31/21 Status: Orderedfurosemide 20 mg oral tablet 1, tablet, By Mouth, Daily, # 28 tablet, Refills 6, Route to Pharmacy Electronically, [facility], 152, cm, 11/19/21 11:01:00 EDT, Height, [...] tablet, 6 Refills, 02/09/22 16:19:00 EDT, [facility], 152, cm, 02/02/22 15:59:00 EDT, Height, 54, kg, 10/20/21 11:19:00 EDT, Dry Weight Start Date: 02/09/22 Status: [id number] oral powder for reconstitution See Instructions, MIX [...] tablet, Refills 6, [facility]ically[facility], cm, 11/19/21 11:01:00 EDT, Height, 54, kg, 10/20/21 11:19:00 EDT, Dry Weight Start Date: 12/31/21 Status: Orderedsalsalate 500 mg oral tablet 1 tablet, By Mouth, Daily, # 28 tablet, 6 Refills, [facility], cm, 11/19/21 11:01:00 EDT, Height, 54, [...] 16:20:00 EDT, Route to Pharmacy Electronically, [facility], 154, cm, 09/02/21 13:43:00 EDT, Height, 50.3, kg, 04/02/21 1:28:00 EST, Dry... Start Date: 09/03/21 Status: OrderedVitamin C 500 mg oral tablet 1 tablet, By Mouth, Daily, # 28 tablet, 0 Refills, Maintenance, 01/28/22 13:58:00 EDT, [facility], cm, 11/19/21 11:01:00 EDT, Height, 54, [...] vertebra(Confirmed) COPD (chronic obstructive pulmonary Active disease)(Confirmed) Vaccine counseling(Confirmed) Active Diverticulitis(Confirmed)1 Active Diverticulosis(Confirmed) Active Esophagogastroduodenoscopy [egd] with [...] for COVID-19 vaccine(Confirmed) Active 1s/p surgical treatment 09/[id number] 2010 [id number] 2014 positive polyp, repeat 2019.4colo 2009 nl, repeat 2014 Diagnosis Diagnosis Type Effective Dates Health Clinical Infor mant Status Service Bipolar disorder Discharge 02/02/22 Diagnosis CKD (chronic kidney Discharge 02/02/22 disease) stage 3, Diagnosis GFR 30-59 ml/min Tobacco abuse Discharge 02/02/22 Diagnosis Chronic Discharge 02/02/22 constipation Diagnosis Vital Signs Most recent to oldest [Reference Range]: 1 Height 152 cm (02/02/22 3:59 PM) Weight 40.0 kg (02/02/22 3:59 PM) Oxygen Saturation [94-100 %] 97 % (02/02/22 3:59 PM) Pulse Rate [55-90 bpm] 68 bpm (02/02/22 3:59 PM) Body Mass Index [18.5-24.99] 17.31 *L* (02/02/22 3:59 PM) Blood Pressure [90-138/55-84 mm Hg] 110/46 mm Hg (02/02/22 3:59 PM) Mode of Delivery (Oxygen) Room air (02/02/22 3:59 PM) Blood pressure sites Arm, left (02/02/22 3:59 PM) Weight Obtained Via Standing scale (02/02/22 3:59 PM) Social History Social History Type Response Smoking Status Current every day smoker entered on: 03/08/18 Sex Care Team PersonnelName: Brendan Estevez MD Address: [address] [place] [id number]
--- OUTSIDE RECORDS SUMMARY | 2022-03-02 14:02 | XMS_ITS | Continuity of Care Document ---
:1945 Author Organization [facility] Address [address] [place] [address]- Care Team Providers Name Role Phone Brendan Estevez MD Primary Care Physician Encounter [facility] [place] Date(s): 01/24/20 - 02/23/20 [facility] [address] [place] [address]- [facility] Allergies, Adverse Reactions, Alerts [...] Fluzone (oldterm) 02/28/12 Given 1Location History: DR [id number] History: [facility] Medications Abdominal Binder Abdominal Binder, [...] Replace Required Details, Route to Pharmacy Electronically, [facility]... Start Date: 08/09/19 Status: Orderedcranberry oral capsule [...] meals, Maintenance, 02/10/19 8:17:06 EDT Start Date: 9/22/19 Status: OrderedLORazepam 1 mg oral tablet 1 [...] EDT, Dry Weight Start Date: 12/06/19 Status: Orderednicotine 21 mg/24 hr transdermal film, extended release 1 patch, Topically, Daily, for 14 days, # 14 patch, 1 Refills, Acute 03/03/20 12:39:00 EDT, 02/04/2012:39:00 EDT, Patch, [facility], 1 patch Topically Daily,x14 days, 152, cm, 02/04/2012:34:00 EDT, Height, 61.1, kg, 11/04/19 15:16:00 EDT... Start Date: 02/04/20 Stop Date: 03/03/20 Status: OrderedOXcarbazepine 150 mg oral tablet 150 [...] 11/25/19 15:52:00 EDT, Route to Pharmacy Electronically, [facility]/pharmacy #[id number], 152, cm, 11/12/19 10:46:00 EDT, [...] (urinary tract Active infection)(Confirmed) 1s/p surgical treatment 09/[id number] 2010 [id number] 2014 positive polyp, repeat 2019.4colo 2009 nl, repeat 2014 Social History Social History Type Response Smoking Status Current every day smoker entered on: 03/08/18 Sex Female
--- OUTSIDE RECORDS SUMMARY | 2022-03-02 14:02 | XMS_ITS | Continuity of Care Document ---
:1945 Author Organization [facility] Address [address] [place] [address]- Care Team Providers Name Role Phone Brendan Estevez MD Primary Care Physician [place] [facility] [facility] [place] 04/18/21 - 04/18/[address] [address]- Discharge Disposition: A-D/C Walkout Attending Physician: Not on Staff, Attending MD Admitting Physician: Not on Staff, Admitting MD Referring Physician: Not on Staff, Referring [...] toxoids (Td) 10/10/07 Recorded 1Location History: DR [id number] History: [facility] DR Strong Abdominal Binder Abdominal Binder, See [...] Replace Required Details, Route to Pharmacy Electronically, [facility]/pharma... Start Date: 08/09/19 Status: Orderedbacitracin [...] 5, Route to Pharmacy Electronically, [facility], 152, cm, 01/18/21 13:58:00 EDT, Height, 61.1, [...] EDT, Dry Weight Start Date: 02/26/21 Status: [id number] oral powder for reconstitution See Instructions, MIX [...] Required Details, [facility], cm, 02/19/21 12:32:00 EDT, Height, 61.1, [...] Daily, # 28 tablet, 12 Refills, [facility], 152, cm, 02/19/21 12:32:00 EDT, Height, 61.1, kg, 11/04/19 15:16:00 EDT, Dry Weight Start Date: 02/26/21 Status: OrderedVitamin D3 2000 intl units oral capsule 1 capsule = 50 mcg, By Mouth, Daily, stop vitamin d 5000, # 30 capsule, 11 Refills, Maintenance, 01/18/21 14:43:00 EDT, [facility], Partial fill upon patient request [...] Active Urinary incontinence(Confirmed) Active 1s/p surgical treatment 09/[id number] 2010 [id number] 2014 positive polyp, repeat 2019.4colo 2009 nl, repeat 2014 Vital Signs Most recent to oldest [Reference Range]: 1 Oxygen Saturation [94-100 %] 99 % (04/18/21 12:49 PM) Pulse Rate [55-90 bpm] 1 bpm *L* (04/18/21 12:49 PM) Blood Pressure [90-138/55-84 mm Hg] 121/63 mm Hg (04/18/21 12:49 PM) Respiratory Rate [16-30 br/min] 19 br/min (04/18/21 12:49 PM) Temperature [96.8-100.4 DegF] 97.7 DegF (04/18/21 12:49 PM) Mode of Delivery (Oxygen) Room air (04/18/21 12:49 PM) Temperature Route Oral (04/18/21 12:49 PM) Social History Social History Type Response Smoking Status Current every day smoker entered on: 03/08/18 Sex
--- OUTSIDE RECORDS SUMMARY | 2022-03-02 14:02 | XMS_ITS | Continuity of Care Document ---
:1945 Author Organization [facility] Address [address] [place] [address]- Care Team Providers Name Role Phone Brendan Estevez MD Primary Care Physician Encounter [facility] Date(s): 07/09/21 - 08/08/21 [facility] [address] [place] [address]- Allergies, Adverse Reactions, Alerts Substance Reaction Severity Status ibuprofen Active sulfADIAZINE Active Vicodin Depression Active morphine Nausea Active Percocet 7.5/325 Depression [...] toxoids (Td) 10/10/07 Recorded 1Location History: DR [id number] History: [facility] DR Strong Abdominal [...] Required Details, Route to Pharmacy Electronically, [facility]/pharma... Start Date: 08/09/19 Status: Orderedbacitracin [...] Required Details, [facility], cm, 06/28/21 13:44:00 EST, Height, [...] bedtime, # 28 tablet, 6 Refills, [facility], 0, @@TAKE 1 TABLET BY MOUTH DAILY [...] upon patient re... Start Date: 05/20/21 Status: [id number] oral powder for reconstitution See Instructions, MIX [...] Daily, # 28 tablet, 12 Refills, [facility], 152, cm, 02/19/21 12:32:00 EDT, [...] Active Urinary incontinence(Confirmed) Active 1s/p surgical treatment 09/[id number] 2010 [id number] 2014 positive polyp, repeat 2019.4colo 2009 nl, repeat 2014 Social History Social History Type Response Smoking Status Current every day smoker entered on: 03/08/18 Sex
--- OUTSIDE RECORDS SUMMARY | 2022-03-02 14:02 | XMS_ITS | Continuity of Care Document ---
:1945 Author Organization [facility] Address [address] [place] [address]- Care Team Providers Name Role Phone Brendan Estevez MD Primary Care Physician Encounter [facility] Date(s): 02/09/21 - 03/11/21 [facility] [address] [place] [address]- Allergies, Adverse Reactions, Alerts Substance Reaction Severity [...] toxoids (Td) 10/10/07 Recorded 1Location History: DR [id number] History: [facility] DR Strong Abdominal Binder Abdominal [...] Required Details, Route to Pharmacy Electronically, [facility]/pharma... Start Date: 08/09/19 Status: OrderedCRANBERRY 250 MG [...] Status: OrderedCVS MELATONIN 3 MG TABLET [facility] MELATONIN 3 MG TABLET, See Instructions, # [...] 02/11/21 15:32:00 EDT, Route to Pharmacy Electronically, [facility], 152, cm, 01/18/21 13:58:00 EDT, Height, 61.1, kg, 11/04/19 15:16:00 EDT, Dry Weight Start Date: 02/11/21 Status: OrderedPARoxetine 30 mg oral tablet 1 tablet, By Mouth, Daily, # 28 tablet, 12 Refills, [facility], 152, cm, 02/19/21 12:32:00 EDT, Height, 61.1, kg, 11/04/19 15:16:00 EDT, Dry Weight Start Date: 02/26/21 Status: [id number] oral powder for reconstitution See Instructions, MIX [...] 11:28:00 EDT, Route to Pharmacy Electronically, [facility], 152, cm, 12/28/20 12:44:00 EDT, Height, 61.1, [...] Active Urinary incontinence(Confirmed) Active 1s/p surgical treatment [id number]/[id number] 2010 [id number] 2014 positive polyp, repeat 2019.4colo 2009 nl, repeat 2014 Social History Social History Type Response Smoking Status Current every day smoker entered on: 03/08/18 Sex
--- OUTSIDE RECORDS SUMMARY | 2022-03-02 14:03 | XMS_ITS | Continuity of Care Document ---
:1945 Author Organization [facility] Address [address] [place] [id number]- Care Team Providers Name Role Phone Brendan Estevez MD Primary Care Physician Encounter [facility] [place] Date(s): 08/15/19 - 08/15/[address] [address]- [facility] Encounter Diagnosis Abdominal pain (Final) - 08/15/19 Discharge Disposition: A-D/C Home Attending Physician: Mason Estevez MD Admitting Physician: Mason Estevez MD Referring Physician: Not on Staff, Referring [...] Fluzone (oldterm) 02/28/12 Given 1Location History: DR [id number] History: [facility] Medications acetaminophen 325 mg oral tablet See Instructions, PRN, 650 mg By Mouth Every 4 hours prn headache, # 30 tablet, Refills 0, Tot. Refills 0, Maintenance, Headache Pain , Mild, 08/09/19 15:10:00 EDT, Instructions Replace Required Details, Route to Pharmacy Electronically, [facility]... Start Date: 08/09/19 Status: OrderedBreo Ellipta 100 mcg-25 mcg/inh inhalation powder 1 puffs, Inhalation, Daily, # 3 each, 3 Refills, Maintenance, 03/26/18 14:56:25 EST, Powder Start Date: 03/26/18 Stop Date: 03/21/19 Status: Orderedcranberry oral capsule See Instructions, By Mouth Daily, # 30 tablet, 5 Refills, Maintenance, 08/09/19 15:06:00 EDT, Capsule, [facility]/pharmacy #[id number], By Mouth Daily, 152.4, cm, 08/09/19 14:18:00 EDT, Height, 74.2, kg, 02/10/19 16:30:00 EDT, Dry Weight Start Date: 08/09/19 Status: Ordereddiclofenac 1% topical gel = 2 Gm, Topically, 4 times a day, # 240 Gm, 5 Refills, Maintenance, 08/09/19 15:55:00 EDT, [id number], 152.4, cm, 08/09/19 14:18:00 EDT, Height, 74.2, kg, 02/10/19 16:30:00 EDT, Dry Weight Start Date: 08/09/19 Status: Ordereddocusate-senna 50 mg-187 mg oral tablet 2 tablet, By Mouth, Daily, # 60 tablet, 5 Refills, Maintenance, 08/09/19 15:27:00 EDT, Tablet, [facility]/pharmacy #[id number], 2 tablet By Mouth Daily, 152.4, cm, 08/09/19 14:18:00 EDT, Height, 74.2, kg, 02/10/19 16:30:00 EDT, Dry Weight Start Date: 08/09/19 Status: Ordereddoxycycline hyclate 50 mg oral tablet 1 tablet = 50 mg, By Mouth, 2 times a day, # 60 tablet, 5 Refills, Maintenance, 08/09/19 15:38:00 EDT, Tablet, [facility]/pharmacy #[id number], 152.4, cm, 08/09/19 14:18:00 EDT, Height, 74.2, kg, 02/10/19 16:30:00 EDT, Dry Weight Start Date: 08/09/19 Status: Orderedfolic acid 1 mg oral tablet 1 mg, 1, tablet, By Mouth, Daily, # 30 tablet, Refills 5, Tot. Refills 5, Maintenance, 08/09/19 15:08:00 EDT, Route to Pharmacy Electronically, [facility]/pharmacy #[id number], 152.4, cm, 08/09/19 14:18:00 EDT, Height, [...] 08/09/19 15:25:00 EDT, [id number] 152.4, cm, 08/09/19 14:18:00 EDT, Height, [...] Refills, Maintenance, 08/09/19 15:05:00 EDT, Powder, [facility]/pharmacy #[id number], 152.4, cm, 08/09/19 14:18:00 EDT, Height, 74.2, kg, 02/10/19 16:30:00 E... Start Date: 08/09/19 Status: Orderedlactobacillus acidophilus oral capsule 1 capsule, By Mouth, 3 times a day with meals, Maintenance, 02/10/19 8:17:06 EDT Start Date: 02/10/19 Status: OrderedLORazepam 0.5 mg oral tablet 2 tablet = 1 mg, By Mouth, 3 times a day, PRN for anxiety, # 90 tablet, 2 Refills, Maintenance, 08/09/19 16:36:00 EDT, Tablet, [facility]/pharmacy #[id number], 152.4, cm, 08/09/19 14:18:00 EDT, Height, 74.2, kg, 02/10/19 16:30:00 EDT, Dry Weight Start Date: 08/09/19 Status: OrderedLORazepam 1 mg oral tablet 0.5 tablet = 0.5 mg, By Mouth, 2 times a day, and 1 additional tablet daily as needed, 0 Refills, Maintenance, 04/05/17 17:58:26 EST, Tablet Start Date: 04/05/17 Status: Orderedmelatonin 3 mg oral tablet 1 tablet = 3 mg, By Mouth, Daily at bedtime, # 30 tablet, 1 Refills, Maintenance, 08/09/19 15:43:00 EDT, [facility]/pharmacy #[id number], 152.4, cm, 08/09/19 14:18:00 EDT, Height, 74.2, kg, 02/10/19 16:30:00 EDT, Dry Weight Start Date: 08/09/19 Status: Orderedmethenamine hippurate 1 gm oral tablet 1 tablet = 1 Gm, By Mouth, 2 times a day, # 60 tablet, 1 Refills, Maintenance, 08/09/19 15:17:00 EDT, Tablet, [facility]/pharmacy #[id number], 152.4, cm, 08/09/19 14:18:00 EDT, Height, 74.2, kg, 02/10/19 16:30:00 EDT, Dry Weight Start Date: 08/09/19 Status: OrderedMiraLax oral powder for reconstitution = 17 Gm, By Mouth, Daily, 0 Refills, Maintenance, 08/22/18 13:03:34 EDT Start Date: 08/22/18 Status: OrderedMiraLax oral powder for reconstitution = 17 Gm, By Mouth, Daily, dissolve in water before taking, # 255 Gm, 1 Refills, Maintenance, 08/09/19 15:30:00 EDT, REC Powder, [facility]/pharmacy #[id number], 17 Gm By Mouth Daily,Instr:dissolve in water before taking, 152.4, cm, 08/09/19 14:18:00 EDT, Height, 7... Start Date: 08/09/19 Status: Orderedmultivitamin Multiple Vitamins oral capsule 1 capsule, By Mouth, Daily, # 30 capsule, 5 Refills, Maintenance, 08/09/19 15:01:00 EDT, Capsule, [facility]/pharmacy #[id number], 1 capsule By Mouth Daily, 152.4, cm, 08/09/19 14:18:00 EDT, Height, 74.2, kg, 02/10/19 16:30:00 EDT, Dry Weight Start Date: 08/09/19 Status: Orderednicotine 14 mg/24 hr transdermal film, extended release 1 patch, Topically, Daily, # 30 patch, 0 Refills, Acute 09/09/19 16:18:00 EDT, 08/09/19 16:36:00 EDT, Patch, [facility]/pharmacy #[id number], 1 patch Topically Daily, 152.4, cm, 08/09/19 14:18:00 EDT, Height, 74.2,kg, 02/10/19 16:30:00 EDT, Dry Weight Start Date: 08/09/19 Stop Date: 09/09/19 Status: Orderednicotine 21 mg/24 hr transdermal film, extended release 1 patch, Topically, Daily, # 30 patch, 0 Refills, Acute 09/09/19 16:15:00 EDT, 08/09/19 16:14:00 EDT, Patch, [facility]/pharmacy #[id number], 1 patch Topically Daily, 152.4, cm, 08/09/19 14:18:00 EDT, Height, 74.2,kg, 02/10/19 16:30:00 EDT, Dry Weight Start Date: 08/09/19 Stop Date: 09/09/19 Status: OrderedNicotine 7 mg/24 hour patch 1 patch, Topically, Daily, # 30 patch, 0 Refills, Acute 09/09/19 16:19:00 EDT, 08/09/19 16:36:00 EDT, Patch, [facility]/pharmacy #[id number], 1 patch Topically Daily, 152.4, cm, 08/09/19 14:18:00 EDT, Height, 74.2,kg, 02/10/19 16:30:00 EDT, Dry Weight Start Date: 08/09/19 Stop Date: 09/09/19 Status: OrderedOsCal 500 1250 mg oral tablet 1 tablet = 1,250 mg, By Mouth, 3 times a day, # 90 tablet, 5 Refills, Maintenance, 08/09/19 15:19:00EDT, Tablet, [facility]/pharmacy #[id number], 152.4, cm, 08/09/19 14:18:00 EDT, Height, [...] 08/09/19 15:24:00 EDT, Route to Pharmacy Electronically, [facility]/pharmacy #[id number], 152.4, cm, 08/09/19 14:18:00 EDT, Height, [...] Refills, Maintenance, 08/09/19 15:40:00 EDT, Tablet, [facility]/pharmacy #[id number], 152.4, cm, 08/09/19 14:18:00 EDT, Height, [...] 15:04:00 EDT, Route to Pharmacy Electronically, [facility]/pharmacy #[id number], 152.4, cm, 08/09/19 14:18:00 EDT, Height, 74.2, kg, 02/10/19 16:30:00 EDT, [facility]. Start Date: 08/09/19 Status: OrderedtraZODone 50 mg oral tablet 50 mg, 1, tablet, By Mouth, Daily at bedtime, # 30 tablet, Refills 5, Tot. Refills 5, Maintenance, 08/09/19 15:52:00 EDT, Route to Pharmacy Electronically, [facility]/pharmacy #[id number], 152.4, cm, 08/09/19 14:18:00 EDT, Height, [...] Refills, Maintenance, 08/09/19 15:37:00 EDT, Tablet, [facility]/pharmacy #[id number], 152.4, cm, 08/09/19 14:18:00 EDT, Height, 74.2, kg, 02/10/19 16:30:00 EDT, Dry Weight Start Date: 08/09/19 Status: OrderedVitamin D3 = 1,000 International_Units, By Mouth, Daily, 0 Refills, Maintenance, 03/31/16 13:21:29 Start Date: 03/31/16 Status: OrderedVitamin D3 10,000 intl units oral capsule 1 capsule = 10,000 International_Units, By Mouth, Daily, # 30 capsule, 5 Refills, Maintenance, 08/09/19 15:41:00 EDT, [facility]/pharmacy #[id number], 152.4, cm, 08/09/19 14:18:00 EDT, Height, 74.2, kg, 02/10/19 16:30:00 EDT, Dry Weight Start Date: 08/09/19 Status: Ordered Problem List Condition Effective Dates Status Health Status Informant Osteomyelitis of ankle(Confirmed) Active Appendectomy(Confirmed) Active Bacteremia due to coagulase-negative Active Staphylococcus(Confirmed) Bipolar disorder(Confirmed) Active BMI 38.0-38.9,adult(Confirmed) Active Cataract(Confirmed) Active Cholecystectomy(Confirmed) Active Chronic pyelonephritis(Confirmed) Active CKD (chronic kidney [...] (urinary tract Active infection)(Confirmed) 1s/p surgical treatment [id number] 2010 [id number] 2014 positive polyp, repeat 2019.4colo 2009 nl, repeat 2014 Vital Signs Most recent to oldest 1 2 3 [Reference Range]: Height 152 cm 152 cm 152 cm (08/15/19 5:55 PM) (08/15/19 3:13 PM) (08/15/19 2:3 7 PM) Weight 64 kg 64 kg (08/15/19 3:13 PM) (08/15/19 12:10 PM) Oxygen Saturation [94-100 %] 100 % 99 % 98 % (08/15/19 5:55 PM) (08/15/19 3:13 PM) (08/15/19 2:3 7 PM) Pulse Rate [55-90 bpm] 67 bpm 72 bpm 65 bpm (08/15/19 5:55 PM) (08/15/19 3:13 PM) (08/15/19 2:3 7 PM) Body Mass Index [18.5-24.99] 27.7 *H* (08/15/19 3:13 PM) Blood Pressure [90-138/55-84 123/55 mm Hg 132/65 mm Hg 124 /64 mm Hg mm Hg] (08/15/19 5:55 PM) (08/15/19 3:13 PM) (08/15/19 2:3 7 PM) Respiratory Rate [16-30 18 br/min 18 br/min 24 br/mi n br/min] (08/15/19 5:55 PM) (08/15/19 3:13 PM) (08/15/19 2:3 7 PM) Temperature [96.8-100.4 DegF] 97.7 DegF 97.9 DegF 97 .9 DegF (08/15/19 5:55 PM) (08/15/19 2:37 PM) (08/15/19 11: 59 AM) Mode of Delivery (Oxygen) Room air Room air Room a ir (08/15/19 5:55 PM) (08/15/19 3:13 PM) (08/15/19 2:3 7 PM) Blood pressure sites Arm, right Arm, right Arm, right (08/15/19 5:55 PM) (08/15/19 2:37 PM) (08/15/19 11: 59 AM) Temperature Route Oral Oral Oral (08/15/19 5:55 PM) (08/15/19 2:37 PM) (08/15/19 11: 59 AM) Dry Weight 64 kg 64 kg (08/15/19 3:13 PM) (08/15/19 12:10 PM) Social History Social History Type Response Smoking Status Current every day smoker entered on: 03/08/18 Sex Female
--- OUTSIDE RECORDS SUMMARY | 2022-03-02 14:03 | XMS_ITS | Continuity of Care Document ---
:[address] [facility] Address [address] [place] [address]- Care Team Providers Name Role Phone Brendan Estevez MD Primary Care Physician Encounter [facility] Date(s): 01/07/22 - 02/06/22 [facility] [address] [place] [address]- Allergies, Adverse Reactions, Alerts Substance Reaction Severity [...] toxoids (Td) 10/10/07 Recorded 1Location History: DR [id number] History: [facility] Medications acetaminophen 325 mg oral tablet See Instructions, PRN, 650 mg By Mouth Every 4 hours prn headache, # 30 tablet, Refills 0, Tot. Refills 0, Maintenance, Headache Pain , Mild, 08/09/19 15:10:00 EDT, Instructions Replace Required Details, Route to Pharmacy Electronically, [facility]... Start Date: 08/09/19 Status: Orderedalendronate 70 mg [...] Required Details, Route to Pharmacy Electronically, [facility], 152, cm, 11/19/21 11:01:00 EDT, Height, 54, kg, 10/20/21 11:19:00 EDT, Dry Weight Start Date: 12/31/21 Status: Orderedfurosemide 20 mg oral tablet 1, tablet, By Mouth, Daily, # 28 tablet, Refills 6, Route to Pharmacy Electronically, [facility], 152, cm, 11/19/21 11:01:00 EDT, Height, [...] bedtime, # 28 tablet, 6 Refills, [facility], 0, @@TAKE 1 TABLET BY MOUTH DAILY AT BEDTIME., 152, cm, 11/19/21 11:01:00 EDT, Height, 54, kg, 10/20/21 11:19:00 EDT, Dry Weight Start Date: 12/31/21 Status: Orderedmethenamine hippurate 1 gm oral tablet 1 tablet, By Mouth, 2 times a day, # 56 Unknown, 11 Refills, [facility], 152, cm, 10/28/21 9:53:00 EDT, Height, 54, kg, 10/20/21 11:19:00 EDT, Dry Weight Start Date: 11/05/21 Status: OrderedOXcarbazepine 150 mg oral tablet 1, tablet, By Mouth, 2 times a day, # 56 tablet, Refills 6, Route to Pharmacy Electronically, [facility], 152, cm, 11/19/21 11:01:00 EDT, Height, 54, kg, 10/20/21 11:19:00 EDT, Dry Weight Start Date: 12/31/21 Status: OrderedPARoxetine 30 mg oral tablet 1 tablet, By Mouth, Daily, # 28 tablet, 12 Refills, [facility], 152, cm, 02/19/21 12:32:00 EDT, Height, 61.1, kg, 11/04/19 15:16:00 EDT, Dry Weight Start Date: 02/26/21 Status: [id number] oral powder for reconstitution See Instructions, MIX 17 GRAMS OF POWDER IN 8 OZ OF WATER & DRINK BY MOUTH ONCE A DAY, # 238 Gm,11 Refills, [facility], 0, MIX 17 GRAMS OF POWDER IN 8 OZ OF WATER & DRINK BY MOUTH ONCE A DAY, 152, cm, 11/08/21 15:55:00 EDT, Height, 54,... Start Date: 11/08/21 Status: Orderedpropranolol 10 mg oral tablet 1, tablet, By Mouth, 3 times a day, # 84 tablet, Refills 6, Route to Pharmacy Electronically, [facility], 152, cm, 11/19/21 11:01:00 EDT, Height, 54, kg, 10/20/21 11:19:00 EDT, Dry Weight Start Date: 12/31/21 Status: Orderedsalsalate 500 mg oral tablet 1 tablet, By Mouth, Daily, # 28 tablet, 6 Refills, [facility], 152, cm, 11/19/21 11:01:00 EDT, Height, [...] 0 Refills, Maintenance, 01/28/22 13:58:00 [facility], [facility], 11/19/21 11:01:00 EDT, [...] for COVID-19 vaccine(Confirmed) Active 1s/p surgical treatment [id number] 2010 [id number] 2014 positive polyp, repeat 2019.4colo 2010 nl, repeat 2014 Social History Social History Type Response Smoking Status Current every day smoker entered on: 03/08/18 Sex Care Team PersonnelName: Brendan Estevez MD Address: [address] [place] [id number]
--- OUTSIDE RECORDS SUMMARY | 2022-03-02 14:03 | XMS_ITS | Continuity of Care Document ---
:[address] [facility] Address [address] [place] [address]- Care Team Providers Name Role Phone Brendan Estevez MD Primary Care Physician Encounter [facility] [place] [place] Date(s): 08/22/19 - 08/29/19 [facility] [address] [place] [address]- [facility] Encounter Diagnosis Urinary retention (Discharge Diagnosis) - 08/22/19 Constipation (Discharge Diagnosis) - 08/22/19 Attending Physician: Brendan Estevez MD Allergies, Adverse [...] Fluzone (oldterm) 02/28/12 Given 1Location History: DR [id number] History: [facility] Medications acetaminophen 325 [...] 5 Refills, Maintenance, 08/09/19 15:06:00 EDT, Capsule, [facility]/pharmacy #[id number], By Mouth Daily, 152.4, cm, 08/09/19 14:18:00 EDT, Height, 74.2, kg, 02/10/19 16:30:00 EDT, Dry Weight Start Date: 08/09/19 Status: Ordereddiclofenac 1% topical gel = 2 Gm, Topically, 4 times a day, # 240 Gm, 5 Refills, Maintenance, 08/09/19 15:55:00 EDT, [facility]/pharmacy #[id number], 152.4, cm, 08/09/19 14:18:00 EDT, Height, 74.2, kg, 02/10/19 16:30:00 EDT, Dry Weight Start Date: 08/09/19 Status: Ordereddocusate-senna 50 mg-187 mg oral tablet 2 tablet, By Mouth, Daily, # 60 tablet, 5 Refills, Maintenance, 08/09/19 15:27:00 EDT, Tablet, [facility]/pharmacy #[id number], 2 tablet By Mouth Daily, 152.4, cm, 08/09/19 14:18:00 EDT, Height, 74.2, kg, 02/10/19 16:30:00 EDT, Dry Weight Start Date: 08/09/19 Status: Ordereddoxycycline hyclate 50 mg oral capsule 1 capsule = 50 mg, By Mouth, 2 times a day, for 10 days, # 20 capsule, 0 Refills, Acute 09/01/19 15:00:00 EDT, 08/22/19 15:00:00 EDT, Capsule, [facility]/pharmacy #[id number], 152, cm, 08/15/19 17:55:00 EDT, Height, 64, kg, 08/15/19 15:13:00 EDT, Dry Weight Start Date: 08/22/19 Stop Date: 09/01/19 Status: Orderedfolic acid 1 mg oral tablet 1 mg, 1, tablet, By Mouth, Daily, # 30 tablet, Refills 5, Tot. Refills 5, Maintenance, 08/09/19 15:08:00 EDT, Route to Pharmacy Electronically, [facility]/pharmacy #[id number], 152.4, cm, 08/09/19 14:18:00 EDT, Height, [...] 08/09/19 15:25:00 EDT, Route to Pharmacy Electronically, [facility]/pharmacy #[id number], 152.4, cm, 08/09/19 14:18:00 EDT, Height, [...] 5 Refills, Maintenance, 08/09/19 15:05:00 EDT, Powder, [facility]/pharmacy #[id number], 152.4, cm, 08/09/19 14:18:00 EDT, Height, [...] 2 Refills, Maintenance, 08/09/19 16:36:00 EDT, Tablet, [facility]/pharmacy #[id number], 152.4, cm, 08/09/19 14:18:00 EDT, Height, [...] tablet, 1 Refills, Maintenance, 08/09/19 15:43:00 EDT, [id number], 152.4, cm, 08/09/19 14:18:00 EDT, Height, 74.2, kg, 02/10/19 16:30:00 EDT, Dry Weight Start Date: 08/09/19 Status: Orderedmethenamine hippurate 1 gm oral tablet 1 tablet = 1 Gm, By Mouth, 2 times a day, # 60 tablet, 1 Refills, Maintenance, 08/09/19 15:17:00 EDT, Tablet, [id number], 152.4, cm, 08/09/19 14:18:00 EDT, [...] Refills, Maintenance, 08/09/19 15:30:00 EDT, REC Powder, [id number], 17 Gm By Mouth Daily,Instr:dissolve in water before taking, 152.4, cm, 08/09/19 14:18:00 EDT, Height, 7... Start Date: 08/09/19 Status: Orderedmultivitamin Multiple Vitamins oral capsule 1 capsule, By Mouth, Daily, # 30 capsule, 5 Refills, Maintenance, 08/09/19 15:01:00 EDT, Capsule, [facility]/pharmacy #[id number], 1 capsule By Mouth Daily, 152.4, cm, 08/09/19 14:18:00 EDT, Height, 74.2, kg, 02/10/19 16:30:00 EDT, Dry Weight Start Date: 08/09/19 Status: Orderednicotine 14 mg/24 hr transdermal film, extended release 1 patch, Topically, Daily, # 30 patch, 0 Refills, Acute 09/09/19 16:18:00 EDT, 08/09/19 16:36:00 EDT, Patch, [facility]/pharmacy #[id number], 1 patch Topically Daily, 152.4, cm, 08/09/19 14:18:00 EDT, Height, 74.2,kg, 02/10/19 16:30:00 EDT, Dry Weight Start Date: 08/09/19 Stop Date: 09/09/19 Status: Orderednicotine 21 mg/24 hr transdermal film, extended release 1 patch, Topically, Daily, # 30 patch, 0 Refills, Acute 09/09/19 16:15:00 EDT, 08/09/19 16:14:00 EDT, Patch, [facility]/pharmacy #[id number], 1 patch Topically Daily, 152.4, cm, 08/09/19 14:18:00 EDT, Height, 74.2,kg, 02/10/19 16:30:00 EDT, Dry Weight Start Date: 08/09/19 Stop Date: 09/09/19 Status: OrderedNicotine 7 mg/24 hour patch 1 patch, Topically, Daily, # 30 patch, 0 Refills, Acute 09/09/19 16:19:00 EDT, 08/09/19 16:36:00 EDT, Patch, [id number], 1 patch Topically Daily, 152.4, cm, 08/09/19 14:18:00 EDT, Height, 74.2,kg, 02/10/19 16:30:00 EDT, Dry Weight Start Date: 08/09/19 Stop Date: 09/09/19 Status: OrderedOsCal 500 1250 mg oral tablet 1 tablet = 1,250 mg, By Mouth, 3 times a day, # 90 tablet, 5 Refills, Maintenance, 08/09/19 15:19:00EDT, Tablet, [facility]/pharmacy #[id number], 152.4, cm, 08/09/19 14:18:00 EDT, Height, [...] 08/09/19 15:24:00 EDT, Route to Pharmacy Electronically, [facility]/pharmacy #[id number], 152.4, cm, 08/09/19 14:18:00 EDT, Height, [...] 5 Refills, Maintenance, 08/09/19 15:40:00 EDT, Tablet, [facility]/pharmacy #[id number], 152.4, cm, 08/09/19 14:18:00 EDT, Height, [...] 08/09/19 15:04:00 EDT, Route to Pharmacy Electronically, [facility]/pharmacy #[id number], 152.4, cm, 08/09/19 14:18:00 EDT, Height, 74.2, kg, 02/10/19 16:30:00 EDT, . Start Date: 08/09/19 Status: OrderedtraZODone 50 mg oral tablet 50 mg, 1, tablet, By Mouth, Daily at bedtime, # 30 tablet, Refills 5, Tot. Refills 5, Maintenance, 08/09/19 15:52:00 EDT, Route to Pharmacy Electronically, [facility]/pharmacy #[id number], 152.4, cm, 08/09/19 14:18:00 EDT, Height, [...] 5 Refills, Maintenance, 08/09/19 15:37:00 EDT, Tablet, [facility]/pharmacy #[id number], 152.4, cm, 08/09/19 14:18:00 EDT, Height, 74.2, kg, 02/10/19 16:30:00 EDT, Dry Weight Start Date: 08/09/19 Status: OrderedVitamin D3 = 1,000 International_Units, By Mouth, Daily, 0 Refills, Maintenance, 03/31/16 13:21:29 Start Date: 03/31/16 Status: OrderedVitamin D3 10,000 intl units oral capsule 1 capsule = 10,000 International_Units, By Mouth, Daily, # 30 capsule, 5 Refills, Maintenance, 08/09/19 15:41:00 EDT, [id number], 152.4, cm, 08/09/19 14:18:00 [...] (urinary tract Active infection)(Confirmed) 1s/p surgical treatment [id number]/[id number] 2010 [id number] 2014 positive polyp, repeat 2019.4colo 2009 nl, repeat 2014 Diagnosis Diagnosis Type Effective Dates Health Clinical Infor mant Status Service Urinary retention Discharge 08/22/19 Diagnosis Constipation Discharge 08/22/19 Diagnosis Social History Social History Type Response Smoking Status Current every day smoker entered on: 03/08/18 Sex Female
--- OUTSIDE RECORDS SUMMARY | 2022-03-02 14:03 | XMS_ITS | Continuity of Care Document ---
:1945 Author Organization [facility] Address [address] [place] [id number]- Care Team Providers Name Role Phone Brendan Estevez MD Primary Care Physician Encounter [facility] [place] Date(s): 05/20/21 - 06/19/21 [facility] [address] [place] [id number]- Attending Physician: Tomasz Singh Admitting Physician: Tomasz Singh Referring Physician: Tomasz Singh Allergies, Adverse Reactions, Alerts Substance Reaction Severity [...] toxoids (Td) 10/10/07 Recorded 1Location History: DR [id number] History: [facility] Medications Abdominal Binder Abdominal Binder, [...] Required Details, Route to Pharmacy Electronically, [facility]/pharma... Start Date: 08/09/19 Status: Orderedbacitracin topical [...] Refills 5, Route to Pharmacy Electronically, [facility], 152, cm, 01/18/21 13:58:00 EDT, Height, 61.1, [...] bedtime, # 28 tablet, 6 Refills, [facility], 0, @@TAKE 1 TABLET BY MOUTH DAILY [...] EST, Dry Weight Start Date: 06/15/21 Status: OrderedPARoxetine 30 mg oral tablet 1 [...] 0 Refills, Maintenance, 05/20/21 17:32:00 [facility], Partial fill upon patient re... Start Date: 05/20/21 Status: [id number] oral powder for reconstitution See Instructions, MIX [...] Required Details, [facility], cm, 02/19/21 12:32:00 EDT, Height, 61.1, [...] Active Urinary incontinence(Confirmed) Active 1s/p surgical treatment 09/[id number] 2010 [id number] 2014 positive polyp, repeat 2019.4colo 2009 nl, repeat 2014 Social History Social History Type Response Smoking Status Current every day smoker entered on: 03/08/18 Sex
--- OUTSIDE RECORDS SUMMARY | 2022-03-02 14:03 | XMS_ITS | Continuity of Care Document ---
:1945 Author Organization [facility] Adult Address [address] [place] [address]- Care Team Providers Name Role Phone Brendan Estevez MD Primary Care Physician Encounter [facility] Date(s): 08/09/19 - 08/16/19 [facility] [address] [place] [address]- [facility] Encounter Diagnosis Bipolar disorder (Discharge Diagnosis) - 08/09/19 Bacteremia due to coagulase-negative Staphylococcus (Discharge Diagnosis) - 08/09/19 CKD (chronic kidney disease) stage 3, GFR 30-59 ml/min (Discharge Diagnosis) - 08/09/19 COPD (chronic obstructive pulmonary disease) (Discharge Diagnosis) - 08/09/19 Compression fracture of lumbar vertebra (Discharge Diagnosis) - 08/09/19 HTN (hypertension) (Discharge Diagnosis) - 08/09/19 Osteomyelitis of ankle (Discharge Diagnosis) - 08/09/19 Tobacco abuse (Discharge Diagnosis) - 08/09/19 UTI (urinary tract infection) (Discharge Diagnosis) - 08/09/19 Attending Physician: Brendan Estevez MD Allergies, Adverse [...] Vaccine Live2 10/05/15 Recorded pneumococcal 13-valent vaccine 4/13/15 Given Pneumococcal Vacc (oldterm) 02/28/12 Given Fluzone (oldterm) 02/28/12 Given 1Location History: DR [id number] History: [facility] Medications acetaminophen 325 mg oral tablet See Instructions, PRN, 650 mg By Mouth Every 4 hours prn headache, # 30 tablet, Refills 0, Tot. Refills 0, Maintenance, Headache Pain , Mild, 08/09/19 15:10:00 EDT, Instructions Replace Required Details, Route to Pharmacy Electronically, [facility]/pharma... Start Date: 08/09/19 Status: OrderedBreo Ellipta 100 mcg-25 mcg/inh inhalation powder 1 puffs, Inhalation, Daily, # 3 each, 3 Refills, Maintenance, 03/26/18 14:56:25 EST, Powder Start Date: 03/26/18 Stop Date: 03/21/19 Status: Orderedcranberry oral capsule See Instructions, By Mouth Daily, # 30 tablet, 5 Refills, Maintenance, 08/09/19 15:06:00 EDT, Capsule, [facility]/pharmacy #[id number], By Mouth Daily, 152.4, cm, 08/09/19 14:18:00 EDT, Height, 74.2, kg, 02/10/19 16:30:00 EDT, Dry Weight Start Date: 08/09/19 Status: Ordereddiclofenac 1% topical gel = 2 Gm, Topically, 4 times a day, # 240 Gm, 5 Refills, Maintenance, 08/09/19 15:55:00 EDT, [facility]/pharmacy #[id number], 152.4, cm, 08/09/19 14:18:00 EDT, Height, 74.2, kg, 02/10/19 16:30:00 EDT, Dry Weight Start Date: 08/09/19 Status: Ordereddocusate-senna 50 mg-187 mg oral tablet 2 tablet, By Mouth, Daily, # 60 tablet, 5 Refills, Maintenance, 08/09/19 15:27:00 EDT, Tablet, [facility]/pharmacy #[id number], 2 tablet By Mouth Daily, 152.4, cm, 08/09/19 14:18:00 EDT, Height, 74.2, kg, 02/10/19 16:30:00 EDT, Dry Weight Start Date: 08/09/19 Status: Ordereddoxycycline hyclate 50 mg oral tablet 1 tablet = 50 mg, By Mouth, 2 times a day, # 60 tablet, 5 Refills, Maintenance, 08/09/19 15:38:00 EDT, Tablet, [facility]/pharmacy #[id number], 152.4, cm, 08/09/19 14:18:00 EDT, Height, 74.2, kg, 02/10/19 16:30:00 EDT, Dry Weight Start Date: 08/09/19 Status: Orderedfolic acid 1 mg oral tablet 1 mg, 1, tablet, By Mouth, Daily, # 30 tablet, Refills 5, Tot. Refills 5, Maintenance, 08/09/19 15:08:00 EDT, Route to Pharmacy Electronically, [facility]/pharmacy #[id number], 152.4, cm, 08/09/19 14:18:00 [...] 08/09/19 15:25:00 EDT, [id number] 152.4, cm, 08/09/19 14:18:00 EDT, Height, [...] 5 Refills, Maintenance, 08/09/19 15:05:00 EDT, Powder, [facility]/pharmacy #[id number], 152.4, cm, 08/09/19 14:18:00 [...] 2 Refills, Maintenance, 08/09/19 16:36:00 EDT, Tablet, [facility]/pharmacy #[id number], 152.4, cm, 08/09/19 14:18:00 [...] tablet, 1 Refills, Maintenance, 08/09/19 15:43:00 EDT, [facility]/pharmacy #[id number], 152.4, cm, 08/09/19 14:18:00 EDT, Height, 74.2, kg, 02/10/19 16:30:00 EDT, Dry Weight Start Date: 08/09/19 Status: Orderedmethenamine hippurate 1 gm oral tablet 1 tablet = 1 Gm, By Mouth, 2 times a day, # 60 tablet, 1 Refills, Maintenance, 08/09/19 15:17:00 EDT, Tablet, [facility]/pharmacy #[id number], 152.4, cm, 08/09/19 14:18:00 [...] Refills, Maintenance, 08/09/19 15:30:00 EDT, REC Powder, [facility]/pharmacy #[id number], 17 Gm By Mouth Daily,Instr:dissolve in water before taking, 152.4, cm, 08/09/19 14:18:00 EDT, Height, 7... Start Date: 08/09/19 Status: Orderedmultivitamin Multiple Vitamins oral capsule 1 capsule, By Mouth, Daily, # 30 capsule, 5 Refills, Maintenance, 08/09/19 15:01:00 EDT, Capsule, [facility]acy [id number], 1 capsule By Mouth Daily, 152.4, cm, 08/09/19 14:18:00 EDT, Height, 74.2, kg, 02/10/19 16:30:00 EDT, Dry Weight Start Date: 08/09/19 Status: Orderednicotine 14 mg/24 hr transdermal film, extended release 1 patch, Topically, Daily, # 30 patch, 0 Refills, Acute 09/09/19 16:18:00 EDT, 08/09/19 16:36:00 EDT, Patch, [facility]acy [id number], 1 patch Topically Daily, 152.4, cm, 08/09/19 14:18:00 EDT, Height, 74.2,kg, 02/10/19 16:30:00 EDT, Dry Weight Start Date: 08/09/19 Stop Date: 09/09/19 Status: Orderednicotine 21 mg/24 hr transdermal film, extended release 1 patch, Topically, Daily, # 30 patch, 0 Refills, Acute 09/09/19 16:15:00 EDT, 08/09/19 16:14:00 EDT, Patch, [facility]acy [id number], 1 patch Topically Daily, 152.4, cm, 08/09/19 14:18:00 EDT, Height, 74.2,kg, 02/10/19 16:30:00 EDT, Dry Weight Start Date: 08/09/19 Stop Date: 09/09/19 Status: OrderedNicotine 7 mg/24 hour patch 1 patch, Topically, Daily, # 30 patch, 0 Refills, Acute 09/09/19 16:19:00 EDT, 08/09/19 16:36:00 EDT, Patch, [facility]/pharmacy #[id number], 1 patch Topically Daily, 152.4, cm, 08/09/19 14:18:00 EDT, Height, 74.2,kg, 02/10/19 16:30:00 EDT, Dry Weight Start Date: 08/09/19 Stop Date: 09/09/19 Status: OrderedOsCal 500 1250 mg oral tablet 1 tablet = 1,250 mg, By Mouth, 3 times a day, # 90 tablet, 5 Refills, Maintenance, 08/09/19 15:19:00EDT, Tablet, [facility]/pharmacy #[id number], 152.4, cm, 08/09/19 14:18:00 [...] 08/09/19 15:24:00 EDT, Route to Pharmacy Electronically, [facility]/pharmacy #[id number], 152.4, cm, 08/09/19 14:18:00 [...] 5 Refills, Maintenance, 08/09/19 15:40:00 EDT, Tablet, [facility]/pharmacy #[id number], 152.4, cm, 08/09/19 14:18:00 [...] 08/09/19 15:04:00 EDT, Route to Pharmacy Electronically, [facility]/pharmacy #[id number], 152.4, cm, 08/09/19 14:18:00 EDT, Height, 74.2, kg, 02/10/19 16:30:00 EDT, DrDerek.. Start Date: 08/09/19 Status: OrderedtraZODone 50 mg oral tablet 50 mg, 1, tablet, By Mouth, Daily at bedtime, # 30 tablet, Refills 5, Tot. Refills 5, Maintenance, 08/09/19 15:52:00 EDT, Route to Pharmacy Electronically, [facility]/pharmacy #[id number], 152.4, cm, 08/09/19 14:18:00 [...] 5 Refills, Maintenance, 08/09/19 15:37:00 EDT, Tablet, [facility]/pharmacy #[id number], 152.4, cm, 08/09/19 14:18:00 [...] (urinary tract Active infection)(Confirmed) 1s/p surgical treatment [id number] 2010 [id number] 2014 positive polyp, repeat 2019.4colo 2009 nl, repeat 2014 Diagnosis Diagnosis Type Effective Dates Health Clinical Infor mant Status Service Bipolar disorder Discharge 08/09/19 Diagnosis Bacteremia due to Discharge 08/09/19 coagulase-negative Diagnosis Staphylococcus CKD (chronic kidney Discharge 08/09/19 disease) stage 3, Diagnosis GFR 30-59 ml/min COPD (chronic Discharge 08/09/19 obstructive Diagnosis pulmonary disease) Compression fracture Discharge 08/09/19 of lumbar vertebra Diagnosis HTN (hypertension) Discharge 08/09/19 Diagnosis Osteomyelitis of Discharge 08/09/19 ankle Diagnosis Tobacco abuse Discharge 08/09/19 Diagnosis UTI (urinary tract Discharge 08/09/19 infection) Diagnosis Vital Signs Most recent to oldest [Reference Range]: 1 2 Height 152.4 cm 152.4 cm (08/09/19 2:18 PM) (08/09/19 1:47 PM) Weight 65.2 kg (08/09/19 1:47 PM) Oxygen Saturation [94-100 %] 96 % (08/09/19 1:47 PM) Pulse Rate [55-90 bpm] 88 bpm (08/09/19 1:47 PM) Body Mass Index [18.5-24.99] 28.07 *H* (08/09/19 1:47 PM) Blood Pressure [90-138/55-84 mm Hg] 120/80 mm Hg 144/ 90 mm Hg (08/09/19 2:18 PM) *H* (08/09/19 1:47 PM) Mode of Delivery (Oxygen) Room air (08/09/19 1:47 PM) Blood pressure sites Arm, left (08/09/19 1:47 PM) Weight Obtained Via Standing scale (08/09/19 1:47 PM) Social History Social History Type Response Smoking Status Current every day smoker entered on: 03/08/18 Sex Female
--- OUTSIDE RECORDS SUMMARY | 2022-03-02 14:03 | XMS_ITS | Continuity of Care Document ---
:1945 Author Organization [facility] Adult Address [address] [place] [address]- Care Team Providers Name Role Phone Brendan Estevez MD Primary Care Physician Encounter [facility] Date(s): 03/29/21 - 04/28/21 [facility] [address] [place] [address]- Attending Physician: Admtr, Tomasz Admitting Physician: Admtr, [id number] Referring Physician: Admtr, [id number] Allergies, Adverse Reactions, Alerts Substance Reaction Severity Status ibuprofen Active sulfADIAZINE Active Motrin Active Vicodin Depression Active morphine Nausea Active Percocet 7.5/325 Depression Active Immunizations Given [...] toxoids (Td) 10/10/07 Recorded 1Location History: DR [id number] History: [facility] DR Strong Abdominal Binder Abdominal [...] Details, Route to Pharmacy Electronically, [facility]/pharma... Start Date: 08/09/19 Status: Orderedbacitracin topical [...] Refills 5, Route to Pharmacy Electronically, [facility], 152, cm, 01/18/21 13:58:00 EDT, Height, [...] EDT, Dry Weight Start Date: 02/26/21 Status: [id number] oral powder for reconstitution See Instructions, MIX [...] Required Details, [facility], cm, 02/19/21 12:32:00 EDT, [...] Daily, # 28 tablet, 12 Refills, [facility], 152, cm, 02/19/21 12:32:00 EDT, Height, [...] Active Urinary incontinence(Confirmed) Active 1s/p surgical treatment [id number] 2010 [id number] 2014 positive polyp, repeat 2019.4colo 2009 nl, repeat 2014 Social History Social History Type Response Smoking Status Current every day smoker entered on: 03/08/18 Sex
--- OUTSIDE RECORDS SUMMARY | 2022-03-02 14:03 | XMS_ITS | Continuity of Care Document ---
:1945 Author Organization [facility] Adult Address [address] [place] [address]- Care Team Providers Name Role Phone Brendan Estevez MD Primary Care Physician Encounter [facility] Date(s): 01/13/21 - 02/12/21 [facility] [address] [place] [address]- Allergies, Adverse Reactions, Alerts Substance Reaction Severity [...] toxoids (Td) 10/10/07 Recorded 1Location History: DR [id number] History: [facility] Medications Abdominal Binder Abdominal Binder, [...] Replace Required Details, Route to Pharmacy Electronically, [facility]/pharma... Start Date: 08/09/19 Status: OrderedCRANBERRY [...] Refills 5, Route to Pharmacy Electronically, [facility], 152, cm, 01/18/21 13:58:00 EDT, Height, [...] Daily, # 28 tablet, 0 Refills, [facility], 152, cm, 01/18/21 13:58:00 EDT, Height, 61.1, kg, 11/04/19 15:16:00 EDT, Dry Weight Start Date: 01/28/21 Status: [id number] oral powder for reconstitution See Instructions, MIX [...] 11:28:00 EDT, Route to Pharmacy Electronically, [facility], 152, cm, 12/28/20 12:44:00 EDT, Height, 61.1, [...] Daily, # 28 tablet, 0 [facility], cm, 01/18/21 13:58:00 EDT, [...] Active Urinary incontinence(Confirmed) Active 1s/p surgical treatment [id number] 2010 [id number] 2014 positive polyp, repeat 2019.4colo 2009 nl, repeat 2014 Social History Social History Type Response Smoking Status Current every day smoker entered on: 03/08/18 Sex
--- OUTSIDE RECORDS SUMMARY | 2022-03-02 14:03 | XMS_ITS | Continuity of Care Document ---
:1945 Author Organization [facility] Adult Address [address] [place] [address]- Care Team Providers Name Role Phone Brendan Estevez MD Primary Care Physician Encounter [facility] Date(s): 03/23/21 - 04/22/21 [facility] [address] [place] [address]- Allergies, Adverse Reactions, Alerts Substance Reaction Severity [...] toxoids (Td) 10/10/07 Recorded 1Location History: DR [id number] History: [facility] DR Strong Abdominal Binder Abdominal Binder, [...] Replace Required Details, Route to Pharmacy Electronically, [facility]/pharma... Start Date: 08/09/19 Status: Orderedbacitracin topical [...] Refills 5, Route to Pharmacy Electronically, [facility], 152, cm, 01/18/21 13:58:00 EDT, [...] bedtime, # 28 tablet, 0 Refills, [facility], 0, @@TAKE 1 TABLET BY [...] EDT, Dry Weight Start Date: 02/26/21 Status: [id number] oral powder for reconstitution See Instructions, MIX [...] Required Details, Route to Pharmacy Electronically, [facility], 152, cm, [...] Daily, # 28 tablet, 12 Refills, [facility], 152, cm, [...] Active Urinary incontinence(Confirmed) Active 1s/p surgical treatment [id number] 2010 [id number] 2014 positive polyp, repeat 2019.4colo 2010 nl, repeat 2014 Social History Social History Type Response Smoking Status Current every day smoker entered on: 03/08/18 Sex
--- OUTSIDE RECORDS SUMMARY | 2022-03-02 14:03 | XMS_ITS | Continuity of Care Document ---
:1945 Author Organization [facility] Adult Address [address] [place] [address]- Care Team Providers Name Role Phone Brendan Estevez MD Primary Care Physician [place] [facility] [place] 06/26[place]20 - 07/26/20 [facility] [address] [place] [address]- Allergies, Adverse Reactions, Alerts Substance Reaction Severity [...] Fluzone (oldterm) 02/28/12 Given 1Location History: DR [id number] History: [facility] DR Strong Abdominal Binder Abdominal Binder, [...] [facility] [place], 152, cm, 03/17/20 14:47:00 EDT, Height, 61.1, [...] Route to Pharm[facility] Electronically[facility] [place], [facility], cm, 03/17/20 14:47:00 EDT, Height, 61.1, [...] 56 tablet, 3 Refills, Acute, 05/08/20 13:28:00 [facility], 152, cm, 03/17/20 14:47:00 EDT, Height, 61.1, kg, 11/04/19 15:16:00 EDT, Dry Weight Start Date: 05/08/20 Status: OrderedMiraLax oral powder for reconstitution = 17 Gm, By Mouth, Daily, dissolve in water before taking, # 255 Gm, 1 Refills, Maintenance, 07/03/20 9:16:00 EST, REC Powder, [facility], 17 Gm By Mouth Daily,Instr:dissolve in water before taking, 152, cm, 06/26/20 12:46:00 EST, Height,... Start Date: 07/03/20 Status: OrderedMiscellaneous Rx 1, tablet, By Mouth, Daily at bedtime, # 28 tablet, 0 Refills, Maintenance, 01/17/20 10:52:00 EDT, 152, cm, 12/10/19 15:52:00 EDT, Height, 61.1, kg, 11/04/19 15:16:00 EDT, Dry Weight Start Date: 01/17/20 Status: Orderedmultivitamin Multiple Vitamins oral tablet 1 tablet, By Mouth, Daily, # 28 tablet, 3 Refills, Maintenance, 05/08/20 13:28:00 EST, [facility], 0, TAKE 1 TABLET BY MOUTH ONCE DAILY, 152, cm, 03/17/20 14:47:00 EDT, Height, 61.1, kg, 11/04/19 15:16:00 EDT, Dry Weight Start Date: 05/08/20 Status: OrderedOXcarbazepine 150 mg oral tablet 1, tablet, By Mouth, 2 times a day, # 56 tablet, Refills 3, Tot. Refills 0, Maintenance, 05/08/20 13:28:00 EST, [facility], cm, 03/17/20 14:47:00 EDT, Height, 61.1, kg, 11/04/19 15:16:00 EDT, Dry We... Start Date: 05/08/20 Status: OrderedPARoxetine 30 mg oral tablet 1 tablet, By Mouth, Daily, # 28 tablet, 6 Refills, Maintenance, 05/08/20 13:28:00 [facility], 152, cm, 03/17/20 14:47:00 EDT, Height, 61.1, [...] 15:16:00 EDT, D... Start Date: 12/06/19 Status: OrderedSENNA-PLUS TABLET SENNA-PLUS TABLET, 2, tablet, By Mouth, Daily, # 56 tablet, 3 Refills, Maintenance, 05/08/20 13:28:00 EST, 152, cm, 03/17/20 14:47:00 EDT, Height, 61.1, kg, 11/04/19 15:16:00 EDT, Dry Weight Start Date: 05/08/20 Status: OrderedtraZODone 50 mg oral tablet 0.5, tablet, By Mouth, Daily at bedtime, # 14 tablet, Refills 2, Tot. Refills 0, Maintenance, 07/03/20 11:23:00 EST, Route to Pharmacy Electronically, [facility], 152, cm, 06/26/20 12:46:00 EST, Height, 61.1, kg, 11/04/19 15:16:00 EDT, D... Start Date: 07/03/20 Status: OrderedVitamin C 500 mg oral tablet 1 tablet, By Mouth, Daily, # 28 tablet, 3 Refills, Maintenance, 05/08/20 13:28:00 EST, [facility], 152, cm, 03/17/20 14:47:00 EDT, Height, 61.1, kg, 11/04/19 15:16:00 EDT, Dry Weight Start Date: 05/08/20 Status: OrderedVitamin D3 5000 intl units oral tablet 2 tablet, By Mouth, Daily, # 56 tablet, 3 Refills, Maintenance, 05/08/20 13:28:00 EST, [facility], 152, cm, 03/17/20 14:47:00 EDT, Height, [...] (urinary tract Active infection)(Confirmed) 1s/p surgical treatment [id number]/[id number] 2010 [id number] 2014 positive polyp, repeat 2019.4colo 2009 nl, repeat 2014 Social History Social History Type Response Smoking Status Current every day smoker entered on: 03/08/18 Sex Female
--- OUTSIDE RECORDS SUMMARY | 2022-03-02 14:03 | XMS_ITS | Continuity of Care Document ---
:1945 Author Organization [facility] Adult Address [address] [place] [address]- Care Team Providers Name Role Phone Brendan Estevez MD Primary Care Physician Encounter [facility] Date(s): 03/17/20 - 03/24/20 [facility] [address] [place] [address]- [facility] Encounter Diagnosis Bipolar disorder (Discharge Diagnosis) - 03/17/20 CKD (chronic kidney disease) stage 3, GFR 30-59 ml/min (Discharge Diagnosis) - 03/17/20 COPD (chronic obstructive pulmonary disease) (Discharge Diagnosis) - 03/17/20 Family history of colon cancer (Discharge Diagnosis) - 03/17/20 HTN (hypertension) (Discharge Diagnosis) - 03/17/20 Tobacco abuse (Discharge Diagnosis) - 03/17/20 Osteomyelitis of ankle (Discharge Diagnosis) - 03/17/20 Attending Physician: Brendan Estevez MD Allergies, Adverse [...] Fluzone (oldterm) 02/28/12 Given 1Location History: DR [id number] History: [facility] DR Strong Abdominal Binder Abdominal Binder, [...] [facility]/pharma... Start Date: 08/09/19 Status: Orderedcranberry oral [...] Refills, Maintenance, 12/06/19 9:39:00 EDT, Tablet, [facility], 2 tablet By Mouth Daily, [...] EDT, Dry Weight Start Date: 12/06/19 Status: OrderedFosamax 70 mg oral tablet 1 tablet = 70 mg, By Mouth, Every week, # 4 tablet, 11 Refills, Maintenance, 03/17/20 15:21:00 EDT, Tablet, [facility], 152, cm, 03/17/20 14:47:00 EDT, Height, 61.1, kg, 11/04/19 15:16:00 EDT, Dry Weight Start Date: 03/17/20 Stop Date: 02/16/21 Status: Orderedfurosemide 20 mg oral tablet 20 [...] bedtime, # 28 tablet, 0 Refills, Acute, 03/17/20 10:16:00 EDT, [facility], 0, TAKE 1 TABLET BY MOUTH AT BEDTIME., 152, cm, 02/04/20 12:34:00 EDT, Height, 61.1, kg, 11/04/19 15:16:00 EDT, Dry Weight Start Date: 03/17/20 Status: Orderedmethenamine hippurate 1 gm oral tablet [...] 11/25/19 15:52:00 EDT, Route to Pharmacy Electronically, [facility]/pharmacy #[id number], 152, cm, 11/12/19 10:46:00 EDT, [...] (urinary tract Active infection)(Confirmed) 1s/p surgical treatment [id number] 2010 [id number] 2014 positive polyp, repeat 2019.4colo 2010 nl, repeat 2014 Diagnosis Diagnosis Type Effective Dates Health Clinical Infor mant Status Service Bipolar disorder Discharge 03/17/20 Diagnosis CKD (chronic kidney Discharge 03/17/20 disease) stage 3, Diagnosis GFR 30-59 ml/min COPD (chronic Discharge 03/17/20 obstructive Diagnosis pulmonary disease) Family history of Discharge 03/17/20 colon cancer Diagnosis HTN (hypertension) Discharge 03/17/20 Diagnosis Tobacco abuse Discharge 03/17/20 Diagnosis Osteomyelitis of Discharge 03/17/20 ankle Diagnosis Vital Signs Most recent to oldest [Reference Range]: 1 Height 152 cm (03/17/20 2:47 PM) Weight 60.3 kg (03/17/20 2:47 PM) Oxygen Saturation [94-100 %] 98 % (03/17/20 2:47 PM) Pulse Rate [55-90 bpm] 68 bpm (03/17/20 2:47 PM) Body Mass Index [18.5-24.99] 26.1 *H* (03/17/20 2:47 PM) Blood Pressure [90-138/55-84 mm Hg] 124/62 mm Hg (03/17/20 2:47 PM) Mode of Delivery (Oxygen) Room air (03/17/20 2:47 PM) Blood pressure sites Arm, left (03/17/20 2:47 PM) Weight Obtained Via Standing scale (03/17/20 2:47 PM) Social History Social History Type Response Smoking Status Current every day smoker entered on: 03/08/18 Sex Female
--- OUTSIDE RECORDS SUMMARY | 2022-03-02 14:03 | XMS_ITS | Continuity of Care Document ---
:1945 Author Organization [facility] Adult Address [address] [place] [address]- Care Team Providers Name Role Phone Zenaida MAR, Brendan Hodges Primary Care Physician [place] [facility] 10/11/21 [facility] Adult [address] [place] [address]- Encounter Diagnosis Dysuria (Discharge Diagnosis) - 10/04/21 Wound of right ankle (Discharge Diagnosis) - 10/04/21 Attending Physician: Edis PALOMINO, Micaela Zhou Allergies, Adverse Reactions, Alerts Substance Reaction Severity [...] toxoids (Td) 10/10/07 Recorded 1Location History: DR [id number] History: [facility] DR Strong Abdominal Binder Abdominal Binder, [...] Required Details, Route to Pharmacy Electronically, [facility]/pharma... Start Date: 08/09/19 Status: Orderedbacitracin [...] Required Details, Route to Pharmacy Electronically, [facility], 154, cm, 06/28/21 13:44:00 EST, Height, [...] Refills 5, Route to Pharmacy Electronically, [facility], 154, cm, 06/28/21 13:44:00 EST, Height, 50.3, kg, 04/02/21 1:28:00 EST, Dry Weight Start Date: 07/09/21 Status: OrderedPARoxetine 30 mg oral tablet 1 tablet, By Mouth, Daily, # 28 tablet, 12 Refills, [facility], 152, cm, 02/19/21 12:32:00 EDT, Height, [...] upon patient re... Start Date: 05/20/21 Status: [id number] oral powder for reconstitution See Instructions, MIX 17 GRAMS OF POWDER IN 8 OZ OF WATER & DRINK BY MOUTH ONCE A DAY, # 238 Gm,5 Refills, [facility], 0, MIX 17 GRAMS OF POWDER [...] Daily, # 28 tablet, 12 Refills, [facility], 152, cm, 02/19/21 12:32:00 EDT, Height, [...] for COVID-19 vaccine(Confirmed) Active 1s/p surgical treatment 09/[id number] 2010 [id number] 2014 positive polyp, repeat 2019.4colo 2010 nl, repeat 2014 Diagnosis Diagnosis Type Effective Dates Health Status Clinical In [facility] Service Dysuria Discharge 10/04/21 Diagnosis Wound of right Discharge 10/04/21 ankle Diagnosis Vital Signs Most recent to oldest [Reference Range]: 1 Height 154 cm (10/04/21 11:12 AM) Weight 42.1 kg (10/04/21 11:12 AM) Oxygen Saturation [94-100 %] 98 % (10/04/21 11:12 AM) Pulse Rate [55-90 bpm] 77 bpm (10/04/21 11:12 AM) Body Mass Index [18.5-24.99] 17.75 *L* (10/04/21 11:12 AM) Blood Pressure [90-138/55-84 mm Hg] 118/74 mm Hg (10/04/21 11:12 AM) Blood pressure sites Arm, right (10/04/21 11:12 AM) Social History Social History Type Response Smoking Status Current every day smoker entered on: 03/08/18 Sex
--- OUTSIDE RECORDS SUMMARY | 2022-03-02 14:04 | XMS_ITS | Continuity of Care Document ---
:1945 Author Organization [facility] Adult Address [address] [place] [address]- Care Team Providers Name Role Phone Brendan Estevez MD Primary Care Physician Encounter [facility] Date(s): 11/19/20 - 12/19/20 [facility] [address] [place] [address]- Allergies, Adverse Reactions, Alerts Substance Reaction Severity [...] toxoids (Td) 10/10/07 Recorded 1Location History: DR [id number] History: [facility] DR Strong Abdominal [...] Required Details, Route to Pharmacy Electronically, [facility]... Start Date: 08/09/19 Status: OrderedCRANBERRY 250 MG [...] Start Date: 02/16/21 Stop Date: 01/18/22 Status: OrderedFosamax 70 mg oral tablet 1 tablet = 70 mg, By Mouth, Every week, for 28 days, # 4 tablet, 11 Refills, Hard Stop 02/16/21 15:21:00 EDT, 03/17/20 15:21:00 EDT, Tablet, [facility], 152, cm, 03/17/20 14:47:00 EDT, Height, 61.1, kg, 11/04/19 15:16:00 EDT, Dry Weight Start Date: 03/17/20 Stop Date: 02/16/21 Status: Orderedfurosemide 20 mg oral tablet 1, tablet, By Mouth, Daily, # 28 tablet, Refills 3, Tot. Refills 0, Maintenance, 10/22/20 13:07:00 EDT, [facility], cm, 10/05/20 13:35:00 EDT, Height, [...] 13:07:00 EDT, Route to Pharmacy Electronically, [facility], 152, cm, 10/05/20 13:35:00 EDT, Height, 61.1, kg, 11/04/19 15:16:00 EDT, Dry We... Start Date: 10/22/20 Status: OrderedPARoxetine 30 mg oral tablet 1 tablet, By Mouth, Daily, # 28 tablet, 1 Refills, Maintenance, 12/04/20 11:47:00 EDT, [facility], 152, cm, 11/04/20 13:52:00 EDT, Height, 61.1, kg, 11/04/19 15:16:00 EDT, Dry Weight Start Date: 12/04/20 Status: [id number] oral powder for reconstitution See Instructions, MIX 17 GRAMS OF POWDER IN 8 OUNCES OF WATER AND DRINK BY MOUTH ONCE A DAY, # 238 Gm, 1 Refills, Maintenance, 11/16/20 7:39:00 EDT, [facility], 0, MIX 17 GRAMS OF POWDER IN 8 OUNCES OF WATER AND DRINK BY MOUTH ONCE A DAY,... Start Date: 11/16/20 Status: Orderedpropranolol 10 mg oral tablet 10 [...] Active Urinary incontinence(Confirmed) Active 1s/p surgical treatment [id number] 2010 [id number] 2015 positive polyp, repeat 2019.4colo 2010 nl, repeat 2014 Social History Social History Type Response Smoking Status Current every day smoker entered on: 03/08/18 Sex
--- OUTSIDE RECORDS SUMMARY | 2022-03-02 14:04 | XMS_ITS | Continuity of Care Document ---
:1945 Author Organization [facility] Address [address] [place] [address]- Care Team Providers Name Role Phone Brendan Estevez MD Primary Care Physician Encounter [facility] Date(s): 10/22/20 - 11/21/20 [facility] [address] [place] [address]- Allergies, Adverse Reactions, Alerts Substance Reaction Severity [...] toxoids (Td) 10/10/07 Recorded 1Location History: DR [id number] History: [facility] Medications Abdominal Binder Abdominal Binder, [...] Required Details, Route to Pharmacy Electronically, [facility]/pharma... Start Date: 08/09/19 Status: [...] 13:07:00 EDT, [facility], cm, 10/05/20 13:35:00 EDT, Height, [...] 0 Refills, Acute, 10/22/20 13:07:00 EDT, [facility], 152, cm, 10/05/20 13:35:00 EDT, Height, 61.1, [...] 13:07:00 EDT, Route to Pharmacy Electronically, [facility], 152, cm, 10/05/20 13:35:00 EDT, Height, 61.1, kg, 11/04/19 15:16:00 EDT, Dry We... Start Date: 10/22/20 Status: OrderedPARoxetine 30 mg oral tablet 1 tablet, By Mouth, Daily, # 28 tablet, 6 Refills, Maintenance, 05/08/20 13:28:00 EST, [facility], 152, cm, 03/17/20 14:47:00 EDT, Height, 61.1, kg, 11/04/19 15:16:00 EDT, Dry Weight Start Date: 05/08/20 Status: [id number] oral powder for reconstitution See Instructions, MIX [...] Active Urinary incontinence(Confirmed) Active 1s/p surgical treatment 09/200954604ndx 2010 [id number] 2014 positive polyp, repeat 2019.4colo 2010 nl, repeat 2015 Social History Social History Type Response Smoking Status Current every day smoker entered on: 03/08/18 Sex
--- OUTSIDE RECORDS SUMMARY | 2022-03-02 14:04 | XMS_ITS | Continuity of Care Document ---
:1945 Author Organization [facility] Adult Address [address] [place] [address]- Care Team Providers Name Role Phone Brendan Estevez MD Primary Care Physician Encounter [facility] Date(s): 04/09/20 - 05/09/20 [facility] [address] [place] [address]- Allergies, Adverse Reactions, Alerts Substance Reaction Severity [...] Fluzone (oldterm) 02/28/12 Given 1Location History: DR [id number] History: [facility] Medications Abdominal [...] 13:28:00 EST, Route to Pharmacy Electronically, [facility], 152, cm, 03/17/20 14:47:00 [...] 13:28:00 EST, [facility], cm, 03/17/20 14:47:00 EDT, Height, [...] 3 Refills, Maintenance, 05/08/20 13:28:00 [facility], TAKE 1 TABLET BY MOUTH ONCE DAILY, 152, cm, 03/17/20 14:47:00 EDT, Height, 61.1, kg, 11/04/19 15:16:00 EDT, Dry Weight Start Date: 05/08/20 Status: OrderedOXcarbazepine 150 mg oral tablet 1, tablet, By Mouth, 2 times a day, # 56 tablet, Refills 3, Tot. Refills 0, Maintenance, 05/08/20 13:28:00 EST, [facility], cm, 03/17/20 14:47:00 EDT, Height, 61.1, kg, 11/04/19 15:16:00 EDT, Dry We... Start Date: 05/08/20 Status: OrderedPARoxetine 30 mg oral tablet 1 tablet, By Mouth, Daily, # 28 tablet, 6 Refills, Maintenance, 05/08/20 13:28:00 [facility], cm, 03/17/20 14:47:00 EDT, Height, 61.1, [...] 11/25/19 15:52:00 EDT, Route to Pharmacy Electronically, [facility]/pharmacy #[id number], 152, cm, 11/12/19 10:46:00 EDT, Height, [...] (urinary tract Active infection)(Confirmed) 1s/p surgical treatment 09/[id number] 2010 [id number] 2014 positive polyp, repeat 2019.4colo 2009 nl, repeat 2014 Social History Social History Type Response Smoking Status Current every day smoker entered on: 03/08/18 Sex Female
--- OUTSIDE RECORDS SUMMARY | 2022-03-02 14:04 | XMS_ITS | Continuity of Care Document ---
:1945 Author Organization [facility] Address [address] [place] [address]- Care Team Providers Name Role Phone Brendan Estevez MD Primary Care Physician [place] [facility] Date(s): 10/19/21 - 10/28/[address] [address]- Discharge Disposition: A-D/C Home Attending Physician: Gaby Lynn MD Admitting Physician: Sg Ramos MD Referring Physician: Not on Staff, Referring [...] 13-valent vaccine 09/01/14 Given Pneumococcal Vacc (oldterm) 10/9/12 Given Fluzone (oldterm) 02/28/12 Given influ virus vac, H1N1, inactive(oldterm) 04/07/09 Recorde d pneumococcal 23-valent vaccine 04/30/08 Recorded tetanus-diphtheria toxoids (Td) 10/10/07 Recorded 1Location History: DR [id number] History: [facility] Medications acetaminophen 325 mg oral tablet See Instructions, PRN, 650 mg By Mouth Every 4 hours prn headache, # 30 tablet, Refills 0, Tot. Refills 0, Maintenance, Headache Pain , Mild, 08/09/19 15:10:00 EDT, Instructions Replace Required Details, Route to Pharmacy Electronically, [facility]arma... Start Date: 08/09/19 Status: Orderedbacitracin topical [...] Weight Start Date: 11/16/20 Status: Ordereddoxycycline hyclate 100 mg oral tablet [...] Required Details, [facility], cm, 06/28/21 13:44:00 EST, Height, 50.3, [...] bedtime, # 28 tablet, 6 Refills, [facility], 0, @@TAKE 1 TABLET BY MOUTH DAILY [...] EDT, Dry Weight Start Date: 02/26/21 Status: [id number] oral powder for reconstitution See Instructions, MIX 17 GRAMS OF POWDER IN 8 OZ OF WATER & DRINK BY MOUTH ONCE A DAY, # 238 Gm,5 Refills, [facility], 0, MIX 17 GRAMS [...] 28 tablet, 12 Refills, [facility], 152, cm, 02/19/21 12:32:00 EDT, Height, [...] for COVID-19 vaccine(Confirmed) Active 1s/p surgical treatment 09/200918546ccw 2010 [id number] 2014 positive polyp, repeat 2019.4colo 2009 nl, repeat 2014 Vital Signs Most recent to oldest 1 2 3 [Reference Range]: Height 152 cm 152 cm 152 cm (10/28/21 9:53 AM) (10/28/21 12:26 AM) (10/27/21 5:06 AM) Weight 54 kg 42 kg 42 kg (10/20/21 11:00 AM) (10/19/21 10:12 PM) (10/19/21 4: 26 AM) Oxygen Saturation [94-100 %] 99 % 96 % 94 % (10/28/21 9:53 AM) (10/28/21 4:00 AM) (10/28/21 12:26 AM) Pulse Rate [55-90 bpm] 83 bpm 66 bpm 113 bpm (10/28/21 9:53 AM) (10/28/21 4:00 AM) *H* (10/27/21 8:00 PM) Body Mass Index [18.5-24.99] 23.37 (10/20/21 11:00 AM) Blood Pressure [90-138/55-84 121/85 mm Hg 148/113 mm Hg 124 /50 mm Hg mm Hg] (10/28/21 9:53 AM) *H* (10/27/21 8:00 PM ) (10/28/21 4:00 AM) Respiratory Rate [16-30 17 br/min 16 br/min 16 br/mi n br/min] (10/28/21 9:53 AM) (10/28/21 4:00 AM) (10/27/21 8:00 P M) Temperature [96.8-100.4 DegF] 98.1 DegF 97.9 DegF 97 .6 DegF (10/28/21 9:53 AM) (10/28/21 4:00 AM) (10/27/21 8:00 P M) Mode of Delivery (Oxygen) Room air Room air Room a ir (10/28/21 9:53 AM) (10/28/21 4:00 AM) (10/28/21 12:26 AM) Blood pressure sites Arm, right Arm, right Arm, right (10/28/21 9:53 AM) (10/28/21 4:00 AM) (10/27/21 8:00 P M) Temperature Route Oral Oral Oral (10/28/21 9:53 AM) (10/28/21 4:00 AM) (10/27/21 8:00 P M) Dry Weight 54 kg (10/20/21 11:00 AM) Social History Social History Type Response Smoking Status Current every day smoker entered on: 03/08/18 Sex
--- OUTSIDE RECORDS SUMMARY | 2022-03-02 14:04 | XMS_ITS | Continuity of Care Document ---
:1945 Author Organization [facility] Address [address] [place] [address]- Care Team Providers Name Role Phone Brendan Estevez MD Primary Care Physician Encounter [facility] Date(s): 08/09/21 - 09/08/21 [facility] [address] [place] [id number] Allergies, Adverse Reactions, Alerts Substance Reaction Severity [...] toxoids (Td) 10/10/07 Recorded 1Location History: DR [id number] History: [facility] Medications Abdominal Binder Abdominal Binder, See [...] Replace Required Details, Route to Pharmacy Electronically, [facility]/pharma... Start Date: 08/09/19 Status: Orderedbacitracin topical [...] 13:43:00 EDT, Height... Start Date: 09/03/21 Status: Ordereddoxycycline hyclate 50 mg oral capsule [...] Required Details, [facility], cm, 06/28/21 13:44:00 EST, Height, [...] Daily, # 28 tablet, 12 Refills, [facility], 152, cm, 02/19/21 12:32:00 EDT, Height, [...] upon patient re... Start Date: 05/20/21 Status: [id number] oral powder for reconstitution See Instructions, MIX [...] Required Details, Route to Pharmacy Electronically, [facility], 154, cm, 04/03/21 11:28:00 [...] Daily, # 28 tablet, 12 Refills, [facility], 152, cm, 02/19/21 12:32:00 EDT, Height, [...] Active Urinary incontinence(Confirmed) Active 1s/p surgical treatment 09/[id number] 2010 [id number] 2014 positive polyp, repeat 2019.4colo 2010 nl, repeat 2014 Social History Social History Type Response Smoking Status Current every day smoker entered on: 03/08/18 Sex
--- OUTSIDE RECORDS SUMMARY | 2022-03-02 14:04 | XMS_ITS | Continuity of Care Document ---
:1945 Author Organization [facility] Address Unavailable , Care Team Providers Name Role Phone Brendan Estevez MD Primary Care Physician Encounter [facility] Date(s): 10/16/21 - 11/15/21 [facility] Allergies, Adverse Reactions, Alerts Substance Reaction Severity [...] toxoids (Td) 10/10/07 Recorded 1Location History: DR [id number] History: [facility] Medications acetaminophen 325 mg oral tablet See Instructions, PRN, 650 mg By Mouth Every 4 hours prn headache, # 30 tablet, Refills 0, Tot. Refills 0, Maintenance, Headache Pain , Mild, 08/09/19 15:10:00 EDT, Instructions Replace Required Details, Route to [facility], [facility]... Start Date: 08/09/19 Status: Orderedalendronate 70 mg [...] [facility], cm, 06/28/21 13:44:00 EST, Height, 50.3, [...] Refills 5, Route to Pharmacy Electronically, [facility], 154, cm, 06/28/21 13:44:00 EST, Height, 50.3, kg, 04/02/21 1:28:00 EST, Dry Weight Start Date: 07/09/21 Status: OrderedPARoxetine 30 mg oral tablet 1 tablet, By Mouth, Daily, # 28 tablet, 12 Refills, [facility], 152, cm, 02/19/21 12:32:00 EDT, Height, 61.1, kg, 11/04/19 15:16:00 EDT, Dry Weight Start Date: 02/26/21 Status: [id number] oral powder for reconstitution See Instructions, MIX [...] for COVID-19 vaccine(Confirmed) Active 1s/p surgical treatment 09/200957205rkf 2010 [id number] 2014 positive polyp, repeat 2019.4colo 2009 nl, repeat 2014 Social History Social History Type Response Smoking Status Current every day smoker entered on: 03/08/18 Sex
--- OUTSIDE RECORDS SUMMARY | 2022-03-02 14:04 | XMS_ITS | Continuity of Care Document ---
:1945 Author Organization [facility] Adult Address [address] [place] [address]- Care Team Providers Name Role Phone Brendan Estevez MD Primary Care Physician Encounter [facility] Date(s): 01/17/20 - 02/16/20 [facility] Adult [address] [place] [address]- [facility] Allergies, Adverse Reactions, Alerts Substance Reaction [...] Fluzone (oldterm) 02/28/12 Given 1Location History: DR [id number] History: [facility] Medications Abdominal Binder Abdominal Binder, [...] Replace Required Details, Route to Pharmacy Electronically, [facility]/pharma... Start Date: 08/09/19 Status: Orderedcranberry oral capsule [...] 11/25/19 15:52:00 EDT, Route to Pharmacy Electronically, [facility]/pharmacy #[id number], 152, cm, 11/12/19 10:46:00 EDT, [...] (urinary tract Active infection)(Confirmed) 1s/p surgical treatment 09/[id number] 2010 [id number] 2014 positive polyp, repeat 2019.4colo 2009 nl, repeat 2014 Social History Social History Type Response Smoking Status Current every day smoker entered on: 03/08/18 Sex Female
--- OUTSIDE RECORDS SUMMARY | 2022-03-02 14:04 | XMS_ITS | Continuity of Care Document ---
:1945 Author Organization [facility] Address [address] [place] [address]- Care Team Providers Name Role Phone Brendan Estevez MD Primary Care Physician [place] [facility] [place] 10/21/19 - 10/28/19 [facility] [address] [place] [address]- [facility] Encounter Diagnosis Bipolar disorder (Discharge Diagnosis) - 10/21/19 CKD (chronic kidney disease) stage 3, GFR 30-59 ml/min (Discharge Diagnosis) - 10/21/19 COPD (chronic obstructive pulmonary disease) (Discharge Diagnosis) - 10/21/19 HTN (hypertension) (Discharge Diagnosis) - 10/21/19 Chronic constipation (Discharge Diagnosis) - 10/21/19 Osteoporosis (Discharge Diagnosis) - 10/21/19 Attending Physician: Brendan Estevez MD Allergies, Adverse [...] Fluzone (oldterm) 02/28/12 Given 1Location History: DR [id number] History: [facility] Medications acetaminophen 325 mg oral tablet See Instructions, PRN, 650 mg By Mouth Every 4 hours prn headache, # 30 tablet, Refills 0, Tot. Refills 0, Maintenance, Headache Pain , Mild, 08/09/19 15:10:00 EDT, Instructions Replace Required Details, Route to Pharmacy Electronically, [facility]/pharma... Start Date: 08/09/19 Status: OrderedBreo Ellipta 100 mcg-25 mcg/inh inhalation powder 1 puffs, Inhalation, Daily, # 3 each, 3 Refills, Maintenance, 03/26/18 14:56:25 EST, Powder Start Date: 03/26/18 Stop Date: 03/21/19 Status: Orderedcranberry oral capsule See Instructions, By Mouth Daily, # 30 tablet, 5 Refills, Maintenance, 09/30/19 7:43:00 EDT, Capsule, [facility]/pharmacy #[id number], By Mouth Daily, 152, cm, 08/15/19 [...] 5 Refills, Maintenance, 08/09/19 15:27:00 EDT, Tablet, [id number], 2 tablet By Mouth Daily, 152.4, cm, 08/09/19 14:18:00 EDT, Height, 74.2, kg, 02/10/19 16:30:00 EDT, Dry Weight Start Date: 08/09/19 Status: Ordereddoxycycline hyclate 50 mg oral capsule 1 capsule = 50 mg, By Mouth, 2 times a day, for 30 days, # 60 capsule, 3 Refills, Acute 01/29/20 16:37:00 EDT, 10/01/19 16:37:00 EDT, Capsule, [facility]/pharmacy #[id number], 152, cm, 08/15/19 17:55:00 EDT, Height, 64, kg, 08/15/19 15:13:00 EDT, Dry Weight Start Date: 10/01/19 Stop Date: 01/29/20 Status: Orderedfolic acid 1 mg oral tablet 1 mg, 1, tablet, By Mouth, Daily, # 30 tablet, Refills 5, Tot. Refills 5, Maintenance, 08/09/19 15:08:00 EDT, Route to Pharmacy Electronically, [facility]/pharmacy #[id number], 152.4, cm, 08/09/19 14:18:00 EDT, Height, 74.2, kg, 02/10/19 16:30:00 EDT, Dry Weight Start Date: 08/09/19 Status: Orderedfurosemide 20 mg oral tablet 20 mg, 1, tablet, By Mouth, Daily, # 30 tablet, Refills 5, Tot. Refills 5, Maintenance, 08/09/19 15:25:00 EDT, Route to Pharmacy Electronically, [facility]/pharmacy #[id number], 152.4, cm, 08/09/19 14:18:00 EDT, Height, [...] 5 Refills, Maintenance, 08/09/19 15:05:00 EDT, Powder, [facility]/pharmacy #0693, 152.4, cm, 08/09/19 14:18:00 EDT, Height, [...] 5 Refills, Maintenance, 10/09/19 12:40:00 EDT, Tablet, [facility]/pharmacy #0693, 152, cm, 08/15/19 17:55:00 EDT, Height, 64, kg, 08/15/19 15:13:00 EDT, Dry Weight Start Date: 10/09/19 Status: Orderedmelatonin 3 mg oral tablet 1 tablet = 3 mg, By Mouth, Daily at bedtime, # 30 tablet, 1 Refills, Maintenance, 09/25/19 13:33:00 EDT, [id number], 152, cm, 08/15/19 17:55:00 EDT, Height, 64, kg, 08/15/19 15:13:00 EDT, Dry Weight Start Date: 09/25/19 Status: Orderedmethenamine hippurate 1 gm oral tablet 1 tablet = 1 Gm, By Mouth, 2 times a day, # 60 tablet, 5 Refills, Maintenance, 10/16/19 14:56:00 EDT, Tablet, [facility]/pharmacy #[id number], 152, cm, 08/15/19 17:55:00 EDT, Height, 64, kg, 08/15/19 15:13:00 EDT, Dry Weight Start Date: 10/16/19 Status: OrderedMiraLax oral powder for reconstitution = 17 Gm, By Mouth, Daily, dissolve in water before taking, # 255 Gm, 1 Refills, Maintenance, 08/09/19 15:30:00 EDT, REC Powder, [facility]/pharmacy #0693, 17 Gm By Mouth Daily,Instr:dissolve in water before taking, 152.4, cm, 08/09/19 14:18:00 EDT, Height, 7... Start Date: 08/09/19 Status: Orderedmultivitamin Multiple Vitamins oral capsule 1 capsule, By Mouth, Daily, # 30 capsule, 5 Refills, Maintenance, 08/09/19 15:01:00 EDT, Capsule, [facility]/pharmacy #0693, 1 capsule By Mouth Daily, 152.4, cm, 08/09/19 14:18:00 EDT, Height, 74.2, kg, 02/10/19 16:30:00 EDT, Dry Weight Start Date: 08/09/19 Status: OrderedOXcarbazepine 150 mg oral tablet 150 mg, 1, tablet, By Mouth, 2 times a day, # 60 tablet, Refills 5, Tot. Refills 5, Maintenance, 08/09/19 15:24:00 EDT, Route to Pharmacy Electronically, [facility]/pharmacy #[id number], 152.4, cm, 08/09/19 14:18:00 EDT, Height, 74.2, kg, 02/10/19 16:30:00 EDT, . Start Date: 08/09/19 Status: OrderedPARoxetine 30 mg oral tablet 1 tablet = 30 mg, By Mouth, Daily, # 30 tablet, 5 Refills, Maintenance, 08/09/19 15:40:00 EDT, Tablet, [facility]/pharmacy #0693, 152.4, cm, 08/09/19 14:18:00 EDT, Height, 74.2, kg, 02/10/19 16:30:00 EDT, DryWeight Start Date: 08/09/19 Status: Orderedpropranolol 10 mg oral tablet 10 mg, 1, tablet, By Mouth, 3 times a day, # 270 tablet, Refills 3, Tot. Refills 3, Maintenance, 08/09/19 15:04:00 EDT, Route to Pharmacy Electronically, [facility]/pharmacy #[id number], 152.4, cm, 08/09/19 14:18:00 EDT, Height, 74.2, kg, 02/10/19 16:30:00 EDT, . Start Date: 08/09/19 Status: OrderedtraZODone 50 mg oral tablet 50 mg, 1, tablet, By Mouth, Daily at bedtime, # 30 tablet, Refills 5, Tot. Refills 5, Maintenance, 08/09/19 15:52:00 EDT, Route to Pharmacy Electronically, [facility]/pharmacy #[id number], 152.4, cm, 08/09/19 14:18:00 EDT, Height, 74.2, kg, 02/10/19 16:30:00 EDT,... Start Date: 08/09/19 Status: OrderedVitamin C 500 mg oral tablet 1 tablet = 500 mg, By Mouth, Daily, # 30 tablet, 5 Refills, Maintenance, 08/09/19 15:37:00 EDT, Tablet, [facility]/pharmacy #0693, 152.4, cm, 08/09/19 14:18:00 EDT, Height, 74.2, kg, 02/10/19 16:30:00 EDT, Dry Weight Start Date: 08/09/19 Status: OrderedVitamin D3 10,000 intl units oral capsule 1 capsule = 10,000 International_Units, By Mouth, Daily, # 30 capsule, 5 Refills, Maintenance, 08/09/19 15:41:00 EDT, [facility]/pharmacy #[id number], 152.4, cm, 08/09/19 14:18:00 EDT, Height, [...] (urinary tract Active infection)(Confirmed) 1s/p surgical treatment 09/200919014qfr 2010 [id number] 2014 positive polyp, repeat 2019.4colo 2009 nl, repeat 2014 Diagnosis Diagnosis Type Effective Dates Health Clinical Infor mant Status Service Bipolar disorder Discharge 10/21/19 Diagnosis CKD (chronic kidney Discharge 10/21/19 disease) stage 3, Diagnosis GFR 30-59 ml/min COPD (chronic Discharge 10/21/19 obstructive Diagnosis pulmonary disease) HTN (hypertension) Discharge 10/21/19 Diagnosis Chronic Discharge 10/21/19 constipation Diagnosis Osteoporosis Discharge 10/21/19 Diagnosis Vital Signs Most recent to oldest [Reference Range]: 1 Height 152 cm (10/21/19 9:54 AM) Social History Social History Type Response Smoking Status Current every day smoker entered on: 03/08/18 Sex Female
--- OUTSIDE RECORDS SUMMARY | 2022-03-02 14:04 | XMS_ITS | Continuity of Care Document ---
:1945 Author Organization [facility] Address [address] [place] [address]- Care Team Providers Name Role Phone Brendan Estevez MD Primary Care Physician Encounter [facility] Date(s): 11/12/19 - 12/12/[address] [place] [address]- [facility] Attending Physician: Admtr, Tomasz Admitting Physician: Admtr, Ar8 Referring Physician: Admtr, Ar8 Allergies, Adverse Reactions, [...] Fluzone (oldterm) 02/28/12 Given 1Location History: DR [id number] History: [facility] DR Strong Abdominal Binder Abdominal Binder, [...] 01/29/20 16:37:00 EDT, 10/01/19 16:37:00 EDT, Capsule, [facility]/pharmacy #[id number], 152, cm, 08/15/19 17:55:00 EDT, [...] Refills, Maintenance, 12/06/19 9:39:00 EDT, REC Powder, [facility], 17 Gm By Mouth Daily,Instr:dissolve [...] 15:52:00 EDT, Route to Pharmacy Electronically, [facility]/pharmacy #[id number], 152, cm, 11/12/19 10:46:00 EDT, Height, 61.1... Start Date: 11/25/19 Stop Date: 06/22/20 Status: OrderedtraZODone 50 mg oral tablet 50 mg, 1, tablet, By Mouth, Daily at bedtime, # 30 tablet, Refills 5, Tot. Refills 5, Maintenance, 12/06/19 9:39:00 EDT, Route to Pharmacy Electronically, [facility], 152, cm, 11/12/19 10:46:00 EDT, Height, 61.1, kg, 11/04/19 15:16:00 EDT,... Start Date: 12/06/19 Status: OrderedVitamin C 500 mg oral tablet [...] (urinary tract Active infection)(Confirmed) 1s/p surgical treatment 09/[id number] 2010 [id number] 2014 positive polyp, repeat 2019.4colo 2009 nl, repeat 2014 Social History Social History Type Response Smoking Status Current every day smoker entered on: 03/08/18 Sex Female
--- OUTSIDE RECORDS SUMMARY | 2022-03-02 14:04 | XMS_ITS | Continuity of Care Document ---
:1945 Author Organization [facility] Adult Address [address] [place] [address]- Care Team Providers Name Role Phone Brendan Estevez MD Primary Care Physician En[place] [facility] [place] Date(s): 11/08/21 - 11/15/21 [facility] Adult [address] [place] [address]- Attending Physician: Brendan Estevez MD Allergies, Adverse [...] toxoids (Td) 10/10/07 Recorded 1Location History: DR [id number] History: [facility] Medications acetaminophen 325 mg oral tablet [...] # 4 tablet, 11 Refills, [facility], 152, cm, 10/28/21 9:53:00 EDT, Height, 54, [...] DAILY., # 28 tablet, 10 Refills, [facility], 0, TAKE (1) TABLET BY MOUTH DAILY., [...] Required Details, [facility], cm, 06/28/21 13:44:00 EST, [...] EDT, Dry Weight Start Date: 02/26/21 Status: [id number] oral powder for reconstitution See Instructions, MIX [...] for COVID-19 vaccine(Confirmed) Active 1s/p surgical treatment 09/[id number] 2010 [id number] 2014 positive polyp, repeat 2019.4colo 2009 nl, repeat 2014 Vital Signs Most recent to oldest [Reference Range]: 1 Height 152 cm (11/08/21 3:55 PM) Weight 47.0 kg (11/08/21 3:55 PM) Oxygen Saturation [94-100 %] 97 % (11/08/21 3:55 PM) Pulse Rate [55-90 bpm] 74 bpm (11/08/21 3:55 PM) Body Mass Index [18.5-24.99] 20.34 (11/08/21 3:55 PM) Blood Pressure [90-138/55-84 mm Hg] 129/76 mm Hg (11/08/21 3:55 PM) Temperature [96.8-100.4 DegF] 97.7 DegF (11/08/21 3:55 PM) Mode of Delivery (Oxygen) Room air (11/08/21 3:55 PM) Blood pressure sites Arm, left (11/08/21 3:55 PM) Temperature Route Oral (11/08/21 3:55 PM) Weight Obtained Via Standing scale (11/08/21 3:55 PM) Social History Social History Type Response Smoking Status Current every day smoker entered on: 03/08/18 Sex
--- OUTSIDE RECORDS SUMMARY | 2022-03-02 14:04 | XMS_ITS | Continuity of Care Document ---
:[address] [facility] Adult Address [address] [place] [address]- Care Team Providers Name Role Phone Brendan Estevez MD Primary Care Physician Encounter [facility] Date(s): 09/06/21 - 10/06/21 [facility] Adult [address] [place] [address]- Allergies, Adverse Reactions, Alerts Substance Reaction Severity [...] toxoids (Td) 10/10/07 Recorded 1Location History: DR [id number] History: [facility] DR Strong Abdominal Binder Abdominal [...] Replace Required Details, Route to Pharmacy Electronically, [facility]/pharma... Start Date: 08/09/19 Status: Orderedbacitracin [...] Required Details, Route to Pharmacy Electronically, [facility], 154, cm, 06/28/21 13:44:00 EST, Height, 50.3, [...] upon patient re... Start Date: 05/20/21 Status: [id number] oral powder for reconstitution See Instructions, MIX 17 GRAMS OF POWDER IN 8 OZ OF WATER & DRINK BY MOUTH ONCE A DAY, # 238 Gm,5 Refills, [facility], 0, MIX 17 GRAMS OF POWDER IN [...] Daily, # 28 tablet, 12 Refills, [facility], 152, cm, 02/19/21 12:32:00 EDT, Height, 61.1, [...] for COVID-19 vaccine(Confirmed) Active 1s/p surgical treatment 09/200930522tyg 2010 [id number] 2014 positive polyp, repeat 2019.4colo 2009 nl, repeat 2014 Social History Social History Type Response Smoking Status Current every day smoker entered on: 03/08/18 Sex
--- OUTSIDE RECORDS SUMMARY | 2022-03-02 14:04 | XMS_ITS | Continuity of Care Document ---
:1945 Author Organization [facility] Adult Address [address] [place] [address]- Care Team Providers Name Role Phone Brendan Estevez MD Primary Care Physician Encounter [facility] [place] Date(s): 12/15/21 - 01/14/22 [facility] Adult [address] [place] [address]- Allergies, Adverse Reactions, Alerts Substance Reaction Severity [...] toxoids (Td) 10/10/07 Recorded 1Location History: DR [id number] History: [facility] Medications acetaminophen 325 mg oral tablet See Instructions, PRN, 650 mg By Mouth Every 4 hours prn headache, # 30 tablet, Refills 0, Tot. Refills 0, Maintenance, Headache Pain , Mild, 08/09/19 15:10:00 EDT, Instructions Replace Required Details, Route to Pharmacy Electronically, [facility]/pharma... Start Date: 08/09/19 Status: Orderedalendronate [...] Refills 6, Route to Pharmacy Electronically, [facility], 152, cm, 11/19/21 11:01:00 EDT, Height, 54, kg, 10/20/21 11:19:00 EDT, Dry Weight Start Date: 12/31/21 Status: OrderedPARoxetine 30 mg oral tablet 1 tablet, By Mouth, Daily, # 28 tablet, 12 Refills, [facility], 152, cm, 02/19/21 12:32:00 EDT, Height, 61.1, kg, 11/04/19 15:16:00 EDT, Dry Weight Start Date: 02/26/21 Status: [id number] oral powder for reconstitution See Instructions, MIX 17 GRAMS OF POWDER IN 8 OZ OF WATER & DRINK BY MOUTH ONCE A DAY, # 238 Gm,11 Refills, [facility], 0, MIX 17 GRAMS OF POWDER IN 8 OZ OF WATER & DRINK BY MOUTH ONCE A DAY, 152, cm, 11/08/21 15:55:00 EDT, Height, 54,... Start Date: 11/08/21 Status: Orderedpropranolol 10 mg oral tablet 1, tablet, By Mouth, 3 times a day, # 84 tablet, Refills 6, Route to Pharmacy Electronically, [facility], 152, cm, 11/19/21 11:01:00 EDT, Height, 54, kg, 10/20/21 11:19:00 EDT, Dry Weight Start Date: 12/31/21 Status: Orderedsalsalate 500 mg oral tablet 1 tablet, By Mouth, Daily, # 28 tablet, 6 [facility], cm, 11/19/21 11:01:00 EDT, Height, [...] for COVID-19 vaccine(Confirmed) Active 1s/p surgical treatment 09/200914458tgn 2011 [id number] 2014 positive polyp, repeat 2019.4colo 2010 nl, repeat 2014 Social History Social History Type Response Smoking Status Current every day smoker entered on: 03/08/18 Sex Care Team PersonnelName: Zenaida MAR, Brendan Hodges Address: [address] [place] [id number]
--- OUTSIDE RECORDS SUMMARY | 2022-03-02 14:05 | XMS_ITS | Continuity of Care Document ---
:1945 Author Organization [facility] Adult Address [address] [place] [address]- Care Team Providers Name Role Phone Brendan Estevez MD Primary Care Physician Encounter [facility] Date(s): 11/12/20 - 12/12/20 [facility] Adult [address] [place] [address]- Allergies, Adverse Reactions, Alerts Substance Reaction Severity [...] toxoids (Td) 10/10/07 Recorded 1Location History: DR [id number] History: [facility] Medications Abdominal Binder [...] Replace Required Details, Route to Pharmacy Electronically, [facility]/pharma... Start Date: 08/09/19 Status: OrderedCRANBERRY 250 [...] 13:07:00 EDT, [facility], cm, 10/05/20 13:35:00 EDT, [...] EDT, Dry Weight Start Date: 12/04/20 Status: [id number] oral powder for reconstitution See Instructions, MIX [...] Active Urinary incontinence(Confirmed) Active 1s/p surgical treatment 09/200948906nul 2010 [id number] 2014 positive polyp, repeat 2019.4colo 2010 nl, repeat 2015 Social History Social History Type Response Smoking Status Current every day smoker entered on: 03/08/18 Sex
--- OUTSIDE RECORDS SUMMARY | 2022-03-02 14:05 | XMS_ITS | Continuity of Care Document ---
:1945 Author Organization [facility] Address [address] [place] [address]- Care Team Providers Name Role Phone Brendan Estevez MD Primary Care Physician Encounter [facility] [place] Date(s): 01/05/21 - 02/26/[address] [address] Attending Physician: Darya MAR, Dior Admitting Physician: Darya MAR, Dior Allergies, Adverse Reactions, Alerts Substance Reaction Severity [...] toxoids (Td) 10/10/07 Recorded 1Location History: DR [id number] History: [facility] DR Strong Abdominal [...] Replace Required Details, Route to Pharmacy Electronically, [facility]/pharma... Start Date: 08/09/19 Status: OrderedCRANBERRY 250 MG [...] EDT, Dry Weight Start Date: 02/26/21 Status: [id number] oral powder for reconstitution See Instructions, MIX [...] 11:28:00 EDT, Route to Pharmacy Electronically, [facility], 152, cm, 12/28/20 12:44:00 EDT, [...] Active Urinary incontinence(Confirmed) Active 1s/p surgical treatment 09/200956181pnm 2010 [id number] 2014 positive polyp, repeat 2019.4colo 2009 nl, repeat 2014 Social History Social History Type Response Smoking Status Current every day smoker entered on: 03/08/18 Sex
--- OUTSIDE RECORDS SUMMARY | 2022-03-02 14:05 | XMS_ITS | Encounter Summary ---
:1945 Author Care Team Providers Name Role Phone [facility] Primary Care Referring Provider [phone] Reason for Visit Wound Care Assessment and Plan Assessment Note Ms. Carola Murguia is a 76yoF w/ a PmHx o f remote right ankle surgery and several months ago accidentally hit her right ankle w/ a new wound. She's had difficulty with healing the wound and has been foll owing with wound care. She endorses wors ening pain recently and requested an instED visit. She denies fevers or any other concerns and has otherwise been doing well. She believes she has a VNA appointment on Monday for a dressing change. VSS. Photograph by whale fisherman shows well healing wound with small amount of fibrinous discharge on gauze. No surrounding erythema, low concern for active infection. Box Puller will help her re-dress the w ound in anticipation of her next dressin g change on Monday. Discussion Note: None recorded.Patient educational handouts: No information available. Plan of Care Reminders Provider Appointments None recorded. ? ? Lab None recorded. ? ? Referral None recorded. ? ? Procedures None recorded. ? ? Surgeries None recorded. ? ? Imaging None recorded. ? ? Medications None recorded. Medications Administered None recorded. Vitals Blood Pressure 117/65 mm[Hg] Results Lab Results None recorded. Allergies None recorded. Problems None recorded. Procedures None recorded. Vaccine List None recorded. Social History None recorded. Functional Status Unknown. Past Encounters 01/15/2022 Jordyn Daily MD: [address] [place] [address], Ph. History of Present Illness Note: <p><strong>HPI: </strong>

Mbr had surgery on right ankle, states Dressing was not changed yesterday. mbr has supplies at home, requesting [facility] assistance.
. ................................................................................ ............................................................

<strong>CRC Nursing Assessment: </strong>

Comments: CRC RN DID NOT NEED FURTHER INFO TO PROCESS VISIT </p> <p>............................................................................. ............... .................................................

<strong>Box Puller Note: </strong>

76 yo f c/o persistent right got ankle wound pain since July. She sees a wound care nurse 3x per week. In need of dressing change. Wound appeared to be healing nicely,no redness, no warmth or sign of infection; c/o pain and tenderness. Dressing changed: silver alginate pad applied then wrapped with gauze then compression stocking replaced.
................. ................................................................................ ............................................

<strong>Disposition: </strong>

Fulfilled</p> Review of Systems None recorded. Physical Exam None recorded.
--- OUTSIDE RECORDS SUMMARY | 2022-03-02 14:05 | XMS_ITS ---
:1945 Author Care Team Providers Name Role Phone BEATRIS SANDERS MD Primary Care Provider [phone] Allergies Code Code System Name Reaction Severity Status Onset Sulfa (Sulfonamide Antibiotics) Rash ? Active ? Medications Name Status Start Date Stop Date ? ? alendronate 70 mg tablet Active ? Not keysha ilable amoxicillin 500 mg-potassium clavulanate 125 mg tablet Completed ? 11/21/2018 azithromycin 250 mg tablet Completed ? 11/21 bacitracin 500 unit/gram topical ointment Active ? Not available Breo Ellipta 100 mcg-25 mcg/dose powder for inhalation Active ? Not available calcium carbonate 250 mg-vitamin D3 3.125 mcg (125 unit) Complet ed ? 10/26/2019 tablet cefpodoxime 200 mg tablet Completed ? 2019 cephalexin 500 mg capsule Completed ? 2018 cholecalciferol (vitamin D3) 125 mcg (5,000 unit) tablet Active ? Not available cholecalciferol (vitamin D3) 250 mcg (10,000 unit) Completed ? 10/26/2019 capsule cholecalciferol (vitamin D3) 250 mcg (10,000 unit) Active ? Not available tablet ciprofloxacin 250 mg tablet Completed ? 10/2019 ciprofloxacin 500 mg tablet Completed ? 10/2019 cranberry 450 mg tablet Active ? Not avai lable cranberry concentrate-ascorbic acid 4,200 mg-20 mg Completed ? 10/26/2019 capsule cranberry extract 250 mg capsule Active ? Not available delivery fee Active ? Not available diclofenac 1 % topical gel Active ? Not a vailable doxycycline hyclate Active ? Not availabl e doxycycline hyclate 100 mg capsule Active ? Not available doxycycline hyclate 100 mg tablet Completed ? 10/26/2019 doxycycline hyclate 50 mg capsule Active ? Not available fluconazole 150 mg tablet Active ? Not av ailable folic acid 1 mg tablet Active ? Not avail able furosemide 20 mg tablet Active ? Not avai lable heparin (porcine) 5,000 unit/mL injection solution Completed ? 10/26/2019 hydrocodone 5 mg-acetaminophen 325 mg tablet Completed ? 11/21/2018 hydromorphone 2 mg tablet Completed ? 2018 Incruse Ellipta 62.5 mcg/actuation powder for inhalation Active ? Not available ipratropium 0.5 mg-albuterol 3 mg (2.5 mg base)/3 mL Active ? Not available nebulization soln levofloxacin 250 mg tablet Completed ? 10/25 lisinopril 2.5 mg tablet Completed ? 020 lisinopril 5 mg tablet Completed ? 0 lorazepam 0.5 mg tablet Completed ? 10/26/19 20 lorazepam 1 mg tablet Active ? Not availa ble melatonin 3 mg tablet Active ? Not availa ble metaxalone 800 mg tablet Completed ? 020 methenamine hippurate 1 gram tablet Active ? Not available mirtazapine 15 mg tablet Completed ? mirtazapine 7.5 mg tablet Completed ? 2019 multivitamin tablet Active ? Not availabl e mupirocin 2 % topical ointment Active ? N ot available nicotine 14 mg/24 hr daily transdermal patch Completed ? 10/26/2019 nicotine 21 mg/24 hr daily transdermal patch Active ? Not available nicotine 7 mg/24 hr daily transdermal patch Completed ? 10/26/2019 nitrofurantoin monohydrate/macrocrystals 100 mg capsule Complete d ? 11/21/2018 Nystop 100,000 unit/gram topical powder Completed ? 10/26/2019 ondansetron 4 mg disintegrating tablet Completed ? 10/26/2019 ondansetron HCl 4 mg tablet Completed ? 10/2019 oxcarbazepine 150 mg tablet Active ? Not available Oysco-500 500 mg calcium (1,250 mg) tablet Active ? Not available Pain and Fever 325 mg tablet Completed ? 10/2019 Pain Relief Regular Strength 325 mg tablet Unknown ? Not available paroxetine 10 mg tablet Completed ? 11/22/19 19 paroxetine 30 mg tablet Active ? Not avai lable polyethylene glycol 3350 17 gram/dose oral powder Active ? Not available prednisone 20 mg tablet Completed ? 11/22/19 19 propranolol 10 mg tablet Active ? Not keysha ilable salsalate 500 mg tablet Active ? Not avai lable Senna Laxative 8.6 mg tablet Active ? Not available TAKE 1 TABLET BY MOUTH EVERYDAY AT BEDTIME Senna Plus 8.6 mg-50 mg tablet Active ? N ot available Spiriva with HandiHaler 18 mcg and inhalation capsules Completed ? 10/26/2019 tramadol 50 mg tablet Completed ? 10/26/2019 trazodone 50 mg tablet Active ? Not avail able Ventolin HFA 90 mcg/actuation aerosol inhaler Active ? Not available Vitamin C 500 mg tablet Active ? Not avai lable Vitamin D3 50 mcg (2,000 unit) capsule Active ? Not available Problems Name Status Onset Date Source ? Chronic Obstructive Lung Disease Active 10/26/2019 ? Procedures Date Name Performed by ? ? Appendectomy Information not avai lable ? Excision of Colon Information not avai lable ? Cholecystectomy Information not avai lable Results Lab Results None recorded. Past Encounters 05/03/2021 Peripheral Edema; Chronic Osteomyelitis of Ankle And/or Foot Reinier Gilman GENERAL MAGISTRATE: [address] [place] [address], Ph. 03/28/2021 Chronic Osteomyelitis of Ankle And/or Fo ot Patsy Saldivar, GENERAL MAGISTRATE: [address] [place] [address], Ph. [phone] 03/25/2021 Chronic Osteomyelitis of Ankle And/or Fo ot Geneva Pride [facility]: [address] [place], [place] , Ph. [phone] 03/21/2021 Wound Cellulitis Reg Kaur, GENERAL MAGISTRATE: [address] [place], [place] , Ph. Social History Tobacco Smoking Status Heavy Tobacco Smoker (1 pack per day) Vaccine List None recorded. Plan of Care Patient Instructions Thank you for your visit with [facility] today. You were seen today for treatment of a wound. Please seek immediate medical attention if you develop increased pain, redness, or swelling of your wou nd. Also, you should be evaluated if the wound becomes warm to the touch, or if there is a cloudy, yellow-brown discharge from the wound. There is always the possibility of a hidden tendon injury or for eign object in the wound. If you have pr oblems moving your arm or leg, or if you see red streaks up the arm or leg, seek immediate medical attention. If you develop any new or worsening symp toms and need after hours care, please go to nearest ER and/or call 911. If you have additional concerns or develop a change in your condition between 8am-10pm, p lease call [facility] at [phone] to help navigate your care. Thank you for your visit with [facility] today. You were seen today for treatment of a wound. Please seek immediate medical attention if you develop increased pain, redness, or swelling of your wou nd. Also, you should be evaluated if the wound becomes warm to the touch, or if there is a cloudy, yellow-brown discharge from the wound. There is always the possibility of a hidden tendon injury or for eign object in the wound. If you have pr oblems moving your arm or leg, or if you see red streaks up the arm or leg, seek immediate medical attention. You have an appointment tomorrow with yo PCP, Dr Sanders who can recommend further treatment indications. Until then please keep the area clean and dry with the dressing intact and elevate your leg when possible to help the healing. If you develop any new or worsening symp toms and need after hours care, please go to nearest ER and/or call 911. If you have additional concerns or develop a change in your condition between 8am-10pm, p lease call [facility] at to help navigate your care. Thank you for your visit with [facility] today. You were seen today for treatment of a wound. Please seek immediate medical attention if you develop increased pain, redness, or swelling of your wou nd. Also, you should be evaluated if the wound becomes warm to the touch, or if there is a cloudy, yellow-brown discharge from the wound. There is always the possibility of a hidden tendon injury or for eign object in the wound. If you have pr oblems moving your arm or leg, or if you see red streaks up the arm or leg, seek immediate medical attention. If you develop any new or worsening symp toms and need after hours care, please go to nearest ER and/or call 911. If you have additional concerns or develop a change in your condition between 8am-10pm, p lease call [facility] at to help navigate your care. Thank you for your visit with [facility] today. You were seen today for treatment of a wound. Please seek immediate medical attention if you develop increased pain, redness, or swelling of your wou nd. Also, you should be evaluated if the wound becomes warm to the touch, or if there is a cloudy, yellow-brown discharge from the wound. There is always the possibility of a hidden tendon injury or for eign object in the wound. If you have pr oblems moving your arm or leg, or if you see red streaks up the arm or leg, seek immediate medical attention. If you develop any new or worsening symp toms and need after hours care, please go to nearest ER and/or call 911. If you have additional concerns or develop a change in your condition between 8am-10pm, ramirez corbin call [facility] at to help navigate your care. Reminders Provider Appointments None recorded. ? ? Lab None recorded. ? ? Referral None recorded. ? ? Procedures None recorded. ? ? Surgeries None recorded. ? ? Imaging None recorded. ? ? Vitals 05/03/2021 05:47PM D02 New or Est Patient Blood Pressure 118/60 mm[Hg] 03/28/2021 10:28AM D02 New or Est Patient Blood Pressure 122/70 mm[Hg] 03/25/2021 01:29PM D02 New or Est Patient Blood Pressure 112/54 mm[Hg] 05/20/2020 02:26PM D02 New or Est Patient Blood Pressure 126/80 mm[Hg] 04/21/2020 02:08PM D06 Established Patient Blood Pressure 138/60 mm[Hg] 10/26/2019 01:34PM D02 New or Est Patient Blood Pressure 116/74 mm[Hg] 08/23/2019 03:42PM D02 New or Est Patient Blood Pressure 108/52 mm[Hg] 11/21/2018 05:54PM D06 New Patient Blood Pressure 100/64 mm[Hg]
--- OUTSIDE RECORDS SUMMARY | 2022-03-02 14:05 | XMS_ITS | Continuity of Care Document ---
:1945 Author Organization [facility] Address [address] [place] [address]- Care Team Providers Name Role Phone Brendan Estevez MD Primary Care Physician [place] [facility] [place]20 [place] 01/28/21 [facility] [address] [place] [id number] [place] Allergies, Adverse Reactions, Alerts Substance Reaction Severity [...] toxoids (Td) 10/10/07 Recorded 1Location History: DR [id number] History: [facility] Medications Abdominal Binder Abdominal Binder, See [...] Refills 5, [facility], 01/18/21 13:58:00 EDT, Height, 61.1, kg, 11/04/19 15:16:00 EDT, Dry Weight Start Date: 01/28/21 Status: OrderedFosamax 70 mg oral tablet 1 tablet = 70 mg, By Mouth, Every week, # 4 tablet, 11 Refills, Maintenance, 02/16/21 15:21:00 EDT, Tablet, [facility], 152, cm, 11/04/20 13:52:00 EDT, Height, 61.1, kg, 11/04/19 15:16:00 EDT, Dry Weight Start Date: 02/16/21 Stop Date: 01/18/22 Status: Orderedfurosemide 20 mg oral tablet 1, tablet, By Mouth, Daily, # 28 tablet, Refills 3, Tot. Refills 0, Maintenance, 10/22/20 13:07:00 EDT, Route to [facility] Electronically, [facility], 152, cm, 10/05/20 13:35:00 EDT, Height, 61.1, [...] Daily, # 28 tablet, 5 Refills, [facility], 0, TAKE (1) TABLET BY MOUTH DAILY., 152, cm, 08/30/21 13:58:00 EDT, Height, 61.1, kg, 11/04/19 15:16:00 EDT, Dry Weight Start Date: 01/28/21 Status: OrderedOXcarbazepine 150 mg oral tablet 1, tablet, By Mouth, 2 times a day, # 56 tablet, Refills 3, Tot. Refills 0, Maintenance, 10/22/20 13:07:00 EDT, Route to Pharmacy Electronically, [facility], 152, cm, 10/05/20 13:35:00 EDT, Height, 61.1, kg, 11/04/19 15:16:00 EDT, Dry We... Start Date: 10/22/20 Status: OrderedPARoxetine 30 mg oral tablet 1 tablet, By Mouth, Daily, # 28 tablet, 0 Refills, [facility], 152, cm, 01/18/21 13:58:00 EDT, Height, 61.1, kg, 11/04/19 15:16:00 EDT, Dry Weight Start Date: 01/28/21 Status: [id number] oral powder for reconstitution See Instructions, MIX [...] 11:28:00 EDT, Route to Pharmacy Electronically, [facility], 152, cm, 12/28/20 12:44:00 EDT, Height, [...] Daily, # 28 tablet, 0 Refills, [facility], 152, cm, 01/18/21 [...] Active Urinary incontinence(Confirmed) Active 1s/p surgical treatment [id number] 2010 [id number] 2014 positive polyp, repeat 2019.4colo 2009 nl, repeat 2014 Social History Social History Type Response Smoking Status Current every day smoker entered on: 03/08/18 Sex
--- OUTSIDE RECORDS SUMMARY | 2022-03-02 14:05 | XMS_ITS ---
:1945 Author Care Team Providers Name Role Phone [facility] Referring Provider [phone] Allergies None recorded. Medications None recorded. Problems None recorded. Procedures None recorded. Results Lab Results None recorded. Past Encounters 01/15/2022 Jordyn Daily MD: [address] [place] [address], Ph. Social History None recorded. Vaccine List None recorded. Plan of Care Reminders Provider Appointments None recorded. ? ? Lab None recorded. ? ? Referral None recorded. ? ? Procedures None recorded. ? ? Surgeries None recorded. ? ? Imaging None recorded. ? ? Vitals Blood Pressure 117/65 mm[Hg]
[2022-03-02 14:33] LABS: MANUAL DIFF FLAG NO
[2022-03-02 14:37] LABS: Basophils Percent Auto 0.3 % (0-2); Eosinophils Absolute Auto 0.1 X10*3/uL (0.0-0.4); Eosinophils Percent Auto 2.3 % (0-4); Hematocrit 35.2 % (37.0-47.0); Hemoglobin 11.6 g/dl (12.0-16.0); Lymphocytes Absolute Auto 1.1 X10*3/uL (1.2-4.9); Lymphocytes Percent Auto 35.6 % (20-40); Mean Corpuscular Hemoglobin 31.9 pg (27.0-33.0); Mean Corpuscular Volume 96.7 fL (80.0-98.0); Mean Platelet Volume 10.2 fL (9.4-12.3); Monocytes Absolute Auto 0.4 X10*3/uL (0.1-1.2); Monocytes Percent Auto 12.8 % (2-11); Neutrophils Absolute Auto 1.5 x10*3/uL (2.0-8.3); Platelet Count 201 X10*3/uL (160-400); Red Blood Count 3.64 X10*6/uL (4.20-5.50); Red Cell Distribution Width 12.2 % (11.0-16.0)
[2022-03-02 14:49] LABS: COVID-19 Test Positive (Negative); IDNOW Serial# 16C4AD1C
[2022-03-02 14:56] LABS: Alanine Aminotransferase 13 U/L (0-31); Albumin Level 3.2 g/dL (3.5-5.0); Alkaline Phosphatase 117 U/L (39-117); Anion Gap 14 (12-20); Aspartate Amino Transferase 24 U/L (5-31); Bilirubin Total < 0.2 mg/dL (0.0-1.0); Blood Urea Nitrogen 33 mg/dL (9-16); Calcium 8.6 mg/dL (8.4-10.2); Carbon Dioxide 28 mmol/L (22-29); Chloride 104 mmol/L (96-108); Creatinine Clr Calc Pharmacy 29.7; Estimated Glomerular Filt Rate 49; Glucose Random 98 mg/dL (60-115); Magnesium 2.1 mg/dL (1.6-2.6); Potassium 4.2 mmol/L (3.3-5.1); Sodium 142 mmol/L (135-145)
[2022-03-02 16:38] VITALS: BP 146/68; PULSE 94; RESP 17; O2SAT 94
--- NOTE | 2022-03-02 16:39 | PHA.MEDREC ---
Pharmacy Consult ? Medication Reconciliation Pharmacy has completed the medication reconciliation.
--- NOTE | 2022-03-02 21:27 | PC.NURSE ---
Pt resting comfortably on stretcher at this time. Pt has been using bedpan for the bathroom with no issues. Pt reports 2/10 abdominal pain, r/t her diverticulitis, states she is tolerating the pain
[2022-03-02 21:49] VITALS: BP 118/62; PULSE 83; RESP 16; TEMP 36.8; O2SAT 92
[2022-03-02 23:44] VITALS: BP 127/68; PULSE 73; RESP 16; TEMP 36.4; O2SAT 96
[2022-03-03] VITALS (7 sets, daily range): BP systolic 108–123; BP diastolic 56–69; PULSE 66–98; RESP 16–28; TEMP 36.4–36.9; O2SAT 91–96
--- NOTE | 2022-03-03 02:36 | PC.NURSE ---
Patient alert and oriented x 3. but became confused at times. Patient has been eating and drinking most the shift. Patient is positive for Covid. Will continue with plan of care.
[2022-03-03 08:40] LABS: Appearance Urine Clear; Color Urine Yellow; Glucose Urine UA Negative (Negative); Leukocyte Esterase Urine Negative (Negative); Nitrite Urine Negative (Negative); PH 6.5 (5.0-9.0); Specific Gravity - Urine <= 1.005 (1.005-1.025); Urine Blood Negative (Negative); Urine Ketones Negative (Negative); Urine Protein Negative (Neg-Trace)
--- NOTE | 2022-03-03 08:46 | PC.NURSE ---
Physical therapy at bedside. Pt alert/oriented. Set up for breakfast and repositioned in bed.
[2022-03-03] MEDS: Propranolol HCL 10 MG TABLET PO ×3 (08:56→21:24)
[2022-03-03] MEDS: PARoxetine HCL 30 MG TABLET PO (08:57)
[2022-03-03] MEDS: Ascorbic Acid 500 MG TABLET PO (08:58)
[2022-03-03] MEDS: LORazepam 1 MG TABLET PO ×3 (08:58→21:24)
[2022-03-03] MEDS: Cholecalciferol (Vitamin D3) 25 MCG TABLET 50 MCG PO (08:58)
[2022-03-03] MEDS: OXcarbazepine 150 MG TABLET PO ×2 (08:59→21:24)
[2022-03-03] MEDS: Folic Acid 1 MG TABLET PO (08:59)
[2022-03-03] MEDS: Multivitamin TABLET 1 TAB PO (08:59)
[2022-03-03] MEDS: Furosemide 20 MG TABLET PO (08:59)
--- NOTE | 2022-03-03 13:33 | MHC.CM.ED ---
Addendum entered by Christina Servin 03/03/22 14:07: Due to personality disorder and receiving [facility] in order to maintain functioning at home. Patient will require a [facility] ([place] [place]) Level 2 letter. T/W has already submitted via [facility] ([place] [place]). Original Note: Received case management consult from Lucille MELTON. Patient was d/c'd from [facility] on 03/01 with [facility]. Patient returned to ER due to failure to thrive. Patient is now positive for Covid. [facility] is able to accept patient and is in the process of obtaining insurance auth. Continue to monitor for d/c needs.
[2022-03-03] MEDS: Sennosides/Docusate Sodium TABLET 2 TAB PO (21:24)
[2022-03-03] MEDS: Melatonin 3 MG TABLET PO (21:24)
[2022-03-04 06:04] VITALS: BP 105/46; PULSE 62; RESP 16; TEMP 36.3; O2SAT 93
[2022-03-04 07:18] VITALS: BP 122/60; PULSE 73; RESP 20; TEMP 36.7; O2SAT 97
[2022-03-04] MEDS: LORazepam 1 MG TABLET PO ×2 (08:43→15:03)
[2022-03-04] MEDS: OXcarbazepine 150 MG TABLET PO (08:43)
[2022-03-04] MEDS: Folic Acid 1 MG TABLET PO (08:43)
[2022-03-04] MEDS: Propranolol HCL 10 MG TABLET PO ×2 (08:43→15:01)
[2022-03-04] MEDS: Cholecalciferol (Vitamin D3) 25 MCG TABLET 50 MCG PO (08:43)
[2022-03-04] MEDS: Furosemide 20 MG TABLET PO (08:44)
[2022-03-04] MEDS: PARoxetine HCL 30 MG TABLET PO (08:44)
[2022-03-04] MEDS: Multivitamin TABLET 1 TAB PO (08:44)
[2022-03-04] MEDS: Ascorbic Acid 500 MG TABLET PO (08:44)
[2022-03-04 09:10] VITALS: BP 112/57; PULSE 68; RESP 18; TEMP 36.6; O2SAT 93
--- NOTE | 2022-03-04 13:34 | MHC.CM.ED ---
Patient remains in ER. [facility] has obtained insurance auth. [facility] PASRR Level 2 has been obtained. Patient will leave via [facility] at 430pm. [facility] with chart. Patient, Arik LYONS and Loyd MELTON aware. Continue to monitor for d/c needs.
--- NOTE | 2022-03-04 14:35 | PC.NURSE ---
ate lunch, rn to rn report to [facility], the rn knew her from last visit, pt has been incontinent of stool and urine mult times today and cleaned, notifies staff after but never before, states she doesn't have control
== END 2022-03-04 19:34 | disposition skilled nursing facility (03) ==
PROVIDERS: Physician Assistant Medical; Emergency Provider Emergency Medicine; PCP Internal Medicine
DX: U07.1 COVID-19 (principal); R62.7 Adult failure to thrive; R26.81 Unsteadiness on feet; F17.200 Nicotine dependence, unspecified, uncomplicated; Z71.6 Tobacco abuse counseling; Z79.899 Other long term (current) drug therapy
CPT/HCPCS: 80053; 81003; 83735; 85025; 87635; 97162; 99284; 99285

== ENCOUNTER 2022-03-07 06:22 | Outpatient (REF) | payer OTHER, SELFPAY ==
[2022-03-07 06:55] LABS: Hematocrit 32.6 % (37.0-47.0); Hemoglobin 10.7 g/dl (12.0-16.0); Mean Corpuscular HGB Conc 32.8 g/dl (31.0-35.0); Mean Corpuscular Hemoglobin 32.3 pg (27.0-33.0); Mean Corpuscular Volume 98.5 fL (80.0-98.0); Mean Platelet Volume 10.3 fL (9.4-12.3); Platelet Count 311 X10*3/uL (160-400); Red Blood Count 3.31 X10*6/uL (4.20-5.50); Red Cell Distribution Width 12.1 % (11.0-16.0); White Blood Count 4.8 X10*3/uL (4.8-10.8)
[2022-03-07 07:32] LABS: Anion Gap 14 (12-20); Blood Urea Nitrogen 28 mg/dL (9-16); Calcium 8.5 mg/dL (8.4-10.2); Carbon Dioxide 28 mmol/L (22-29); Chloride 104 mmol/L (96-108); Estimated Glomerular Filt Rate 48; Glucose Random 90 mg/dL (60-115); Potassium 4.3 mmol/L (3.3-5.1); Sodium 142 mmol/L (135-145)
== END 2022-03-07 06:23 | disposition home or self-care (01) ==
LOC: HO.MMNH1L 06:22
PROVIDERS: Visit Provider Family Medicine
DX: I10 Essential (primary) hypertension (principal)
CPT/HCPCS: 36415; 80048; 85027

== ENCOUNTER 2022-03-14 06:58 | Outpatient (REF) | payer OTHER, SELFPAY ==
[2022-03-14 07:31] LABS: Hematocrit 28.4 % (37.0-47.0); Hemoglobin 9.1 g/dl (12.0-16.0); Mean Corpuscular Hemoglobin 32.4 pg (27.0-33.0); Mean Corpuscular Volume 101.1 fL (80.0-98.0); Mean Platelet Volume 10.1 fL (9.4-12.3); Platelet Count 366 X10*3/uL (160-400); Red Blood Count 2.81 X10*6/uL (4.20-5.50); Red Cell Distribution Width 11.8 % (11.0-16.0); White Blood Count 4.9 X10*3/uL (4.8-10.8)
[2022-03-14 07:50] LABS: Anion Gap 13 (12-20); Blood Urea Nitrogen 32 mg/dL (9-16); Calcium 8.5 mg/dL (8.4-10.2); Carbon Dioxide 28 mmol/L (22-29); Chloride 106 mmol/L (96-108); Estimated Glomerular Filt Rate 57; Glucose Random 84 mg/dL (60-115); Potassium 4.1 mmol/L (3.3-5.1); Sodium 143 mmol/L (135-145)
== END 2022-03-14 06:59 | disposition home or self-care (01) ==
LOC: HO.MMNH3L 06:58
PROVIDERS: Visit Provider Family Medicine
DX: M47.812 Spondylosis without myelopathy or radiculopathy, cervical region (principal); N18.9 Chronic kidney disease, unspecified; U07.1 COVID-19
CPT/HCPCS: 36415; 80048; 85027

== ENCOUNTER 2022-03-21 06:17 | Outpatient (REF) | payer OTHER, SELFPAY ==
[2022-03-21 06:33] LABS: MANUAL DIFF FLAG NO
[2022-03-21 06:58] LABS: Anion Gap 12 (12-20); Blood Urea Nitrogen 30 mg/dL (9-16); Calcium 9.1 mg/dL (8.4-10.2); Carbon Dioxide 30 mmol/L (22-29); Chloride 105 mmol/L (96-108); Estimated Glomerular Filt Rate 48; Glucose Random 84 mg/dL (60-115); Potassium 4.4 mmol/L (3.3-5.1); Sodium 143 mmol/L (135-145)
[2022-03-21 07:01] LABS: Basophils Percent Auto 0.4 % (0-2); Eosinophils Absolute Auto 0.2 X10*3/uL (0.0-0.4); Eosinophils Percent Auto 3.8 % (0-4); Hematocrit 28.2 % (37.0-47.0); Hemoglobin 9.1 g/dl (12.0-16.0); Imm Gran Abs Auto 0.01 X10*3/uL (0.00-0.03); Imm Gran Pct Auto 0.2 % (0.0-0.4); Lymphocytes Absolute Auto 1.5 X10*3/uL (1.2-4.9); Lymphocytes Percent Auto 34.1 % (20-40); Mean Corpuscular HGB Conc 32.3 g/dl (31.0-35.0); Mean Corpuscular Hemoglobin 32.3 pg (27.0-33.0); Mean Platelet Volume 10.1 fL (9.4-12.3); Monocytes Absolute Auto 0.6 X10*3/uL (0.1-1.2); Monocytes Percent Auto 13.1 % (2-11); Neutrophils Absolute Auto 2.2 x10*3/uL (2.0-8.3); Neutrophils Percent Auto 48.4 % (45-73); Platelet Count 288 X10*3/uL (160-400); Red Blood Count 2.82 X10*6/uL (4.20-5.50); Red Cell Distribution Width 12.2 % (11.0-16.0); White Blood Count 4.5 X10*3/uL (4.8-10.8)
== END 2022-03-21 06:18 | disposition home or self-care (01) ==
LOC: HO.MMNH1L 06:17
PROVIDERS: Visit Provider Family Medicine
DX: M47.812 Spondylosis without myelopathy or radiculopathy, cervical region (principal); N18.9 Chronic kidney disease, unspecified; U07.1 COVID-19
CPT/HCPCS: 36415; 80048; 85025

== ENCOUNTER 2022-03-30 13:06 | Emergency (ER) | payer OTHER, SELFPAY ==
[2022-03-30 13:16] VITALS: BP 134/84; O2SAT 98
[2022-03-30 13:28] VITALS: BP 139/82; PULSE 88; RESP 16; TEMP 36.6; O2SAT 97; BMI 21.0
--- OUTSIDE RECORDS SUMMARY | 2022-03-30 14:14 | XMS_ITS ---
:1945 Author Care Team Providers Name Role Phone BEATRIS SANDERS MD Primary Care Provider [phone] Allergies Code Code System Name Reaction Severity [...] Osteomyelitis of Ankle And/or Foot Reinier Gilman BUSINESS ANALYST CONSULTANT: [address] [place] [address], Ph. 03/28/2021 Chronic Osteomyelitis of Ankle And/or Fo ot Patsy Saldivar, BUSINESS ANALYST CONSULTANT: [address] [place] [address], Ph. [phone] 03/25/2021 Chronic Osteomyelitis of Ankle And/or Fo ot Geneva Pride BUSINESS ANALYST CONSULTANT: [address] [place], [place] , Ph. [phone] 03/21/2021 Wound Cellulitis Reg Kaur, BUSINESS ANALYST CONSULTANT: [address] [place], [place] , Ph. Social History Tobacco Smoking Status Heavy Tobacco Smoker (1 pack per day) Vaccine List None recorded. Plan of Care Patient Instructions Thank you for your visit with [facility] today. You were seen today for treatment [...] care. Thank you for your visit with [facility] today. You were seen today for treatment [...] between 8am-10pm, p lease call [facility] at [phone] to help navigate your care. Thank you for your visit with [facility] today. You were seen today for treatment [...] care. Thank you for your visit with [facility] today. You were seen [...] between 8am-10pm, ramirez corbin call [facility] at [phone] to help navigate your care. Reminders Provider [...]
--- OUTSIDE RECORDS SUMMARY | 2022-03-30 14:14 | XMS_ITS | Encounter Summary ---
:1945 Author Care Team Providers Name Role Phone [facility] Referring Provider [phone] Reason for Visit Wound Care Assessment and Plan Assessment Note Ms. Carola Mugruia is a 76yoF w/ a PmHx o [...] for a dressing change. VSS. Photograph by packer denture shows well healing wound with small amount of fibrinous discharge on gauze. No surrounding erythema, low concern for active infection. Gas Specialist will help her re-dress the w ound [...] Past Encounters 01/15/2022 Jordyn Daily MD: [address] [place] [address], Ph. History of Present Illness Note: <p><strong>HPI: </strong>

Mbr had surgery on right ankle, states Dressing was not changed yesterday. mbr has supplies at home, requesting [facility] assistance.
. ................................................................................ ............................................................

<strong>CRC Nursing Assessment: </strong>

Comments: CRC RN DID NOT NEED FURTHER INFO TO PROCESS VISIT </p> <p>............................................................................. ............... .................................................

<strong>Gas Specialist Note: </strong>

76 yo f c/o persistent [...]
--- OUTSIDE RECORDS SUMMARY | 2022-03-30 14:14 | XMS_ITS ---
:1945 Author Care Team Providers Name Role Phone [facility] Referring Provider [phone] Allergies None recorded. Medications None recorded. Problems None recorded. Procedures None recorded. Results Lab Results None recorded. Past Encounters 01/15/2022 Jordyn Daily MD: [address] [place] [address], Ph. Social History None recorded. Vaccine List None recorded. Plan of Care Reminders Provider Appointments None recorded. ? ? Lab None recorded. ? ? Referral None recorded. ? ? Procedures None recorded. ? ? Surgeries None recorded. ? ? Imaging None recorded. ? ? Vitals Blood Pressure 117/65 mm[Hg]
--- NOTE | 2022-03-30 14:41 | ECG_ITS ---
Test Reason : WEAKNESS Blood Pressure : / mmHG Vent. Rate : 065 BPM Atrial Rate : 065 BPM P-R Int : 138 ms QRS Dur : 066 ms QT Int : 402 ms P-R-T Axes : 070 040 049 degrees QTc Int : 418 ms Normal sinus rhythm Normal ECG When compared with ECG of 12-FEB-2022 20:49, No significant change was found Referred By: Shalini Chan Electronically Signed By:HECTOR ORTEGA MD
--- NOTE | 2022-03-30 14:48 | ED.GENADULT ---
HPI - General Adult General Chief complaint: General Medical Stated complaint: CHRONIC ABD/LEG PAIN , NEED FOR CM INV PER EMS Time Seen by Provider: 03/30/22 14:32 Source: patient and EMS Mode of arrival: EMS Limitations: no limitations History of Present Illness HPI narrative: Patient comes to the emergency room complaining of not being able to eat all care for self. Patient states that her primary care physician changed some of her medications, does not know what she takes, states that now she takes less medication that she used to. Overall, patient states that she would like to be going to a senior living facility. Of note, patient was sent to [facility] in [place] on December 23. Patient states she was also at [facility] and was discharged. Related Data Home Medications Medication Instructions Recorded Confirmed alendronate 70 mg tablet 70 mg PO ANGEL@0600 07/27/21 03/02/22 ascorbic acid (vitamin C) 500 mg 500 mg PO DAILY 07/27/21 03/02/22 tablet (Vitamin C) cholecalciferol (vitamin D3) 50 50 mcg PO DAILY 07/27/21 03/02/22 mcg (2,000 unit) capsule (Vitamin D3) cranberry extract 250 mg capsule 250 mg PO BID 07/27/21 03/02/22 folic acid 1 mg tablet 1 mg PO DAILY 07/27/21 03/02/22 furosemide 20 mg tablet 20 mg PO DAILY 07/27/21 03/02/22 lorazepam 1 mg tablet 1 mg PO TID 07/27/21 03/02/22 melatonin 3 mg tablet 3 mg PO BEDTIME 07/27/21 03/02/22 methenamine hippurate 1 gram tablet 1 g PO BID 07/27/21 03/02/22 multivitamin 1 tab PO DAILY 07/27/21 03/02/22 oxcarbazepine 150 mg tablet 150 mg PO BID 07/27/21 03/02/22 paroxetine HCl 30 mg tablet 30 mg PO DAILY 07/27/21 03/02/22 propranolol 10 mg tablet 10 mg PO TID 07/27/21 03/02/22 sennosides 8.6 mg-docusate sodium 2 tab PO BEDTIME 07/27/21 03/02/22 50 mg tablet (Senna Plus) trazodone 50 mg tablet 25 mg PO BEDTIME PRN Insomnia 07/27/21 03/02/22 salsalate 500 mg tablet 1 tab PO DAILY PRN Pain (Scale 12/23/21 03/02/22 Score 1-3) doxycycline hyclate 100 mg capsule 1 cap PO DAILY 02/12/22 03/02/22 Allergies Allergy/AdvReac Type Severity Reaction Status Date / Time ibuprofen [IBUPROFEN] Allergy Intermediate KIDNEY Verified 07/19/21 20:57 PROBLEMS oxycodone [From OXYCONTIN] Allergy Unknown UNKNOWN Verified 07/19/21 20:57 Sulfa (Sulfonamide Allergy Unknown UNKNOWN Verified 07/19/21 20:57 Antibiotics) [SULFA (SULFONAMIDE ANTIBIOTICS)] Ibuprofen Allergy Unknown Unknown Uncoded 07/19/21 20:57 Sulfer Allergy Unknown Unknown Uncoded 07/19/21 20:57 Review of Systems Review of Systems: Constitutional : No Weight loss, No Fever, No Chills, No Night Sweats, complaining of fatigue and generalized malaise ENT/Mouth : No Hearing loss, No Ear Pain, No Nasal Congestion, No Sinus Pain, No Hoarseness, No sore throat, No Rhinorrhea, No Swallowing Difficulty Eyes: No Eye Pain, No Swelling, No Redness, No Foreign Body, No Discharge, No Vision Changes Cardiovascular : No Chest Pain, No SOB, No Dyspnea on Exertion, No Orthopnea, No Edema, No Palpitations Respiratory : No Cough, No Sputum, No Wheezing, No Smoke Exposure, No Dyspnea Gastrointestinal : No Nausea, No Vomiting, No Diarrhea, no abdominal pain, complaining of chronic constipation Genitourinary : no irregular bleeding, No Dysuria, No Urinary Frequency, No Hematuria, No Urinary Incontinence, No Urgency, No Flank Pain, No Urinary Flow Changes, No Hesitancy Musculoskeletal : No joint pain, No Myalgias, No Joint Swelling Skin : No Skin Lesions, No rash Neuro : No Weakness, No Numbness, No Paresthesias, No Loss of Consciousness, No Dizziness, No Headache Psych : No Anxiety/Panic, No Depression, No SI/HI/AH/VH, No Social Issues, Heme/Lymph: No Bruising, No Bleeding,No Lymphadenopathy Endocrine : No Polyuria, No Polydipsia, No Temperature Intolerance PMFSH Past Medical History Medical History Bacteremia due to coagulase-negative Staphylococcus (08/09/19) Bipolar disorder Bowel incontinence Cataract Cellulitis Chronic constipation Chronic obstructive lung disease (10/26/19) Chronic osteomyelitis of right ankle Chronic pyelonephritis CKD (chronic kidney disease) stage 3, GFR 30-59 ml/min Compression fracture of lumbar vertebra Diverticulitis Diverticulosis Family history of colon cancer Hernia, hiatal Hernia, ventral Herpes zoster involving cervical dermatome HTN (hypertension) Kidney disease Leg pain, right Lumbar spinal stenosis Lumbosacral radiculitis Osteoporosis (10/21/19) Rectal bleed Recurrent urinary tract infection Tobacco abuse Underweight Unsteady gait Urinary retention (08/22/19) Surgical History H/O abdominal surgery History of incisional hernia repair Hx of cholecystectomy S/P appendectomy Social History Social History Alcohol intake: former Patient Tobacco Use Status: Current everyday Tobacco user Advance Directives: Yes Advance Directives on File: Yes Advance Directives Date on File: 12/23/21 Physical Exam ED Vital Signs: Vital Signs - 24 hr 03/30/22 13:28 03/30/22 15:46 03/30/22 17:09 Temperature 98 F Pulse Rate 88 80 66 Respiratory Rate 16 23 H 15 Blood Pressure 139/82 162/100 H 145/52 H Pulse Oximetry 97 94 96 Oxygen Delivery Method Room Air Room Air Room Air 03/30/22 20:37 03/31/22 00:19 03/31/22 01:41 Temperature 97.9 F 98.2 F Pulse Rate 68 72 Respiratory Rate 16 16 18 Blood Pressure 177/61 H 140/53 H Pulse Oximetry 97 96 Oxygen Delivery Method Room Air Room Air 03/31/22 06:04 03/31/22 08:14 Temperature Pulse Rate 76 Respiratory Rate 16 18 Blood Pressure 155/60 H Pulse Oximetry 95 Oxygen Delivery Method Room Air BMI result Body Mass Index 21.0 Const Other: Appearance: Alert. Oriented X3. No acute distress. Weak Eyes: Pupils equal, round and reactive to light. ENT: Pharynx normal. Neck: Normal inspection. Neck supple. No lymph nodes noted. No crepitus CVS: Normal heart rate and rhythm. Pulses normal. Normal S1 and S2 Respiratory: No respiratory distress. Breath sounds normal. No Wheezing. No rales Abdomen: Soft and nontender. No rigidity. No distention. Skin: Skin warm and dry. Normal skin color. Normal skin turgor. Extremities: No lower extremity edema. No Lacerations. No Rash Neuro: Oriented X 3. No motor deficit. No sensory deficit. Moving all extremities. No slurred speech. CN 2 through 12 grossly intact Psych: calm, cooperative, normal affect Course Course Course Narrative: Basic labs are pending. Case management will be consulted after the patient is medically cleared. Patient's labs are at baseline. I was informed by the patient's nurse that the patient has trouble urinating. On bladder scan there are over 300 mL of urine. Patient has now a [place] catheter. Case management and physical therapy consult have been requested. Physician of sedation started at 17:20 Case management evaluated the patient they do not believe the patient has capacity to make any decisions. Healthcare proxy to be invoked. Psychiatry consult be done tomorrow to evaluate for capacity. Medications Administered Discontinued Medications Generic Name Dose Route Start Last Admin Trade Name Freq PRN Reason Stop Dose Admin Diphenhydramine HCl 25 mg 03/31/22 02:53 03/31/22 02:58 Diphenhydramine Hcl 25 Mg Capsule PO 03/31/22 02:54 25 mg ONCE ONE Administration Medical Decision Making Lab Data Result diagrams: 03/30/22 15:25 03/30/22 15:25 Labs: Lab Results 03/30/22 03/30/22 03/30/22 Range/Units 15:25 15:25 15:25 WBC 5.2 (4.8-10.8) X10*3/uL RBC 3.28 L (4.20-5.50) X10*6/uL Hgb 10.6 L (12.0-16.0) g/dl Hct 33.0 L (37.0-47.0) % MCV 100.6 H (80.0-98.0) fL MCH 32.3 (27.0-33.0) pg MCHC 32.1 (31.0-35.0) g/dl RDW 13.1 (11.0-16.0) % Plt Count 270 (160-400) X10*3/uL MPV 9.9 (9.4-12.3) fL Immature Gran % (Auto) 0.2 (0.0-0.4) % Neut % (Auto) 60.5 (45-73) % Lymph % (Auto) 29.7 (20-40) % [place] % (Auto) 7.1 (2-11) % Eos % (Auto) 1.9 (0-4) % Baso % (Auto) 0.6 (0-2) % Lymph # (Auto) 1.5 (1.2-4.9) X10*3/uL [place] # (Auto) 0.4 (0.1-1.2) X10*3/uL Eos # (Auto) 0.1 (0.0-0.4) X10*3/uL Baso # (Auto) 0.0 (0.0-0.2) X10*3/uL Abs Immat Gran (auto) 0.01 (0.00-0.03) X10*3/uL Absolute Neuts (auto) 3.1 (2.0-8.3) x10*3/uL Absolute Nucleated RBC 0.000 (0.0-0.012) X10*3/uL Nucleated RBC % (auto) 0.0 (0.0-0.2) /100WBC Sodium 144 (135-145) mmol/L Potassium 4.5 (3.3-5.1) mmol/L Chloride 108 (96-108) mmol/L Carbon Dioxide 26 (22-29) mmol/L Anion Gap 15 (12-20) BUN 22 H (9-16) mg/dL Creatinine 1.02 (0.5-1.4) mg/dL Estim Creat Clear Calc 36.5 Estimated GFR 53 Random Glucose 98 (60-115) mg/dL Calcium 8.9 (8.4-10.2) mg/dL Magnesium (1.6-2.6) mg/dL Total Bilirubin 0.3 (0.0-1.0) mg/dL Direct Bilirubin < 0.2 (0.0-0.5) mg/dL AST 18 (5-31) U/L ALT 10 (0-31) U/L Alkaline Phosphatase 70 D (39-117) U/L Troponin I High Sens 7.3 (<3.5-17.0) ng/L Total Protein 5.8 L (6.5-8.0) g/dL Albumin 3.2 L (3.5-5.0) g/dL Lipase (8-78) U/L Urine Color Urine Appearance Urine pH (5.0-9.0) Ur Specific [place] (1.005-1.025) Urine Protein (Neg-Trace) mg/dL Urine Glucose (UA) (Negative) mg/dL Urine Ketones (Negative) mg/dL Urine Blood (Negative) Urine Nitrite (Negative) Ur Leukocyte Esterase (Negative) Urine Opiates Screen (Not Detect) Urine Fentanyl Screen (Not Detect) Ur Barbiturates Screen (Not Detect) Ur Phencyclidine Scrn (Not Detect) Ur Amphetamines Screen (Not Detect) U Benzodiazepines Scrn (Not Detect) Urine Cocaine Screen (Not Detect) U Marijuana (THC) Screen (Not Detect) Ethyl Alcohol mg/dL COVID-19 (OPHELIA) (Negative) COVID-19 Clin Com 03/30/22 03/30/22 03/30/22 Range/Units 15:25 16:22 16:22 WBC (4.8-10.8) X10*3/uL RBC (4.20-5.50) X10*6/uL Hgb (12.0-16.0) g/dl Hct (37.0-47.0) % MCV (80.0-98.0) fL MCH (27.0-33.0) pg MCHC (31.0-35.0) g/dl RDW (11.0-16.0) % Plt Count (160-400) X10*3/uL MPV (9.4-12.3) fL Immature Gran % (Auto) (0.0-0.4) % Neut % (Auto) (45-73) % Lymph % (Auto) (20-40) % [place] % (Auto) (2-11) % Eos % (Auto) (0-4) % Baso % (Auto) (0-2) % Lymph # (Auto) (1.2-4.9) X10*3/uL [place] # (Auto) (0.1-1.2) X10*3/uL Eos # (Auto) (0.0-0.4) X10*3/uL Baso # (Auto) (0.0-0.2) X10*3/uL Abs Immat Gran (auto) (0.00-0.03) X10*3/uL Absolute Neuts (auto) (2.0-8.3) x10*3/uL Absolute Nucleated RBC (0.0-0.012) X10*3/uL Nucleated RBC % (auto) (0.0-0.2) /100WBC Sodium (135-145) mmol/L Potassium (3.3-5.1) mmol/L Chloride (96-108) mmol/L Carbon Dioxide (22-29) mmol/L Anion Gap (12-20) BUN (9-16) mg/dL Creatinine (0.5-1.4) mg/dL Estim Creat Clear Calc Estimated GFR Random Glucose (60-115) mg/dL Calcium (8.4-10.2) mg/dL Magnesium 2.2 (1.6-2.6) mg/dL Total Bilirubin (0.0-1.0) mg/dL Direct Bilirubin (0.0-0.5) mg/dL AST (5-31) U/L ALT (0-31) U/L Alkaline Phosphatase (39-117) U/L Troponin I High Sens (<3.5-17.0) ng/L Total Protein (6.5-8.0) g/dL Albumin (3.5-5.0) g/dL Lipase 27 (8-78) U/L Urine Color Yellow Urine Appearance Clear Urine pH 6.0 (5.0-9.0) Ur Specific [place] 1.010 (1.005-1.025) Urine Protein Negative (Neg-Trace) mg/dL Urine Glucose (UA) Negative (Negative) mg/dL Urine Ketones Trace (Negative) mg/dL Urine Blood Negative (Negative) Urine Nitrite Negative (Negative) Ur Leukocyte Esterase Negative (Negative) Urine Opiates Screen (Not Detect) Urine Fentanyl Screen (Not Detect) Ur Barbiturates Screen (Not Detect) Ur Phencyclidine Scrn (Not Detect) Ur Amphetamines Screen (Not Detect) U Benzodiazepines Scrn (Not Detect) Urine Cocaine Screen (Not Detect) U Marijuana (THC) Screen (Not Detect) Ethyl Alcohol < 10 mg/dL COVID-19 (OPHELIA) Negative (Negative) COVID-19 Clin Com See Note 03/30/22 Range/Units 16:22 WBC (4.8-10.8) X10*3/uL RBC (4.20-5.50) X10*6/uL Hgb (12.0-16.0) g/dl Hct (37.0-47.0) % MCV (80.0-98.0) fL MCH (27.0-33.0) pg MCHC (31.0-35.0) g/dl RDW (11.0-16.0) % Plt Count (160-400) X10*3/uL MPV (9.4-12.3) fL Immature Gran % (Auto) (0.0-0.4) % Neut % (Auto) (45-73) % Lymph % (Auto) (20-40) % [place] % (Auto) (2-11) % Eos % (Auto) (0-4) % Baso % (Auto) (0-2) % Lymph # (Auto) (1.2-4.9) X10*3/uL [place] # (Auto) (0.1-1.2) X10*3/uL Eos # (Auto) (0.0-0.4) X10*3/uL Baso # (Auto) (0.0-0.2) X10*3/uL Abs Immat Gran (auto) (0.00-0.03) X10*3/uL Absolute Neuts (auto) (2.0-8.3) x10*3/uL Absolute Nucleated RBC (0.0-0.012) X10*3/uL Nucleated RBC % (auto) (0.0-0.2) /100WBC Sodium (135-145) mmol/L Potassium (3.3-5.1) mmol/L Chloride (96-108) mmol/L Carbon Dioxide (22-29) mmol/L Anion Gap (12-20) BUN (9-16) mg/dL Creatinine (0.5-1.4) mg/dL Estim Creat Clear Calc Estimated GFR Random Glucose (60-115) mg/dL Calcium (8.4-10.2) mg/dL Magnesium (1.6-2.6) mg/dL Total Bilirubin (0.0-1.0) mg/dL Direct Bilirubin (0.0-0.5) mg/dL AST (5-31) U/L ALT (0-31) U/L Alkaline Phosphatase (39-117) U/L Troponin I High Sens (<3.5-17.0) ng/L Total Protein (6.5-8.0) g/dL Albumin (3.5-5.0) g/dL Lipase (8-78) U/L Urine Color Urine Appearance Urine pH (5.0-9.0) Ur Specific [place] (1.005-1.025) Urine Protein (Neg-Trace) mg/dL Urine Glucose (UA) (Negative) mg/dL Urine Ketones (Negative) mg/dL Urine Blood (Negative) Urine Nitrite (Negative) Ur Leukocyte Esterase (Negative) Urine Opiates Screen Not Detected (Not Detect) Urine Fentanyl Screen Not Detected (Not Detect) Ur Barbiturates Screen Not Detected (Not Detect) Ur Phencyclidine Scrn Not Detected (Not Detect) Ur Amphetamines Screen Not Detected (Not Detect) U Benzodiazepines Scrn Not Detected (Not Detect) Urine Cocaine Screen Not Detected (Not Detect) U Marijuana (THC) Screen Not Detected (Not Detect) Ethyl Alcohol mg/dL COVID-19 (OPHELIA) (Negative) COVID-19 Clin Com Discharge Plan Discharge Clinical Impression: Acute urinary retention, Weakness Patient Disposition: Still a Patient Prescriptions: No Action multivitamin Tablet 1 tab PO DAILY oxcarbazepine 150 mg tablet 150 mg PO BID trazodone 50 mg tablet 25 mg PO BEDTIME PRN (Reason: Insomnia) alendronate 70 mg tablet 70 mg PO ANGEL@0600 sennosides-docusate sodium [Senna Plus] 8.6-50 mg tablet 2 tab PO BEDTIME melatonin 3 mg tablet 3 mg PO BEDTIME cranberry extract 250 mg capsule 250 mg PO BID propranolol 10 mg tablet 10 mg PO TID methenamine hippurate 1 gram tablet 1 g PO BID ascorbic acid (vitamin C) [Vitamin C] 500 mg tablet 500 mg PO DAILY paroxetine HCl 30 mg tablet 30 mg PO DAILY folic acid 1 mg tablet 1 mg PO DAILY furosemide 20 mg tablet 20 mg PO DAILY lorazepam 1 mg tablet 1 mg PO TID cholecalciferol (vitamin D3) [Vitamin D3] 50 mcg (2,000 unit) capsule 50 mcg PO DAILY salsalate 500 mg tablet 1 tab PO DAILY PRN (Reason: Pain (Scale Score 1-3)) doxycycline hyclate 100 mg capsule 1 cap PO DAILY
[2022-03-30 15:38] LABS: MANUAL DIFF FLAG NO
[2022-03-30 15:39] LABS: Basophils Percent Auto 0.6 % (0-2); Eosinophils Absolute Auto 0.1 X10*3/uL (0.0-0.4); Eosinophils Percent Auto 1.9 % (0-4); Hemoglobin 10.6 g/dl (12.0-16.0); Imm Gran Abs Auto 0.01 X10*3/uL (0.00-0.03); Imm Gran Pct Auto 0.2 % (0.0-0.4); Lymphocytes Absolute Auto 1.5 X10*3/uL (1.2-4.9); Lymphocytes Percent Auto 29.7 % (20-40); Mean Corpuscular HGB Conc 32.1 g/dl (31.0-35.0); Mean Corpuscular Hemoglobin 32.3 pg (27.0-33.0); Mean Corpuscular Volume 100.6 fL (80.0-98.0); Mean Platelet Volume 9.9 fL (9.4-12.3); Monocytes Absolute Auto 0.4 X10*3/uL (0.1-1.2); Monocytes Percent Auto 7.1 % (2-11); Neutrophils Absolute Auto 3.1 x10*3/uL (2.0-8.3); Neutrophils Percent Auto 60.5 % (45-73); Platelet Count 270 X10*3/uL (160-400); Red Blood Count 3.28 X10*6/uL (4.20-5.50); Red Cell Distribution Width 13.1 % (11.0-16.0); White Blood Count 5.2 X10*3/uL (4.8-10.8)
[2022-03-30 15:46] VITALS: BP 162/100; PULSE 80; RESP 23; O2SAT 94
[2022-03-30 15:56] LABS: Alanine Aminotransferase 10 U/L (0-31); Albumin Level 3.2 g/dL (3.5-5.0); Alkaline Phosphatase 70 U/L (39-117); Anion Gap 15 (12-20); Aspartate Amino Transferase 18 U/L (5-31); Bilirubin Direct < 0.2 mg/dL (0.0-0.5); Bilirubin Total 0.3 mg/dL (0.0-1.0); Blood Urea Nitrogen 22 mg/dL (9-16); Calcium 8.9 mg/dL (8.4-10.2); Carbon Dioxide 26 mmol/L (22-29); Chloride 108 mmol/L (96-108); Creatinine Clr Calc Pharmacy 36.5; Estimated Glomerular Filt Rate 53; Glucose Random 98 mg/dL (60-115); Potassium 4.5 mmol/L (3.3-5.1); Sodium 144 mmol/L (135-145); Total Protein 5.8 g/dL (6.5-8.0)
[2022-03-30 15:57] LABS: Ethanol < 10 mg/dL; Lipase 27 U/L (8-78); Magnesium 2.2 mg/dL (1.6-2.6)
[2022-03-30 16:03] LABS: Troponin-I High Sensitivity 7.3 ng/L (<3.5-17.0)
[2022-03-30 16:41] LABS: Appearance Urine Clear; Color Urine Yellow; Glucose Urine UA Negative (Negative); Leukocyte Esterase Urine Negative (Negative); Nitrite Urine Negative (Negative); Urine Blood Negative (Negative); Urine Ketones Trace mg/dL (Negative); Urine Protein Negative (Neg-Trace)
[2022-03-30 16:51] LABS: Amphetamine Screen Urine Not Detected (Not Detect); Barbiturates, Urine Not Detected (Not Detect); Benzodiazepines Screen Urine Not Detected (Not Detect); COVID-19 Test Negative (Negative); Cannabinoid Screen Urine Not Detected (Not Detect); Cocaine Screen Urine Not Detected (Not Detect); Fentanyl, urine Not Detected (Not Detect); IDNOW Serial# 16C4AD1C; Opiate Screen Urine Not Detected (Not Detect); Phencyclidine Screen Urine Not Detected (Not Detect)
[2022-03-30 17:09] VITALS: BP 145/52; PULSE 66; RESP 15; O2SAT 96
--- NOTE | 2022-03-30 18:49 | PC.NURSE ---
pt moved into hospital bed for comfort
[2022-03-30 20:37] VITALS: BP 177/61; PULSE 68; RESP 16; TEMP 36.6; O2SAT 97
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
[2022-03-31 00:19] VITALS: RESP 16
[2022-03-31 01:41] VITALS: BP 140/53; PULSE 72; RESP 18; TEMP 36.8; O2SAT 96
[2022-03-31] MEDS: diphenhydrAMINE HCL 25 MG CAPSULE PO (02:58)
[2022-03-31 06:04] VITALS: RESP 16
[2022-03-31 08:14] VITALS: BP 155/60; PULSE 76; RESP 18; O2SAT 95
--- NOTE | 2022-03-31 09:51 | PC.NURSE ---
this tech helped pt on bed pain. pt is cleaned and comfortable in bed.
--- NOTE | 2022-03-31 10:22 | PHA.MEDREC ---
Pharmacy Consult ? Medication Reconciliation Pharmacy has completed the medication reconciliation. Patient uses [facility]. Received med list. Lori Patel, KatD
[2022-03-31] MEDS: Propranolol HCL 10 MG TABLET PO ×3 (11:33→22:48)
[2022-03-31] MEDS: Ascorbic Acid 500 MG TABLET PO (11:33)
[2022-03-31] MEDS: Cholecalciferol (Vitamin D3) 25 MCG TABLET 50 MCG PO (11:33)
[2022-03-31] MEDS: Folic Acid 1 MG TABLET PO (11:33)
[2022-03-31] MEDS: Multivitamin TABLET 1 TAB PO (11:34)
[2022-03-31] MEDS: Furosemide 20 MG TABLET PO (11:34)
[2022-03-31] MEDS: OXcarbazepine 150 MG TABLET PO ×2 (11:34→22:49)
[2022-03-31] MEDS: LORazepam 1 MG TABLET PO ×3 (11:34→22:50)
--- NOTE | 2022-03-31 11:47 | MHC.CM.ED ---
Patient remains in ER. SNF choices are [facility], [facility]. [facility] are not able to offer a bed. Waiting to hear from [facility]. Patient will need a Level 2 due to bipolar. T/W already submitted for [facility] PAS[facility] Level 2. Continue to monitor for d/c needs.
[2022-03-31] MEDS: PARoxetine HCL 30 MG TABLET PO (12:12)
--- NOTE | 2022-03-31 14:23 | MHC.CM.PN ---
[facility] is not able to offer a bed because they're not contracted with [facility]. [facility], [facility], and [facility] are able to offer a bed. Attempted to speak with patient's brother/HCP, Raj via telephone at [phone]. Raj did not quill picking machine operator the phone and unable to leave a voicemail. Will attempt to call again. Psych consult for capacity is still pending. Continue to monitor for d/c needs.
--- NOTE | 2022-03-31 15:56 | PC.NURSE ---
pt was pt on bed wolfe. pct supriya took pt off of bed wolfe and is now resting comfortably
--- NOTE | 2022-03-31 17:22 | PM.PSYCN ---
History of Present Illness Date of Service: 03/31/22 Chief Complaint: CHRONIC ABD/LEG PAIN , NEED FOR CM INV PER EMS Reason for Consult: assess for capacity to make decision on discharging home Requesting physician: Lucille Martinez Discussed with referring provider: Yes Sources of Information: patient interviewed, chart reviewed and crisis/core team assessment reviewed HPI Narrative: Patient is a 76-year-old female with history bipolar do, right ankle injury, who presents to the ED complaining of struggling to care for her needs at home. Skid Man asked to assess patient's capacity to make a decision whether not she can return home and live on her own. Patient is bright and cooperative on meeting. Patient knows her name, date of ; she knows the year, month and day, where she is, the floor she is on and the reason she has come to the hospital; knows the president and got a 2/3 on memory recall. She knows most of her medications and what they are used for and the importance of taking them as prescribed. Patient shared that she has been having trouble taking care of herself at home; she says she is able to bathe and clean herself but has much difficulty attending to other ADLs. Patient reports that she needs either daily in home care or to go to a residential-type of facility. She says she lives with her brother who is problematic and aggravating. Patient would prefer to go to a residential if one were available. Past Psychiatric History: bipolar disorder Medical Evaluation Reviewed: Yes [facility] Medical History Bacteremia due to coagulase-negative Staphylococcus (08/09/19) Bipolar disorder Bowel incontinence Cataract Cellulitis Chronic constipation Chronic obstructive lung disease (10/26/19) Chronic osteomyelitis of right ankle Chronic pyelonephritis CKD (chronic kidney disease) stage 3, GFR 30-59 ml/min Compression fracture of lumbar vertebra Diverticulitis Diverticulosis Family history of colon cancer Hernia, hiatal Hernia, ventral Herpes zoster involving cervical dermatome HTN (hypertension) Kidney disease Leg pain, right Lumbar spinal stenosis Lumbosacral radiculitis Osteoporosis (10/21/19) Rectal bleed Recurrent urinary tract infection Tobacco abuse Underweight Unsteady gait Urinary retention (08/22/19) Surgical History H/O abdominal surgery History of incisional hernia repair Hx of cholecystectomy S/P appendectomy Diagnostics Vital Signs (24Hr): Vital Signs - 24 hr 03/30/22 20:37 03/31/22 00:19 03/31/22 01:41 Temperature 97.9 F 98.2 F Pulse Rate 68 72 Respiratory Rate 16 16 18 Blood Pressure 177/61 H 140/53 H Pulse Oximetry 97 96 Oxygen Delivery Method Room Air Room Air 03/31/22 06:04 03/31/22 08:14 Temperature Pulse Rate 76 Respiratory Rate 16 18 Blood Pressure 155/60 H Pulse Oximetry 95 Oxygen Delivery Method Room Air BMI result Body Mass Index 21.0 Labs Results: 03/30/22 15:25 03/30/22 15:25 Labs: Laboratory Results - last 48 hr 03/30/22 03/30/22 03/30/22 15:25 15:25 15:25 WBC 5.2 RBC 3.28 L Hgb 10.6 L Hct 33.0 L MCV 100.6 H MCH 32.3 MCHC 32.1 RDW 13.1 Plt Count 270 MPV 9.9 Immature Gran % (Auto) 0.2 Neut % (Auto) 60.5 Lymph % (Auto) 29.7 [place] % (Auto) 7.1 Eos % (Auto) 1.9 Baso % (Auto) 0.6 Lymph # (Auto) 1.5 [place] # (Auto) 0.4 Eos # (Auto) 0.1 Baso # (Auto) 0.0 Abs Immat Gran (auto) 0.01 Absolute Neuts (auto) 3.1 Absolute Nucleated RBC 0.000 Nucleated RBC % (auto) 0.0 Sodium 144 Potassium 4.5 Chloride 108 Carbon Dioxide 26 Anion Gap 15 BUN 22 H Creatinine 1.02 Estim Creat Clear Calc 36.5 Estimated GFR 53 Random Glucose 98 Calcium 8.9 Magnesium Total Bilirubin 0.3 Direct Bilirubin < 0.2 AST 18 ALT 10 Alkaline Phosphatase 70 D Troponin I High Sens 7.3 Total Protein 5.8 L Albumin 3.2 L Lipase Urine Color Urine Appearance Urine pH Ur Specific [place] Urine Protein Urine Glucose (UA) Urine Ketones Urine Blood Urine Nitrite Ur Leukocyte Esterase Urine Opiates Screen Urine Fentanyl Screen Ur Barbiturates Screen Ur Phencyclidine Scrn Ur Amphetamines Screen U Benzodiazepines Scrn Urine Cocaine Screen U Marijuana (THC) Screen Ethyl Alcohol COVID-19 (OPHELIA) COVID-19 Clin Com 03/30/22 03/30/22 03/30/22 15:25 16:22 16:22 WBC RBC Hgb Hct MCV MCH MCHC RDW Plt Count MPV Immature Gran % (Auto) Neut % (Auto) Lymph % (Auto) [place] % (Auto) Eos % (Auto) Baso % (Auto) Lymph # (Auto) [place] # (Auto) Eos # (Auto) Baso # (Auto) Abs Immat Gran (auto) Absolute Neuts (auto) Absolute Nucleated RBC Nucleated RBC % (auto) Sodium Potassium Chloride Carbon Dioxide Anion Gap BUN Creatinine Estim Creat Clear Calc Estimated GFR Random Glucose Calcium Magnesium 2.2 Total Bilirubin Direct Bilirubin AST ALT Alkaline Phosphatase Troponin I High Sens Total Protein Albumin Lipase 27 Urine Color Yellow Urine Appearance Clear Urine pH 6.0 Ur Specific [place] 1.010 Urine Protein Negative Urine Glucose (UA) Negative Urine Ketones Trace Urine Blood Negative Urine Nitrite Negative Ur Leukocyte Esterase Negative Urine Opiates Screen Urine Fentanyl Screen Ur Barbiturates Screen Ur Phencyclidine Scrn Ur Amphetamines Screen U Benzodiazepines Scrn Urine Cocaine Screen U Marijuana (THC) Screen Ethyl Alcohol < 10 COVID-19 (OPHELIA) Negative COVID-19 Clin Com See Note 03/30/22 16:22 WBC RBC Hgb Hct MCV MCH MCHC RDW Plt Count MPV Immature Gran % (Auto) Neut % (Auto) Lymph % (Auto) [place] % (Auto) Eos % (Auto) Baso % (Auto) Lymph # (Auto) [place] # (Auto) Eos # (Auto) Baso # (Auto) Abs Immat Gran (auto) Absolute Neuts (auto) Absolute Nucleated RBC Nucleated RBC % (auto) Sodium Potassium Chloride Carbon Dioxide Anion Gap BUN Creatinine Estim Creat Clear Calc Estimated GFR Random Glucose Calcium Magnesium Total Bilirubin Direct Bilirubin AST ALT Alkaline Phosphatase Troponin I High Sens Total Protein Albumin Lipase Urine Color Urine Appearance Urine pH Ur Specific [place] Urine Protein Urine Glucose (UA) Urine Ketones Urine Blood Urine Nitrite Ur Leukocyte Esterase Urine Opiates Screen Not Detected Urine Fentanyl Screen Not Detected Ur Barbiturates Screen Not Detected Ur Phencyclidine Scrn Not Detected Ur Amphetamines Screen Not Detected U Benzodiazepines Scrn Not Detected Urine Cocaine Screen Not Detected U Marijuana (THC) Screen Not Detected Ethyl Alcohol COVID-19 (OPHELIA) COVID-19 Clin Com Mental Status Exam Mental Status Exam Narrative: Pt is alert and oriented to person, self, time, situation; behavior is cooperative, friendly and calm; patient is not in distress; dressed in hospital attire with unkempt hair but adequate hygiene; mood is described as good and affect congruent; eye contact appropriate; Speech is normal rate, volume and prosody and not pressured; no psychomotor agitation/retardation present; thought process is organized and goal directed, though sometimes repeating herself; Thought content is on getting help with health issues; otherwise pertinent to relevant topics and without any delusional content, paranoid ideations or grandiosity; denies any SI/HI. There is no evidence of perceptual disturbance. Patients insight and judgment appear intact. Medications Medications Current Medications Ascorbic Acid (Ascorbic Acid 500 Mg Tablet) 500 mg PO DAILY COUNTS INCLUDE 234 BEDS AT THE [facility] Last Admin: 03/31/22 11:33 Dose: 500 mg Doxycycline Hyclate (Doxycycline Hyclate 100 Mg Tablet) 100 mg PO BID COUNTS INCLUDE 234 BEDS AT THE [facility] Folic Acid (Folic Acid 1 Mg Tablet) 1 mg PO DAILY COUNTS INCLUDE 234 BEDS AT THE [facility] Last Admin: 03/31/22 11:33 Dose: 1 mg Furosemide (Furosemide 20 Mg Tablet) 20 mg PO DAILY COUNTS INCLUDE 234 BEDS AT THE [facility]; Protocol Last Admin: 03/31/22 11:34 Dose: 20 mg Lorazepam (Lorazepam 1 Mg Tablet) 1 mg PO TID COUNTS INCLUDE 234 BEDS AT THE [facility] Last Admin: 03/31/22 15:54 Dose: 1 mg Melatonin (Melatonin 3 Mg Tablet) 3 mg PO BEDTIME COUNTS INCLUDE 234 BEDS AT THE [facility] Multivitamins/Vitamin C (Multivitamin Tablet) 1 tab PO DAILY COUNTS INCLUDE 234 BEDS AT THE [facility] Last Admin: 03/31/22 11:34 Dose: 1 tab Non-Formulary Medication (Methenamine Hippurate) 1 gm PO BID COUNTS INCLUDE 234 BEDS AT THE [facility] Oxcarbazepine (Oxcarbazepine 150 Mg Tablet) 150 mg PO BID COUNTS INCLUDE 234 BEDS AT THE [facility] Last Admin: 03/31/22 11:34 Dose: 150 mg Paroxetine HCl (Paroxetine Hcl 30 Mg Tablet) 30 mg PO DAILY COUNTS INCLUDE 234 BEDS AT THE [facility] Last Admin: 03/31/22 12:12 Dose: 30 mg Pharmacy Consult (Consult Rx Perform Med Rec) 1 each MISCELLANE ONCE PRN PRN Reason: Consult order Propranolol HCl (Propranolol Hcl 10 Mg Tablet) 10 mg PO TID COUNTS INCLUDE 234 BEDS AT THE [facility]; Protocol Last Admin: 03/31/22 15:54 Dose: 10 mg Senna/Docusate Sodium (Sennosides/Docusate Sodium Tablet) 2 tab PO BEDTIME COUNTS INCLUDE 234 BEDS AT THE [facility] Trazodone HCl (Trazodone Hcl 25 Mg Halftab) 25 mg PO BEDTIME COUNTS INCLUDE 234 BEDS AT THE [facility] Vitamin D (Cholecalciferol (Vitamin D3) 25 Mcg Tablet) 50 mcg PO DAILY COUNTS INCLUDE 234 BEDS AT THE [facility] Last Admin: 03/31/22 11:33 Dose: 50 mcg Allergies Allergies Allergy/AdvReac Type Severity Reaction Status Date / Time ibuprofen [IBUPROFEN] Allergy Intermediate KIDNEY Verified 07/19/21 20:57 PROBLEMS oxycodone [From OXYCONTIN] Allergy Unknown UNKNOWN Verified 07/19/21 20:57 Sulfa (Sulfonamide Allergy Unknown UNKNOWN Verified 07/19/21 20:57 Antibiotics) [SULFA (SULFONAMIDE ANTIBIOTICS)] Ibuprofen Allergy Unknown Unknown Uncoded 07/19/21 20:57 Sulfer Allergy Unknown Unknown Uncoded 07/19/21 20:57 Assessment & Plan Assessment & Plan (1) Bipolar disorder: Status: Acute Code(s): F31.9 - Bipolar disorder, unspecified Plan Patient is a 76-year-old female with history bipolar do, right ankle injury, who presents to the ED complaining of struggling to care for her needs at home. Skid Man asked to assess patient's capacity to make a decision whether not she can return home and live on her own. Assessment: At this time patient has capacity to decide about her healthcare issues, specifically regarding whether not she is able to live on her own.? Patient is aware and oriented to self, time, place and situation.? She understands both factually and with insight, the nature of her physical and psychiatric ailments and her need for treatment; this is evidenced by her ability to name most of her medications, what they are used for, the importance of taking them as prescribed and eagerness to do so. ?She understands her the challenges of her current living situation; she volunteers that she is unable to care for herself on her own in her apartment; she understands the risks/consequences of being left on her own and is asking for help.? Patient is able to express her choice in the matter and would like to leave her home and move to a permanent long-term care facility.? Given this assessment it is administrative underwriter's opinion the patient has the capacity to make medical decisions regarding her living situation. I spent minutes with the patient and/or on the patient floor today, greater than?50% of which was spent counseling/coordinating care. Patient educated on: diagnosis, medication risk/benefits and other (living situation) Informed Consent: understands
[2022-03-31] MEDS: traZODone HCL 25 MG HALFTAB PO (22:48)
[2022-03-31] MEDS: Sennosides/Docusate Sodium TABLET 2 TAB PO (22:49)
[2022-03-31] MEDS: Melatonin 3 MG TABLET PO (22:49)
[2022-03-31 22:52] VITALS: BP 122/53; PULSE 69; RESP 16; TEMP 36.8; O2SAT 95
--- NOTE | 2022-03-31 23:02 | PC.NURSE ---
Pt V/S are stable, pt Cath was empty and it had a total 1,000ml output. PT meds were administered as order by the doc.
--- NOTE | 2022-03-31 23:17 | PC.NURSE ---
PT repositioned in bed. Bed pads changed. Pt given warm blankets another pillow and call ritter placed in reach
[2022-04-01 05:23] VITALS: BP 140/56; PULSE 67; RESP 15; TEMP 36.4; O2SAT 94
--- NOTE | 2022-04-01 05:26 | PC.NURSE ---
Pt repositioned in bed and checked for incontinece. PT Dry. Pt damian was emptied with a output of 400. Pt given warm blanket and call ritter placed in reach
[2022-04-01 08:13] VITALS: BP 119/54; PULSE 67; RESP 16; O2SAT 96
[2022-04-01] MEDS: Ascorbic Acid 500 MG TABLET PO (09:18)
[2022-04-01] MEDS: Propranolol HCL 10 MG TABLET PO (09:18)
[2022-04-01] MEDS: Multivitamin TABLET 1 TAB PO (09:18)
[2022-04-01] MEDS: LORazepam 1 MG TABLET PO (09:18)
[2022-04-01] MEDS: Folic Acid 1 MG TABLET PO (09:18)
[2022-04-01] MEDS: Furosemide 20 MG TABLET PO (09:18)
[2022-04-01] MEDS: OXcarbazepine 150 MG TABLET PO (09:18)
--- NOTE | 2022-04-01 09:36 | PC.NURSE ---
walked pt to bathroom, got cleaned up, ambulated around unit.
[2022-04-01] MEDS: PARoxetine HCL 30 MG TABLET PO (09:51)
[2022-04-01] MEDS: Cholecalciferol (Vitamin D3) 25 MCG TABLET 50 MCG PO (09:51)
--- NOTE | 2022-04-01 12:12 | MHC.CM.ED ---
Pt has been accepted to [facility] today at 1:30 via [facility]. Pt in agreement with d/c plan: ED care team and pt's HCP, Ray also informed and in agreement.
--- NOTE | 2022-04-01 14:23 | PC.NURSE ---
REPORT TO KERA AT [facility].
== END 2022-04-01 14:24 ==
PROVIDERS: Emergency Provider Emergency Medicine; PCP Internal Medicine
DX: R33.9 Retention of urine, unspecified (principal); R53.1 Weakness; R26.9 Unspecified abnormalities of gait and mobility; F17.200 Nicotine dependence, unspecified, uncomplicated; Z20.822 Contact with and (suspected) exposure to COVID-19; Z79.899 Other long term (current) drug therapy; Z71.6 Tobacco abuse counseling
CPT/HCPCS: 36415; 80048; 80076; 80307; 81003; 82077; 83690; 83735; 84484; 85025; 87635; 93005; 97162; 99285

== ENCOUNTER 2023-02-19 18:18 | Emergency (ER) | payer OTHER, SELFPAY ==
--- NOTE | ~2023-02-19 | XR_ITS ---
Indication: Fall, pain EXAMINATION: Right ankle, right hip., Pelvis 3 views the right ankle are compared to previous dated 01/11/2022. Hardware in place. No evidence for an acute fracture or dislocation. Right hip. 2 views of the pelvis and 2 views of the right hip. Imaging in the pelvis does not demonstrate an acute finding. Limited from overlying bowel gas. 2 views of the right hip does not show evidence for acute fracture or dislocation. Degenerative changes are noted. XR/XR hip RT w PEL1V IMPRESSION: No acute finding in the right ankle, pelvis or right hip.
--- NOTE | ~2023-02-19 | CT_ITS ---
CT HEAD WITHOUT IV CONTRAST CT CERVICAL SPINE WITHOUT IV CONTRAST INDICATION: Trauma. COMPARISON: Head and cervical spine CT 02/12/2022. TECHNIQUE: Multidetector CT acquisitions of the head and cervical spine were obtained without IV contrast. Multiplanar reformats were acquired and utilized for image interpretation. This CT examination was performed using dose optimization techniques as appropriate, variously including the following: *Automated exposure control *Adjustment of mA and/or kV according to patient size (this includes techniques or standardized protocols for targeted exams where dose is matched to indication/reason for exam; i.e. extremities or head) *Use of iterative reconstruction technique FINDINGS: HEAD: There is global cerebral volume loss and there is mild chronic microangiopathy. There is no intracranial hemorrhage, hydrocephalus, extra-axial surface collection, midline shift, or other herniation pattern. Gil to white matter differentiation is diffusely maintained without evidence of an evolved acute territorial infarct. The basilar cisterns are preserved. No significant soft tissue abnormality. No acute osseous abnormality. The paranasal sinuses and the mastoid air cells are well aerated. There are bilateral lens extractions. Cerumen within the right external auditory canal. Advanced degenerative changes involving the TMJs bilaterally. CERVICAL SPINE: Stable degenerative anterior subluxation of C4 on C5. No acute fractures no acute subluxations are identified with assessment limited by the degree of osteopenia. There is advanced multilevel hypertrophic facet arthropathy. There are multilevel endplate osteophytes. Mild chronic upper endplate compression deformity at T1 is stable. Hypertrophic degenerative changes involving the atlantodental interval. There is no prevertebral soft tissue swelling. Biapical pleural parenchymal scarring. CT/CT cervical spine wo IV con IMPRESSION: 1. No acute intracranial abnormality. There is global cerebral volume loss and there is mild chronic microangiopathy. 2. No acute osseous abnormality within the cervical spine. Stable appearing multilevel cervical spondylosis.
--- NOTE | ~2023-02-19 | XR_ITS ---
Indication: Fall, pain EXAMINATION: Right ankle, right hip., Pelvis 3 views the right ankle are compared to previous dated 01/11/2022. Hardware in place. No evidence for an acute fracture or dislocation. Right hip. 2 views of the pelvis and 2 views of the right hip. Imaging in the pelvis does not demonstrate an acute finding. Limited from overlying bowel gas. 2 views of the right hip does not show evidence for acute fracture or dislocation. Degenerative changes are noted. XR/XR ankle RT min 3V IMPRESSION: No acute finding in the right ankle, pelvis or right hip.
[2023-02-19 18:32] VITALS: BP 109/45; BP 109/65; PULSE 56; PULSE 59; RESP 18; TEMP 36.4; O2SAT 92; O2SAT 95; BMI 21.2
--- NOTE | 2023-02-19 18:38 | ED_ITS ---
HPI - Fall General Chief Complaint: Fall Stated Complaint: unwit. mechanical fall, back & R leg pain Time Seen by Provider: 02/19/23 18:22 Source: patient Mode of arrival: EMS Limitations: other (poor historian ) History of Present Illness HPI Narrative: 77 yo female with hx of HTN, COPD, UTI, bipolar disorder, was transferring from chair to bed and fell - she denies any preceding symptoms states she slipped - pain to R ankle, hip and head. She is at her baseline, she is confused at baseline. MD complaint: fall Onset (ago): hour(s) (1) Fall from: chair Fall witnessed: no Place fall occurred: residential[facility] Loss of consciousness: none Prolonged down time: no Symptoms prior to fall: none Context: tripped/slipped Location of injury: head and pelvis Location of injury - extremities: right: ankle Severity: mild Quality: dull and aching Associated symptoms (after fall): denies Related Data Home Medications Medication Instructions Recorded Confirmed alendronate 70 mg tablet 70 mg PO ANGEL@0600 07/27/21 03/31/22 ascorbic acid (vitamin C) 500 mg 500 mg PO DAILY 07/27/21 03/31/22 tablet (Vitamin C) cholecalciferol (vitamin D3) 50 50 mcg PO DAILY 07/27/21 03/31/22 mcg (2,000 unit) capsule (Vitamin D3) cranberry extract 250 mg capsule 250 mg PO BID 07/27/21 03/31/22 folic acid 1 mg tablet 1 mg PO DAILY 07/27/21 03/31/22 furosemide 20 mg tablet 20 mg PO DAILY 07/27/21 03/31/22 lorazepam 1 mg tablet 1 mg PO TID 07/27/21 03/31/22 melatonin 3 mg tablet 3 mg PO BEDTIME 07/27/21 03/31/22 methenamine hippurate 1 gram tablet 1 g PO BID 07/27/21 03/31/22 multivitamin 1 tab PO DAILY 07/27/21 03/31/22 oxcarbazepine 150 mg tablet 150 mg PO BID 07/27/21 03/31/22 paroxetine HCl 30 mg tablet 30 mg PO DAILY 07/27/21 03/31/22 propranolol 10 mg tablet 10 mg PO TID 07/27/21 03/31/22 sennosides 8.6 mg-docusate sodium 2 tab PO BEDTIME 07/27/21 03/31/22 50 mg tablet (Senna Plus) trazodone 50 mg tablet 25 mg PO BEDTIME 07/27/21 03/31/22 doxycycline hyclate 100 mg capsule 1 cap PO BID 02/12/22 03/31/22 Lactobacillus acidophilus 0.5 mg 0.5 mg PO TID 03/31/22 03/31/22 (100 million cell) tablet Allergies Allergy/AdvReac Type Severity Reaction Status Date / Time ibuprofen [IBUPROFEN] Allergy Intermediate KIDNEY Verified 07/19/21 20:57 PROBLEMS oxycodone [From OXYCONTIN] Allergy Unknown UNKNOWN Verified 07/19/21 20:57 Sulfa (Sulfonamide Allergy Unknown UNKNOWN Verified 07/19/21 20:57 Antibiotics) [SULFA (SULFONAMIDE ANTIBIOTICS)] Ibuprofen Allergy Unknown Unknown Uncoded 07/19/21 20:57 Sulfer Allergy Unknown Unknown Uncoded 07/19/21 20:57 Review of Systems 2 Review of Systems: ROS unable to be obtained due to poor historian PMFSH Past Medical History Attestation statement: The following information was validated with the patient. Source: old records reviewed Medical History Recurrent urinary tract infection Hernia, ventral Diverticulitis Urinary retention (08/22/19) Unsteady gait Underweight Tobacco abuse Rectal bleed Osteoporosis (10/21/19) Herpes zoster involving cervical dermatome Lumbosacral radiculitis Lumbar spinal stenosis Leg pain, right HTN (hypertension) Hernia, hiatal Family history of colon cancer Diverticulosis Compression fracture of lumbar vertebra CKD (chronic kidney disease) stage 3, GFR 30-59 ml/min Chronic pyelonephritis Chronic osteomyelitis of right ankle Chronic obstructive lung disease (10/26/19) Chronic constipation Cataract Bowel incontinence Bacteremia due to coagulase-negative Staphylococcus (08/09/19) Cellulitis Kidney disease Bipolar disorder Surgical History History of incisional hernia repair Hx of cholecystectomy S/P appendectomy H/O abdominal surgery Social History Social History Alcohol intake: former Patient Tobacco Use Status: Current everyday Tobacco user Smoked in Last 30 Days: No Use of substances other than those prescribed or required for medical reasons: No Advance Directives: Yes Advance Directives on File: Yes Advance Directives Date on File: 12/23/21 Physical Exam 2 Vital Signs: Vital Signs: Last Vital Signs Temp 97.6 F 02/19/23 23:20 Pulse 57 02/19/23 23:20 Resp 17 02/19/23 23:20 BP 129/62 02/19/23 23:20 Pulse Ox 94 02/19/23 23:20 O2 Del Method Room Air 02/19/23 23:20 BMI result Body Mass Index 21.2 Appearance: Alert. Oriented X2. No acute distress. Eyes: Pupils equal, round and reactive to light. ENT: Pharynx normal. atraumatic Neck: Normal inspection. Neck supple. CVS: Normal heart rate and rhythm. Pulses normal. Respiratory: No respiratory distress. Breath sounds normal. Abdomen: Soft and nontender. Skin: Skin warm and dry. Normal skin color. Normal skin turgor. Extremities: No lower extremity edema. No calf ttp I can range her ext without issue reports pain in R ankle Neuro: Oriented X 2 No motor deficit. No sensory deficit. Course Course Course Narrative: SNF states that the patient had unwitnessed fall - will obtain EKG and labs, UA Reevaluation(s) Reevaluation #1: mild YOJANA will give fluids and recheck Medications Administered Discontinued Medications Generic Name Dose Route Start Last Admin Trade Name Freq PRN Reason Stop Dose Admin Sodium Chloride 1,000 mls @ 999 mls/hr 02/19/23 22:30 02/19/23 23:15 Ns IV 02/19/23 23:30 999 mls/hr .Q1H1M JARAD Administration Sodium Chloride 500 mls @ 500 mls/hr 02/19/23 22:30 02/19/23 23:16 Ns IV 02/19/23 23:29 500 mls/hr .Q1H JARAD Administration Medical Decision Making Medical Decision Making MDM Narrative: 7 yo female with hx of HTN, COPD, UTI, bipolar disorder here with c/o fall while transferring she c/o head strike no LOC and hip and ankle pain at this time CT scans and xrays ordered - RN states it was witnessed but then another report states it was not witnessed. She denies any CP/SOB. We will call facility to confirm. Differential Diagnosis Differential Diagnoses: The differential diagnosis associated with the presentation includes fall , sprain, strain ICH, fracture Admission/Observation Consideration of admission/observation: Escalation of care including admission/observation considered Cr improved can be DC fluid responsive will hold nephrotoxic agents Lab Data MDM Lab Attestation statement: I reviewed the patient's lab results. 02/19/23 21:51 02/20/23 00:52 Labs: Lab Results 02/19/23 02/19/23 02/20/23 Range/Units 21:51 23:26 00:52 WBC 7.8 (4.8-10.8) X10*3/uL RBC 3.93 L (4.20-5.50) X10*6/uL Hgb 12.9 D (12.0-16.0) g/dl Hct 39.4 (37.0-47.0) % MCV 100.3 H (80.0-98.0) fL MCH 32.8 (27.0-33.0) pg MCHC 32.7 (31.0-35.0) g/dl RDW 12.2 (11.0-16.0) % Plt Count 219 (160-400) X10*3/uL MPV 10.4 (9.4-12.3) fL Immature Gran % (Auto) 0.3 (0.0-0.4) % Neut % (Auto) 65.1 (45-73) % Lymph % (Auto) 26.2 (20-40) % [place] % (Auto) 6.6 (2-11) % Eos % (Auto) 1.4 (0-4) % Baso % (Auto) 0.4 (0-2) % Lymph # (Auto) 2.1 (1.2-4.9) X10*3/uL [place] # (Auto) 0.5 (0.1-1.2) X10*3/uL Eos # (Auto) 0.1 (0.0-0.4) X10*3/uL Baso # (Auto) 0.0 (0.0-0.2) X10*3/uL Abs Immat Gran (auto) 0.02 (0.00-0.03) X10*3/uL Absolute Neuts (auto) 5.1 (2.0-8.3) x10*3/uL Absolute Nucleated RBC 0.000 (0.0-0.012) X10*3/uL Nucleated RBC % (auto) 0.0 (0.0-0.2) /100WBC Sodium 144 144 (135-145) mmol/L Potassium 4.2 3.6 (3.3-5.1) mmol/L Chloride 107 112 H (96-108) mmol/L Carbon Dioxide 29 25 (22-29) mmol/L Anion Gap 12 11 L (12-20) BUN 52 H 48 H (9-16) mg/dL Creatinine 1.73 H 1.41 H (0.5-1.4) mg/dL Estim Creat Clear Calc 19.2 23.5 Estimated GFR 28 36 Random Glucose 99 93 (60-115) mg/dL Calcium 9.2 8.3 L D (8.4-10.2) mg/dL Magnesium 2.3 (1.6-2.6) mg/dL Troponin I High Sens < 2.7 (<3.5-17.0) ng/L Urine Color Yellow Urine Appearance Clear Urine pH 5.5 (5.0-9.0) Ur Specific [place] 1.010 (1.005-1.025) Urine Protein Negative (Neg-Trace) mg/dL Urine Glucose (UA) Negative (Negative) mg/dL Urine Ketones Negative (Negative) mg/dL Urine Blood Negative (Negative) Urine Nitrite Negative (Negative) Ur Leukocyte Esterase Trace H (Negative) Urine RBC 0-2 (0-2) /HPF Urine WBC 0-5 (0-5) /HPF Ur Squamous Epith Cells 0-2 (0-2) /HPF Urine Bacteria None Seen (None Seen) Hyaline Casts 0-2 (0-2) /LPF Independent Interpretation I performed an independent interpretation of an: EKG, Plain X-Ray (no trauma) and CT Scan (no trauma) Interpretation: Rate: 55 Rhythm: sinus bradycardia [place]: normal Normal P waves. Normal BRANDON. Normal QRS complex. ST T wave : normal no DORETHA, inverted V1 qTC: normal prior studies: no acute ischemia The study has been interpreted contemporaneously by me. . Radiology Impression Discussion of test interpretation with radiology: I have reviewed the radiologist's reading. Independent Historian Clinical information obtained from an independent historian. History obtained from or confirmed by: EMS External Record Review External record reviewed: Inpatient record Discharge Plan Discharge Clinical Impression: YOJANA (acute kidney injury) Fall Qualifiers: Encounter type: initial encounter Qualified Code(s): W19.XXXA - Unspecified fall, initial encounter Patient Disposition: Home, Self-Care Instructions: Acute Kidney Injury (DC), Fall Prevention (ED) Additional Instructions: HOLD FUROSEMIDE FOR THE NEXT 3 DAYS AND RECHECK KIDNEY FUNCTION IN 2 DAYS. ENCOURAGE FLUIDS. MONITOR FOR DECREASED URINE OUTPUT PAIN, CONFUSION OR ANY OTHER CONCERNS. NORMAL CT HEAD AND NECK, NO HIP FRACTURE NO ANKLE FRACTURE Prescriptions: No Action multivitamin Tablet 1 tab PO DAILY oxcarbazepine 150 mg tablet 150 mg PO BID trazodone 50 mg tablet 25 mg PO BEDTIME alendronate 70 mg tablet 70 mg PO ANGEL@0600 sennosides-docusate sodium [Senna Plus] 8.6-50 mg tablet 2 tab PO BEDTIME melatonin 3 mg tablet 3 mg PO BEDTIME cranberry extract 250 mg capsule 250 mg PO BID propranolol 10 mg tablet 10 mg PO TID methenamine hippurate 1 gram tablet 1 g PO BID ascorbic acid (vitamin C) [Vitamin C] 500 mg tablet 500 mg PO DAILY paroxetine HCl 30 mg tablet 30 mg PO DAILY folic acid 1 mg tablet 1 mg PO DAILY furosemide 20 mg tablet 20 mg PO DAILY lorazepam 1 mg tablet 1 mg PO TID cholecalciferol (vitamin D3) [Vitamin D3] 50 mcg (2,000 unit) capsule 50 mcg PO DAILY Lactobacillus acidophilus 0.5 mg (100 million cell) Tablet 0.5 mg PO TID doxycycline hyclate 100 mg capsule 1 cap PO BID
--- NOTE | 2023-02-19 19:05 | PC.NURSE ---
this RN assumed care. pt able to state name, where she is and what year it is. respirations even and unlabored. pt confirms having a fall at SNF while using walker, endorses mechanical fall.pt denies head strike and LOC. pt reports right ankle pain at this time. pt has a bandage in place covering a old healing wound, purulent drainage noted on bandage, provider aware. non adherent bandage placed.
[2023-02-19 20:36] VITALS: BP 112/43; PULSE 54; RESP 16; O2SAT 96
--- NOTE | 2023-02-19 20:50 | ECG_ITS ---
Test Reason : FALL Blood Pressure : / mmHG Vent. Rate : 055 BPM Atrial Rate : 055 BPM P-R Int : 180 ms QRS Dur : 082 ms QT Int : 446 ms P-R-T Axes : 066 049 059 degrees QTc Int : 426 ms Sinus bradycardia Otherwise normal ECG When compared with ECG of 30-MAR-2022 16:06, Heart rate has decreased Referred By: Emelia Stokes Electronically Signed By:YUKO ESTEVEZ
[2023-02-19 21:58] LABS: MANUAL DIFF FLAG NO
[2023-02-19 22:06] LABS: Basophils Percent Auto 0.4 % (0-2); Eosinophils Absolute Auto 0.1 X10*3/uL (0.0-0.4); Eosinophils Percent Auto 1.4 % (0-4); Hematocrit 39.4 % (37.0-47.0); Hemoglobin 12.9 g/dl (12.0-16.0); Imm Gran Abs Auto 0.02 X10*3/uL (0.00-0.03); Imm Gran Pct Auto 0.3 % (0.0-0.4); Lymphocytes Absolute Auto 2.1 X10*3/uL (1.2-4.9); Lymphocytes Percent Auto 26.2 % (20-40); Mean Corpuscular HGB Conc 32.7 g/dl (31.0-35.0); Mean Corpuscular Hemoglobin 32.8 pg (27.0-33.0); Mean Corpuscular Volume 100.3 fL (80.0-98.0); Mean Platelet Volume 10.4 fL (9.4-12.3); Monocytes Absolute Auto 0.5 X10*3/uL (0.1-1.2); Monocytes Percent Auto 6.6 % (2-11); Neutrophils Absolute Auto 5.1 x10*3/uL (2.0-8.3); Neutrophils Percent Auto 65.1 % (45-73); Platelet Count 219 X10*3/uL (160-400); Red Blood Count 3.93 X10*6/uL (4.20-5.50); Red Cell Distribution Width 12.2 % (11.0-16.0); White Blood Count 7.8 X10*3/uL (4.8-10.8)
[2023-02-19 22:14] LABS: Anion Gap 12 (12-20); Blood Urea Nitrogen 52 mg/dL (9-16); Calcium 9.2 mg/dL (8.4-10.2); Carbon Dioxide 29 mmol/L (22-29); Chloride 107 mmol/L (96-108); Creatinine Clr Calc Pharmacy 19.2; Estimated Glomerular Filt Rate 28; Glucose Random 99 mg/dL (60-115); Magnesium 2.3 mg/dL (1.6-2.6); Potassium 4.2 mmol/L (3.3-5.1); Sodium 144 mmol/L (135-145)
[2023-02-19 22:23] LABS: Troponin-I High Sensitivity < 2.7 ng/L (<3.5-17.0)
--- NOTE | 2023-02-19 23:14 | MHC.EDTECH ---
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
[2023-02-19] MEDS: 0.9 % Sodium Chloride 1,000 ML 999 ML IV (23:15)
[2023-02-19] MEDS: 0.9 % Sodium Chloride 500 ML IV (23:16)
[2023-02-19 23:20] VITALS: BP 129/62; PULSE 57; RESP 17; TEMP 36.4; O2SAT 94
[2023-02-19 23:35] LABS: Appearance Urine Clear; Color Urine Yellow; Glucose Urine UA Negative (Negative); Leukocyte Esterase Urine Trace (Negative); Nitrite Urine Negative (Negative); PH 5.5 (5.0-9.0); UMIC TRIGGER UACC YES; Urine Blood Negative (Negative); Urine Ketones Negative (Negative); Urine Protein Negative (Neg-Trace)
[2023-02-19 23:38] LABS: Bacteria Urine None Seen (None Seen); Hyaline Casts Urine 0-2 /LPF (0-2); RBC Urine 0-2 /HPF (0-2); Squamous Epithelial Cell Urine 0-2 /HPF (0-2); WBC Urine 0-5 /HPF (0-5)
[2023-02-20 01:12] LABS: Anion Gap 11 (12-20); Blood Urea Nitrogen 48 mg/dL (9-16); Calcium 8.3 mg/dL (8.4-10.2); Carbon Dioxide 25 mmol/L (22-29); Chloride 112 mmol/L (96-108); Creatinine Clr Calc Pharmacy 23.5; Estimated Glomerular Filt Rate 36; Glucose Random 93 mg/dL (60-115); Potassium 3.6 mmol/L (3.3-5.1); Sodium 144 mmol/L (135-145)
--- NOTE | 2023-02-20 01:43 | PC.NURSE ---
attempted to give report to [facility]. no answer at this time.
--- NOTE | 2023-02-20 02:14 | PC.NURSE ---
called to provide report to [facility] nursing staff for returning pt. staff initial requested we hold pt until morning d/t staffing limitations. clarified we have no medical rational to hold pt after work up was completed with no acute findings. nurse accepted report with no further issues.
[2023-02-20 02:35] VITALS: BP 123/60; PULSE 64; RESP 17; TEMP 36.4; O2SAT 96
--- NOTE | 2023-02-20 04:48 | PC.NURSE ---
pt repositioned and bed linens changed at this time. brief placed on pt to hold purewick in place. pt given water, drank with no visible issues of swallowing.
== END 2023-02-20 06:07 | disposition home or self-care (01) ==
PROVIDERS: Emergency Provider Emergency Medicine; PCP Emergency Medicine
DX: S99.911A Unspecified injury of right ankle, initial encounter (principal); M54.50 Low back pain, unspecified; M79.604 Pain in right leg; R51.9 Headache, unspecified; M54.2 Cervicalgia; M25.551 Pain in right hip; R00.1 Bradycardia, unspecified; M25.571 Pain in right ankle and joints of right foot; W01.0XXA Fall on same level from slipping, tripping and stumbling without subsequent striking against object, initial encounter; Y93.9 Activity, unspecified; Y92.9 Unspecified place or not applicable; Y99.9 Unspecified external cause status; Z79.899 Other long term (current) drug therapy; F17.210 Nicotine dependence, cigarettes, uncomplicated; Z71.6 Tobacco abuse counseling
CPT/HCPCS: 36415; 51702; 70450; 72125; 73502; 73610; 80048; 81001; 83735; 84484; 85025; 93005; 96360; 96361; 99285